=== PATIENT | female | born 1990 | race Caucasian/White ===

== ENCOUNTER 2016-11-23 21:29 | Emergency (ER) | payer BC ==
[~2016-11-23] VITALS: Ht 167.6 cm; Wt 75.0 kg
[~2016-11-23 21:29] MED LIST: BNT20 PO; FAMO20TA11 PO
[2016-11-23 21:38] VITALS: TEMP 37.3; Ht 167.6 cm; Wt 75.0 kg
[2016-11-23] MEDS ORDERED: ONDANSETRON INJ 2 MG/ML 2 ML VIAL ONE (21:54)
[2016-11-23] MEDS ORDERED: MoRPHine SULFATE 4 MG/ML 1 ML CARP\\VIAL ONE (21:54)
[2016-11-23] MEDS ORDERED: SODIUM CHLORIDE 0.9% 1000ML 1,000 ML IV STA ×2 (21:54)
[2016-11-23] MEDS ORDERED: ONDANSETRON INJ 2 MG/ML 2 ML VIAL IV STA (21:54)
[2016-11-23] MEDS ORDERED: MoRPHine SULFATE 4 MG/ML 1 ML CARP\\VIAL IV STA (21:54)
[2016-11-23] MEDS ORDERED: HYDROmorphone INJ 1 MG/ML SYR IV STA (22:13)
[2016-11-23 22:14] LABS: BASO % 0.2 %; BASO ABS # 0.02 K/uL (0-0.2); COMPLETE YES; EOS % 3.6 %; HEMATOCRIT 39.4 % (37-47); IG% 0.1 %; LYMPH % 37.5 %; LYMPH ABS # 4.22 K/uL (1.2-3.4); MEAN CELL VOLUME 84.7 fL (80-100); MEAN CORPUSCULAR HEMOGLOBIN 30.8 pg (25-34); MEAN CORPUSCULAR HGB CONC 36.3 g/dl (32-36); MEAN PLATELET VOLUME 8.6 fL (7.4-10.4); MONO % 7.6 %; PLATELET COUNT 343 K/uL (130-400); RED BLOOD COUNT 4.65 M/uL (4.2-5.4); WHITE BLOOD COUNT 11.24 K/uL (4.8-10.8)
[2016-11-23 22:29] LABS: BUN/CREATININE RATIO 10.5 (10-20); CALCIUM 8.9 mg/dl (8.5-10.1); CREATININE 0.81 mg/dl (0.60-1.20); POTASSIUM 3.4 mmol/L (3.5-5.1); PREG INTERNAL NEGATIVE QC NEG CLEAR BACKGROUND; PREG INTERNAL POSITIVE QC POS CONTROL LINE
[2016-11-23 22:45] LABS: MANUAL MICROSCOPIC REQUIRED? NO; REVIEW REQ? YES; URINE APPEARANCE CLOUDY (CLEAR); URINE BILIRUBIN NEG (NEG); URINE COLOR YELLOW; URINE EPITHELIAL CELL AUTO >30 /lpf (0-5); URINE NITRITE NEG (NEG); URINE SPECIFIC GRAVITY 1.022 (1.000-1.030); UROBILINOGEN NEG (NEG); ZZUR CULT IF INDIC CLEAN CATCH YES
--- NOTE | 2016-11-23 22:56 | DIAGNOSTIC IMAGING REPORT ---
RENAL ULTRASOUND CLINICAL HISTORY: Severe right flank pain. Possible stone. COMPARISON STUDY: CT of the abdomen and pelvis May 23, 2011. TECHNIQUE: Sonography of the kidneys and the urinary bladder was performed. FINDINGS: The right kidney measures 10.7 x 5.4 x 5.9 cm and the left measures 10.4 x 5.8 x 5.1 cm. There is no left hydronephrosis. There is mild right hydronephrosis. A few tiny echogenic foci within the right renal sinus could reflect calculi. The bladder is suboptimally assessed due to underdistention. The ureteral jets were not visualized on this exam. IMPRESSION: 1. Mild right hydronephrosis. No ureteral calculi identified although these may be occult by sonography. 2. Possible right-sided nephrolithiasis. 3. No left hydronephrosis. Electronically signed by: Magen Farooq M.D. 11/23/2016 10:54 PM Dictated Date/Time: 11/23/2016 10:52 PM
[2016-11-24] MEDS ORDERED: KETOROLAC TROMETHAMINE 30 MG/ML VIAL IV STA (00:19)
[2016-11-24] MEDS ORDERED: OXYC1TAB3 PO (00:27)
[2016-11-24] MEDS ORDERED: ONDA4TAB10 SL (00:27)
[2016-11-24] MEDS ORDERED: OXYCODONE IR HOME PACK PO ONE (00:30)
[2016-11-24] MEDS ORDERED: ONDANSETRON HOME PACK 4MG OD TAB PO ONE (00:30)
[2016-11-24 00:50] VITALS: BP 130/75; PULSE 85; O2SAT 97
--- NOTE | 2016-11-24 02:33 | EMERGENCY ROOM VISIT NOTE ---
History First contact with patient: 21:48 Chief Complaint: BACK PAIN Stated Complaint: BAD PAIN IN BACK History of Present Illness The patient is a 26 year old female who presents to the Emergency Room with complaints of severe sudden onset of right flank pain with urinary frequency for the past day. Patient went her family care doctor and they did a urinalysis does not know the results. Patient states pain is severe, 9 out of 10. Nothing makes it better or worse. Patient denies chest pain, dyspnea, fever, chills, vomiting, diarrhea, dysuria, hematuria, abdominal pain, chest pain, dyspnea. No history kidney stones. No recent antibiotics. Review of Systems See HPI for pertinent positives & negatives. A total of 10 systems reviewed and were otherwise negative. Past Medical/Surgical History Appendectomy Social History Smoking Status: Never Smoker Smokeless Tobacco Use: No Drug Use: none Housing Status: lives with family Occupation Status: employed Current/Historical Medications Scheduled Control Pills ( Control Pills), 1 TAB PO DAILY Ondasetron Odt (Zofran Odt), 4 MG SL Q6H Scheduled PRN Oxycodone Immediate Rel Tab (Roxicodone Ir), 1-2 TAB PO Q4H PRN for Severe Pain Allergies Coded Allergies: No Known Allergies (Unverified , 05/22/11) Physical Exam Vital Signs Date Time Temp Pulse Resp B/P Pulse Ox O2 Delivery O2 Flow Rate FiO2 11/24/16 00:50 85 18 130/75 97 11/24/16 00:16 91 18 134/77 98 Room Air 11/23/16 22:56 76 18 140/78 99 Room Air 11/23/16 22:06 Room Air 11/23/16 22:06 94 20 142/94 11/23/16 21:38 37.3 113 20 189/130 98 Room Air Pain Rating (0-10): 9 Physical Exam VITALS: Vitals are noted on the nurse's note and reviewed by myself. Vital signs pretensive. GENERAL: White female writhing in pain unable to get comfortable, in no acute distress, nondiaphoretic, well-developed well-nourished. SKIN: The skin was without rashes, erythema, edema, or bruising. There is no tenting of the skin. Capillary reflex less than 2 seconds. HEAD: Normocephalic atraumatic. EARS: External auditory canals clear, tympanic membranes pearly barboza without erythema or effusion bilaterally. EYES: Pupils equal round and reactive to light and accommodation. Conjunctivae without injection, sclerae without icterus. Extraocular movements intact. NOSE: Patent, turbinates without inflammation or discharge. . MOUTH: Mucous membranes moist. Pharynx without erythema or exudate. Uvula midline. Airway patent. Tongue does not deviate. NECK: Supple without nuchal rigidity. No lymphadenopathy. No thyromegaly. Cervical spine is nontender. No JVD. HEART: Regular rate and rhythm without murmurs gallops or rubs. LUNGS: Clear to auscultation bilaterally without wheezes, rales or rhonchi. No dullness to percussion. No retractions or accessory muscle use. ABDOMEN: Positive bowel sounds x 4. Normal tympanic percussion. Soft, nontender, without masses or organomegaly. Thompson sign negative. No guarding or rebound tenderness. No CVA tenderness MUSCULOSKELETAL: No muscle atrophy, erythema, or edema noted. NEURO: Patient was alert and oriented to person place and time. Normal sensation to light and sharp touch. No focal neurological deficits. Medical Decision & Procedures Laboratory Results 11/23/16 21:54 Red Blood Count 4.65, Mean Corpuscular Volume 84.7, Mean Corpuscular Hemoglobin 30.8, Mean Corpuscular Hemoglobin Concent 36.3, Mean Platelet Volume 8.6, Neutrophils (%) (Auto) 51.0, Lymphocytes (%) (Auto) 37.5, Monocytes (%) (Auto) 7.6, Eosinophils (%) (Auto) 3.6, Basophils (%) (Auto) 0.2, Neutrophils # (Auto) 5.73, Lymphocytes # (Auto) 4.22, Monocytes # (Auto) 0.85, Eosinophils # (Auto) 0.41, Basophils # (Auto) 0.02 11/23/16 21:54 Test 11/23/16 21:54 11/23/16 22:32 White Blood Count 11.24 K/uL (4.8-10.8) Red Blood Count 4.65 M/uL (4.2-5.4) Hemoglobin 14.3 g/dL (12.0-16.0) Hematocrit 39.4 % (37-47) Mean Corpuscular Volume 84.7 fL (80-100) Mean Corpuscular Hemoglobin 30.8 pg (25-34) Mean Corpuscular Hemoglobin Concent 36.3 g/dl (32-36) Platelet Count 343 K/uL (130-400) Mean Platelet Volume 8.6 fL (7.4-10.4) Neutrophils (%) (Auto) 51.0 % Lymphocytes (%) (Auto) 37.5 % Monocytes (%) (Auto) 7.6 % Eosinophils (%) (Auto) 3.6 % Basophils (%) (Auto) 0.2 % Neutrophils # (Auto) 5.73 K/uL (1.4-6.5) Lymphocytes # (Auto) 4.22 K/uL (1.2-3.4) Monocytes # (Auto) 0.85 K/uL (0.11-0.59) Eosinophils # (Auto) 0.41 K/uL (0-0.5) Basophils # (Auto) 0.02 K/uL (0-0.2) RDW Standard Deviation 37.6 fL (36.4-46.3) RDW Coefficient of Variation 12.5 % (11.5-14.5) Immature Granulocyte % (Auto) 0.1 % Immature Granulocyte # (Auto) 0.01 K/uL (0.00-0.02) Anion Gap 11.0 mmol/L (3-11) Est Creatinine Clear Calc Drug Dose 110.8 ml/min Estimated GFR () 117.8 Estimated GFR (Non- 101.7 BUN/Creatinine Ratio 10.5 (10-20) Calcium Level 8.9 mg/dl (8.5-10.1) Total Bilirubin 0.5 mg/dl (0.2-1) Direct Bilirubin 0.1 mg/dl (0-0.2) Aspartate Amino Transf (AST/SGOT) 15 U/L (15-37) Alanine Aminotransferase (ALT/SGPT) 23 U/L (12-78) Alkaline Phosphatase 60 U/L (45-117) Total Protein 7.5 gm/dl (6.4-8.2) Albumin 3.2 gm/dl (3.4-5.0) Lipase 230 U/L (73-393) Human Chorionic Gonadotropin, Qual NEG (NEG) Urine Color YELLOW Urine Appearance CLOUDY (CLEAR) Urine pH 5.0 (4.5-7.5) Urine Specific [place] 1.022 (1.000-1.030) Urine Protein NEG (NEG) Urine Glucose (UA) NEG (NEG) Urine Ketones NEG (NEG) Urine Occult Blood 3+ (NEG) Urine Nitrite NEG (NEG) Urine Bilirubin NEG (NEG) Urine Urobilinogen NEG (NEG) Urine Leukocyte Esterase NEG (NEG) Urine WBC (Auto) 5-10 /hpf (0-5) Urine RBC (Auto) >30 /hpf (0-4) Urine Hyaline Casts (Auto) 1-5 /lpf (0-5) Urine Epithelial Cells (Auto) >30 /lpf (0-5) Urine Bacteria (Auto) 2+ (NEG) Urine Renal Epithelial Cells 0-5 /lpf (0-5) Urine Pathogenic Casts /lpf (0) Medications Administered Medications (Trade) Dose Ordered Sig/Luiza Route Start Time Stop Time Status Last Admin Dose Admin Morphine Sulfate (MoRPHine SULFATE INJ) 4 mg NOW STAT IV 11/23/16 21:54 11/23/16 21:57 DC 11/23/16 22:00 4 MG Ondansetron HCl 4 mg 4 mg NOW STAT IV 11/23/16 21:54 11/23/16 21:57 DC 11/23/16 22:01 4 MG Sodium Chloride 1,000 ml @ 999 mls/hr Q1H1M STAT IV 11/23/16 21:54 11/23/16 22:54 DC 11/23/16 22:00 999 MLS/HR Sodium Chloride (Nss 1000ml) 1,000 ml @ 200 mls/hr Q5H STAT IV 11/23/16 21:54 11/24/16 01:06 DC 11/24/16 00:18 200 MLS/HR Hydromorphone HCl (Dilaudid Inj) 1 mg NOW STAT IV 11/23/16 22:13 11/23/16 22:14 DC 11/23/16 22:18 1 MG Ketorolac Tromethamine (Toradol Inj) 30 mg NOW STAT IV 11/24/16 00:19 11/24/16 00:21 DC 11/24/16 00:44 30 MG Oxycodone HCl (Roxicodone Immediate Rel 5MG Home Pack) 1 homepack UD ONCE PO 11/24/16 00:30 11/24/16 00:31 DC 11/24/16 00:44 1 HOMEPACK Ondansetron HCl (ZOFRAN ODT 4MG Home Pack) 1 homepack UD ONCE PO 11/24/16 00:30 11/24/16 00:31 DC 11/24/16 00:44 1 HOMEPACK ED Course Prior records/ancillary studies reviewed. Triage Nursing notes reviewed. Additional history obtained from the family. The patient's history was concerning for right flank pain. Differential diagnosis: Etiologies such as renal colic, appendicitis, diverticulitis, mesenteric ischemia, aortic pathology, infections, inflammatory bowel disease, PUD, biliary pathology, UTI, as well as others were entertained. Physical examination findings: As above. ER treatment provided: Morphine, Zofran, Dilaudid, urine strainer On reassessment the patient felt better. Diagnostic interpretation by me: The labs revealed mild leukocytosis. Urinalysis revealed hematuria, negative hCG. There was no sign of UTI. Imaging studies: CT of the abdomen and pelvis as above. This is read by stat radiology and concerning for 2 mm distal right UVJ stone [~ rep ct add3]] RENAL ULTRASOUND CLINICAL HISTORY: Severe right flank pain. Possible stone. COMPARISON STUDY: CT of the abdomen and pelvis May 23, 2011. TECHNIQUE: Sonography of the kidneys and the urinary bladder was performed. FINDINGS: The right kidney measures 10.7 x 5.4 x 5.9 cm and the left measures 10.4 x 5.8 x 5.1 cm. There is no left hydronephrosis. There is mild right hydronephrosis. A few tiny echogenic foci within the right renal sinus could reflect calculi. The bladder is suboptimally assessed due to underdistention. The ureteral jets were not visualized on this exam. IMPRESSION: 1. Mild right hydronephrosis. No ureteral calculi identified although these may be occult by sonography. 2. Possible right-sided nephrolithiasis. 3. No left hydronephrosis. Electronically signed by: Magen Farooq M.D. It appears that the patient has isolated renal colic from a right sided stone. Patient felt much better after being medicated as above. Her pain was managed. She is advised to strain until the stone passes. She is advised follow-up urology in a few days or here in the ER sooner for severe pain, fever, chills, vomiting, worsening signs or symptoms or as needed. Patient's urine seemed consistent with contamination. She was well-appearing. She requested to leave. By the evaluation outlined above emergent etiologies such as appendicitis, diverticulitis, mesenteric ischemia, aortic pathology, infections, inflammatory bowel disease, PUD, biliary pathology, UTI, as well as others were deemed relatively unlikely. The pt informed about the findings as listed above. All questions were answered and pleased with the treatment. Return instructions were outlined and the patient was discharged in stable condition. Outpatient prescription management: Oxy IR 5mg 1-2 po Q4 hrs prn Zofran Referral: The pt was referred to [facility] for follow up care regarding their stone. or The patient was referred back to their primary care physician for follow-up in 2 to 3 days for a recheck of the current condition. Case reviewed with my attending Medical Decision As above [place] Drug Monitoring Program Search Results: patient reviewed within database, no issues identified Impression Primary Impression: Renal colic on right side Additional Impression: Right nephrolithiasis Departure Information Dispostion Home / Self-Care Condition GOOD Prescriptions Ondasetron Odt (ZOFRAN ODT) 4 Mg Tab 4 MG SL Q6H, #10 TAB Prov: Amelia Rowan .GEE 11/24/16 Oxycodone Immediate Rel Tab (ROXICODONE IR) 5 Mg Tab 1-2 TAB PO Q4H Y for Severe Pain, #20 TAB Prov: Amelia Rowan PA-C 11/24/16 Referrals Allen Bergeron MD Forms HOME CARE DOCUMENTATION FORM, Work Instructions, Return To Work: 2 days IMPORTANT VISIT INFORMATION Patient Instructions A Signature Page, Kidney Stones - [facility], My [facility] Additional Instructions DO NOT drive, drink alcohol, operate machinery, or perform dangerous activities today. You were given medications in the ER that can affect your ability to safely function or operate a vehicle. Oxycodone Immediate Release (OxyIR) 5mg: Take 1-2 pills every four hours for pain. Avoid alcohol, operating machinery or dangerous equipment, working on ladders or roofs, DRIVING, or situations where being under the influence may be dangerous. It is recommended to use an [id number] stool softener such as Colace, 100mg twice daily while taking this medication to avoid constipation. Zofran 4 mg: Take one every six hours as needed for nausea. Avoid alcohol, operating machinery or dangerous equipment, working on ladders or roofs, DRIVING , or situations where being under the influence may be dangerous. Ibuprofen(Motrin, Advil) may be used for fever or pain. Use 600mg every six hours as needed. Take with food. Avoid using more than 2400mg in a 24 hour period. Do not use 2400mg per day for more than three consecutive days without physician direction. Prolonged inappropriate use can lead to stomach upset or ulcers. This medication can be taken if you need to drive, work, or perform activities which may be dangerous when taking narcotic pain medication. (AND/OR) Acetaminophen(Tylenol) may be used for fever or pain. Use 1000mg every six hours as needed. Avoid using more than 3000mg in a 24 hour period. This medication can be taken if you need to drive, work, or perform activities which may be dangerous when taking narcotic pain medication. Strain your urine and collect all the stones or debris for the urologists. Rest and avoid strenuous activity until your stone passes and symptoms resolve. Drink plenty of fluids. Continue current medications. Return to the ER for worsening abdominal or back pain, vomiting, fevers, passing out, or as needed. Follow up with [facility] tomorrow, [phone], to arrange a visit or family doctor. Work Instructions Return To Work: 2 days Problem Qualifiers
--- NOTE | 2016-11-24 06:52 | DIAGNOSTIC IMAGING REPORT ---
CT SCAN OF THE ABDOMEN AND PELVIS WITHOUT CONTRAST CLINICAL HISTORY: right flank pain COMPARISON STUDY: 06/08/2016 TECHNIQUE: CT scan of the abdomen and pelvis was performed from the lung bases to the proximal femurs. Images are reviewed in the axial, sagittal, and coronal planes. IV contrast was not administered for this examination. CT DOSE: 756.04 mGy.cm FINDINGS: Lower chest: The heart is normal in size and configuration, without pericardial effusion. The lung bases and pleural spaces are clear. Liver: The unenhanced liver is normal in size, contour, and attenuation. There is no intrahepatic biliary ductal dilatation. Gallbladder: Unremarkable. Spleen: Normal in size and attenuation. Pancreas: Unremarkable. Adrenal glands: Unremarkable. Kidneys: There is a 2 mm calculus at the level of the right ureterovesical junction. No renal calculi are visualized. There is minimal fullness the right renal collecting system and right ureter. Bowel: There are no transition zones indicate bowel obstruction. The appendix is not visualized. There are no findings to indicate acute appendicitis. There are no findings to indicate acute diverticulitis. Peritoneum: There is no intraperitoneal free air or abdominal ascites. Vasculature: The abdominal aorta is normal in course and caliber. Adenopathy: None. Pelvic viscera: The bladder, and pelvic viscera are unremarkable. Skeletal structures: There are bilateral L5 pars defects. IMPRESSION: 1. 2 mm calculus at the level of the right ureterovesical junction with minor secondary obstructive changes 2. No evidence of bowel obstruction. No evidence of free air Electronically signed by: Orlando Lopez M.D. 11/24/2016 6:50 AM Dictated Date/Time: 11/24/2016 6:46 AM
[2016-12-22] MEDS ORDERED: PHEN-939 PO (18:19)
[2016-12-22] MEDS ORDERED: FLM4 PO (18:19)
[2016-12-22] MEDS ORDERED: OXYC1TAB3 PO (18:19)
[2017-06-29] MEDS ORDERED: CITA10TA4 PO (12:39)
[2017-06-29] MEDS ORDERED: VALA500T60 PO (12:39)
== END 2016-11-24 00:50 | disposition home or self-care (01) ==
LOC: C.EDB 21:30 → C.EDC 11-24 00:50
DX: N23 Unspecified renal colic (principal); N13.30 Unspecified hydronephrosis

== ENCOUNTER 2016-12-06 15:39 | Emergency (ER) | payer BC ==
[~2016-12-06] VITALS: Ht 157.5 cm; Wt 76.6 kg
[~2016-12-06 15:39] MED LIST changes: -BNT20 PO; -FAMO20TA11 PO; +ONDA4TAB10 SL; +OXYC1TAB3 PO
[2016-12-06 15:42] VITALS: TEMP 37.1; Ht 157.5 cm; Wt 76.6 kg
[2016-12-06] MEDS ORDERED: SODIUM CHLORIDE 0.9% 1000ML 1,000 ML IV STA (15:59)
[2016-12-06] MEDS ORDERED: ONDANSETRON INJ 2 MG/ML 2 ML VIAL IV STA (15:59)
[2016-12-06] MEDS ORDERED: HYDROmorphone INJ 1 MG/ML SYR IV STA (15:59)
[2016-12-06 16:27] LABS: BASO % 0.7 %; BASO ABS # 0.06 K/uL (0-0.2); COMPLETE YES; EOS % 6.5 %; HEMATOCRIT 38.8 % (37-47); IG% 0.1 %; LYMPH % 42.3 %; LYMPH ABS # 3.62 K/uL (1.2-3.4); MEAN CELL VOLUME 83.1 fL (80-100); MEAN CORPUSCULAR HEMOGLOBIN 30.8 pg (25-34); MEAN CORPUSCULAR HGB CONC 37.1 g/dl (32-36); MEAN PLATELET VOLUME 8.9 fL (7.4-10.4); MONO % 6.3 %; NEUT % 44.1 %; PLATELET COUNT 363 K/uL (130-400); RED BLOOD COUNT 4.67 M/uL (4.2-5.4); WHITE BLOOD COUNT 8.55 K/uL (4.8-10.8)
[2016-12-06 16:41] LABS: URINE APPEARANCE CLEAR (CLEAR); URINE BILIRUBIN NEG (NEG); URINE COLOR YELLOW; URINE NITRITE NEG (NEG); URINE SPECIFIC GRAVITY 1.003 (1.000-1.030); UROBILINOGEN NEG (NEG); ZZUR CULT IF INDIC CLEAN CATCH NO
[2016-12-06 16:43] LABS: ALT/SGPT 37 U/L (12-78); AST/SGOT 18 U/L (15-37); BLOOD UREA NITROGEN 10 mg/dl (7-18); BUN/CREATININE RATIO 12.1 (10-20); CALCIUM 9.1 mg/dl (8.5-10.1); CARBON DIOXIDE 23 mmol/L (21-32); CHLORIDE 107 mmol/L (98-107); GLUCOSE 101 mg/dl (70-99); POTASSIUM 3.4 mmol/L (3.5-5.1); SODIUM 141 mmol/L (136-145)
[2016-12-06 16:45] LABS: MANUAL MICROSCOPIC REQUIRED? NO; REVIEW REQ? NO
[2016-12-06 16:46] LABS: ALKALINE PHOSPHATASE 63 U/L (45-117)
--- NOTE | 2016-12-06 17:36 | DIAGNOSTIC IMAGING REPORT ---
KUB CLINICAL HISTORY: Right flank pain. FINDINGS: 2 AP abdominal radiographs are correlated with abdominal CT dated 11/23/2016. There is a nonobstructed abdominal bowel gas pattern. Mild to moderate colonic fecal retention is observed. There is no radiographic evidence of nephrolithiasis. The bony structures are intact. The lung bases are clear as visualized. IMPRESSION: 1. There is no radiographic evidence of nephrolithiasis. The tiny obstructing calculus at the right vesicoureteral junction seen by CT on 11/23/2016 was not visualized by x-ray. 2. Nonobstructed abdominal bowel gas pattern. Electronically signed by: Anibal Esteban M.D. 12/06/2016 5:35 PM Dictated Date/Time: 12/06/2016 5:33 PM
--- NOTE | 2016-12-06 18:16 | DIAGNOSTIC IMAGING REPORT ---
ULTRASOUND KIDNEYS AND BLADDER CLINICAL HISTORY: Right flank pain. COMPARISON STUDY: Abdominal CT dated 11/23/2016. TECHNIQUE: Real-time, grayscale, and color flow sonography of the kidneys and bladder is performed. Images are reviewed in the transverse and longitudinal planes. FINDINGS: Kidneys: The kidneys are normal in size and echotexture. The right kidney measures 11.5 x 4.9 x 7.1 cm and the left kidney measures 11.0 x 5.8 x 5.8 cm. There is mild fullness of the right renal collecting system without evidence of hydronephrosis. No shadowing renal calculi are identified. There is no sonographic evidence of contour deforming renal mass lesion. No perinephric fluid is identified. Bladder: The bladder is normal in appearance. Bilateral ureteral jets were seen. Intraluminal debris is noted in the bladder. A shadowing calculus is suspected at the right vesicoureteral junction. Upper abdomen: Hepatomegaly and hepatic steatosis are identified. IMPRESSION: 1. The kidneys are normal in size. There is mild fullness of the right renal collecting system without sonographic evidence of hydronephrosis. 2. An obstructing calculus is suspected at the right vesicoureteral junction. This likely represents the obstructing stone seen on 11/23/2016. 3. Minimal intraluminal debris is noted in the bladder. Correlation with urinalysis will be required. 4. Both ureteral jets were identified. 5. Hepatomegaly and hepatic steatosis. Electronically signed by: Anibal Esteban M.D. 12/06/2016 6:14 PM Dictated Date/Time: 12/06/2016 6:12 PM
[2016-12-06 18:47] VITALS: BP 135/78; PULSE 72; O2SAT 97
[2016-12-06] MEDS ORDERED: TAMS0.4C38 PO (18:57)
[2016-12-06] MEDS ORDERED: OXYC1TAB3 PO (18:57)
[2016-12-06] MEDS ORDERED: BCPILLS PO (21:52)
--- NOTE | 2016-12-06 22:04 | EMERGENCY ROOM VISIT NOTE ---
History Report prepared by Clara: Stacey Pizarro Under the Supervision of: Dr. Zeke Quintana D.O. First contact with patient: 15:48 Chief Complaint: KIDNEY STONE Stated Complaint: KIDNEY STONES, SEVERE BACK PAIN History of Present Illness The patient is a 26 year old female who presents to the Emergency Room with complaints of persistent right sided back pain that began this afternoon. Her current discomfort is a 9/10 in severity. The patient notes that she was on her way to work when she developed the pain. She has also had urinary retention. The patient was in the emergency room 2 weeks ago for very similar but slightly more intense pain. She had a CT which revealed mild right hydronephrosis and a 2mm stone in the distal UVJ. Her pain was relieved with Dilaudid. She was told that she would pass the stone in a few days, but she strained her urine and did not see any stones. The pain did go away after 2-3 days. She has not had any issues since then until today. The patient does not have her appendix but does have her gallbladder. Pt denies headache, change in vision, fevers, chest pain, shortness of breath, nausea, vomiting, diarrhea, pain with urination, and melena. Source of History: patient Onset: this afternoon, 30 minutes ago Position: other (right back) Symptom Intensity: 9/10 Timing: other (persistent) Review of Systems See HPI for pertinent positives & negatives. A total of 10 systems reviewed and were otherwise negative. Past Medical & Surgical Medical Problems: (1) Right nephrolithiasis Surgical Problems: (1) History of appendectomy Family History Patient reports no known family medical history. Social History Smoking Status: Never Smoker Drug Use: none Housing Status: lives with family Occupation Status: employed Current/Historical Medications Scheduled Control Pills ( Control Pills), 1 TAB PO DAILY Ondasetron Odt (Zofran Odt), 4 MG SL Q6H Tamsulosin Hcl (Flomax), 0.4 MG PO DAILY Scheduled PRN Oxycodone Immediate Rel Tab (Roxicodone Ir), 1-2 TAB PO Q4H PRN for Severe Pain Oxycodone Immediate Rel Tab (Roxicodone Ir), 1-2 TAB PO Q4H PRN for Severe Pain Allergies Coded Allergies: No Known Allergies (Unverified , 7/9/11) Physical Exam Vital Signs Date Time Temp Pulse Resp B/P Pulse Ox O2 Delivery O2 Flow Rate FiO2 12/06/16 18:47 72 18 135/78 97 Room Air 12/06/16 17:40 89 20 115/68 99 Room Air 12/06/16 16:28 90 12/06/16 15:42 37.1 110 18 165/102 98 Room Air Physical Exam GENERAL: Sitting up in bed, holding right flank, moderate distress, nontoxic. EYE EXAM: normal conjunctiva OROPHARYNX: no exudate, no erythema, lips, buccal mucosa, and tongue normal and mucous membranes are moist NECK: supple, no nuchal rigidity, no adenopathy, non-tender LUNGS: Clear to auscultation. Normal chest wall mechanics HEART: no murmurs, S1 normal and S2 normal ABDOMEN: abdomen soft, non-tender, normo-active bowel sounds, no masses, no rebound or guarding. BACK: Back is symmetrical on inspection and there is no deformity, no midline tenderness, tender to palpation of right flank. SKIN: no rashes and no bruising UPPER EXTREMITIES: upper extremities are grossly normal. LOWER EXTREMITIES: No pitting edema. NEURO EXAM: Normal sensorium, cranial nerves II-XII grossly intact, normal speech, no gross weakness of arms, no gross weakness of legs. Medical Decision & Procedures ER Provider Diagnostic Interpretation: Xray results per the radiologist and my interpretation. Other results have been interpreted by the radiologist and reviewed by me. ULTRASOUND KIDNEYS AND BLADDER CLINICAL HISTORY: Right flank pain. COMPARISON STUDY: Abdominal CT dated 11/23/2016. TECHNIQUE: Real-time, grayscale, and color flow sonography of the kidneys and bladder is performed. Images are reviewed in the transverse and longitudinal planes. FINDINGS: Kidneys: The kidneys are normal in size and echotexture. The right kidney measures 11.5 x 4.9 x 7.1 cm and the left kidney measures 11.0 x 5.8 x 5.8 cm. There is mild fullness of the right renal collecting system without evidence of hydronephrosis. No shadowing renal calculi are identified. There is no sonographic evidence of contour deforming renal mass lesion. No perinephric fluid is identified. Bladder: The bladder is normal in appearance. Bilateral ureteral jets were seen. Intraluminal debris is noted in the bladder. A shadowing calculus is suspected at the right vesicoureteral junction. Upper abdomen: Hepatomegaly and hepatic steatosis are identified. IMPRESSION: 1. The kidneys are normal in size. There is mild fullness of the right renal collecting system without sonographic evidence of hydronephrosis. 2. An obstructing calculus is suspected at the right vesicoureteral junction. This likely represents the obstructing stone seen on 11/23/2016. 3. Minimal intraluminal debris is noted in the bladder. Correlation with urinalysis will be required. 4. Both ureteral jets were identified. 5. Hepatomegaly and hepatic steatosis. Electronically signed by: Anibal Esteban M.D. 12/06/2016 6:14 PM Dictated Date/Time: 12/06/2016 6:12 PM KUB CLINICAL HISTORY: Right flank pain. FINDINGS: 2 AP abdominal radiographs are correlated with abdominal CT dated 11/23/2016. There is a nonobstructed abdominal bowel gas pattern. Mild to moderate colonic fecal retention is observed. There is no radiographic evidence of nephrolithiasis. The bony structures are intact. The lung bases are clear as visualized. IMPRESSION: 1. There is no radiographic evidence of nephrolithiasis. The tiny obstructing calculus at the right vesicoureteral junction seen by CT on 11/23/2016 was not visualized by x-ray. 2. Nonobstructed abdominal bowel gas pattern. Electronically signed by: Anibal Esteban M.D. 12/06/2016 5:35 PM Dictated Date/Time: 12/06/2016 5:33 PM Laboratory Results 12/06/16 16:10 Red Blood Count 4.67, Mean Corpuscular Volume 83.1, Mean Corpuscular Hemoglobin 30.8, Mean Corpuscular Hemoglobin Concent 37.1, Mean Platelet Volume 8.9, Neutrophils (%) (Auto) 44.1, Lymphocytes (%) (Auto) 42.3, Monocytes (%) (Auto) 6.3, Eosinophils (%) (Auto) 6.5, Basophils (%) (Auto) 0.7, Neutrophils # (Auto) 3.76, Lymphocytes # (Auto) 3.62, Monocytes # (Auto) 0.54, Eosinophils # (Auto) 0.56, Basophils # (Auto) 0.06 12/06/16 16:10 Test 12/06/16 16:00 12/06/16 16:10 Urine Color YELLOW Urine Appearance CLEAR (CLEAR) Urine pH 8.0 (4.5-7.5) Urine Specific [place] 1.003 (1.000-1.030) Urine Protein NEG (NEG) Urine Glucose (UA) NEG (NEG) Urine Ketones NEG (NEG) Urine Occult Blood NEG (NEG) Urine Nitrite NEG (NEG) Urine Bilirubin NEG (NEG) Urine Urobilinogen NEG (NEG) Urine Leukocyte Esterase NEG (NEG) Urine WBC (Auto) 1-5 /hpf (0-5) Urine RBC (Auto) 0-4 /hpf (0-4) Urine Hyaline Casts (Auto) 1-5 /lpf (0-5) Urine Epithelial Cells (Auto) 10-20 /lpf (0-5) Urine Bacteria (Auto) NEG (NEG) Urine Test NEG (NEG) White Blood Count 8.55 K/uL (4.8-10.8) Red Blood Count 4.67 M/uL (4.2-5.4) Hemoglobin 14.4 g/dL (12.0-16.0) Hematocrit 38.8 % (37-47) Mean Corpuscular Volume 83.1 fL (80-100) Mean Corpuscular Hemoglobin 30.8 pg (25-34) Mean Corpuscular Hemoglobin Concent 37.1 g/dl (32-36) Platelet Count 363 K/uL (130-400) Mean Platelet Volume 8.9 fL (7.4-10.4) Neutrophils (%) (Auto) 44.1 % Lymphocytes (%) (Auto) 42.3 % Monocytes (%) (Auto) 6.3 % Eosinophils (%) (Auto) 6.5 % Basophils (%) (Auto) 0.7 % Neutrophils # (Auto) 3.76 K/uL (1.4-6.5) Lymphocytes # (Auto) 3.62 K/uL (1.2-3.4) Monocytes # (Auto) 0.54 K/uL (0.11-0.59) Eosinophils # (Auto) 0.56 K/uL (0-0.5) Basophils # (Auto) 0.06 K/uL (0-0.2) RDW Standard Deviation 36.8 fL (36.4-46.3) RDW Coefficient of Variation 12.1 % (11.5-14.5) Immature Granulocyte % (Auto) 0.1 % Immature Granulocyte # (Auto) 0.01 K/uL (0.00-0.02) Anion Gap 11.0 mmol/L (3-11) Est Creatinine Clear Calc Drug Dose 103.9 ml/min Estimated GFR () 119.6 Estimated GFR (Non- 103.2 BUN/Creatinine Ratio 12.1 (10-20) Calcium Level 9.1 mg/dl (8.5-10.1) Total Bilirubin 0.4 mg/dl (0.2-1) Direct Bilirubin < 0.1 mg/dl (0-0.2) Aspartate Amino Transf (AST/SGOT) 18 U/L (15-37) Alanine Aminotransferase (ALT/SGPT) 37 U/L (12-78) Alkaline Phosphatase 63 U/L (45-117) Total Protein 7.4 gm/dl (6.4-8.2) Albumin 3.2 gm/dl (3.4-5.0) Lipase 209 U/L (73-393) Laboratory results per my review. Medications Administered Medications (Trade) Dose Ordered Sig/Luiza Route Start Time Stop Time Status Last Admin Dose Admin Sodium Chloride (Nss 1000ml) 1,000 ml @ 999 mls/hr Q1H1M STAT IV 12/06/16 15:59 12/06/16 16:59 DC 12/06/16 16:07 999 MLS/HR Ondansetron HCl (Zofran Inj) 4 mg NOW STAT IV 12/06/16 15:59 12/06/16 16:01 DC 12/06/16 16:07 4 MG Hydromorphone HCl (Dilaudid Inj) 1 mg NOW STAT IV 12/06/16 15:59 12/06/16 16:01 DC 12/06/16 16:07 1 MG ED Course ED COURSE: Vital signs were reviewed and showed normal vitals. The patients medical record was reviewed The above diagnostic studies were performed and reviewed. ED treatments and interventions as stated above. 1553: The patient was evaluated in room C9. A complete history and physical examination was performed. 1559: Ordered Dilaudid Inj 1 mg IV, Zofran Inj 4 mg IV, NSS 1000 ml @ 999 mls/ hr IV. 1737: I reassessed the patient. She was doing better. 1830: I discussed the case with Dr. Cheri M[facility]. The patient will be evaluated for further management. 1900: Upon reevaluation, the patient is feeling better.I discussed my findings with the patient and she understands and agrees with the treatment plan. Based on the patients age, coexisting illnesses, exam and lab findings the decision to treat as an outpatient was made. The patient remained stable while under my care. The patient appeared well at the time of discharge. Medical Decision Differential diagnoses includes but is not limited to gastritis, peptic ulcer disease, GERD, gallbladder disease, pancreatitis, small bowel obstruction, acute coronary syndrome, pericarditis, ischemic bowel, irritable bowel disease, irritable bowel syndrome, appendicitis, diverticulitis, malignancy, hernia, urinary tract infection, torsion, /ectopic , perforation, trauma, infectious. Patient is a 26-year-old female who presents the ER for severe right flank pain which started earlier today. Patient notes that she had the same symptoms exactly 2 weeks ago where she was seen in the ER and had a CT of her abdomen pelvis which showed a 2 mm distal right ureteral stone. Labs today show no significant leukocytosis or anemia, BMP along with LFTs, bilirubin and lipase is unremarkable and UA was negative. was negative. KUB did not visualize the stone. Ultrasound showed slight fullness of the renal pelvis along with possible visualization of the distal stone at the right UVJ. Patient has no other complaints at this time following IV Dilaudid. She is monitored for several hours. She currently already has an appointment with urology. I contact them to see if her bleeding could be moved up but at this time she wants to give her a full month possible passed stone. Patient was discharged with Flomax and OxyIR. I do believe that this is a stone although her urine was completely clean without RBCs as this feels exactly like her previous stone which I feel just has not passed yet and is in the same location and the ultrasound suggests this as well. Discussed with Pt concerning signs and symptoms to watch out for. Pt was instructed to follow up with their PCP and discussed with the patient their option to return to the ED at anytime for persistent or worsening symptoms. The appropriate anticipatory guidance and out- patient management, including indications for return to the emergency department , were explained at length to the patient and understood. Consults Time Called: 182 Consulting Physician: Dr. Cheri Meredith [facility] Returned Call: [phone] I discussed the case with her. The patient will be evaluated for further management. Impression Primary Impression: Renal colic on right side Additional Impression: Hypokalemia Scribe Attestation The scribe's documentation has been prepared under my direction and personally reviewed by me in its entirety. I confirm that the note above accurately reflects all work, treatment, procedures, and medical decision making performed by me. Departure Information Dispostion Home / Self-Care Prescriptions Oxycodone Immediate Rel Tab (ROXICODONE IR) 5 Mg Tab 1-2 TAB PO Q4H Y for Severe Pain, #24 TAB Prov: Zeke Quintana, DO 12/06/16 Tamsulosin Hcl (FLOMAX) 0.4 Mg Cap 0.4 MG PO DAILY, #10 CAP Prov: Zeke Quintana, DO 12/06/16 Referrals Rebekah Chakraborty (PCP) Patient Instructions Kidney Stones - [facility], [facility] Additional Instructions Please follow up with your primary care doctor with in the next 24 hours. Any worsening of your symptoms, please return to the ED immediately. This includes worsening pain, passing out, fevers greater than 100.4, persistent nausea vomiting, or any other concerning signs or symptoms from your standpoint. You were given medications during this visit that will inhibit your ability to drive, operate machinery and work. Please do NOT drive, operate machinery or work for the next 12hrs. You were also given a prescription for a narcotic/OXY IR. While taking this medication you should also not drive, operate machinery and or work. Please make sure that follow-up with urology within the next 2-4 weeks. You may benefit from calling the office and try to get an earlier appointment. Problem Qualifiers
[2016-12-22] MEDS ORDERED: OXYC1TAB3 PO (18:19)
[2016-12-22] MEDS ORDERED: PHEN-939 PO (18:19)
[2016-12-22] MEDS ORDERED: FLM4 PO (18:19)
[2017-06-29] MEDS ORDERED: VALA500T60 PO (12:39)
[2017-06-29] MEDS ORDERED: CITA10TA4 PO (12:39)
== END 2016-12-06 19:13 | disposition home or self-care (01) ==
LOC: C.EDB 15:40 → C.EDC 19:13
DX: N23 Unspecified renal colic (principal); E87.6 Hypokalemia; Z87.442 Personal history of urinary calculi; Z79.3 Long term (current) use of hormonal contraceptives

== ENCOUNTER 2016-12-09 08:02 | Emergency (ER) | payer BC ==
[~2016-12-09] VITALS: Ht 157.5 cm; Wt 75.9 kg
[~2016-12-09 08:02] MED LIST changes: +BCPILLS PO; +TAMS0.4C38 PO
[2016-12-09 08:04] VITALS: TEMP 37.1; Ht 157.5 cm; Wt 75.9 kg
[2016-12-09] MEDS ORDERED: MoRPHine SULFATE 4 MG/ML 1 ML CARP\\VIAL IV STA (08:22)
[2016-12-09] MEDS ORDERED: SODIUM CHLORIDE 0.9% 1000ML 1,000 ML IV STA (08:22)
[2016-12-09] MEDS ORDERED: ONDANSETRON INJ 2 MG/ML 2 ML VIAL IV STA (08:22)
[2016-12-09 08:43] LABS: BASO % 0.3 %; BASO ABS # 0.04 K/uL (0-0.2); COMPLETE YES; EOS % 4.1 %; HEMATOCRIT 38.7 % (37-47); IG% 0.3 %; LYMPH ABS # 4.04 K/uL (1.2-3.4); MEAN CELL VOLUME 82.7 fL (80-100); MEAN CORPUSCULAR HEMOGLOBIN 30.3 pg (25-34); MEAN CORPUSCULAR HGB CONC 36.7 g/dl (32-36); MEAN PLATELET VOLUME 8.7 fL (7.4-10.4); MONO % 6.3 %; PLATELET COUNT 382 K/uL (130-400); RED BLOOD COUNT 4.68 M/uL (4.2-5.4); WHITE BLOOD COUNT 11.89 K/uL (4.8-10.8)
[2016-12-09 08:46] LABS: URINE APPEARANCE CLOUDY (CLEAR); URINE BILIRUBIN NEG (NEG); URINE COLOR DK YELLOW; URINE EPITHELIAL CELL AUTO >30 /lpf (0-5); URINE NITRITE NEG (NEG); URINE SPECIFIC GRAVITY 1.023 (1.000-1.030); UROBILINOGEN NEG (NEG); ZZUR CULT IF INDIC CLEAN CATCH YES
[2016-12-09 08:49] LABS: MANUAL MICROSCOPIC REQUIRED? NO; REVIEW REQ? NO
[2016-12-09 08:50] LABS: BUN/CREATININE RATIO 10.2 (10-20); CALCIUM 9.1 mg/dl (8.5-10.1); CREATININE 0.84 mg/dl (0.60-1.20)
[2016-12-09 08:53] LABS: ALB/GLOB RATIO 0.7 (0.9-2)
--- NOTE | 2016-12-09 09:03 | DIAGNOSTIC IMAGING REPORT ---
RENAL ULTRASOUND HISTORY: RIGHT flank pain - known stone COMPARISON: Renal ultrasound 12/06/2016. FINDINGS: Right kidney: 9.7 cm. No hydronephrosis. Normal corticomedullary differentiation and cortical thickness. Left kidney: 10.2 cm. No hydronephrosis. Normal corticomedullary differentiation and cortical thickness. Bladder: The patient recently voided. Therefore, the bladder is underdistended and not well assessed. However, both ureters ureteral jets were likely identified. No bladder wall thickening. IMPRESSION: Normal renal ultrasound. No hydronephrosis. Electronically signed by: Néstor Starr M.D. 12/09/2016 9:02 AM Dictated Date/Time: 12/09/2016 9:00 AM
--- NOTE | 2016-12-09 09:13 | DIAGNOSTIC IMAGING REPORT ---
KUB HISTORY: RIGHT Flank pain - known stone COMPARISON: KUB 12/06/2016. FINDINGS: The bowel gas pattern is unremarkable. There are no dilated loops of small bowel to suggest an obstruction. No renal calculi. No ureteral calculi. No pneumoperitoneum or pneumatosis. IMPRESSION: No renal or ureteral stones. Electronically signed by: Néstor Starr M.D. 12/09/2016 9:11 AM Dictated Date/Time: 12/09/2016 9:10 AM
[2016-12-09] MEDS ORDERED: CEFTRIAXONE SOD INJ 1 GM ADDVIAL IV STA (09:35)
[2016-12-09] MEDS ORDERED: PHEN-876 PO (10:30)
[2016-12-09] MEDS ORDERED: CIPR-255 PO (10:30)
--- NOTE | 2016-12-09 10:31 | EMERGENCY ROOM VISIT NOTE ---
History First contact with patient: 08:09 Chief Complaint: KIDNEY STONE Stated Complaint: KIDNEY STONES History of Present Illness The patient is a 26 year old female who presents to the Emergency Department by private vehicle for evaluation of her ongoing flank pain and possible kidney stones. This is her third trip since 11/23 for the same symptoms. She reports persistent RIGHT-sided flank pain. She reports that she has used oxycodone with mild relief of symptoms. She reports increasing urinary frequency and burning with urination. The patient rates her current discomfort as a 7/10. She has been unable to get into the urologist since her most recent visits. The patient rates her current discomfort as a 7/10. She denies any fevers, chills, nausea, vomiting, or abdominal pain. Review of Systems A complete 10-point Review of Systems was discussed with the patient, with pertinent positives and negatives listed in the History of Present Illness. All remaining Review of Systems questions can be considered negative unless otherwise specified. Past Medical/Surgical History Medical Problems: (1) Right nephrolithiasis Surgical Problems: (1) History of appendectomy Family History Patient reports no known family medical history. Social History Smoking Status: Never Smoker Drug Use: none Housing Status: lives with family Occupation Status: employed Current/Historical Medications Scheduled Control Pills ( Control Pills), 1 TAB PO DAILY Ciprofloxacin Hcl (Cipro), 500 MG PO BID Ondasetron Odt (Zofran Odt), 4 MG SL Q6H Tamsulosin Hcl (Flomax), 0.4 MG PO DAILY Scheduled PRN Oxycodone Immediate Rel Tab (Roxicodone Ir), 1-2 TAB PO Q4H PRN for Severe Pain Allergies Coded Allergies: No Known Allergies (Unverified , 05/22/11) Physical Exam Vital Signs Date Time Temp Pulse Resp B/P Pulse Ox O2 Delivery O2 Flow Rate FiO2 12/09/16 10:39 76 16 131/71 96 12/09/16 09:22 94 18 119/65 98 Room Air 12/09/16 08:04 37.1 98 18 149/98 96 Room Air Pain Rating (0-10): 7 Physical Exam VITAL SIGNS - Vital signs and nursing notes were reviewed. GENERAL - 26-year-old female appearing her stated age who is in no acute distress. Communicates well with provider and answers LUNGS - Chest wall symmetric without accessory muscle use, intercostals retractions, or central cyanosis. Normal vesicular breath sounds CTA B/L. No wheezes, rales, or rhonchi appreciated. CARDIAC - RRR with S1/S2. No murmur, rubs, or gallops appreciated. ABDOMEN - Abdominal contour flat and without pulsations or visible masses. BS normoactive all four quadrants. No tenderness to palpation appreciated throughout. No guarding. No Rebound Tenderness. Negative Rovsing's. Negative Thompson's. No palpable masses, hepatosplenomegaly, or ascites noted. EXTREMITIES - No clubbing or peripheral cyanosis. No pretibial edema present. +3 /5 radial and dorsalis pedis pulses palpated throughout. PSYCH - A&Ox3 and cooperates fully with examiner. Pt is very pleasant and interacts well with examiner. Medical Decision & Procedures ER Provider Diagnostic Interpretation: Radiological imaging and reports were reviewed by myself. Radiologist's Interpretation as follows: KUB HISTORY: RIGHT Flank pain - known stone COMPARISON: KUB 12/06/2016. FINDINGS: The bowel gas pattern is unremarkable. There are no dilated loops of small bowel to suggest an obstruction. No renal calculi. No ureteral calculi. No pneumoperitoneum or pneumatosis. IMPRESSION: No renal or ureteral stones. RENAL ULTRASOUND HISTORY: RIGHT flank pain - known stone COMPARISON: Renal ultrasound 12/06/2016. FINDINGS: Right kidney: 9.7 cm. No hydronephrosis. Normal corticomedullary differentiation and cortical thickness. Left kidney: 10.2 cm. No hydronephrosis. Normal corticomedullary differentiation and cortical thickness. Bladder: The patient recently voided. Therefore, the bladder is underdistended and not well assessed. However, both ureters ureteral jets were likely identified. No bladder wall thickening. IMPRESSION: Normal renal ultrasound. No hydronephrosis. Laboratory Results 12/09/16 08:15 Red Blood Count 4.68, Mean Corpuscular Volume 82.7, Mean Corpuscular Hemoglobin 30.3, Mean Corpuscular Hemoglobin Concent 36.7, Mean Platelet Volume 8.7, Neutrophils (%) (Auto) 55.0, Lymphocytes (%) (Auto) 34.0, Monocytes (%) (Auto) 6.3, Eosinophils (%) (Auto) 4.1, Basophils (%) (Auto) 0.3, Neutrophils # (Auto) 6.54, Lymphocytes # (Auto) 4.04, Monocytes # (Auto) 0.75, Eosinophils # (Auto) 0.49, Basophils # (Auto) 0.04 12/09/16 08:15 Test 12/09/16 08:15 12/09/16 08:30 White Blood Count 11.89 K/uL (4.8-10.8) Red Blood Count 4.68 M/uL (4.2-5.4) Hemoglobin 14.2 g/dL (12.0-16.0) Hematocrit 38.7 % (37-47) Mean Corpuscular Volume 82.7 fL (80-100) Mean Corpuscular Hemoglobin 30.3 pg (25-34) Mean Corpuscular Hemoglobin Concent 36.7 g/dl (32-36) Platelet Count 382 K/uL (130-400) Mean Platelet Volume 8.7 fL (7.4-10.4) Neutrophils (%) (Auto) 55.0 % Lymphocytes (%) (Auto) 34.0 % Monocytes (%) (Auto) 6.3 % Eosinophils (%) (Auto) 4.1 % Basophils (%) (Auto) 0.3 % Neutrophils # (Auto) 6.54 K/uL (1.4-6.5) Lymphocytes # (Auto) 4.04 K/uL (1.2-3.4) Monocytes # (Auto) 0.75 K/uL (0.11-0.59) Eosinophils # (Auto) 0.49 K/uL (0-0.5) Basophils # (Auto) 0.04 K/uL (0-0.2) RDW Standard Deviation 36.5 fL (36.4-46.3) RDW Coefficient of Variation 12.2 % (11.5-14.5) Immature Granulocyte % (Auto) 0.3 % Immature Granulocyte # (Auto) 0.03 K/uL (0.00-0.02) Anion Gap 11.0 mmol/L (3-11) Est Creatinine Clear Calc Drug Dose 98.5 ml/min Estimated GFR () 112.7 Estimated GFR (Non- 97.3 BUN/Creatinine Ratio 10.2 (10-20) Calcium Level 9.1 mg/dl (8.5-10.1) Magnesium Level 2.0 mg/dl (1.8-2.4) Total Bilirubin 0.5 mg/dl (0.2-1) Aspartate Amino Transf (AST/SGOT) 27 U/L (15-37) Alanine Aminotransferase (ALT/SGPT) 45 U/L (12-78) Alkaline Phosphatase 68 U/L (45-117) Total Protein 7.7 gm/dl (6.4-8.2) Albumin 3.3 gm/dl (3.4-5.0) Globulin 4.4 gm/dl (2.5-4.0) Albumin/Globulin Ratio 0.7 (0.9-2) Lipase 98 U/L (73-393) Urine Color DK YELLOW Urine Appearance CLOUDY (CLEAR) Urine pH 6.0 (4.5-7.5) Urine Specific [place] 1.023 (1.000-1.030) Urine Protein NEG (NEG) Urine Glucose (UA) NEG (NEG) Urine Ketones NEG (NEG) Urine Occult Blood 1+ (NEG) Urine Nitrite NEG (NEG) Urine Bilirubin NEG (NEG) Urine Urobilinogen NEG (NEG) Urine Leukocyte Esterase TRACE (NEG) Urine WBC (Auto) 5-10 /hpf (0-5) Urine RBC (Auto) >30 /hpf (0-4) Urine Hyaline Casts (Auto) 5-10 /lpf (0-5) Urine Epithelial Cells (Auto) >30 /lpf (0-5) Urine Bacteria (Auto) 2+ (NEG) Urine Test NEG (NEG) Date/Time Source Procedure Growth Status 12/09/16 08:30 Urine , Clean Catch Urine Culture - Final MORE THAN THREE TYPES OF ORGANISMS OH... Complete Medications Administered Medications (Trade) Dose Ordered Sig/Luiza Route Start Time Stop Time Status Last Admin Dose Admin Sodium Chloride (Nss 1000ml) 1,000 ml @ 999 mls/hr Q1H1M STAT IV 12/09/16 08:22 12/09/16 09:22 DC 12/09/16 08:36 999 MLS/HR Morphine Sulfate (MoRPHine SULFATE INJ) 4 mg NOW STAT IV 12/09/16 08:22 12/09/16 08:25 DC 12/09/16 08:35 4 MG Ondansetron HCl (Zofran Inj) 4 mg NOW STAT IV 12/09/16 08:22 12/09/16 08:25 DC 12/09/16 08:34 4 MG Ceftriaxone Sodium (Rocephin Inj) 1 gm NOW STAT IV 12/09/16 09:35 12/09/16 09:37 DC 12/09/16 09:42 1 GM ED Course Patient was seen and evaluated by myself. Labs were drawn, saline lock complains. Previous emergency department visit notes were reviewed. The patient was hydrated with a 1000 mL normal saline bolus. She received 4 mg morphine and 4 mg Zofran. Laboratory results demonstrate a mild leukocytosis. The patient is not anemic. There are no significant electrolyte abnormalities. Urinalysis concerning for possible infection. Imaging results above. Patient was treated with 1 g of Rocephin intravenously. Case management was able to obtain an appointment for the patient for follow-up. Patient and mother were educated on today's findings. The patient will be placed on Cipro in the outpatient setting. She'll follow up with urology or return for any changing/worsening symptoms. Patient discharged home afebrile and in good condition. Medical Decision Given the patient's presentation and stated complaints, I did elect to perform the above-mentioned workup. The patient presents today with ongoing RIGHT- sided flank pain. She has no fever. She does have a mild leukocytosis. She was known to have a retained stone as recent as 3 days ago. Her urinalysis concerning for infection today. No residual stone is present this point. The patient likely has developed a secondary UTI. She'll be placed on Cipro. She was covered with Rocephin intravenously. She will follow-up with urology from today's visit. She will return for any changing/worsening symptoms. Patient discharged home afebrile and in good condition. In the evaluation and treatment of this patient, the following differential diagnoses were considered: Bladder Cancer, Chlamydial Genitourinary Infection, Cystitis, Herpes Simplex, Interstitial Cystitis, PID, Pyelonephritis, Urethritis , or Vaginitis. Impression Primary Impression: Complicated UTI (urinary tract infection) Departure Information Dispostion Home / Self-Care Condition GOOD Prescriptions Ciprofloxacin Hcl (CIPRO) 500 Mg Tab 500 MG PO BID for 7 Days, #14 TAB Prov: Delon Tena, GEE 12/09/16 Referrals Rebekah Chakraborty (PCP) Patient Instructions ED UTI Pyelonephritis Female, My [facility] Additional Instructions You've been seen in the emergency department today for your UTI and recently passed kidney stone. You were prescribed Cipro to be taken as prescribed. This is an antibiotic. All antibiotics have the potential to cause diarrhea. Stop this medication and contact a medical provider if you were to develop any significant adverse side effects including: wheezing, shortness of breath, passing out, vomiting, or a diffuse rash. Always take antibiotics as directed and COMPLETE the ENTIRE course regardless of the improvement of your symptoms. You have been prescribed Pyridium to be taken as prescribed. This medicine will help with the urinary symptoms that you have been experiencing. Be aware that Pyridium may turn your urine a red-orange or brown color. This effect is harmless. For pain control, you can use the following [id number] medicines (if >12 yo): - Regular strength (325mg/tab) Tylenol (acetaminophen) 2 tabs every 4-6 hours as needed. Do not exceed 12 tablets in a 24 hour period. Avoid taking more than 4 grams (4000 mg) of Tylenol per day. This includes any other sources of acetaminophen you may take on a regular basis. - Regular strength (200 mg/tab) Advil (ibuprofen) 1-2 tabs every 4-6 hours as needed. Do not exceed a dose of 3200 mg per day. Keep your follow-up appointment with urology as provided today. Return for any changing or worsening symptoms.
[2016-12-09 10:39] VITALS: BP 131/71; PULSE 76; O2SAT 96
[2016-12-21] MEDS ORDERED: BIRTH CONTROL PILLS PO SCH (09:00)
[2016-12-22] MEDS ORDERED: PHEN-939 PO (18:19)
[2016-12-22] MEDS ORDERED: OXYC1TAB3 PO (18:19)
[2016-12-22] MEDS ORDERED: FLM4 PO (18:19)
[2017-06-29] MEDS ORDERED: VALA500T60 PO (12:39)
[2017-06-29] MEDS ORDERED: CITA10TA4 PO (12:39)
== END 2016-12-09 10:40 | disposition home or self-care (01) ==
LOC: C.EDB 08:03
DX: N39.0 Urinary tract infection, site not specified (principal); Z87.442 Personal history of urinary calculi; Z79.3 Long term (current) use of hormonal contraceptives; Z79.899 Other long term (current) drug therapy

== ENCOUNTER 2016-12-20 20:51 | Observation (INO) | payer BC ==
[~2016-12-20] VITALS: Ht 157.5 cm; Wt 76.1 kg
[~2016-12-20 20:51] MED LIST changes: +CIPR-255 PO; -TAMS0.4C38 PO
[2016-12-20] MEDS ORDERED: SODIUM CHLORIDE 0.9% 1000ML 1,000 ML IV STA ×2 (21:50)
[2016-12-20 22:13] LABS: BASO % 0.2 %; BASO ABS # 0.03 K/uL (0-0.2); COMPLETE YES; EOS % 2.9 %; HEMATOCRIT 38.5 % (37-47); IG% 0.3 %; LYMPH % 24.9 %; LYMPH ABS # 3.23 K/uL (1.2-3.4); MEAN CELL VOLUME 84.6 fL (80-100); MEAN CORPUSCULAR HEMOGLOBIN 30.5 pg (25-34); MEAN CORPUSCULAR HGB CONC 36.1 g/dl (32-36); MEAN PLATELET VOLUME 8.9 fL (7.4-10.4); MONO % 7.4 %; NEUT % 64.3 %; PLATELET COUNT 328 K/uL (130-400); RED BLOOD COUNT 4.55 M/uL (4.2-5.4); WHITE BLOOD COUNT 12.97 K/uL (4.8-10.8)
[2016-12-20 22:18] LABS: MANUAL MICROSCOPIC REQUIRED? YES; REVIEW REQ? NO; SULFASALICYLIC ACID NEG (NEG); URINE APPEARANCE CLEAR (CLEAR); URINE COLOR ORANGE; URINE SPECIFIC GRAVITY 1.016 (1.000-1.030)
[2016-12-20] MEDS ORDERED: KETOROLAC TROMETHAMINE 30 MG/ML VIAL IV STA (22:20)
[2016-12-20] MEDS ORDERED: ONDANSETRON 8 MG/54 ML D5W IV STA (22:20)
[2016-12-20 22:23] LABS: URINE RBC 0-4 /hpf (0-4)
[2016-12-20 22:24] LABS: URINE BACTERIA NEG (NEG); ZZUR CULT IF INDIC CLEAN CATCH NO
[2016-12-20 22:25] LABS: BUN/CREATININE RATIO 12.3 (10-20); CALCIUM 9.1 mg/dl (8.5-10.1); CREATININE 1.1 mg/dl (0.60-1.20); POTASSIUM 3.6 mmol/L (3.5-5.1)
[2016-12-20] MEDS: HYDROmorphone INJ 1 MG/ML SYR IV PRN ×2 (22:34→23:38)
[2016-12-21] MEDS ORDERED: IBUPROFEN 200 MG TAB PO PRN (00:30)
[2016-12-21] MEDS ORDERED: MoRPHine SULFATE 4 MG/ML 1 ML CARP\\VIAL IV PRN ×2 (00:30→16:30)
[2016-12-21] MEDS ORDERED: TAMSULOSIN HCL 0.4 MG CAP ONE (00:31)
[2016-12-21] MEDS ORDERED: IV FLUIDS COMPLETED PRN (01:00)
[2016-12-21] MEDS ORDERED: TAMSULOSIN HCL 0.4 MG CAP PO STA (01:07)
[2016-12-21] MEDS ORDERED: ACETAMINOPHEN 325 MG TAB PO PRN (01:15)
[2016-12-21] MEDS ORDERED: PROMETHAZINE HCL INJ 12.5 MG in SODIUM CHLORIDE 0.9% 50ML 50 ML IV PRN (01:15)
[2016-12-21] MEDS ORDERED: NSS + 20MEQ KCL 1000ML 1,000 ML IV ONE (01:15)
[2016-12-21 01:30] VITALS: BP 144/95; PULSE 79; TEMP 36.7; O2SAT 99
[2016-12-21] MEDS: OXYCODONE/ACETAMINOPHEN 5-325 TAB PO PRN ×2 (01:40→08:51)
[2016-12-21 01:45] VITALS: BP 144/95; PULSE 79; TEMP 36.7; Ht 157.5 cm; Wt 76.1 kg
--- NOTE | 2016-12-21 02:56 | EMERGENCY ROOM VISIT NOTE ---
History Report prepared by Clara: Lindsey Bernstein Under the Supervision of: Dr. Alec Lance M.D. First contact with patient: 21:50 Chief Complaint: KIDNEY STONE Stated Complaint: KIDNEY STONES History of Present Illness The patient is a 26 year old female who presents to the Emergency Room with complaints of constant right flank pain beginning 1 month ago. The patient states that this is her fourth time here and she is still in pain from the kidney stone that she was diagnosed with. She reports that they told her the stone had passed at her 3rd visit but she does not think that it has. The patient states that she was told she had a UTI and just finished her antibiotics but feels the same. She complains of nausea, urinary burning, and urinary frequency. The patient rates her pain as a 10/10 in severity. Pt denies LOC, headache, fevers, chills, diaphoresis, visual changes, neck pain, chest pain, breathing difficulties, vomiting, abdominal pain, melena, hematochezia, numbness, weakness, lymphadenopathy, rash, or other complaints. Source of History: patient Onset: 1 month ago Position: other (right flank) Timing: constant Review of Systems See HPI for pertinent positives and negatives. A total of ten systems were reviewed and were otherwise negative. Past Medical & Surgical Medical Problems: (1) Right nephrolithiasis Surgical Problems: (1) History of appendectomy Family History Patient reports no known family medical history. Social History Smoking Status: Never Smoker Drug Use: none Housing Status: lives with family Occupation Status: employed Current/Historical Medications Scheduled Control Pills ( Control Pills), 1 TAB PO DAILY Ondasetron Odt (Zofran Odt), 4 MG SL Q6H Scheduled PRN Oxycodone Immediate Rel Tab (Roxicodone Ir), 1-2 TAB PO Q4H PRN for Severe Pain Allergies Coded Allergies: No Known Allergies (Unverified , 12/20/16) Physical Exam Vital Signs Date Time Temp Pulse Resp B/P Pulse Ox O2 Delivery O2 Flow Rate FiO2 12/21/16 00:15 88 18 131/76 96 Room Air 12/20/16 22:46 81 25 129/82 97 Room Air 12/20/16 22:19 94 12/20/16 21:15 36.8 102 18 152/91 96 Room Air Physical Exam GENERAL: Awake, alert, very uncomfortable appearing HENT: Normocephalic, atraumatic. Oropharynx unremarkable. EYES: Normal conjunctiva. Sclera non-icteric. NECK: Supple. No nuchal rigidity. FROM. No JVD. RESPIRATORY: Clear to auscultation. CARDIAC: Regular rate, normal rhythm. Extremities warm and well perfused. Pulses equal. ABDOMEN: Soft, non-distended. No tenderness to palpation. No rebound or guarding. No masses. RECTAL: Deferred. MUSCULOSKELETAL: Chest examination reveals no tenderness. The back is symmetrical on inspection without obvious abnormality. Right CVA tenderness. No joint edema. LOWER EXTREMITIES: Calves are equal size bilaterally and non-tender. No edema. No discoloration. NEURO: Normal sensorium. No sensory or motor deficits noted. SKIN: No rash or jaundice noted. Medical Decision & Procedures ER Provider Diagnostic Interpretation: CT results as stated below per my review and radiologist interpretation. CT Abdomen & Pelvis: Punctate 2mm obstructing right UVJ stone. No pericecal inflammatory changes. Chronic appearing bilateral L5 spondylolysis. Comparison study dated 11/23/2016 Radiologist: Sixto Ribeiro M.D. Laboratory Results 12/20/16 21:50 Red Blood Count 4.55, Mean Corpuscular Volume 84.6, Mean Corpuscular Hemoglobin 30.5, Mean Corpuscular Hemoglobin Concent 36.1, Mean Platelet Volume 8.9, Neutrophils (%) (Auto) 64.3, Lymphocytes (%) (Auto) 24.9, Monocytes (%) (Auto) 7.4, Eosinophils (%) (Auto) 2.9, Basophils (%) (Auto) 0.2, Neutrophils # (Auto) 8.33, Lymphocytes # (Auto) 3.23, Monocytes # (Auto) 0.96, Eosinophils # (Auto) 0.38, Basophils # (Auto) 0.03 12/20/16 21:50 Test 12/20/16 21:50 12/20/16 21:55 White Blood Count 12.97 K/uL (4.8-10.8) Red Blood Count 4.55 M/uL (4.2-5.4) Hemoglobin 13.9 g/dL (12.0-16.0) Hematocrit 38.5 % (37-47) Mean Corpuscular Volume 84.6 fL (80-100) Mean Corpuscular Hemoglobin 30.5 pg (25-34) Mean Corpuscular Hemoglobin Concent 36.1 g/dl (32-36) Platelet Count 328 K/uL (130-400) Mean Platelet Volume 8.9 fL (7.4-10.4) Neutrophils (%) (Auto) 64.3 % Lymphocytes (%) (Auto) 24.9 % Monocytes (%) (Auto) 7.4 % Eosinophils (%) (Auto) 2.9 % Basophils (%) (Auto) 0.2 % Neutrophils # (Auto) 8.33 K/uL (1.4-6.5) Lymphocytes # (Auto) 3.23 K/uL (1.2-3.4) Monocytes # (Auto) 0.96 K/uL (0.11-0.59) Eosinophils # (Auto) 0.38 K/uL (0-0.5) Basophils # (Auto) 0.03 K/uL (0-0.2) RDW Standard Deviation 36.7 fL (36.4-46.3) RDW Coefficient of Variation 12.0 % (11.5-14.5) Immature Granulocyte % (Auto) 0.3 % Immature Granulocyte # (Auto) 0.04 K/uL (0.00-0.02) Anion Gap 10.0 mmol/L (3-11) Est Creatinine Clear Calc Drug Dose 75.3 ml/min Estimated GFR () 81.4 Estimated GFR (Non- 70.2 BUN/Creatinine Ratio 12.3 (10-20) Calcium Level 9.1 mg/dl (8.5-10.1) Magnesium Level 2.0 mg/dl (1.8-2.4) Total Bilirubin 0.6 mg/dl (0.2-1) Direct Bilirubin 0.1 mg/dl (0-0.2) Aspartate Amino Transf (AST/SGOT) 18 U/L (15-37) Alanine Aminotransferase (ALT/SGPT) 26 U/L (12-78) Alkaline Phosphatase 65 U/L (45-117) Total Protein 7.8 gm/dl (6.4-8.2) Albumin 3.4 gm/dl (3.4-5.0) Lipase 138 U/L (73-393) Urine Color ORANGE Urine Appearance CLEAR (CLEAR) Urine pH (4.5-7.5) Urine Specific [place] 1.016 (1.000-1.030) Urine Protein (NEG) Urine Glucose (UA) (NEG) Urine Ketones (NEG) Urine Occult Blood (NEG) Urine Nitrite (NEG) Urine Bilirubin (NEG) Urine Urobilinogen (NEG) Urine Leukocyte Esterase (NEG) Urine RBC 0-4 /hpf (0-4) Urine WBC 1-5 /hpf (0-5) Urine Epithelial Cells >30 /lpf (0-5) Urine Bacteria NEG (NEG) Urine Test NEG (NEG) Laboratory results reviewed by me Medications Administered Medications (Trade) Dose Ordered Sig/Luiza Route Start Time Stop Time Status Last Admin Dose Admin Sodium Chloride 1,000 ml @ 125 mls/hr Q8H STAT IV 12/20/16 21:50 12/21/16 01:44 DC 12/20/16 22:17 125 MLS/HR Sodium Chloride (Nss 1000ml) 1,000 ml @ 999 mls/hr Q1H1M STAT IV 12/20/16 21:50 12/20/16 22:50 DC 12/20/16 22:17 999 MLS/HR Ketorolac Tromethamine (Toradol Inj) 10 mg NOW STAT IV 12/20/16 22:20 12/20/16 22:22 DC 12/20/16 22:35 10 MG Hydromorphone HCl (Dilaudid Inj) 1 mg Q15M PRN IV 12/20/16 22:30 12/21/16 00:23 DC 12/20/16 23:38 1 MG Ondansetron HCl (Zofran 8mg Iv) 8 mg NOW STAT IV 12/20/16 22:20 12/20/16 22:22 DC 12/20/16 22:35 8 MG Oxycodone/ Acetaminophen (Percocet 5-325mg Tab) pain not relieved by tylenol Q6H PRN PO 12/21/16 00:30 01/04/17 00:29 12/21/16 01:40 2 TAB Tamsulosin HCl (Flomax Cap) 0.4 mg STK-MED ONCE .ROUTE 12/21/16 00:31 12/21/16 00:32 DC 12/21/16 00:40 0.4 MG ED Course 2150: Sodium Chloride 1000 ml @ 999 mls/hr IV, Sodium Chloride 1000 ml @ 125 mls /hr IV. 2222: The patient was evaluated in room B2. A complete history and physical exam was performed. 2220: Zofran 8mg IV, Toradol Inj 10mg. 2230: Dilaudid Inj 1mg PRN IV pain. 2259: I reevaluated the patient. She is feeling better and going to CT. 0020: Discussed the patient's case with Dr. Doss. The patient will be evaluated for further treatment and disposition. 0039: Upon reexamination, the patient was hemodynamically stable. I discussed the test results and treatment plan with the patient. The patient will be evaluated for further management. Medical Decision Prior records/ancillary studies reviewed. Triage Nursing notes reviewed and agree them. Additional history obtained from the family. The patient's history was concerning for flank and abdominal pain. Differential diagnosis: Etiologies such as renal colic, appendicitis, diverticulitis, mesenteric ischemia, aortic pathology, infections, inflammatory bowel disease, PUD, biliary pathology, UTI, as well as others were entertained. Physical examination findings: As above. ER treatment provided: IV normal saline IV Zofran IV Dilaudid times multiple doses IV Toradol On reassessment the patient felt better. Diagnostic interpretation by me: The labs revealed slight leukocytosis of 12.9. Chemistry panel, LFTs and lipase were negative. Urinalysis revealed hematuria. There was no sign of UTI. Imaging studies: CT of the abdomen and pelvis as above. The patient has a persistent right ureteral stone. She is quite symptomatic. She required multiple doses for treatment. This is her fourth visit to the Emergency Room. Consultation: A consultation was placed with the hospitalist. The case was discussed and diagnostics were reviewed. The patient was evaluated in the ER for further treatment. The chart was completed utilizing [employer] Speech voice recognition software. Grammatical errors, random word insertions, pronoun errors, and incomplete sentences are an occasional consequence of this system due to software limitations, ambient noise, and hardware issues. Any formal questions or concerns about the content, text, or information contained within the body of this dictation should be directly addressed to the physician for clarification. Consults Time Called: 13 Consulting Physician: Dr. Javon Meredith Returned Call: [phone] Discussed the patient's case with Dr. Doss. The patient will be evaluated for further treatment and disposition. Impression Primary Impression: Kidney stone Additional Impression: Intractable pain Scribe Attestation The scribe's documentation has been prepared under my direction and personally reviewed by me in its entirety. I confirm that the note above accurately reflects all work, treatment, procedures, and medical decision making performed by me. Departure Information Dispostion Being Evaluated By Hospitalist Patient Instructions My [facility] Problem Qualifiers
--- NOTE | 2016-12-21 04:45 | HISTORY & PHYSICAL EXAMINATION ---
DATE OF ADMISSION: 12/21/2016 PRIMARY CARE DOCTOR: Dr. Alicea. CHIEF COMPLAINT: Right flank pain. HISTORY OF PRESENT ILLNESS: Medical history is significant for allergic rhinitis, kidney stone. About 3 weeks ago, the patient was seen at PCP's office for bladder discomfort. Patient prescribed Pyridium. No symptom response. Px later went to the Emergency Room. A CT of the abdomen and pelvis showed a 2 mm calculus in right UVJ with minor secondary obstructive changes. Patient discharged on Zofran, oxycodone medications. Intractable symptoms w/ R achy flank pain since. No chest pain, no sob. No fever, no chills, no hematuria. nausea, no vomiting. Patient has had 3 ER visits since. MEDICAL HISTORY: As above. OPERATIONS: Appendectomy. HOME MEDICATIONS: Include Zofran, OxyIR, control pills. ALLERGIES: No known drug allergies. FAMILY HISTORY: Hypertension. 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 REVIEW OF SYSTEMS: As per HPI. all other ROs negative PHYSICAL EXAMINATION: VITAL SIGNS: Blood pressure was noted to be BP 129/82, pulse rate 94, RR 18, temperature 37, sats 96 on room air. GENERAL: Noted to be obese, slightly uncomfortable, no respiratory distress. SKIN: Normal color. HEENT: [place] palpebral conjunctivae. moist buccal mucosa NECK: Short neck. LUNGS: Decreased breath sounds. HEART: Regular rate and rhythm. ABDOMEN: Soft. BACK : Right flank tenderness. EXTREMITIES: No edema, no tenderness. NEUROLOGIC: No gross focality. LABS: Hemoglobin was noted to be 14.3, hematocrit 38.7, white cells 11.8, platelets 82. Sodium 136, potassium 4, chloride 104, CO2 of 23, BUN 9, creatinine 0.8. Glucose was noted to be 92. CT of the abdomen and pelvis initial read showed 2 mm renal calculus R w/ obstruction UA cloudy, WBC 1-5, epth cells ASSESSMENT: R Renal colic persistent symptoms failed outpatient treatment, no sepsis PLAN: OBS GMF IVF, Flomax trial. Analgesia. Strain urine. Urology consultation. renal colic DVT prophylaxis, SCDs. Full code. MTDD
[2016-12-21] MEDS: KETOROLAC TROMETHAMINE 30 MG/ML VIAL IV PRN ×3 (05:45→20:47)
--- NOTE | 2016-12-21 06:42 | DIAGNOSTIC IMAGING REPORT ---
CT OF THE ABDOMEN AND PELVIS WITHOUT CONTRAST, STONE PROTOCOL CLINICAL HISTORY: Right flank pain. COMPARISON STUDY: CT of the abdomen and pelvis November 23, 2016 and renal ultrasound December 09, 2016. TECHNIQUE: Helical axial images of the abdomen and pelvis were obtained without IV or oral contrast according to renal stone protocol. FINDINGS: There is minimal right collecting system dilatation and slight asymmetric dilatation of the right ureter due to a 2 mm distal right ureteral calculus. This is similar in position to exam of November 23, 2016. There is minimal right perinephric infiltration. Unenhanced images of the liver, spleen, adrenal glands and pancreas are normal. The caliber small and large bowel are normal. There is no lymphadenopathy. No suspicious osseous lesions are present. IMPRESSION: Minimal right collecting system dilatation due to a 2 mm distal right ureteral calculus. Similar findings were shown on CT of November 23, 2016. Electronically signed by: Magen Farooq M.D. 12/21/2016 6:41 AM Dictated Date/Time: 12/21/2016 6:35 AM
[2016-12-21 07:00] VITALS: BP 114/68; PULSE 77; TEMP 36.7; O2SAT 98
[2016-12-21 07:49] LABS: BASO % 0.2 %; BASO ABS # 0.02 K/uL (0-0.2); COMPLETE YES; EOS % 2.6 %; HEMATOCRIT 34.2 % (37-47); IG% 0.2 %; LYMPH % 29.9 %; LYMPH ABS # 2.95 K/uL (1.2-3.4); MEAN CELL VOLUME 84.4 fL (80-100); MEAN CORPUSCULAR HEMOGLOBIN 29.9 pg (25-34); MEAN CORPUSCULAR HGB CONC 35.4 g/dl (32-36); MEAN PLATELET VOLUME 8.8 fL (7.4-10.4); MONO % 7.6 %; NEUT % 59.5 %; PLATELET COUNT 229 K/uL (130-400); RED BLOOD COUNT 4.05 M/uL (4.2-5.4); WHITE BLOOD COUNT 9.85 K/uL (4.8-10.8)
[2016-12-21 08:12] LABS: BUN/CREATININE RATIO 10.2 (10-20); CALCIUM 8.3 mg/dl (8.5-10.1); CREATININE 1.1 mg/dl (0.60-1.20)
--- NOTE | 2016-12-21 08:41 | Progress Note ---
Subjective Date of Service: Dec 21, 2016. Subjective I will see patient this evening. she may eat today as I dont plan to take her to OR today. If she does not pass it by tomorrow we will try to remove stone tomorrow in OR in later afternoon. I reviewed the ct scan and the stone is very small near the bladder but has not moved much in last one month. Problem List Medical Problems: (1) Complicated UTI (urinary tract infection) Status: Acute (2) Intractable pain Status: Acute (3) Kidney stone Status: Acute (4) Renal colic on right side Status: Acute (5) Right nephrolithiasis Status: Acute Objective Vital Signs Date Time Temp Pulse Resp B/P Pulse Ox O2 Delivery O2 Flow Rate FiO2 12/21/16 07:00 36.7 77 16 114/68 98 Room Air 12/21/16 01:45 36.7 79 18 144/95 Room Air 12/21/16 01:45 Room Air 12/21/16 01:30 36.7 79 18 144/95 99 Room Air 12/21/16 01:11 84 18 139/66 97 12/21/16 00:15 88 18 131/76 96 Room Air 12/20/16 22:46 81 25 129/82 97 Room Air 12/20/16 22:19 94 12/20/16 21:15 36.8 102 18 152/91 96 Room Air Laboratory Results Last 24 Hours Test 12/20/16 21:50 12/20/16 21:55 12/21/16 07:06 White Blood Count 12.97 K/uL 9.85 K/uL Red Blood Count 4.55 M/uL 4.05 M/uL Hemoglobin 13.9 g/dL 12.1 g/dL Hematocrit 38.5 % 34.2 % Mean Corpuscular Volume 84.6 fL 84.4 fL Mean Corpuscular Hemoglobin 30.5 pg 29.9 pg Mean Corpuscular Hemoglobin Concent 36.1 g/dl 35.4 g/dl Platelet Count 328 K/uL 229 K/uL Mean Platelet Volume 8.9 fL 8.8 fL Neutrophils (%) (Auto) 64.3 % 59.5 % Lymphocytes (%) (Auto) 24.9 % 29.9 % Monocytes (%) (Auto) 7.4 % 7.6 % Eosinophils (%) (Auto) 2.9 % 2.6 % Basophils (%) (Auto) 0.2 % 0.2 % Neutrophils # (Auto) 8.33 K/uL 5.85 K/uL Lymphocytes # (Auto) 3.23 K/uL 2.95 K/uL Monocytes # (Auto) 0.96 K/uL 0.75 K/uL Eosinophils # (Auto) 0.38 K/uL 0.26 K/uL Basophils # (Auto) 0.03 K/uL 0.02 K/uL RDW Standard Deviation 36.7 fL 37.0 fL RDW Coefficient of Variation 12.0 % 11.9 % Immature Granulocyte % (Auto) 0.3 % 0.2 % Immature Granulocyte # (Auto) 0.04 K/uL 0.02 K/uL Sodium Level 139 mmol/L 139 mmol/L Potassium Level 3.6 mmol/L 4.0 mmol/L Chloride Level 106 mmol/L 107 mmol/L Carbon Dioxide Level 23 mmol/L 22 mmol/L Anion Gap 10.0 mmol/L 10.0 mmol/L Blood Urea Nitrogen 14 mg/dl 11 mg/dl Creatinine 1.10 mg/dl 1.10 mg/dl Est Creatinine Clear Calc Drug Dose 75.3 ml/min 75.3 ml/min Estimated GFR () 81.4 81.4 Estimated GFR (Non- 70.2 70.2 BUN/Creatinine Ratio 12.3 10.2 Random Glucose 89 mg/dl 81 mg/dl Calcium Level 9.1 mg/dl 8.3 mg/dl Magnesium Level 2.0 mg/dl Total Bilirubin 0.6 mg/dl Direct Bilirubin 0.1 mg/dl Aspartate Amino Transf (AST/SGOT) 18 U/L Alanine Aminotransferase (ALT/SGPT) 26 U/L Alkaline Phosphatase 65 U/L Total Protein 7.8 gm/dl Albumin 3.4 gm/dl Lipase 138 U/L Urine Color ORANGE Urine Appearance CLEAR Urine pH Urine Specific [place] 1.016 Urine Protein Urine Glucose (UA) Urine Ketones Urine Occult Blood Urine Nitrite Urine Bilirubin Urine Urobilinogen Urine Leukocyte Esterase Urine RBC 0-4 /hpf Urine WBC 1-5 /hpf Urine Epithelial Cells >30 /lpf Urine Bacteria NEG Urine Test NEG
--- NOTE | 2016-12-21 12:51 | Progress Note ---
Internal Med Progress Note Date of Service: Dec 21, 2016. Provider Documentation: SUBJECTIVE: Patient c/o right flank pain No dysuria, fever, chills, nausea, vomiting OBJECTIVE: Vital Signs-as noted below Exam: General-AAOX3, no distress Neck-Supple, No JVD Lungs-AEBE, clear Heart-S1, S2 normal, no murmurs Abdomen-Soft, no abdominal pain, flank tenderness, BS present Extremities-No edema Lab data as noted below. CT SCAN IMPRESSION: Minimal right collecting system dilatation due to a 2 mm distal right ureteral calculus. Similar findings were shown on CT of November 23, 2016. ASSESSMENT & PLAN: ASSESSMENT AND PLAN: RIGHT URETERAL CALCULUS -CT scan- small stone 2 mm near bladder, but hasnt moved much in 1 month -Per urology- If doesn't pass it spontaneously, will take her to O R for removal tomorrow -IV fluids, Pain mx, Flomax, Strain urine -Urology on board DVT prophylaxis, SCDs. FULL CODE DISPOSITION Observation Vital Signs: Date Time Temp Pulse Resp B/P Pulse Ox O2 Delivery O2 Flow Rate FiO2 12/21/16 08:30 Room Air 12/21/16 07:00 36.7 77 16 114/68 98 Room Air 12/21/16 01:45 36.7 79 18 144/95 Room Air 12/21/16 01:45 Room Air 12/21/16 01:30 36.7 79 18 144/95 99 Room Air 12/21/16 01:11 84 18 139/66 97 12/21/16 00:15 88 18 131/76 96 Room Air 12/20/16 22:46 81 25 129/82 97 Room Air 12/20/16 22:19 94 12/20/16 21:15 36.8 102 18 152/91 96 Room Air Lab Results: Results Past 24 Hours Test 12/20/16 21:50 12/20/16 21:55 12/21/16 07:06 Range/Units White Blood Count 12.97 9.85 4.8-10.8 K/uL Red Blood Count 4.55 4.05 4.2-5.4 M/uL Hemoglobin 13.9 12.1 12.0-16.0 g/dL Hematocrit 38.5 34.2 37-47 % Mean Corpuscular Volume 84.6 84.4 80-100 fL Mean Corpuscular Hemoglobin 30.5 29.9 25-34 pg Mean Corpuscular Hemoglobin Concent 36.1 35.4 32-36 g/dl Platelet Count 328 229 130-400 K/uL Mean Platelet Volume 8.9 8.8 7.4-10.4 fL Neutrophils (%) (Auto) 64.3 59.5 % Lymphocytes (%) (Auto) 24.9 29.9 % Monocytes (%) (Auto) 7.4 7.6 % Eosinophils (%) (Auto) 2.9 2.6 % Basophils (%) (Auto) 0.2 0.2 % Neutrophils # (Auto) 8.33 5.85 1.4-6.5 K/uL Lymphocytes # (Auto) 3.23 2.95 1.2-3.4 K/uL Monocytes # (Auto) 0.96 0.75 0.11-0.59 K/uL Eosinophils # (Auto) 0.38 0.26 0-0.5 K/uL Basophils # (Auto) 0.03 0.02 0-0.2 K/uL RDW Standard Deviation 36.7 37.0 36.4-46.3 fL RDW Coefficient of Variation 12.0 11.9 11.5-14.5 % Immature Granulocyte % (Auto) 0.3 0.2 % Immature Granulocyte # (Auto) 0.04 0.02 0.00-0.02 K/uL Sodium Level 139 139 136-145 mmol/L Potassium Level 3.6 4.0 3.5-5.1 mmol/L Chloride Level 106 107 98-107 mmol/L Carbon Dioxide Level 23 22 21-32 mmol/L Anion Gap 10.0 10.0 3-11 mmol/L Blood Urea Nitrogen 14 11 7-18 mg/dl Creatinine 1.10 1.10 0.60-1.20 mg/dl Est Creatinine Clear Calc Drug Dose 75.3 75.3 ml/min Estimated GFR () 81.4 81.4 Estimated GFR (Non- 70.2 70.2 BUN/Creatinine Ratio 12.3 10.2 10-20 Random Glucose 89 81 70-99 mg/dl Calcium Level 9.1 8.3 8.5-10.1 mg/dl Magnesium Level 2.0 1.8-2.4 mg/dl Total Bilirubin 0.6 0.2-1 mg/dl Direct Bilirubin 0.1 0-0.2 mg/dl Aspartate Amino Transf (AST/SGOT) 18 15-37 U/L Alanine Aminotransferase (ALT/SGPT) 26 12-78 U/L Alkaline Phosphatase 65 45-117 U/L Total Protein 7.8 6.4-8.2 gm/dl Albumin 3.4 3.4-5.0 gm/dl Lipase 138 73-393 U/L Urine Color ORANGE Urine Appearance CLEAR CLEAR Urine pH 4.5-7.5 Urine Specific [place] 1.016 1.000-1.030 Urine Protein NEG Urine Glucose (UA) NEG Urine Ketones NEG Urine Occult Blood NEG Urine Nitrite NEG Urine Bilirubin NEG Urine Urobilinogen NEG Urine Leukocyte Esterase NEG Urine RBC 0-4 0-4 /hpf Urine WBC 1-5 0-5 /hpf Urine Epithelial Cells >30 0-5 /lpf Urine Bacteria NEG NEG Urine Test NEG NEG Microbiology Results 12/20/16 Urine Culture, Received Pending
[2016-12-21] MEDS: SODIUM CHLORIDE 0.9% 1000ML 1,000 ML IV SCH ×2 (13:22→23:31)
[2016-12-21] MEDS: ONDANSETRON INJ 2 MG/ML 2 ML VIAL IV PRN (13:51)
[2016-12-21 15:14] VITALS: BP 118/72; PULSE 70; TEMP 36.8; O2SAT 98
--- NOTE | 2016-12-21 16:57 | Urology Consultation ---
History General Date of Service: Dec 21, 2016. Chief Complaint: right distal ureteral stone Primary Care Physician: Rebekah Chakraborty Pt seen a urologist before?: No History of Present Illness I am asked by Dr Eaton to evaluate and treat patient for ureteral stone. She has had 3 trips to ER for right renal colic. She had ct scan nov and dec 2016 showing a 2mm right distal ureteral stone with mild hydro. Her interim visit had kub and u/s. She has mild pain whenever the pain meds wear off. She has not passed any stone. She has not been on flomax as outpatient but had about 3 doses in the ER all the times she was there. She gets nausea with the pain. Imaging Imaging: CT Laboratory Results Past 24 Hours Test 12/20/16 21:50 12/20/16 21:55 12/21/16 07:06 Range/Units White Blood Count 12.97 9.85 4.8-10.8 K/uL Red Blood Count 4.55 4.05 4.2-5.4 M/uL Hemoglobin 13.9 12.1 12.0-16.0 g/dL Hematocrit 38.5 34.2 37-47 % Mean Corpuscular Volume 84.6 84.4 80-100 fL Mean Corpuscular Hemoglobin 30.5 29.9 25-34 pg Mean Corpuscular Hemoglobin Concent 36.1 35.4 32-36 g/dl Platelet Count 328 229 130-400 K/uL Mean Platelet Volume 8.9 8.8 7.4-10.4 fL Neutrophils (%) (Auto) 64.3 59.5 % Lymphocytes (%) (Auto) 24.9 29.9 % Monocytes (%) (Auto) 7.4 7.6 % Eosinophils (%) (Auto) 2.9 2.6 % Basophils (%) (Auto) 0.2 0.2 % Neutrophils # (Auto) 8.33 5.85 1.4-6.5 K/uL Lymphocytes # (Auto) 3.23 2.95 1.2-3.4 K/uL Monocytes # (Auto) 0.96 0.75 0.11-0.59 K/uL Eosinophils # (Auto) 0.38 0.26 0-0.5 K/uL Basophils # (Auto) 0.03 0.02 0-0.2 K/uL RDW Standard Deviation 36.7 37.0 36.4-46.3 fL RDW Coefficient of Variation 12.0 11.9 11.5-14.5 % Immature Granulocyte % (Auto) 0.3 0.2 % Immature Granulocyte # (Auto) 0.04 0.02 0.00-0.02 K/uL Sodium Level 139 139 136-145 mmol/L Potassium Level 3.6 4.0 3.5-5.1 mmol/L Chloride Level 106 107 98-107 mmol/L Carbon Dioxide Level 23 22 21-32 mmol/L Anion Gap 10.0 10.0 3-11 mmol/L Blood Urea Nitrogen 14 11 7-18 mg/dl Creatinine 1.10 1.10 0.60-1.20 mg/dl Est Creatinine Clear Calc Drug Dose 75.3 75.3 ml/min Estimated GFR () 81.4 81.4 Estimated GFR (Non- 70.2 70.2 BUN/Creatinine Ratio 12.3 10.2 10-20 Random Glucose 89 81 70-99 mg/dl Calcium Level 9.1 8.3 8.5-10.1 mg/dl Magnesium Level 2.0 1.8-2.4 mg/dl Total Bilirubin 0.6 0.2-1 mg/dl Direct Bilirubin 0.1 0-0.2 mg/dl Aspartate Amino Transf (AST/SGOT) 18 15-37 U/L Alanine Aminotransferase (ALT/SGPT) 26 12-78 U/L Alkaline Phosphatase 65 45-117 U/L Total Protein 7.8 6.4-8.2 gm/dl Albumin 3.4 3.4-5.0 gm/dl Lipase 138 73-393 U/L Urine Color ORANGE Urine Appearance CLEAR CLEAR Urine pH 4.5-7.5 Urine Specific [place] 1.016 1.000-1.030 Urine Protein NEG Urine Glucose (UA) NEG Urine Ketones NEG Urine Occult Blood NEG Urine Nitrite NEG Urine Bilirubin NEG Urine Urobilinogen NEG Urine Leukocyte Esterase NEG Urine RBC 0-4 0-4 /hpf Urine WBC 1-5 0-5 /hpf Urine Epithelial Cells >30 0-5 /lpf Urine Bacteria NEG NEG Urine Test NEG NEG Microbiology Results 12/20/16 Urine Culture, Received Pending 24-Hour Column 12/21/16 08:00 Intake Total 547 ml Output Total 750 ml Balance -203 ml Labs were reviewed and are within normal limits unless listed below. Labs are available in the chart and at [facility] Problem List Medical Problems: (1) Complicated UTI (urinary tract infection) Status: Acute (2) Intractable pain Status: Acute (3) Kidney stone Status: Acute (4) Renal colic on right side Status: Acute (5) Right nephrolithiasis Status: Acute Past History no pertinent history Past Surgical History: appendectomy Family History Patient reports no known family medical history. 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) Immunizations History of Influenza Vaccine: Yes Influenza Vaccine Date: Jan 21, 2011 History of Tetanus Vaccine?: Unknown History of Pneumococcal: Unknown History of Hepatitis B Vaccine: Unknown History of MDRO No Allergies Coded Allergies: No Known Allergies (Unverified , 12/20/16) Medications Home Medications: Home Meds and Scripts Medications Dose Route/Sig Max Daily Dose Days Date Category Roxicodone Ir (Oxycodone HCl) 5 Mg Tab 1-2 Tab PO Q4H PRN 12/06/16 Rx Zofran Odt (Ondansetron HCl) 4 Mg Tab 4 Mg SL Q6H 11/24/16 Rx Control Pills (Miscellaneous) Tab 1 Tab PO DAILY 05/22/11 Reported Inpatient Medications: Current Inpatient Medications Medications (Trade) Dose Ordered Sig/Luiza Route Start Time Stop Time Status Last Admin Dose Admin Tamsulosin HCl (Flomax Cap) 0.4 mg QAM PO 12/22/16 09:00 01/21/17 08:59 Ibuprofen (Advil Tab) 400 mg Q6H PRN PO 12/21/16 00:30 01/20/17 00:29 Ketorolac Tromethamine (Toradol Inj) 30 mg Q6H PRN IV 12/21/16 00:30 12/26/16 00:29 12/21/16 14:20 30 MG Oxycodone/ Acetaminophen (Percocet 5-325mg Tab) pain not relieved by tylenol Q6H PRN PO 12/21/16 00:30 01/04/17 00:29 12/21/16 08:51 2 TAB Miscellaneous (Iv Fluids Completed) 1 ea PRN PRN N/A 12/21/16 01:00 12/21/17 00:59 Acetaminophen (Tylenol Tab) 650 mg Q4H PRN PO 12/21/16 01:15 01/20/17 01:14 Ondansetron HCl 4 mg 4 mg Q6H PRN IV 12/21/16 01:15 01/20/17 01:14 12/21/16 13:51 4 MG Promethazine HCl/ Sodium Chloride (Phenergan Inj/ Nss 50ml) 50.5 ml @ 204 mls/hr Q6H PRN IV 12/21/16 01:15 01/20/17 01:14 Morphine Sulfate 3 mg 3 mg Q4H PRN IV 12/21/16 16:30 01/04/17 16:29 Sodium Chloride (Nss 1000ml) 1,000 ml @ 100 mls/hr Q10H IV 12/21/16 13:30 01/20/17 13:29 12/21/16 13:22 100 MLS/HR Review of Systems Review of Systems Constitutional: No chills, No fever, No frequent headaches Endocrine: No excessive thirst, No tired/sluggish, No too cold, No too hot Gastrointestinal: + abdominal pain, + indigestion, + nausea, No constipation, No diarrhea Cardiovascular: No chest pain, No irregular heartbeat, No palpitations, No swelling ankles/feet Respiratory: No chronic cough, No shortness of breath Female : + infections, + kidney stones, No frequent urination, No painful urination Physical Exam Vital Signs: Vital Signs Past 12 Hours Date Time Temp Pulse Resp B/P Pulse Ox O2 Delivery O2 Flow Rate FiO2 12/21/16 15:14 36.8 70 16 118/72 98 Room Air 12/21/16 08:30 Room Air 12/21/16 07:00 36.7 77 16 114/68 98 Room Air Physical Exam: General Appearance: WD/WN, no apparent distress, + pertinent finding ( overweight) Eyes: bilateral eyes normal inspection ENT: hearing grossly normal Neck: supple, no adenopathy, no JVD, trachea midline Respiratory/Chest: no respiratory distress, no accessory muscle use Cardiovascular: regular rate, rhythm, no edema Gastrointestinal: Abdomen: normal abdomen Bladder: normal bladder Renal: pertinent finding (+ right CVA tenderness) Extremities: non-tender, normal inspection, no pedal edema, no calf tenderness Neurologic/Psychiatric: alert, normal mood/affect, oriented x 3 Skin: normal color, warm/dry, no rash Lymphatic: no adenopathy Assessment & Plan Assessment & Plan small right distal ureteral stone with mild obstruction radiographic evidence of failure to progress in a month plan to OR for ureteroscopy laser litho basket stone and stent tomorrow at 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
--- NOTE | 2016-12-21 18:31 | Anesthesiology Progress Note ---
Anesthesia Progress Note Date of Service Dec 21, 2016. Progress Notes The patient is a 26 y/o female scheduled for laser lithotripsy/R ureteroscopy tomorrow. The patient was found to have a 2 mm R ureteral stone on CT scan. She has no other significant PMH. She has no problems with anesthesia. Her labs were normal. On exam the patient had a MP 2 airway with good neck extension. Lungs were clear and heart was RRR. The patient was consented for general anesthesia. She was counseled to eat no solids after midnight. Dr. Alonzo allows clears until 1200 as she typically performs the procedures later in the day.
[2016-12-21 23:20] VITALS: BP 108/66; PULSE 74; TEMP 36.6; O2SAT 99
[2016-12-22] VITALS (7 sets, daily range): BP systolic 115–137; BP diastolic 71–82; PULSE 70–97; TEMP 36.6–37.1; O2SAT 94–98
[2016-12-22] MEDS: KETOROLAC TROMETHAMINE 30 MG/ML VIAL IV PRN ×3 (04:48→18:49)
[2016-12-22] MEDS: OXYCODONE/ACETAMINOPHEN 5-325 TAB PO PRN ×2 (05:57→20:24)
[2016-12-22 06:12] LABS: HEMATOCRIT 33.6 % (37-47); MEAN CELL VOLUME 85.9 fL (80-100); MEAN CORPUSCULAR HEMOGLOBIN 30.4 pg (25-34); MEAN CORPUSCULAR HGB CONC 35.4 g/dl (32-36); MEAN PLATELET VOLUME 8.7 fL (7.4-10.4); PLATELET COUNT 249 K/uL (130-400); RED BLOOD COUNT 3.91 M/uL (4.2-5.4); WHITE BLOOD COUNT 6.07 K/uL (4.8-10.8)
[2016-12-22 06:48] LABS: BUN/CREATININE RATIO 9.2 (10-20); CALCIUM 8.4 mg/dl (8.5-10.1); CREATININE 0.78 mg/dl (0.60-1.20); POTASSIUM 3.9 mmol/L (3.5-5.1)
[2016-12-22] MEDS: TAMSULOSIN HCL 0.4 MG CAP PO SCH (09:16)
[2016-12-22] MEDS: SODIUM CHLORIDE 0.9% 1000ML 1,000 ML IV SCH ×2 (09:18→19:15)
[2016-12-22] MEDS: ONDANSETRON INJ 2 MG/ML 2 ML VIAL IV PRN ×2 (09:49→23:40)
--- NOTE | 2016-12-22 11:32 | Progress Note ---
Internal Med Progress Note Date of Service: Dec 22, 2016. Provider Documentation: SUBJECTIVE: Patient denies any flank pain. Has not passed stone yet No dysuria, fever, chills, nausea, vomiting OBJECTIVE: Vital Signs-as noted below Exam: General-AAOX3, no distress Neck-Supple, No JVD Lungs-AEBE, clear Heart-S1, S2 normal, no murmurs Abdomen-Soft, no abdominal pain, flank tenderness, BS present Extremities-No edema Lab data as noted below. CT SCAN IMPRESSION: Minimal right collecting system dilatation due to a 2 mm distal right ureteral calculus. Similar findings were shown on CT of November 23, 2016. ASSESSMENT & PLAN: ASSESSMENT AND PLAN: RIGHT URETERAL CALCULUS -CT scan- small stone 2 mm near bladder, but hasnt moved much in 1 month -Per urology- If doesn't pass it spontaneously, which she hasnt in 24 hours, will take her to O R today. Plan is for OR today evening. -IV fluids, Pain mx, Flomax, Strain urine -Urology on board DVT prophylaxis, SCDs. FULL CODE DISPOSITION Observation Vital Signs: Date Time Temp Pulse Resp B/P Pulse Ox O2 Delivery O2 Flow Rate FiO2 12/22/16 07:18 Room Air 12/22/16 07:06 36.7 97 18 137/82 97 Room Air 12/21/16 23:30 Room Air 12/21/16 23:20 36.6 74 16 108/66 99 Room Air 12/21/16 15:25 Room Air 12/21/16 15:14 36.8 70 16 118/72 98 Room Air Lab Results: Results Past 24 Hours Test 12/22/16 05:32 Range/Units White Blood Count 6.07 4.8-10.8 K/uL Red Blood Count 3.91 4.2-5.4 M/uL Hemoglobin 11.9 12.0-16.0 g/dL Hematocrit 33.6 37-47 % Mean Corpuscular Volume 85.9 80-100 fL Mean Corpuscular Hemoglobin 30.4 25-34 pg Mean Corpuscular Hemoglobin Concent 35.4 32-36 g/dl RDW Standard Deviation 38.8 36.4-46.3 fL RDW Coefficient of Variation 12.3 11.5-14.5 % Platelet Count 249 130-400 K/uL Mean Platelet Volume 8.7 7.4-10.4 fL Sodium Level 141 136-145 mmol/L Potassium Level 3.9 3.5-5.1 mmol/L Chloride Level 108 98-107 mmol/L Carbon Dioxide Level 23 21-32 mmol/L Anion Gap 10.0 3-11 mmol/L Blood Urea Nitrogen 7 7-18 mg/dl Creatinine 0.78 0.60-1.20 mg/dl Est Creatinine Clear Calc Drug Dose 106.2 ml/min Estimated GFR () 123.3 Estimated GFR (Non- 106.4 BUN/Creatinine Ratio 9.2 10-20 Random Glucose 70 70-99 mg/dl Calcium Level 8.4 8.5-10.1 mg/dl
[2016-12-22] MEDS ORDERED: MIDAZOLAM HCL 1 MG/ML 2ML VIAL ONE (16:59)
[2016-12-22] MEDS ORDERED: FENTANYL CITRATE INJ 50 MCG/1 ML 2 ML VIAL ONE ×2 (16:59→18:30)
--- NOTE | 2016-12-22 17:09 | History & Physical Bridge Note ---
H&P Re-Evaluation Bridge Note: I have examined the patient, reviewed the History & Physical and in the interval since the performance of the History & Physical I have noted the following changes of clinical significance: No changes noted, stone has not passed.
[2016-12-22] MEDS ORDERED: HYDROmorphone INJ 1 MG/ML SYR IV PRN (17:15)
[2016-12-22] MEDS ORDERED: CEFAZOLIN IV 2,000 MG/60 ML D5W IV ONE (17:15)
[2016-12-22] MEDS ORDERED: ONDANSETRON INJ 2 MG/ML 2 ML VIAL IV PRN (17:15)
[2016-12-22] MEDS ORDERED: MEPERIDINE HCL 25 MG/ML CARP IV PRN (17:15)
[2016-12-22] MEDS ORDERED: LABETALOL HCL IV 5 MG/ML 20ML IV PRN (17:15)
[2016-12-22] MEDS ORDERED: ATROPINE SULFATE 0.1 MG/ML 5ML SYR IV PRN (17:15)
[2016-12-22] MEDS ORDERED: EpHEDrine SULFATE INJ 50 MG/ML AMP IV PRN (17:15)
[2016-12-22] MEDS ORDERED: FENTANYL CITRATE INJ 50 MCG/1 ML 2 ML VIAL IV PRN (17:15)
[2016-12-22] MEDS ORDERED: BELLADONNA/OPIUM SUPP 60 MG SUPP PR ONE (17:54)
[2016-12-22] MEDS ORDERED: DEXAMETHASONE SOD INJ 4 MG/ML VIAL ONE (18:00)
[2016-12-22] MEDS ORDERED: LIDOCAINE HCL 2% 2 ML VIAL (20MG/ML) ONE (18:00)
[2016-12-22] MEDS ORDERED: ONDANSETRON INJ 2 MG/ML 2 ML VIAL ONE ×2 (18:00→18:07)
[2016-12-22] MEDS ORDERED: PROPOFOL IV EMULSION 10 MG/ML 20 ML VIAL IV ONE (18:00)
--- NOTE | 2016-12-22 18:09 | [facility] Operative Report ---
Operative Report Operative Date Dec 22, 2016. 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 stone fragment-right ureteral stone /stone analysis Drains none Anesthesia LMA Complication(s) None Disposition Recovery Room / PACU Indications intermittent pain and failure to pass a right distal ureteral stone mm Description of Procedure Patient was given general lma ANESTHESIA and placed in lithotomy position. Her genitals were prepped and draped in sterile fashion. Time out held with team. I placed a 21 fr rigid cystoscope to bladder. The urethra is unremarkable. The UOs are noral on left and edematous and protruding on right. I placed a road runner wire up right ureter and there was brief resistance then brisk efflux from UO. I placed a short semirigid scope into distal ureter nad found her wilde crystalline stone free floating in the distal ureter. Just the UVJ is very tight. I lasered the stone into tiny pieces and basket extracted the largest. I sent it for sample. I replaced the ureteroscope and found the distal ureter to now be stone free. Case was shoert distal and atraumatic so I did not leave a stent. I left bladder empty and concluded case. I placed a belladonna and opium suppository for post-op pain. SHe transferred to recovery under my escort, in stable condition. 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 Any exceptions are noted below.
[2016-12-22] MEDS ORDERED: PHEN-939 PO (18:19)
[2016-12-22] MEDS ORDERED: OXYC1TAB3 PO (18:19)
[2016-12-22] MEDS ORDERED: FLM4 PO (18:19)
--- NOTE | 2016-12-22 18:22 | Discharge Instructions ---
Discharge Instructions Admission Reason for Admission: Renal Colic On Right Side Discharge Discharge Diagnosis / Problem: 1. Right ureteral stone S/P removal Discharge Goals Goal(s): Diagnostic testing, Therapeutic intervention Activity Recommendations Activity Limitations: resume your previous activity . Instructions / Follow-Up Instructions / Follow-Up MEDICATION CHANGES: 1. Flomax 0.4 mg daily till pain free 2. Pyridium 100 mg three times a day as needed for bladder pain FOLLOW UP 1. PCP in 1 week. We will call you for appt date/time Current Hospital Diet Patient's current hospital diet: Regular Diet Discharge Diet Recommended Diet: Regular Diet Procedures Procedures Performed: Cystoscopy, Ureteroscopy, Laser Lithotripsy - Basket Stone Extraction, right Pending Studies Studies pending at discharge: no Medical Emergencies . Who to Call and When: Medical Emergencies: If at any time you feel your situation is an emergency, please call 911 immediately. . Non-Emergent Contact Non-Emergency issues call your: Urologist . . "Provider Documentation" section prepared by Brittney Kang. VTE Core Measure Inpt VTE Proph given/why not?: Patricia Garza, SCD's
--- NOTE | 2016-12-22 18:25 | Discharge Summary ---
Discharge Summary Admission Date: Dec 21, 2016 at 00:43 Discharge Date: Dec 22, 2016 Discharge Disposition: Home Principal Diagnosis: 1. Right ureteral stone S/P Basket stone extraction Procedures: Cystoscopy, ureteroscopy, basket stone extraction by Dr Alonzo on 12/22/16 Consultations: Urology, Dr Alonzo Pending Studies/Follow-Up: Instructions / Follow-Up MEDICATION CHANGES: 1. Flomax 0.4 mg daily till pain free 2. Pyridium 100 mg three times a day as needed for bladder pain 3. Percocet TID PRN for severe pain FOLLOW UP 1. Dr Alicea on 12/27/16 at 9:30 AM Medication Reconciliation New Medications: Phenazopyridine Hcl (Pyridium) 100 Mg Tab 1 TAB PO TID PRN for bladder pain, #20 TAB Tamsulosin HCl (Tamsulosin HCl) 0.4 Mg Cap 0.4 MG PO QAM for 10 Days, #10 CAP Changed Medications: Oxycodone Immediate Rel Tab (Roxicodone Ir) 5 Mg Tab 1 TAB PO Q6H PRN for Severe Pain, #20 TAB (Changed from: 1-2 TAB; Q4H; 24) Continued Medications: Control Pills ( Control Pills) Tab 1 TAB PO DAILY Ondasetron Odt (Zofran Odt) 4 Mg Tab 4 MG SL Q6H, #10 TAB Admission Information HPI (per Admitting provider): HISTORY OF PRESENT ILLNESS: Medical history is significant for allergic rhinitis, kidney stone. About 3 weeks ago, the patient was seen at PCP's office for bladder discomfort. Patient prescribed Pyridium. No symptom response. Px later went to the Emergency Room. A CT of the abdomen and pelvis showed a 2 mm calculus in right UVJ with minor secondary obstructive changes. Patient discharged on Zofran, oxycodone medications. Intractable symptoms w/ R achy flank pain since. No chest pain, no sob. No fever, no chills, no hematuria. nausea, no vomiting. Patient has had 3 ER visits since. Hospital Course ASSESSMENT AND PLAN: RIGHT URETERAL CALCULUS -CT scan- small stone 2 mm near bladder, but hasnt moved much in 1 month -Per urology- Gave a trial for 24 hours but as did not pass - did cystoscopy, ureteroscopy, basket stone extraction was done on 12/22/16. Post procedure had nausea, pain and thus not discharged yesterday -IV fluids, Pain mx, Flomax, Strain urine -Urology on board Discharge plan: Flomax till pain free, Percocet prn for severe pain, pyridium for bladder pain per urology Okay to discharge today DVT prophylaxis, SCDs. FULL CODE DISPOSITION Observation Total time spent on discharge = 25 minutes This includes examination of the patient, discharge planning, medication reconciliation, and communication with other providers. Discharge Instructions Activity Recommendations Activity Limitations: resume your previous activity . Instructions / Follow-Up Instructions / Follow-Up MEDICATION CHANGES: 1. Flomax 0.4 mg daily till pain free 2. Pyridium 100 mg three times a day as needed for bladder pain FOLLOW UP 1. PCP in 1 week. We will call you for appt date/time Current Hospital Diet Patient's current hospital diet: Regular Diet Discharge Diet Recommended Diet: Regular Diet Procedures Procedures Performed: Cystoscopy, Ureteroscopy, Laser Lithotripsy - Basket Stone Extraction, right Pending Studies Studies pending at discharge: no Medical Emergencies . Who to Call and When: Medical Emergencies: If at any time you feel your situation is an emergency, please call 911 immediately. . Non-Emergent Contact Non-Emergency issues call your: Urologist . . "Provider Documentation" section prepared by Brittney Kang. VTE Core Measure Inpt VTE Proph given/why not?: Patricia Garza, SCD's
[2016-12-22] MEDS ORDERED: PERCOCET HOME PACK PO SCH (18:30)
[2016-12-22] MEDS ORDERED: PHENAZOPYRIDINE HOME PACK 200 MG VIAL PO SCH (18:30)
[2016-12-22] MEDS ORDERED: NURSING VERBAL MED ORDER ONE ×2 (19:00→21:30)
--- NOTE | 2016-12-22 19:03 | Anesthesiology Progress Note ---
Anesthesia Post Op Note Date & Time Dec 22, 2016 at 19:02 Vital Signs Pain Intensity: 2 Vital Signs Past 12 Hours Date Time Temp Pulse Resp B/P Pulse Ox O2 Delivery O2 Flow Rate FiO2 12/22/16 18:55 36.4 78 20 123/73 98 Nasal Cannula 2 12/22/16 18:45 79 20 140/81 98 Nasal Cannula 3 12/22/16 18:35 86 20 126/78 98 Nasal Cannula 3 12/22/16 18:25 81 20 108/71 98 Nasal Cannula 3 12/22/16 18:15 36.5 101 20 127/62 98 Nasal Cannula 3 12/22/16 15:02 36.8 70 16 115/71 95 Room Air 12/22/16 07:18 Room Air 12/22/16 07:06 36.7 97 18 137/82 97 Room Air Notes Mental Status: alert / awake / arousable, participated in evaluation Pt Amnestic to Procedure: Yes Nausea / Vomiting: adequately controlled Pain: adequately controlled Airway Patency, RR, SpO2: stable & adequate BP & HR: stable & adequate Hydration State: stable & adequate Anesthetic Complications: no major complications apparent
--- NOTE | 2016-12-22 20:20 | DIAGNOSTIC IMAGING REPORT ---
INTRAOPERATIVE SUPINE ABDOMEN CLINICAL HISTORY: Right ureteral calculus. Lithotripsy. COMPARISON STUDY: CT scan dated 12/20/2016 FINDINGS: 2 seconds of fluoroscopic time was utilized. A single intraoperative fluoroscopic spot image demonstrates a right ureteral guidewire. IMPRESSION: A right ureteral guidewire is visualized Electronically signed by: Orlando Lopez M.D. 12/22/2016 8:19 PM Dictated Date/Time: 12/22/2016 8:18 PM
[2016-12-23] MEDS ORDERED: NURSING VERBAL MED ORDER ONE (02:15)
[2016-12-23] MEDS: PHENAZOPYRIDINE HCL 200 MG TAB PO PRN ×2 (02:22→13:08)
[2016-12-23] MEDS: KETOROLAC TROMETHAMINE 30 MG/ML VIAL IV PRN (02:24)
[2016-12-23] MEDS: OXYCODONE/ACETAMINOPHEN 5-325 TAB PO PRN (02:32)
[2016-12-23] MEDS: SODIUM CHLORIDE 0.9% 1000ML 1,000 ML IV SCH (03:11)
[2016-12-23 03:23] VITALS: BP 128/81; PULSE 70; TEMP 36.6; O2SAT 95
[2016-12-23] MEDS ORDERED: CEFAZOLIN IV 2,000 MG/60 ML D5W IV ONE (06:00)
[2016-12-23 07:39] VITALS: BP 132/79; PULSE 61; TEMP 36.5; O2SAT 97
[2016-12-23] MEDS: ONDANSETRON INJ 2 MG/ML 2 ML VIAL IV PRN (08:20)
[2016-12-23] MEDS: TAMSULOSIN HCL 0.4 MG CAP PO SCH (09:05)
--- NOTE | 2016-12-23 10:52 | Progress Note ---
Internal Med Progress Note Date of Service: Dec 23, 2016. Provider Documentation: SUBJECTIVE: Patient is status post stone removal yesterday. Had some nausea, pain and thus was not discharged post procedure. Does have some pain but no nausea, vomiting Tolerating PO well OBJECTIVE: Vital Signs-as noted below Exam: General-AAOX3, no distress Neck-Supple, No JVD Lungs-AEBE, clear Heart-S1, S2 normal, no murmurs Abdomen-Soft, no abdominal pain,no flank tenderness, BS present Extremities-No edema Lab data as noted below. CT SCAN IMPRESSION: Minimal right collecting system dilatation due to a 2 mm distal right ureteral calculus. Similar findings were shown on CT of November 23, 2016. ASSESSMENT & PLAN: ASSESSMENT AND PLAN: RIGHT URETERAL CALCULUS : -CT scan- small stone 2 mm near bladder, but had not moved much in 1 month -Per urology- Gave a trial for 24 hours but as did not pass - did cystoscopy, ureteroscopy, basket stone extraction on 12/22/16. Post procedure, had nausea, pain and thus was not discharged yesterday. -IV fluids, Pain mx, Flomax, Strain urine -Urology on board Discharge plan: Flomax till pain free, Percocet prn for severe pain, pyridium for bladder pain per urology. Will give zofran PRN for home. Okay to discharge today DVT prophylaxis, SCDs. FULL CODE DISPOSITION Observation Vital Signs: Date Time Temp Pulse Resp B/P Pulse Ox O2 Delivery O2 Flow Rate FiO2 12/23/16 07:39 36.5 61 16 132/79 97 Room Air 12/23/16 07:20 Room Air 12/23/16 03:23 36.6 70 16 128/81 95 Room Air 12/22/16 23:40 Room Air 12/22/16 22:57 36.6 75 16 127/82 98 Room Air 12/22/16 21:12 36.8 71 17 123/78 95 Room Air 12/22/16 20:15 36.9 82 17 129/76 94 Room Air 12/22/16 19:40 37.1 95 16 127/79 97 Room Air 12/22/16 19:10 97 Room Air 12/22/16 18:55 36.4 78 20 123/73 98 Nasal Cannula 2 12/22/16 18:45 79 20 140/81 98 Nasal Cannula 3 12/22/16 18:35 86 20 126/78 98 Nasal Cannula 3 12/22/16 18:25 81 20 108/71 98 Nasal Cannula 3 12/22/16 18:15 36.5 101 20 127/62 98 Nasal Cannula 3 12/22/16 15:20 Room Air 12/22/16 15:02 36.8 70 16 115/71 95 Room Air
[2016-12-23 11:00] VITALS: BP 116/69; PULSE 69; TEMP 36.8; O2SAT 97
[2016-12-23 12:08] VITALS: BP 116/69; PULSE 69; TEMP 36.8; O2SAT 97
[2017-06-29] MEDS ORDERED: CITA10TA4 PO (12:39)
[2017-06-29] MEDS ORDERED: VALA500T60 PO (12:39)
== END 2016-12-23 13:20 | disposition home or self-care (01) ==
LOC: ENRESERVDT → ENRESERVTM → C.EDB 20:52 → C.3E 12-21 00:43
PROVIDERS: ADMIT Internal Medicine; ATTEND Internal Medicine
DX: N20.1 Calculus of ureter (principal); N20.0 Calculus of kidney

== ENCOUNTER → 2017-02-10 | Outpatient (CLI) | payer OTHER ==
[~2017-02-10] MED LIST changes: -CIPR-255 PO; +CITA10TA4 PO; +FLM4 PO; +VALA500T60 PO
== END | disposition home or self-care (01) ==
LOC: C.LABSPEC 17:36
PROVIDERS: ATTEND Nurse Practitioner Family
DX: N20.0 Calculus of kidney (principal)

== ENCOUNTER → 2017-02-10 | Outpatient (CLI) | payer OTHER ==
--- NOTE | 2017-02-10 12:33 | DIAGNOSTIC IMAGING REPORT ---
KUB CLINICAL HISTORY: RIGHT FLANK PAIN COMPARISON STUDY: 12/09/2016, CT scan dated 12/20/2016 FINDINGS: There is no pathologic bowel dilatation. No renal calculi are visualized. The distal right ureteral calculus described on the prior CT scan is not visualized on conventional radiographic imaging. IMPRESSION: 1. Normal bowel gas pattern 2. No urinary tract calculi are visualized on conventional radiographic imaging Electronically signed by: Orlando Lopez M.D. 02/10/2017 12:32 PM Dictated Date/Time: 02/10/2017 12:31 PM
== END | disposition home or self-care (01) ==
LOC: C.RADBC 12:05
PROVIDERS: ATTEND Nurse Practitioner Family
DX: R10.9 Unspecified abdominal pain (principal)

== ENCOUNTER 2017-05-26 11:51 | Emergency (ER) | payer OTHER ==
[~2017-05-26] VITALS: Ht 157.5 cm; Wt 79.6 kg
[~2017-05-26 11:51] MED LIST changes: -CITA10TA4 PO; -VALA500T60 PO
[2017-05-26 12:01] VITALS: TEMP 37; Ht 157.5 cm; Wt 79.6 kg
[2017-05-26] MEDS ORDERED: SODIUM CHLORIDE 0.9% 1000ML 1,000 ML IV STA (13:12)
[2017-05-26] MEDS ORDERED: ALUMINUM/MAGNESIUM SUSP 30 ML UDC PO STA (13:12)
[2017-05-26] MEDS ORDERED: LIDOCAINE HCL 2% VISC SOLN 20 ML UDC PO STA (13:12)
[2017-05-26 13:22] LABS: BASO % 0.3 %; BASO ABS # 0.03 K/uL (0-0.2); COMPLETE YES; EOS % 3.8 %; HEMATOCRIT 39.9 % (37-47); IG% 0.1 %; LYMPH % 33.5 %; LYMPH ABS # 3.07 K/uL (1.2-3.4); MEAN CELL VOLUME 85.8 fL (80-100); MEAN CORPUSCULAR HEMOGLOBIN 30.8 pg (25-34); MEAN CORPUSCULAR HGB CONC 35.8 g/dl (32-36); MEAN PLATELET VOLUME 8.8 fL (7.4-10.4); MONO % 6.7 %; NEUT % 55.6 %; PLATELET COUNT 361 K/uL (130-400); RED BLOOD COUNT 4.65 M/uL (4.2-5.4); WHITE BLOOD COUNT 9.17 K/uL (4.8-10.8)
[2017-05-26 13:45] LABS: ALT/SGPT 30 U/L (12-78); AST/SGOT 19 U/L (15-37); BLOOD UREA NITROGEN 12 mg/dl (7-18); BUN/CREATININE RATIO 11.9 (10-20); CALCIUM 9.3 mg/dl (8.5-10.1); CARBON DIOXIDE 21 mmol/L (21-32); CHLORIDE 105 mmol/L (98-107); CREATININE 0.98 mg/dl (0.60-1.20); GLUCOSE 82 mg/dl (70-99); POTASSIUM 3.5 mmol/L (3.5-5.1); SODIUM 137 mmol/L (136-145)
[2017-05-26 13:56] LABS: ALKALINE PHOSPHATASE 67 U/L (45-117)
[2017-05-26 14:47] LABS: URINE APPEARANCE CLEAR (CLEAR); URINE BILIRUBIN NEG (NEG); URINE COLOR YELLOW; URINE NITRITE NEG (NEG); URINE PH 7.5 (4.5-7.5); URINE SPECIFIC GRAVITY 1.014 (1.000-1.030); UROBILINOGEN NEG (NEG)
--- NOTE | 2017-05-26 14:53 | DIAGNOSTIC IMAGING REPORT ---
ABDOMEN 2VIEW W/PA CHEST RTN CLINICAL HISTORY: 27 years-old Female presenting with RUQ/EPIGASTRIC ABDOMINAL PAIN. TECHNIQUE: PA view of the chest and supine and upright views of the abdomen were obtained. COMPARISON: Plain radiograph of the abdomen from 02/10/[address] from 12/20/2016. FINDINGS: Cardiomediastinal silhouette normal. Lungs and pleural spaces clear. Normal bowel gas pattern. No evidence of free intraperitoneal gas, pneumatosis, or portal venous gas. No abnormal calcifications to suggest nephrolithiasis. Osseous structures normal. IMPRESSION: 1. No acute cardiopulmonary disease. 2. No radiographic evidence of acute intra-abdominal pathology or evidence of nephrolithiasis. Electronically signed by: Cory Morales M.D. 05/26/2017 2:51 PM Dictated Date/Time: 05/26/2017 2:49 PM
[2017-05-26 15:11] LABS: MANUAL MICROSCOPIC REQUIRED? NO; REVIEW REQ? NO
--- NOTE | 2017-05-26 15:47 | DIAGNOSTIC IMAGING REPORT ---
Right upper quadrant ultrasound GALLBLADDER-ABD LIMITED CLINICAL HISTORY: RUQ/EPIGASTRIC ABDOMINAL PAIN pain. Nausea. TECHNIQUE: Ultrasound COMPARISON STUDY: 12/09/2016 FINDINGS: Normal gallbladder. No shadowing gallstones. Common bile duct 5 mm. Liver is uniform. Pancreas and right kidney are unremarkable IMPRESSION: Normal study Electronically signed by: Myo Deal M.D. 05/26/2017 3:45 PM Dictated Date/Time: 05/26/2017 3:41 PM
[2017-05-26 16:05] VITALS: BP 151/86; PULSE 74; O2SAT 98
--- NOTE | 2017-05-26 16:57 | EMERGENCY ROOM VISIT NOTE ---
History First contact with patient: 13:02 Chief Complaint: ABDOMINAL PAIN Stated Complaint: R UPPER QUANDRANT PAIN-NAUSEA,DIZZY History of Present Illness The patient is a 27 year old female who presents to the Emergency Room with complaints of right upper quadrant pain for the past 2 months. The patient reports that over the past month, the pain is becoming more constant and frequent. She reports that the pain is mostly postprandial, and within 5 minutes of eating has to go to the bathroom. She denies any diarrhea, stool discoloration, melena or constipation. She denies any pain radiating into the back, chest, shoulder or neck. She denies any chest pain or shortness of breath. She has also had frequent heartburn over the past few months. She denies any history of peptic ulcer disease, GERD, pancreatitis, liver disease or gallstones. She has tried taking Tums without any significant relief. She denies any strong family history of gallbladder disease. She did recently have kidney stones, but reports that her pain does not feel at all like this. She has not noticed any bloody urine or difficulty with urination. Patient cannot rule out . She currently rates her discomfort an 8 out of 10. Review of Systems HEENT: Denies dizziness, visual problems, hearing loss, tinnitus. Denies difficulty swallowing or oral lesions. PULMONARY: Denies cough, shortness of breath, sputum production or hemoptysis. CARDIOVASCULAR: Denies chest pain, palpitations, dyspnea on exertion, orthopnea or peripheral edema. GASTROINTESTINAL: See history of present illness. GENITOURINARY: Denies dysuria, frequency, urgency or nocturia. NEUROLOGIC: Denies history of epilepsy, CVA, TIA or chronic headaches. MUSCULOSKELETAL: Denies history of joint tenderness/swelling. SKIN: Denies rashes or lesions. PSYCHIATRIC: Denies history of depression or mental illness. ENDOCRINE: Denies history of diabetes or thyroid disorders. Past Medical/Surgical History Medical Problems: (1) Right nephrolithiasis Surgical Problems: (1) History of appendectomy Family History Patient reports no known family medical history. Social History Smoking Status: Never Smoker Drug Use: none Marital Status: single Housing Status: lives with family Occupation Status: employed Current/Historical Medications Scheduled Control Pills ( Control Pills), 1 TAB PO DAILY Allergies Coded Allergies: No Known Allergies (Unverified , 05/26/17) Physical Exam Vital Signs Date Time Temp Pulse Resp B/P (MAP) Pulse Ox O2 Delivery O2 Flow Rate FiO2 05/26/17 16:05 74 20 151/86 98 Room Air 05/26/17 14:30 74 20 150/88 99 Room Air 05/26/17 13:38 77 20 155/91 98 05/26/17 12:01 37.0 88 20 150/96 97 Room Air Physical Exam CONSTITUTIONAL: Healthy and well nourished. Alert and oriented X 3 with positive affect. Patient does not appear in any acute distress, nor does she appear acutely ill or toxic. HEENT: Normocephalic, atraumatic. Pupils equal, round and reactive. No scleral icterus or conjunctival pallor/injection. OROPHARYNX: No posterior pharyngeal erythema, tonsillar hypertrophy/exudates or dental erosions. NECK: Full active range of motion without discomfort. No JVD or carotid bruits. RESPIRATORY: Clear to auscultation bilaterally with no wheezing, crackles, rhonchi or stridor. Deep breathing causes right upper quadrant discomfort. CARDIOVASCULAR: Regular rate and rhythm with no murmurs, rubs or gallops. GASTROINTESTINAL: Bowel sounds present in all quadrants. Patient has notable epigastric and right upper quadrant tenderness to palpation with positive Thompson sign. Negative CVA tenderness. No abdominal rigidity, guarding or rebound. The patient has surgical incisions consistent with appendectomy history. MUSCULOSKELETAL: Full range of motion of all joints without discomfort. No tenderness to palpation through the ribs. INTEGUMENTARY: No rash or other significant dermatologic conditions noted. HEMATOLOGIC: No ecchymosis or petechiae. NEUROLOGIC: No focal neurologic deficits noted. Medical Decision & Procedures ER Provider Diagnostic Interpretation: My interpretation of an abdomen obstruction series with a PA chest view does not show any obvious obstructive pattern, subdiaphragmatic free air, basilar consolidations or other acute findings. Radiologist report is as follows: ABDOMEN 2VIEW W/PA CHEST RTN CLINICAL HISTORY: 27 years-old Female presenting with RUQ/EPIGASTRIC ABDOMINAL PAIN. TECHNIQUE: PA view of the chest and supine and upright views of the abdomen were obtained. COMPARISON: Plain radiograph of the abdomen from 02/10/[address] from 12/20/2016. FINDINGS: Cardiomediastinal silhouette normal. Lungs and pleural spaces clear. Normal bowel gas pattern. No evidence of free intraperitoneal gas, pneumatosis, or portal venous gas. No abnormal calcifications to suggest nephrolithiasis. Osseous structures normal. IMPRESSION: 1. No acute cardiopulmonary disease. 2. No radiographic evidence of acute intra-abdominal pathology or evidence of nephrolithiasis. Right upper quadrant ultrasound was also normal, with the following radiologist report: Right upper quadrant ultrasound GALLBLADDER-ABD LIMITED CLINICAL HISTORY: RUQ/EPIGASTRIC ABDOMINAL PAIN pain. Nausea. TECHNIQUE: Ultrasound COMPARISON STUDY: 12/09/2016 FINDINGS: Normal gallbladder. No shadowing gallstones. Common bile duct 5 mm. Liver is uniform. Pancreas and right kidney are unremarkable IMPRESSION: Normal study Laboratory Results 05/26/17 13:00 Red Blood Count 4.65, Mean Corpuscular Volume 85.8, Mean Corpuscular Hemoglobin 30.8, Mean Corpuscular Hemoglobin Concent 35.8, Mean Platelet Volume 8.8, Neutrophils (%) (Auto) 55.6, Lymphocytes (%) (Auto) 33.5, Monocytes (%) (Auto) 6.7, Eosinophils (%) (Auto) 3.8, Basophils (%) (Auto) 0.3, Neutrophils # (Auto) 5.10, Lymphocytes # (Auto) 3.07, Monocytes # (Auto) 0.61, Eosinophils # (Auto) 0.35, Basophils # (Auto) 0.03 05/26/17 13:00 Test 05/26/17 13:00 05/26/17 13:05 White Blood Count 9.17 K/uL (4.8-10.8) Red Blood Count 4.65 M/uL (4.2-5.4) Hemoglobin 14.3 g/dL (12.0-16.0) Hematocrit 39.9 % (37-47) Mean Corpuscular Volume 85.8 fL (80-100) Mean Corpuscular Hemoglobin 30.8 pg (25-34) Mean Corpuscular Hemoglobin Concent 35.8 g/dl (32-36) Platelet Count 361 K/uL (130-400) Mean Platelet Volume 8.8 fL (7.4-10.4) Neutrophils (%) (Auto) 55.6 % Lymphocytes (%) (Auto) 33.5 % Monocytes (%) (Auto) 6.7 % Eosinophils (%) (Auto) 3.8 % Basophils (%) (Auto) 0.3 % Neutrophils # (Auto) 5.10 K/uL (1.4-6.5) Lymphocytes # (Auto) 3.07 K/uL (1.2-3.4) Monocytes # (Auto) 0.61 K/uL (0.11-0.59) Eosinophils # (Auto) 0.35 K/uL (0-0.5) Basophils # (Auto) 0.03 K/uL (0-0.2) RDW Standard Deviation 37.3 fL (36.4-46.3) RDW Coefficient of Variation 11.9 % (11.5-14.5) Immature Granulocyte % (Auto) 0.1 % Immature Granulocyte # (Auto) 0.01 K/uL (0.00-0.02) Anion Gap 11.0 mmol/L (3-11) Est Creatinine Clear Calc Drug Dose 85.8 ml/min Estimated GFR () 92.9 Estimated GFR (Non- 80.2 BUN/Creatinine Ratio 11.9 (10-20) Calcium Level 9.3 mg/dl (8.5-10.1) Total Bilirubin 0.5 mg/dl (0.2-1) Direct Bilirubin < 0.1 mg/dl (0-0.2) Aspartate Amino Transf (AST/SGOT) 19 U/L (15-37) Alanine Aminotransferase (ALT/SGPT) 30 U/L (12-78) Alkaline Phosphatase 67 U/L (45-117) Total Protein 8.0 gm/dl (6.4-8.2) Albumin 3.5 gm/dl (3.4-5.0) Lipase 142 U/L (73-393) Urine Color YELLOW Urine Appearance CLEAR (CLEAR) Urine pH 7.5 (4.5-7.5) Urine Specific [place] 1.014 (1.000-1.030) Urine Protein NEG (NEG) Urine Glucose (UA) NEG (NEG) Urine Ketones TRACE (NEG) Urine Occult Blood NEG (NEG) Urine Nitrite NEG (NEG) Urine Bilirubin NEG (NEG) Urine Urobilinogen NEG (NEG) Urine Leukocyte Esterase NEG (NEG) Urine Test NEG (NEG) The above labs were reviewed and were grossly normal, including LFTs, lipase, CBC, electrolytes and urinalysis. Urine was negative. Medications Administered Medications (Trade) Dose Ordered Sig/Luiza Route Start Time Stop Time Status Last Admin Dose Admin Sodium Chloride 1,000 ml @ 999 mls/hr Q1H1M STAT IV 05/26/17 13:12 05/26/17 14:12 DC 05/26/17 13:36 999 MLS/HR Lidocaine HCl (Viscous Lidocaine 2% Soln) 10 ml NOW STAT PO 05/26/17 13:12 05/26/17 13:16 DC 05/26/17 13:34 10 ML Al Hydroxide/Mg Hydroxide (Maalox Susp) 30 ml NOW STAT PO 05/26/17 13:12 05/26/17 13:16 DC 05/26/17 13:34 30 ML Procedure IV hydration: The patient received a liter normal saline bolus ED Course Patient history and physical exam were performed. Nurse's notes were reviewed. Vital signs were reviewed, showing a blood pressure 150/96. The patient is afebrile. Respiratory rate is normal with an O2 saturation of 97% on room air. IV access was established, and labs were drawn. The patient was hydrated with a liter normal saline. She initially refused any analgesics or antiemetics. Review of labs showed no significant abnormal findings. An abdomen obstruction series with a PA chest view was also normal. Right upper quadrant ultrasound was also normal. The case was further discussed with Dr. Loredo, ED attending physician, who agrees with workup and plan of care. The patient was encouraged to follow-up with [facility] gastroenterology for further reevaluation. She was encouraged to take OTC PPIs, H2 blockers and Maalox/Gaviscon as needed for additional relief. She was instructed to also refrain from alcohol, caffeine, NSAIDs and aspirin. She was also encouraged to avoid fatty, spicy or high protein foods. She was instructed to return to the emergency department for any progressively worsening pain, fever, coffee-ground emesis, melena or other concerning symptoms. The patient was happy with plan of care, voiced understanding of all discharge instructions, and rated her pain a 3 out of 10 at the conclusion of my exam. Medical Decision A presents with complaint of epigastric and right upper quadrant pain. Her workup today is not suggestive of acute hepatitis, pancreatitis, cholecystitis, bowel obstruction, perforation, pneumonia or pneumothorax. I do not suspect cardiac etiology. The patient's symptoms are mostly postprandial and within minutes after eating. Biliary colic is highly suspected, and the patient will likely require additional workup, including the possibility of a HIDA scan or EGD. At this point, I feel that she is stable for outpatient management. Impression Primary Impression: Right upper quadrant abdominal pain Departure Information Referrals No Doctor, Assigned (PCP) Patient Instructions My [facility]
== END 2017-05-26 16:14 | disposition home or self-care (01) ==
LOC: C.EDB 11:52 → C.EDC 16:14
DX: R10.11 Right upper quadrant pain (principal); Z87.441 Personal history of nephrotic syndrome; Z98.890 Other specified postprocedural states

== ENCOUNTER → 2017-06-23 | Outpatient (CLI) | payer OTHER ==
[~2017-06-23] MED LIST changes: +CITA10TA4 PO; -FLM4 PO; -ONDA4TAB10 SL; -OXYC1TAB3 PO; +SINCALIDE INJ 1.5 MCG in SODIUM CHLORIDE 0.9% 100ML 100 ML IV ONE; +VALA500T60 PO
--- NOTE | 2017-06-23 09:22 | DIAGNOSTIC IMAGING REPORT ---
HEPATOBILIARY HIDA IMAGING CLINICAL HISTORY: 27 years-old Female with acute abdominal pain TECHNIQUE: Sequential anterior abdominal images were obtained through 60 minutes following the intravenous administration of 5.7 mCi of technetium-99m Choletec. COMPARISON: Ultrasound of the gallbladder 05/26/2017, CT 12/20/2016. FINDINGS: There is prompt, uniform accumulation of the tracer by the liver. There is normal filling of the intrahepatic ducts, common bile duct and normal excretion of the tracer into the duodenum. The gallbladder fills normally. IMPRESSION: Normal hepatobiliary study. No scintigraphic evidence for acute cholecystitis or common bile duct obstruction. The above report was generated using voice recognition software. It may contain grammatical, syntax or spelling errors. Electronically signed by: Presley Isabel M.D. 06/23/2017 9:21 AM Dictated Date/Time: 06/23/2017 9:18 AM
== END | disposition home or self-care (01) ==
LOC: C.NUCL 07:52
PROVIDERS: ATTEND Physician Assistant
DX: R10.11 Right upper quadrant pain (principal); R10.13 Epigastric pain

== ENCOUNTER → 2017-08-12 | Day surgery (SDC) | payer OTHER ==
[2017-06-29 12:39] VITALS: Ht 157.5 cm; Wt 77.3 kg
[~2017-08-12] VITALS: Ht 157.5 cm; Wt 77.3 kg
[~2017-08-12] MED LIST changes: -SINCALIDE INJ 1.5 MCG in SODIUM CHLORIDE 0.9% 100ML 100 ML IV ONE; +SODIUM CHLORIDE 0.9% 500ML 500 ML IV ONE
--- NOTE | 2017-08-12 12:06 | Endo History and Physical ---
History & Physical Date of Service: Aug 12, 2017. Chief Complaint: ABOMINAL PAIN/HEART BURN Referring Physician: DR. NORWOOD History of Present Illness 27 yo CF who presents for colonoscopy secondary to abdominal pain and heartburn. Past Surgical History Hx Cardiac Surgery: No Hx Internal Defibrillator: No Hx Pacemaker: No Hx Abdominal Surgery: Yes (APPY) Hx of Implantable Prosthesis: No Hx Post-Op Nausea and Vomiting: No Hx Cancer Surgery: No Hx Thoracic Surgery: No Hx Orthopedic: No Hx Urinary Tract Surgery: Yes (LITHOTRIPSY) Family History Esophogeal CA Social History Smoking Status: Never Smoker Hx Substance Use: No Hx Alcohol Use: No Allergies Coded Allergies: No Known Allergies (Verified , 08/12/17) Current Medications Reported Home Medications Medications Dose Route/Sig Max Daily Dose Days Date Category Valtrex (Valacyclovir HCl) 500 Mg Tab 500 Mg PO DIRECTED PRN 06/29/17 Reported Citalopram Hydrobromide 10 Mg Tab 1 Tab PO QAM 90 06/29/17 Reported Control Pills (Miscellaneous) Tab 1 Tab PO QAM 05/22/11 Reported Vital Signs Weight (Kilograms): 77.27 Height (Feet): 5 Height (Inches): 2 Date Time Temp Pulse Resp B/P (MAP) Pulse Ox O2 Delivery O2 Flow Rate FiO2 08/12/17 11:31 37.2 62 16 125/80 (95) 98 Room Air Physical Exam General Appearance: WD/WN, no apparent distress Respiratory/Chest: Auscultation: breath sounds normal Cardiovascular: Heart Auscultation: RRR Abdomen: Bowel Sounds: normal Inspection & Palpation: soft, non-distended, no tenderness, guarding & rebound Assessment and Plan Assessment: 27 yo CF who presents for colonoscopy secondary to abdominal pain and heartburn. Plan: Proceed with colonoscopy.
--- NOTE | 2017-08-12 13:05 | GI REPORT ---
Procedure Date: 08/12/2017 12:46 PM Procedure: Upper GI endoscopy Indications: Epigastric abdominal pain Medicines: Monitored Anesthesia Care Complications: No immediate complications. Estimated Blood Loss: Estimated blood loss: none. Procedure: Pre-Anesthesia Assessment: - Prior to the procedure, a History and Physical was performed, and patient medications and allergies were reviewed. The patient's tolerance of previous anesthesia was also reviewed. The risks and benefits of the procedure and the sedation options and risks were discussed with the patient. All questions were answered, and informed consent was obtained. Prior Anticoagulants: The patient has taken no previous anticoagulant or antiplatelet agents. ASA Grade Assessment: II - A patient with mild systemic disease. After reviewing the risks and benefits, the patient was deemed in satisfactory condition to undergo the procedure. After obtaining informed consent, the endoscope was passed under direct vision. Throughout the procedure, the patient's blood pressure, pulse, and oxygen saturations were monitored continuously. The scope was introduced through the mouth, and advanced to the second part of duodenum. The upper GI endoscopy was accomplished without difficulty. The patient tolerated the procedure well. Findings: Mildly severe esophagitis with no bleeding was found. Biopsies were taken with a cold forceps for histology. The entire examined stomach was normal. Biopsies were taken with a cold forceps for Helicobacter pylori testing. The examined duodenum was normal. Impression: - Mildly severe non-erosive esophagitis. Biopsied. - Normal stomach. Biopsied. - Normal examined duodenum. Recommendation: - Resume previous diet. - Continue present medications. - Await pathology results. - Return to primary care physician as previously scheduled. Cj Bronson, 08/12/2017 1:05:08 PM This report has been signed electronically. Note Initiated On: 08/12/2017 12:46 PM I attest to the content of the Intraoperative Record and orders documented therein, exceptions below
--- NOTE | 2017-08-12 13:06 | Discharge Instructions ---
Endoscopy Patient Instructions Date / Procedure(s) Performed Aug 12, 2017. EGD Allergy Information Coded Allergies: No Known Allergies (Verified , 08/12/17) Discharge Date / Findings Aug 12, 2017. Gastric antrum biopsies Mid-esophageal biopsies Medication Instructions 1) Start Protonix 40mg by mouth each morning 1/2 hour prior to breakfast. 2) OK to resume all medications today as prescribed Reported Home Medications Medications Dose Route/Sig Max Daily Dose Days Date Category Valtrex (Valacyclovir HCl) 500 Mg Tab 500 Mg PO DIRECTED PRN 06/29/17 Reported Citalopram Hydrobromide 10 Mg Tab 1 Tab PO QAM 90 06/29/17 Reported Control Pills (Miscellaneous) Tab 1 Tab PO QAM 05/22/11 Reported Provider Instructions Activity Restrictions - No exercising or heavy lifting for 24 hours. - Do not drink alcohol the day of the procedure. - Do not drive a car or operate machinery until the day after the procedure. - Do not make any important decisions or sign important papers in 24 hours after the procedure. Following Day: - Return to full activity which may include returning to work/school. Diet Start your diet with liquids and light foods (jello, soup, juice, toast). Then eat your usual diet if not nauseated. Treatment For Common After Affects For mild abdominal pain, bloating, or excessive gas: - Rest - Eat lightly - Lie on right side Follow-Up Information Follow-up with DR. NORWOOD as scheduled Anesthesia Information What You Should Know You have had a procedure that required some medicine to reduce anxiety and discomfort. This treatment is called moderate sedation. After receiving the treatment, you may be sleepy, but you will be able to breathe on your own. The effects of the treatment may last for several hours. Follow these instructions along with Activity/Diet recommendations noted above: * Do NOT do anything where dizziness or clumsiness would be dangerous. * Rest quietly at home today, then you can be up and about tomorrow. * Have a responsible person stay with you the rest of today. * You may have had an I.V. today. If so, you may take the dressing off later today. Recommendations Call your doctor if: * Trouble breathing * Continuous vomiting for more than 24 hours * Temperature above 101 degrees * Severe abdominal pain or bloating * Pain not relieved by pain medicine ordered * There is increased drainage or redness from any incision * A large amount of rectal bleeding greater than 2-3 tablespoons. (If you had a polyp/s removed or have hemorrhoids, a small amount of blood - from the rectum is to be expected.) * You have any unanswered questions or concerns. IN THE EVENT OF A SERIOUS EMERGENCY, GO TO THE NEAREST EMERGENCY ROOM Your discharge instructions were prepared by provider Cj Bronson. Patient Instructions Signature Page Sara Rodriguez Patient (or Guardian) Signature/Date: I have read and understand the instructions given to me by my caregivers. Caregiver/RN/Doctor Signature/Date: The above-named patient and/or guardian has received patient instructions on this date. + Original Patient Signature Page (only) stays with chart. Please make copy for patient.
[2017-08-12 13:45] VITALS: BP 126/75; PULSE 69; O2SAT 98
--- NOTE | 2017-08-12 14:17 | Anesthesiology Progress Note ---
Anesthesia Post Op Note Date & Time Aug 12, 2017 at 14:17 Vital Signs Pain Intensity: 0 Vital Signs Past 12 Hours Date Time Temp Pulse Resp B/P (MAP) Pulse Ox O2 Delivery O2 Flow Rate FiO2 08/12/17 13:45 69 20 126/75 (92) 98 Room Air 08/12/17 13:27 66 18 135/73 (93) 98 Room Air 08/12/17 13:10 72 18 120/60 (80) 96 Room Air 08/12/17 11:31 37.2 62 16 125/80 (95) 98 Room Air Notes Mental Status: alert / awake / arousable, participated in evaluation Pt Amnestic to Procedure: Yes Nausea / Vomiting: adequately controlled Pain: adequately controlled Airway Patency, RR, SpO2: stable & adequate BP & HR: stable & adequate Hydration State: stable & adequate Anesthetic Complications: no major complications apparent
== END | disposition home or self-care (01) ==
LOC: C.GI 11:01
PROVIDERS: ATTEND Internal Medicine
DX: R10.13 Epigastric pain (principal); K20.9 Esophagitis, unspecified; F32.9 Major depressive disorder, single episode, unspecified; Z90.49 Acquired absence of other specified parts of digestive tract; Z80.0 Family history of malignant neoplasm of digestive organs

== ENCOUNTER → 2017-12-14 | Day surgery (SDC) | payer OTHER ==
[2017-11-22 11:46] VITALS: Ht 157.5 cm; Wt 77.3 kg
[~2017-12-14] VITALS: Ht 157.5 cm; Wt 77.3 kg
[~2017-12-14] MED LIST changes: +LIDOCAINE HCL 2% 2 ML VIAL (20MG/ML) ONE; +PANT40TA PO; +PRAM1TAB52 PO; +PROPOFOL IV EMULSION 10 MG/ML 20 ML VIAL IV ONE; -SODIUM CHLORIDE 0.9% 500ML 500 ML IV ONE; +SUMA50TA15 PO; +TOPI25TA99 PO
[2017-12-14 13:06] VITALS: TEMP 37.3
--- NOTE | 2017-12-14 13:09 | Endo History and Physical ---
History & Physical Date of Service: Dec 14, 2017. Chief Complaint: eosinophilic esophagitis Referring Physician: Dr. Darrell Alicea History of Present Illness 27 yo CF who presents for EGD secondary to Eosinophilic esophagitis. Past Surgical History Hx Cardiac Surgery: No Hx Internal Defibrillator: No Hx Pacemaker: No Hx Abdominal Surgery: Yes (APPY) Hx of Implantable Prosthesis: No Hx Post-Op Nausea and Vomiting: No Hx Cancer Surgery: No Hx Thoracic Surgery: No Hx Orthopedic: No Hx Urinary Tract Surgery: Yes (LITHOTRIPSY) Family History Esophogeal CA Social History Smoking Status: Never Smoker Hx Substance Use: No Hx Alcohol Use: No Allergies Coded Allergies: No Known Allergies (Verified , 11/22/17) Current Medications Reported Home Medications Medications Dose Route/Sig Max Daily Dose Days Date Category Mirapex (Pramipexole Dihydrochloride) 0.25 Mg Tab 1 Tab PO HS PRN 11/22/17 Reported Imitrex (Sumatriptan Succinate) 50 Mg Tab 50 Mg PO UD PRN 11/22/17 Reported Protonix (Pantoprazole Sodium) 40 Mg Tab 40 Mg PO BID 11/22/17 Reported Topamax (Topiramate) 25 Mg Tab 2 Tabs PO HS 11/22/17 Reported Valtrex (Valacyclovir HCl) 500 Mg Tab 500 Mg PO DIRECTED PRN 06/29/17 Reported Citalopram Hydrobromide 10 Mg Tab 1 Tab PO QAM 06/29/17 Reported Control Pills (Miscellaneous) Tab 1 Tab PO QAM 05/22/11 Reported Vital Signs Weight (Kilograms): 77.27 Height (Feet): 5 Height (Inches): 2 Date Time Temp Pulse Resp B/P (MAP) Pulse Ox O2 Delivery O2 Flow Rate FiO2 12/14/17 13:06 37.3 68 18 145/79 (101) 98 Room Air Physical Exam General Appearance: WD/WN, no apparent distress Respiratory/Chest: Auscultation: breath sounds normal Cardiovascular: Heart Auscultation: RRR Abdomen: Bowel Sounds: normal Inspection & Palpation: soft, non-distended, no tenderness, guarding & rebound Assessment and Plan Assessment: 27 yo CF who presents for EGD secondary to Eosinophilic esophagitis. Plan: Proceed with EGD.
--- NOTE | 2017-12-14 13:51 | GI REPORT ---
Procedure Date: 12/14/2017 1:25 PM Procedure: Upper GI endoscopy Indications: Follow-up of eosinophilic esophagitis Medicines: Monitored Anesthesia Care Complications: No immediate complications. Estimated Blood Loss: Estimated blood loss: none. Procedure: Pre-Anesthesia Assessment: - Prior to the procedure, a History and Physical was performed, and patient medications and allergies were reviewed. The patient's tolerance of previous anesthesia was also reviewed. The risks and benefits of the procedure and the sedation options and risks were discussed with the patient. All questions were answered, and informed consent was obtained. Prior Anticoagulants: The patient has taken no previous anticoagulant or antiplatelet agents. ASA Grade Assessment: II - A patient with mild systemic disease. After reviewing the risks and benefits, the patient was deemed in satisfactory condition to undergo the procedure. After obtaining informed consent, the endoscope was passed under direct vision. Throughout the procedure, the patient's blood pressure, pulse, and oxygen saturations were monitored continuously. The On-site loaner was introduced through the mouth, and advanced to the second part of duodenum. The upper GI endoscopy was accomplished without difficulty. The patient tolerated the procedure well. Findings: Mucosal changes including ringed esophagus and longitudinal furrows were found in the entire esophagus. Biopsies were taken with a cold forceps for histology. The stomach was normal. The examined duodenum was normal. Impression: - Esophageal mucosal changes consistent with eosinophilic esophagitis. Biopsied. - Normal stomach. - Normal examined duodenum. Recommendation: - Resume previous diet. - Continue present medications. - Await pathology results. - Return to primary care physician as previously scheduled. Cj Bronson DO 12/14/2017 1:51:26 PM This report has been signed electronically. Note Initiated On: 12/14/2017 1:25 PM I attest to the content of the Intraoperative Record and orders documented therein, exceptions below
[2017-12-14 14:20] VITALS: BP 152/98; PULSE 77; O2SAT 97
--- NOTE | 2017-12-14 15:21 | Discharge Instructions ---
Endoscopy Patient Instructions Date / Procedure(s) Performed Dec 14, 2017. EGD Allergy Information Coded Allergies: No Known Allergies (Verified , 11/22/17) Discharge Date / Findings Dec 14, 2017. Eosinophilic esophagitis s/p biopsies Medication Instructions OK to resume all medications today as prescribed Reported Home Medications Medications Dose Route/Sig Max Daily Dose Days Date Category Mirapex (Pramipexole Dihydrochloride) 0.25 Mg Tab 1 Tab PO HS PRN 11/22/17 Reported Imitrex (Sumatriptan Succinate) 50 Mg Tab 50 Mg PO UD PRN 11/22/17 Reported Protonix (Pantoprazole Sodium) 40 Mg Tab 40 Mg PO BID 11/22/17 Reported Topamax (Topiramate) 25 Mg Tab 2 Tabs PO HS 11/22/17 Reported Valtrex (Valacyclovir HCl) 500 Mg Tab 500 Mg PO DIRECTED PRN 06/29/17 Reported Citalopram Hydrobromide 10 Mg Tab 1 Tab PO QAM 06/29/17 Reported Control Pills (Miscellaneous) Tab 1 Tab PO QAM 05/22/11 Reported Provider Instructions Activity Restrictions - No exercising or heavy lifting for 24 hours. - Do not drink alcohol the day of the procedure. - Do not drive a car or operate machinery until the day after the procedure. - Do not make any important decisions or sign important papers in 24 hours after the procedure. Following Day: - Return to full activity which may include returning to work/school. Diet Start your diet with liquids and light foods (jello, soup, juice, toast). Then eat your usual diet if not nauseated. Treatment For Common After Affects For mild abdominal pain, bloating, or excessive gas: - Rest - Eat lightly - Lie on right side Follow-Up Information Follow-up with Dr. Darrell Alicea as scheduled Anesthesia Information What You Should Know You have had a procedure that required some medicine to reduce anxiety and discomfort. This treatment is called moderate sedation. After receiving the treatment, you may be sleepy, but you will be able to breathe on your own. The effects of the treatment may last for several hours. Follow these instructions along with Activity/Diet recommendations noted above: * Do NOT do anything where dizziness or clumsiness would be dangerous. * Rest quietly at home today, then you can be up and about tomorrow. * Have a responsible person stay with you the rest of today. * You may have had an I.V. today. If so, you may take the dressing off later today. Recommendations Call your doctor if: * Trouble breathing * Continuous vomiting for more than 24 hours * Temperature above 101 degrees * Severe abdominal pain or bloating * Pain not relieved by pain medicine ordered * There is increased drainage or redness from any incision * A large amount of rectal bleeding greater than 2-3 tablespoons. (If you had a polyp/s removed or have hemorrhoids, a small amount of blood - from the rectum is to be expected.) * You have any unanswered questions or concerns. IN THE EVENT OF A SERIOUS EMERGENCY, GO TO THE NEAREST EMERGENCY ROOM Your discharge instructions were prepared by provider Cj Bronson. Patient Instructions Signature Page Sara Rodriguez Patient (or Guardian) Signature/Date: I have read and understand the instructions given to me by my caregivers. Caregiver/RN/Doctor Signature/Date: The above-named patient and/or guardian has received patient instructions on this date. + Original Patient Signature Page (only) stays with chart. Please make copy for patient.
--- NOTE | 2017-12-14 15:23 | Anesthesiology Progress Note ---
Anesthesia Post Op Note Date & Time Dec 14, 2017 at 14:27 Vital Signs Pain Intensity: 0 Vital Signs Past 12 Hours Date Time Temp Pulse Resp B/P (MAP) Pulse Ox O2 Delivery O2 Flow Rate FiO2 12/14/17 14:05 59 18 128/65 (86) 100 Room Air 12/14/17 13:50 58 16 130/70 (90) 98 Room Air 12/14/17 13:06 37.3 68 18 145/79 (101) 98 Room Air Notes Mental Status: alert / awake / arousable
== END | disposition home or self-care (01) ==
LOC: C.GI 12:48
PROVIDERS: ATTEND Internal Medicine
DX: K20.0 Eosinophilic esophagitis (principal); Z80.0 Family history of malignant neoplasm of digestive organs

== ENCOUNTER → 2018-06-05 | Outpatient (CLI) | payer OTHER ==
[~2018-06-05] MED LIST changes: +CLC100 PO; +DROS1TAB64 PO; +DTR/5 PO; +DTR5 PO; +FLUT0.15 NAE; +HYDR-3419 PO; -LIDOCAINE HCL 2% 2 ML VIAL (20MG/ML) ONE; +MAGN1TAB19 PO; +ONDA4TAB46 PO; +OXYC-57 PO; +OXYC-594 PO; +OXYC10TA2 PO; +PANT1TAB4 PO; -PANT40TA PO; +PHEN-1043 PO; +PHEN-876 PO; -PRAM1TAB52 PO; -PROPOFOL IV EMULSION 10 MG/ML 20 ML VIAL IV ONE; +RIBOCAP PO; -SUMA50TA15 PO; +TAMS0.4C38 PO; -TOPI25TA99 PO; +TOPI50TA24 PO; +VALA1TAB2 PO; -VALA500T60 PO; +ZFR4 PO
--- NOTE | 2018-06-05 11:00 | DIAGNOSTIC IMAGING REPORT ---
ABDOMEN AND PELVIS CT WITHOUT CONTRAST CT DOSE: 649.59 mGy.cm HISTORY: Follow-up study in a patient with nephrolithiasis and possible recent right distal ureteral calculus N20.0 NephrolithiasisPer Lyubov [facility] Ref# [id number] TECHNIQUE: Multiaxial CT images of the abdomen and pelvis were performed without contrast. A dose lowering technique was utilized adhering to the principles of ALARA. COMPARISON STUDY: [facility] 06/02/2018 and 06/01/2018, renal ultrasound 06/01/2018, CT abdomen and pelvis 12/20/2016. FINDINGS: Lung bases are generally clear. There is no pneumatosis or pneumoperitoneum identified. The imaged inferior cardiac chambers are unremarkable. 8 mm area of hypodensity within the left hepatic lobe adjacent to the falciform ligament is unchanged possibly reflecting focal fatty infiltration. Liver is otherwise unremarkable without intrahepatic biliary ductal dilation. Spleen, pancreas and adrenal glands are unremarkable. There is mild right-sided hydroureteronephrosis secondary to a 4 x 3 x 4 mm calculus of the distal right ureter, approximately 4 cm proximal to the right UVJ. The left kidney and ureter are within normal limits. Bladder is decompressed. Uterus and adnexa are unremarkable. The aorta and IVC are within normal limits. No pathologically enlarged lymph nodes. No bowel obstruction or focal bowel wall thickening. Terminal ileum is unremarkable. The appendix is not definitively seen. No ascites or mesenteric inflammatory changes. The soft tissues are within normal limits. The bones appear to be intact. Chronic bilateral pars defects at L5-S1 without spondylolisthesis. IMPRESSION: 1. Mild right-sided hydroureteronephrosis secondary to a 4 x 3 x 4 mm calculus of the distal right ureter. 2. No bowel obstruction or focal bowel wall thickening. 3. Chronic bilateral pars defects at L5-S1 without spondylolisthesis. Electronically signed by: Presley Isabel M.D. 06/05/2018 10:59 AM Dictated Date/Time: 06/05/2018 10:52 AM
== END | disposition home or self-care (01) ==
LOC: C.CTS 10:23
PROVIDERS: ATTEND Nurse Practitioner Family
DX: N20.0 Calculus of kidney (principal)

== ENCOUNTER 2018-06-12 16:52 | Inpatient (IN) | payer OTHER ==
[~2018-06-12] VITALS: Ht 157.5 cm; Wt 72.6 kg
[~2018-06-12 16:52] MED LIST changes: -BCPILLS PO; -DROS1TAB64 PO; -DTR5 PO; -HYDR-3419 PO; -ONDA4TAB46 PO; -OXYC-57 PO; -OXYC10TA2 PO; -PHEN-876 PO
[2018-06-12] MEDS ORDERED: SODIUM CHLORIDE 0.9% 1000ML 1,000 ML IV STA (17:06)
[2018-06-12] MEDS ORDERED: ONDANSETRON INJ 2 MG/ML 2 ML VIAL IV STA (17:06)
[2018-06-12] MEDS: HYDROmorphone INJ 0.5 MG/0.5 ML SYR IV STA ×2 (17:10→17:18)
[2018-06-12] MEDS ORDERED: OPTIRAY 320 IV PRN (17:15)
--- NOTE | 2018-06-12 17:22 | EMERGENCY ROOM VISIT NOTE ---
ED Visit Note First contact with patient: 17:01 CHIEF COMPLAINT: Severe right flank pain HISTORY OF PRESENTING ILLNESS: This is a 28-year-old female who presents to the emergency department by private vehicle with her parents with concern for severe right flank pain that started about 1 hour ago. Patient was recently diagnosed with a ureteral stone, she had a ureteral stent placed this past by Dr. Martinez and was admitted to the hospital, discharged home 2 days later. She had her stent removed in the outpatient clinic today by Dr. Jean-Baptiste due to discomfort from the stent, patient does not believe that she has yet passed her stone. She states initially that she was feeling better after the procedure, but began to develop severe pain on the way home. The pain is constant, sharp and stabbing in nature, she has not been able to get comfortable in any position, currently rates the pain as 10/10. She has associated nausea but has not vomited. She reports some associated chills. She has taken Percocet for her pain without any improvement. She reports a history of a kidney stone once before about a year ago, states that she was unable to pass it, and the urologist had to go in and retrieve it. She states the stone is bigger than that one, and she does not think she will be able to pass the stone. She denies any headaches, chest pain, shortness of breath, dizziness or syncope, diarrhea, constipation, bloody or black stools, or unusual rash. REVIEW OF SYSTEMS: A complete 10 point review of systems was reviewed with the patient with pertinent positives and negatives as per history of present illness. All else were negative. PAST MEDICAL HISTORY: Reviewed in chart, see problem list below. SOCIAL HISTORY: Lives at home. She denies tobacco use. ALLERGIES: No known allergies. PHYSICAL EXAM: CONSTITUTIONAL: Pleasant and cooperative. Appears extremely uncomfortable, writhing around on the bed and crying. Mildly dehydrated. HEENT: Normocephalic, atraumatic. Pupils equal, round and reactive to light, EOMI. TMs normal. Pharynx normal. Tacky mucous membranes. NECK: Supple, full active range of motion without discomfort. RESPIRATORY: Clear to auscultation bilaterally with no wheezing, crackles, rhonchi or stridor. Equal expansion bilaterally. CARDIOVASCULAR: Regular rate and rhythm with no murmurs, rubs or gallops. Normal peripheral perfusion. No edema. GASTROINTESTINAL: Tenderness to palpation of the right flank area. The abdomen is otherwise soft, nontender, nondistended. No rebound tenderness or guarding. No palpable masses or HSM. Bowel sounds present in all quadrants. CVA tenderness on the right. MUSCULOSKELETAL: Full range of motion of all joints without discomfort. INTEGUMENTARY: No rash or other significant dermatologic conditions noted. NEUROLOGIC: Alert and oriented X 4 with normal affect. Normal strength and sensation in all 4 extremities. No focal neurologic deficits noted. Normal speech. Normal gait observed. ED COURSE AND MEDICAL DECISION MAKING: CC: Patient presenting with complaint of severe right flank pain DIFFERENTIAL DIAGNOSIS: Includes, but not limited to ureteral stone/colic, ureteral colic/spasm, UTI, pyelonephritis, dehydration, electrolyte abnormality , among others. INTERPRETATION OF LABS: Leukocytosis with left shift, no anemia, elevated platelets, no significant electrolyte abnormality, normal renal function, normal liver enzymes. UA appears to be contaminated with large amount of red blood cells, white blood cells, and epithelial cells, as well as 4+ bacteria, culture pending. IMAGING: CT SCAN OF THE ABDOMEN AND PELVIS WITHOUT IV CONTRAST CLINICAL HISTORY: Right flank pain. Known obstructing ureteral stone. COMPARISON STUDY: Abdominal CT dated 06/05/2018. TECHNIQUE: CT scan of the abdomen and pelvis is performed from the lung bases to the proximal femora. Images are reviewed in the axial, sagittal, and coronal planes. IV contrast was not administered for this examination. A dose lowering technique was utilized adhering to the principles of ALARA. CT DOSE: 633.27 mGy.cm FINDINGS: Lung bases: The heart is normal in size and without pericardial effusion. The lung bases are clear. Liver: The unenhanced liver is normal in size, contour, and attenuation. There is no intrahepatic biliary ductal dilatation. Gallbladder: Unremarkable. Spleen: Normal in size and attenuation. Pancreas: Unremarkable. Adrenal glands: Unremarkable. Kidneys: The unenhanced kidneys are normal in size. There is a 3 mm obstructing calculus in the distal right ureter seen on image #333. This is located approximately 1.5 cm above the vesicoureteral junction and causes moderate right hydroureteronephrosis. There is mild right-sided perinephric and periureteric stranding. No additional calculi are identified in either kidney. There is no left-sided hydronephrosis. There is no evidence of contour deforming renal mass lesion. Abdominal vasculature: The abdominal aorta is normal in course and caliber. Bowel: There is mild to moderate colonic fecal retention. No bowel obstruction is seen. The appendix is not identified and reported surgically absent. Peritoneum: There is no intraperitoneal free air or abdominal ascites. There is a small fat-containing umbilical hernia. Lymphadenopathy: None. Pelvic viscera: Gas is noted within the bladder lumen. The bladder is otherwise normal as imaged. The uterus and adnexa are normal as visualized. Trace free fluid is seen in the cul-de-sac. Skeletal structures: No lytic or blastic lesions are seen. There are bilateral pars defects at L5. IMPRESSION: 1. There is a 3 mm obstructing calculus in the distal right ureter approximately 1.5 cm above the vesicoureteral junction. This causes moderate right hydroureteronephrosis. 2. No additional calculi are identified in either kidney. 3. Gas is present within the bladder lumen and likely related to recent instrumentation. Correlation with clinical findings and urinalysis will be required. 4. There is trace nonspecific free fluid in the cul-de-sac, likely within physiologic limits. MEDICATION RECONCILIATION: I attest that I have personally reviewed the patient 's current medication list. INITIAL VITAL SIGNS REVIEW: I reviewed the patient's initial vital signs and interpret them as follows: T: Afebrile; BP: Hypertensive; HR: Tachycardic; RR : Within normal limits; Pulse Ox: Within normal limits on room air. Blood pressure screening: The patient was found to have an elevated blood pressure, which was felt to be situational and was referred to the inpatient team for further management. SUMMARY: Patient was evaluated at bedside, history and physical exam performed. Patient is alert and oriented, in no acute distress, but appears significantly uncomfortable, writhing around in the bed and crying. She is tender in the right flank and has right CVA tenderness. There is no acute abdomen. She does appear to be mildly dehydrated as well, and is noted to be tachycardic. Orders were placed at bedside for labs, UA and urine culture, IV fluids for hydration, IV Dilaudid for pain, IV Zofran for nausea, PO Flomax, and CT abdomen /pelvis noncontrast to evaluate stone. Patient discussed with Dr. Bedoya, who agrees with my assessment and plan. Given the patient's recent procedure today, I did place a call to Dr. Bergeron , on-call urologist, and discussed the patient with him. Per his review of Dr. Jean-Baptiste's notes, he states that if her pain is not controlled, she is not a candidate for another stent and would need to be transferred for a nephrostomy tube. Labs and imaging reviewed as above, CT still noting the presence of distal obstructing stone. Interval development of leukocytosis, and low-grade fevers noted. Given the recent instrumentation, will cover for possible infection, IV Rocephin ordered. I spoke on the phone with Dr. Vela, on-call urologist at [facility] in [place], to request a transfer, given that our urologist do not feel there is anything further they can offer the patient. Dr. Vela felt that this transfer was inappropriate and did not accept the patient for transfer. I spoke on the phone again with Dr. Bergeron, and explained that I was unable to transfer the patient. He then recommended admitting her to the medicine team for IV antibiotics and pain management, and the urology team will reevaluate her tomorrow morning. Patient reassessed multiple times throughout ED stay, she has remained stable, but has required several doses of IV medications to manage her pain, thus far she has received 2.5 mg of IV Dilaudid, 1 g of IV Tylenol, and 15 mg of IV Toradol. I had a lengthy discussion with the patient and her parents regarding the situation, and my recommendation for admission tonight for pain management and IV antibiotics, with plans for urology to reassess her situation tomorrow. Patient and her parents agreed to this plan for admission. I spoke on the phone with Dr. Montero, [facility] hospitalist, who agrees to evaluate the patient for admission. Patient stable at time of admission. Problem List Medical Problems: (1) Depression Status: Chronic (2) Eosinophilic esophagitis Status: Chronic (3) History of migraine Status: Chronic (4) History of renal calculi Status: Resolved Surgical Problems: (1) History of appendectomy Status: Resolved Current/Historical Medications Scheduled Control Pills ( Control Pills), 1 TAB PO QAM Citalopram Hydrobromide (Citalopram Hydrobromide), 10 MG PO DAILY Docusate Sodium (Docusate Sodium), 100 MG PO BID Magnesium Oxide (Mg Supplement (Magnesium Oxide), 400 MG PO DAILY Pantoprazole (Pantoprazole Sodium), 40 MG PO DAILY Riboflavin (B-2-400), 400 MG PO DAILY Tamsulosin Hcl (Flomax), 0.4 MG PO HS Topiramate (Topamax), 50 MG PO HS Scheduled PRN Fluticasone Propionate (Nasal) (Flonase Allergy Relief), 2 SPRAYS [place] DAILY PRN for Nasal Congestion Ondansetron (Ondansetron HCl), 4 MG PO Q4H PRN for Nausea Oxybutynin Chloride (Ditropan), 5 MG PO Q8 PRN for Bladder pain Oxycodone/Acetaminophen 10MG/325MG (Oxycodone/Acetaminophen 10MG/325MG), 1 TAB PO Q4H PRN for Pain Phenazopyridine HCl (Phenazopyridine HCl), 200 MG PO TID PRN for PRN Valacyclovir Hcl (Valtrex), 1,000 MG PO Q12 PRN for Cold Sore(s) Allergies Coded Allergies: No Known Allergies (Verified , 06/08/18) Vital Signs Date Time Temp Pulse Resp B/P (MAP) Pulse Ox O2 Delivery O2 Flow Rate FiO2 06/12/18 21:01 78 18 148/67 98 Room Air 06/12/18 20:15 79 18 147/104 95 06/12/18 19:00 80 18 135/74 95 Room Air 06/12/18 18:25 69 16 135/73 98 Room Air 06/12/18 16:56 37.6 117 20 140/75 95 Room Air Laboratory Results 06/12/18 17:05 Red Blood Count 5.02, Mean Corpuscular Volume 86.5, Mean Corpuscular Hemoglobin 30.5, Mean Corpuscular Hemoglobin Concent 35.3, Mean Platelet Volume 8.7, Neutrophils (%) (Auto) 67.8, Lymphocytes (%) (Auto) 23.9, Monocytes (%) (Auto) 6.1, Eosinophils (%) (Auto) 1.4, Basophils (%) (Auto) 0.2, Neutrophils # (Auto) 8.98, Lymphocytes # (Auto) 3.16, Monocytes # (Auto) 0.80, Eosinophils # (Auto) 0.18, Basophils # (Auto) 0.02 06/12/18 17:05 Test 06/12/18 17:05 06/12/18 18:25 White Blood Count 13.22 K/uL (4.8-10.8) Red Blood Count 5.02 M/uL (4.2-5.4) Hemoglobin 15.3 g/dL (12.0-16.0) Hematocrit 43.4 % (37-47) Mean Corpuscular Volume 86.5 fL (80-100) Mean Corpuscular Hemoglobin 30.5 pg (25-34) Mean Corpuscular Hemoglobin Concent 35.3 g/dl (32-36) Platelet Count 451 K/uL (130-400) Mean Platelet Volume 8.7 fL (7.4-10.4) Neutrophils (%) (Auto) 67.8 % Lymphocytes (%) (Auto) 23.9 % Monocytes (%) (Auto) 6.1 % Eosinophils (%) (Auto) 1.4 % Basophils (%) (Auto) 0.2 % Neutrophils # (Auto) 8.98 K/uL (1.4-6.5) Lymphocytes # (Auto) 3.16 K/uL (1.2-3.4) Monocytes # (Auto) 0.80 K/uL (0.11-0.59) Eosinophils # (Auto) 0.18 K/uL (0-0.5) Basophils # (Auto) 0.02 K/uL (0-0.2) RDW Standard Deviation 38.4 fL (36.4-46.3) RDW Coefficient of Variation 12.2 % (11.5-14.5) Immature Granulocyte % (Auto) 0.6 % Immature Granulocyte # (Auto) 0.08 K/uL (0.00-0.02) Anion Gap 7.0 mmol/L (3-11) Est Creatinine Clear Calc Drug Dose 80.4 ml/min Estimated GFR () 91.2 Estimated GFR (Non- 78.6 BUN/Creatinine Ratio 17.1 (10-20) Calcium Level 9.5 mg/dl (8.5-10.1) Total Bilirubin 0.7 mg/dl (0.2-1) Aspartate Amino Transf (AST/SGOT) 23 U/L (15-37) Alanine Aminotransferase (ALT/SGPT) 45 U/L (12-78) Alkaline Phosphatase 67 U/L (45-117) Total Protein 8.4 gm/dl (6.4-8.2) Albumin 3.6 gm/dl (3.4-5.0) Globulin 4.8 gm/dl (2.5-4.0) Albumin/Globulin Ratio 0.8 (0.9-2) Urine Color ORANGE Urine Appearance C (CLEAR) Urine pH (4.5-7.5) Urine Specific [place] 1.017 (1.000-1.030) Urine Protein (NEG) Urine Glucose (UA) (NEG) Urine Ketones (NEG) Urine Occult Blood (NEG) Urine Nitrite (NEG) Urine Bilirubin (NEG) Urine Urobilinogen (NEG) Urine Leukocyte Esterase (NEG) Urine RBC >30 /hpf (0-4) Urine WBC >30 /hpf (0-5) Urine Epithelial Cells >30 /lpf (0-5) Urine Bacteria 4+ (NEG) Medications Administered Medications (Trade) Dose Ordered Sig/Luiza Route Start Time Stop Time Status Last Admin Dose Admin Sodium Chloride 1,000 ml @ 999 mls/hr Q1H1M STAT IV 06/12/18 17:06 06/12/18 18:06 DC 06/12/18 17:18 999 MLS/HR Hydromorphone HCl (Dilaudid Inj) 0.5 mg NOW STAT IV 06/12/18 17:06 06/12/18 17:09 DC 06/12/18 17:10 0.5 MG Ondansetron HCl (Zofran Inj) 4 mg NOW STAT IV 06/12/18 17:06 06/12/18 17:09 DC 06/12/18 17:18 4 MG Hydromorphone HCl (Dilaudid Inj) 0.5 mg NOW STAT IV 06/12/18 17:29 06/12/18 17:30 DC 06/12/18 17:34 0.5 MG Ketorolac Tromethamine (Toradol Inj) 15 mg NOW STAT IV 06/12/18 17:52 06/12/18 17:54 DC 06/12/18 18:01 15 MG Acetaminophen 100 ml @ 400 mls/hr NOW STAT IV 06/12/18 17:52 06/12/18 18:06 DC 06/12/18 18:00 400 MLS/HR Hydromorphone HCl (Dilaudid Inj) 1 mg NOW STAT IV 06/12/18 18:44 06/12/18 18:45 DC 06/12/18 18:55 1 MG Tamsulosin HCl (Flomax Cap) 0.4 mg NOW ONCE PO 06/12/18 18:45 06/12/18 18:46 DC 06/12/18 18:54 0.4 MG Ceftriaxone Sodium (Rocephin Inj) 1 gm NOW STAT IV 06/12/18 18:55 06/12/18 18:56 DC 06/12/18 19:06 1 GM Hydromorphone HCl (Dilaudid Inj) 0.5 mg NOW STAT IV 06/12/18 20:24 06/12/18 20:25 DC 06/12/18 20:32 0.5 MG Departure Information Referrals Darrell Alicea M.D. (PCP) Patient Instructions [facility]
[2018-06-12] MEDS ORDERED: HYDROmorphone INJ 0.5 MG/0.5 ML SYR IV STA ×3 (17:29→20:24)
[2018-06-12 17:36] LABS: ALBUMIN 3.6 gm/dl (3.4-5.0); CALCIUM 9.5 mg/dl (8.5-10.1); CREATININE 0.99 mg/dl (0.60-1.20); POTASSIUM 4.6 mmol/L (3.5-5.1)
[2018-06-12 17:38] LABS: TOTAL PROTEIN 8.4 gm/dl (6.4-8.2)
[2018-06-12] MEDS ORDERED: KETOROLAC TROMETHAMINE 30 MG/ML VIAL IV STA (17:52)
[2018-06-12] MEDS ORDERED: ACETAMINOPHEN IV 100 ML IV STA (17:52)
[2018-06-12 18:16] LABS: BASO % 0.2 %; BASO ABS # 0.02 K/uL (0-0.2); EOS % 1.4 %; EOS ABS # 0.18 K/uL (0-0.5); HEMATOCRIT 43.4 % (37-47); HEMOGLOBIN 15.3 g/dL (12.0-16.0); IG# 0.08 K/uL (0.00-0.02); LYMPH % 23.9 %; LYMPH ABS # 3.16 K/uL (1.2-3.4); MEAN CELL VOLUME 86.5 fL (80-100); MEAN CORPUSCULAR HEMOGLOBIN 30.5 pg (25-34); MEAN CORPUSCULAR HGB CONC 35.3 g/dl (32-36); MEAN PLATELET VOLUME 8.7 fL (7.4-10.4); MONO % 6.1 %; NEUT % 67.8 %; NEUT ABS # 8.98 K/uL (1.4-6.5); PLATELET COUNT 451 K/uL (130-400); RED CELL DISTRIBUTION WIDTH CV 12.2 % (11.5-14.5); RED CELL DISTRIBUTION WIDTH SD 38.4 fL (36.4-46.3); WHITE BLOOD COUNT 13.22 K/uL (4.8-10.8)
--- NOTE | 2018-06-12 18:31 | DIAGNOSTIC IMAGING REPORT ---
CT SCAN OF THE ABDOMEN AND PELVIS WITHOUT IV CONTRAST CLINICAL HISTORY: Right flank pain. Known obstructing ureteral stone. COMPARISON STUDY: Abdominal CT dated 06/05/2018. TECHNIQUE: CT scan of the abdomen and pelvis is performed from the lung bases to the proximal femora. Images are reviewed in the axial, sagittal, and coronal planes. IV contrast was not administered for this examination. A dose lowering technique was utilized adhering to the principles of ALARA. CT DOSE: 633.27 mGy.cm FINDINGS: Lung bases: The heart is normal in size and without pericardial effusion. The lung bases are clear. Liver: The unenhanced liver is normal in size, contour, and attenuation. There is no intrahepatic biliary ductal dilatation. Gallbladder: Unremarkable. Spleen: Normal in size and attenuation. Pancreas: Unremarkable. Adrenal glands: Unremarkable. Kidneys: The unenhanced kidneys are normal in size. There is a 3 mm obstructing calculus in the distal right ureter seen on image #333. This is located approximately 1.5 cm above the vesicoureteral junction and causes moderate right hydroureteronephrosis. There is mild right-sided perinephric and periureteric stranding. No additional calculi are identified in either kidney. There is no left-sided hydronephrosis. There is no evidence of contour deforming renal mass lesion. Abdominal vasculature: The abdominal aorta is normal in course and caliber. Bowel: There is mild to moderate colonic fecal retention. No bowel obstruction is seen. The appendix is not identified and reported surgically absent. Peritoneum: There is no intraperitoneal free air or abdominal ascites. There is a small fat-containing umbilical hernia. Lymphadenopathy: None. Pelvic viscera: Gas is noted within the bladder lumen. The bladder is otherwise normal as imaged. The uterus and adnexa are normal as visualized. Trace free fluid is seen in the cul-de-sac. Skeletal structures: No lytic or blastic lesions are seen. There are bilateral pars defects at L5. IMPRESSION: 1. There is a 3 mm obstructing calculus in the distal right ureter approximately 1.5 cm above the vesicoureteral junction. This causes moderate right hydroureteronephrosis. 2. No additional calculi are identified in either kidney. 3. Gas is present within the bladder lumen and likely related to recent instrumentation. Correlation with clinical findings and urinalysis will be required. 4. There is trace nonspecific free fluid in the cul-de-sac, likely within physiologic limits. Electronically signed by: Anibal Esteban M.D. 06/12/2018 6:29 PM Dictated Date/Time: 06/12/2018 6:16 PM
[2018-06-12] MEDS ORDERED: TAMSULOSIN HCL 0.4 MG CAP PO ONE (18:45)
[2018-06-12] MEDS ORDERED: CEFTRIAXONE SOD INJ 1 GM ADDVIAL IV STA (18:55)
[2018-06-12] MEDS ORDERED: ONDANSETRON INJ 2 MG/ML 2 ML VIAL IV PRN (21:15)
[2018-06-12] MEDS ORDERED: ACETAMINOPHEN 325 MG TAB PO PRN (21:15)
[2018-06-12] MEDS ORDERED: PHENAZOPYRIDINE HCL 200 MG TAB PO PRN (21:30)
[2018-06-12] MEDS ORDERED: OXYBUTYNIN CHLORIDE 5 MG TAB PO PRN (21:30)
[2018-06-12 21:40] VITALS: BP 134/85; PULSE 73; TEMP 37.3; Ht 157.5 cm; Wt 72.6 kg
[2018-06-12] MEDS: SODIUM CHLORIDE 0.9% 1000ML 1,000 ML IV SCH (21:44)
[2018-06-12] MEDS ORDERED: BCPILLS PO (21:52)
--- NOTE | 2018-06-12 21:52 | History and Physical ---
History & Physical Date & Time of Service: Jun 12, 2018 at 21:23 Chief Complaint: Something Doesn't Feel Right Post Stent Removal Primary Care Physician: Darrell Alicea M.D. History of Present Illness Source: patient, family This is a pleasant 28-year-old white female who has a significant past medical history of right renal calculi, eosinophilic esophagitis, depression, migraines who presented to [facility] with right flank pain x few hours. Patient was recently hospitalized on 06/01 secondary to right nephrolithiasis, and re-hospitalized on 06/08/18 secondary to recurrent nephrolithiasis which patient underwent a R ureteroscopy and stent placement with ureteral balloon dilation secondary to right ureteral stenosis with recurrent nephrolithiasis by Dr. Martinez. She was discharged home on 06/11 on Flomax, Ditropan, Pyridium and encouraged to follow-up with urology in 1 week for ureteral stent removal. Unfortunately, patient had significant right flank pain today requiring her to present to urology outpatient office in which she saw Dr. Jean-Baptiste, right ureteral stent was then removed. Her symptoms resolved for approximately 1 hour, when she again developed severe right flank pain, radiated to right lower quadrant, constant, pain is worse than prior kidney stone, sharp, 8/10, nothing makes it better, except Dilaudid. Further complains of dysuria, increased frequency/urgency with urination, urine discolored secondary to Pyridium, "feeling feverish," sweats, chills, nausea, bloating, having difficulty moving bowels, "nothing comes out." Appetite overall decrease. She denies lightheadedness, dizziness, chest pain, shortness of breath, emesis, diarrhea. In ED patient was found with white blood cell count 13.2, UA positive for hematuria, bacteria, CT scan showing 3 mm obstructing stone, 1.5 cm above the vesicoureteral junction with moderate right hydronephrosis, mild to moderate fecal retention in bowels, no bowel obstruction noted. Patient is being admitted for further urologic evaluation, initiation of IV antibiotics and pain management. Past Medical/Surgical History Medical Problems: (1) Depression Status: Chronic (2) Eosinophilic esophagitis Status: Chronic (3) History of migraine Status: Chronic (4) History of renal calculi Status: Resolved Surgical Problems: (1) History of appendectomy Status: Resolved (2) History of extraction of renal calculus (3) Right ureteral stent placement due to right ureteral stenosis Family History FH: Denies family history of renal disease or nephrolithiasis Social History Smoking Status: Never Smoker Smokeless Tobacco Use: No Alcohol Use: none Drug Use: none Marital Status: single Housing status: lives with family Occupational Status: employed Immunizations History of Influenza Vaccine: Yes Influenza Vaccine Date: Sep 28, 2017 History of Tetanus Vaccine?: Yes Tetanus Immunization Date: May 25, 2007 History of Pneumococcal: Unknown History of Hepatitis B Vaccine: Yes Hepatitis Immunization Date: 1992 Allergies Coded Allergies: No Known Allergies (Verified , 06/08/18) Home Medications Scheduled Control Pills ( Control Pills), 1 TAB PO QAM Citalopram Hydrobromide (Citalopram Hydrobromide), 10 MG PO DAILY Docusate Sodium (Docusate Sodium), 100 MG PO BID Magnesium Oxide (Mg Supplement (Magnesium Oxide), 400 MG PO DAILY Pantoprazole (Pantoprazole Sodium), 40 MG PO DAILY Riboflavin (B-2-400), 400 MG PO DAILY Tamsulosin Hcl (Flomax), 0.4 MG PO HS Topiramate (Topamax), 50 MG PO HS Scheduled PRN Fluticasone Propionate (Nasal) (Flonase Allergy Relief), 2 SPRAYS ROSETTA DAILY PRN for Nasal Congestion Ondansetron (Ondansetron HCl), 4 MG PO Q4H PRN for Nausea Oxybutynin Chloride (Ditropan), 5 MG PO Q8 PRN for Bladder pain Oxycodone/Acetaminophen 10MG/325MG (Oxycodone/Acetaminophen 10MG/325MG), 1 TAB PO Q4H PRN for Pain Phenazopyridine HCl (Phenazopyridine HCl), 200 MG PO TID PRN for PRN Valacyclovir Hcl (Valtrex), 1,000 MG PO Q12 PRN for Cold Sore(s) Review of Systems As noted per HPI, 10 systems reviewed and negative unless noted above. Physical Exam Vital Signs Date Time Temp Pulse Resp B/P (MAP) Pulse Ox O2 Delivery O2 Flow Rate FiO2 06/12/18 21:01 78 18 148/67 98 Room Air 06/12/18 20:15 79 18 147/104 95 06/12/18 19:00 80 18 135/74 95 Room Air 06/12/18 18:25 69 16 135/73 98 Room Air 06/12/18 16:56 37.6 117 20 140/75 95 Room Air General Appearance: WD/WN, + mild distress, + pertinent finding (anxious over frequent hospitalizations) Head: normocephalic, atraumatic Eyes: normal inspection, PERRL, EOMI, sclerae normal ENT: normal ENT inspection, hearing grossly normal, + pertinent finding ( Mucous membranes moist) Neck: supple, no adenopathy, thyroid normal, no JVD Respiratory/Chest: chest non-tender, lungs clear, normal breath sounds, no respiratory distress, no accessory muscle use Cardiovascular: regular rate, rhythm, no edema, no murmur Abdomen/GI: normal bowel sounds, non tender, soft, no organomegaly, + pertinent finding (+ CVA tenderness) Back: normal inspection Extremities/Musculoskelatal: normal inspection, no calf tenderness, normal capillary refill, no pedal edema, normal range of motion Neurologic/Psych: alert, normal mood/affect, oriented x 3 Skin: normal color, no rash Diagnostics Laboratory Results Results Past 24 Hours Test 06/12/18 17:05 06/12/18 18:25 Range/Units White Blood Count 13.22 4.8-10.8 K/uL Red Blood Count 5.02 4.2-5.4 M/uL Hemoglobin 15.3 12.0-16.0 g/dL Hematocrit 43.4 37-47 % Mean Corpuscular Volume 86.5 80-100 fL Mean Corpuscular Hemoglobin 30.5 25-34 pg Mean Corpuscular Hemoglobin Concent 35.3 32-36 g/dl Platelet Count 451 130-400 K/uL Mean Platelet Volume 8.7 7.4-10.4 fL Neutrophils (%) (Auto) 67.8 % Lymphocytes (%) (Auto) 23.9 % Monocytes (%) (Auto) 6.1 % Eosinophils (%) (Auto) 1.4 % Basophils (%) (Auto) 0.2 % Neutrophils # (Auto) 8.98 1.4-6.5 K/uL Lymphocytes # (Auto) 3.16 1.2-3.4 K/uL Monocytes # (Auto) 0.80 0.11-0.59 K/uL Eosinophils # (Auto) 0.18 0-0.5 K/uL Basophils # (Auto) 0.02 0-0.2 K/uL RDW Standard Deviation 38.4 36.4-46.3 fL RDW Coefficient of Variation 12.2 11.5-14.5 % Immature Granulocyte % (Auto) 0.6 % Immature Granulocyte # (Auto) 0.08 0.00-0.02 K/uL Sodium Level 134 136-145 mmol/L Potassium Level 4.6 3.5-5.1 mmol/L Chloride Level 103 98-107 mmol/L Carbon Dioxide Level 24 21-32 mmol/L Anion Gap 7.0 3-11 mmol/L Blood Urea Nitrogen 17 7-18 mg/dl Creatinine 0.99 0.60-1.20 mg/dl Est Creatinine Clear Calc Drug Dose 80.4 ml/min Estimated GFR () 91.2 Estimated GFR (Non- 78.6 BUN/Creatinine Ratio 17.1 10-20 Random Glucose 115 70-99 mg/dl Calcium Level 9.5 8.5-10.1 mg/dl Total Bilirubin 0.7 0.2-1 mg/dl Aspartate Amino Transf (AST/SGOT) 23 15-37 U/L Alanine Aminotransferase (ALT/SGPT) 45 12-78 U/L Alkaline Phosphatase 67 45-117 U/L Total Protein 8.4 6.4-8.2 gm/dl Albumin 3.6 3.4-5.0 gm/dl Globulin 4.8 2.5-4.0 gm/dl Albumin/Globulin Ratio 0.8 0.9-2 Urine Color ORANGE Urine Appearance C CLEAR Urine pH 4.5-7.5 Urine Specific [place] 1.017 1.000-1.030 Urine Protein NEG Urine Glucose (UA) NEG Urine Ketones NEG Urine Occult Blood NEG Urine Nitrite NEG Urine Bilirubin NEG Urine Urobilinogen NEG Urine Leukocyte Esterase NEG Urine RBC >30 0-4 /hpf Urine WBC >30 0-5 /hpf Urine Epithelial Cells >30 0-5 /lpf Urine Bacteria 4+ NEG Microbiology Results 06/12/18 Urine Culture, Received Pending Diagnostic Radiology CT Scan Abdomen/Pelvis: IMPRESSION: 1. There is a 3 mm obstructing calculus in the distal right ureter approximately 1.5 cm above the vesicoureteral junction. This causes moderate right hydroureteronephrosis. 2. No additional calculi are identified in either kidney. 3. Gas is present within the bladder lumen and likely related to recent instrumentation. Correlation with clinical findings and urinalysis will be required. 4. There is trace nonspecific free fluid in the cul-de-sac, likely within physiologic limits. 5. Mild to moderate fecal retention in colon Impression Assessment and Plan (1) Ureteral stone with hydronephrosis Assessment & Plan: This is a pleasant 28-year-old white female who has a significant past medical history of right renal calculi, eosinophilic esophagitis, depression, migraines who presented to [facility] with right flank pain times few hours. Patient was recently hospitalized on 06/01 secondary to right nephrolithiasis, and re-hospitalized on 06/08/18 secondary to recurrent nephrolithiasis which patient underwent a right ureteroscopy and stent placement with ureteral balloon dilation secondary to right ureteral stenosis with recurrent nephrolithiasis. She was discharged home on 06/11 on Flomax, Ditropan, Pyridium and encouraged to follow-up with urology in 1 week for ureteral stent removal. Unfortunately, patient had significant right flank pain today requiring her to present to urology outpatient office in which she saw Dr. Jean-Baptiste, right ureteral stent was removed. She subsequently presents back to [facility] for obstructive R obstructing calculi at 1.5cm above vesicoureteral junction. We will admit for pain management as well as IV antibiotics for presumed UTI. -Admit to med/surg under observation -IVF NS at 125cc/hr -IV rocephin 1g q24hr for possible UTI, await final urine culture. -Toradol 15mg q6h prn -Morphine 4mg IV q4hr prn pain -NPO after midnight -Urology consultation -continue flomax, ditropan, pyridium as prescribed by urology (2) Leucocytosis Assessment & Plan: Presume UTI s/p stent placement and removal. WBC 13.2 Received 1g rocephin in ED. Will start 1g rocephin q24hr, await urine culture. (3) Constipation due to pain medication Assessment & Plan: Continue colace 100mg po bid. Add miralax daily starting tonight. Most likely secondary to narcotic use in setting of nephrolithiasis (4) History of renal calculi Assessment & Plan: plan as noted above. (5) Depression Assessment & Plan: Continue citalopram (6) History of migraine Assessment & Plan: 1. Continue Topamax, magnesium and riboflavin (7) Eosinophilic esophagitis Assessment & Plan: 1. Continue pantoprazole Resuscitation Status Full Code VTE Prophylaxis Will order VTE Prophylaxis: Yes (SCDS) Note agrre with above h and p. Briefly 28F who was recently in hospital for right ureter stone and s/p cystoscopy and stent placement came back yesterday with severe pain and stent was removed and discharged home. But again came to Er with severe right flank pain, feeling chilly. Urology wanted to transfer to [place] for possible percutaneous cath but was declined. Patient is getting admitted and to be evaluated by urology in am. Denies any chest pain or sob or cough.Hemodynamics stable. p/e Ge not in distress CVs s1 and s2 heard no murmurs Rs cta b/l no added sounds Abd Rt cva tenderness present Chronic Care Nurse non focal a/p a/p Right renal colic 3mm rt uvj stone could not tolerate stent placement npo, iv fluids, iv pain meds prn await urology inputs UTI possible on Rocephin f/u cx
[2018-06-12] MEDS: MoRPHine SULFATE 4 MG/ML 1 ML CARP\\VIAL IV PRN (22:20)
[2018-06-12] MEDS: POLYETHYLENE (MIRALAX) 17 GM PACK PO SCH (23:06)
[2018-06-12 23:13] VITALS: BP 145/78; PULSE 60; TEMP 37; O2SAT 95
[2018-06-13] MEDS: KETOROLAC TROMETHAMINE 15 MG/ML VIAL IV SCH ×3 (02:13→13:52)
[2018-06-13] MEDS: MoRPHine SULFATE 4 MG/ML 1 ML CARP\\VIAL IV PRN ×3 (04:37→16:33)
[2018-06-13] MEDS: SODIUM CHLORIDE 0.9% 1000ML 1,000 ML IV SCH ×3 (04:37→19:20)
[2018-06-13 07:31] LABS: CALCIUM 8.5 mg/dl (8.5-10.1); CREATININE 0.74 mg/dl (0.60-1.20); POTASSIUM 4.4 mmol/L (3.5-5.1)
[2018-06-13 07:51] LABS: HEMATOCRIT 36.3 % (37-47); HEMOGLOBIN 11.9 g/dL (12.0-16.0); MEAN CORPUSCULAR HEMOGLOBIN 29.2 pg (25-34); MEAN CORPUSCULAR HGB CONC 32.8 g/dl (32-36); MEAN PLATELET VOLUME 8.5 fL (7.4-10.4); PLATELET COUNT 313 K/uL (130-400); RED CELL DISTRIBUTION WIDTH CV 12.3 % (11.5-14.5); RED CELL DISTRIBUTION WIDTH SD 39.4 fL (36.4-46.3); WHITE BLOOD COUNT 7.22 K/uL (4.8-10.8)
[2018-06-13 07:54] VITALS: BP 121/73; PULSE 67; TEMP 36.8; O2SAT 96
[2018-06-13] MEDS ORDERED: DROSPIRENONE-ETHINYL ESTRADIOL 1 TAB TAB PO SCH (09:00)
[2018-06-13] MEDS: POLYETHYLENE (MIRALAX) 17 GM PACK PO SCH (09:00)
[2018-06-13] MEDS ORDERED: RIBOFLAVIN 400 MG PO SCH (09:00)
[2018-06-13] MEDS: DROSPIRENONE-ETHINYL ESTRADIOL 1 TAB TAB PO SCH (09:00)
--- NOTE | 2018-06-13 10:13 | Urology Consultation ---
History General Date of Service: Jun 13, 2018. Chief Complaint: right flank pain Primary Care Physician: Darrell Alicea M.D. Pt seen a urologist before?: Yes (Dr. Martinez, Dr. Jean-Baptiste) If yes, why?: nephrolithiasis History of Present Illness 28 yo female presents to [facility] with c/o worsening right flank pain. The pt is well known to our service. She is s/p right URS on 06-08 for stone. 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 The pt was discharged home 2 days ago. She called our office yesterday for worsening pain again, and Dr. Jean-Baptiste did remove her stent. Her pain began to worsen several hours after, and she returned to the ED. CT on admission showing moderate right hydro and a distal 3mm ureteral stone. She is afebrile. White count and Cr are normal. UC&S pending. She reports to me that her pain is 3/10 this morning. Denies n/v. She has passed a small fragment of stone overnight. Imaging Imaging: CT Laboratory Last 24 Hours Test 06/12/18 17:05 06/12/18 18:25 06/13/18 06:33 White Blood Count 13.22 K/uL 7.22 K/uL Red Blood Count 5.02 M/uL 4.08 M/uL Hemoglobin 15.3 g/dL 11.9 g/dL Hematocrit 43.4 % 36.3 % Mean Corpuscular Volume 86.5 fL 89.0 fL Mean Corpuscular Hemoglobin 30.5 pg 29.2 pg Mean Corpuscular Hemoglobin Concent 35.3 g/dl 32.8 g/dl Platelet Count 451 K/uL 313 K/uL Mean Platelet Volume 8.7 fL 8.5 fL Neutrophils (%) (Auto) 67.8 % Lymphocytes (%) (Auto) 23.9 % Monocytes (%) (Auto) 6.1 % Eosinophils (%) (Auto) 1.4 % Basophils (%) (Auto) 0.2 % Neutrophils # (Auto) 8.98 K/uL Lymphocytes # (Auto) 3.16 K/uL Monocytes # (Auto) 0.80 K/uL Eosinophils # (Auto) 0.18 K/uL Basophils # (Auto) 0.02 K/uL RDW Standard Deviation 38.4 fL 39.4 fL RDW Coefficient of Variation 12.2 % 12.3 % Immature Granulocyte % (Auto) 0.6 % Immature Granulocyte # (Auto) 0.08 K/uL Sodium Level 134 mmol/L 140 mmol/L Potassium Level 4.6 mmol/L 4.4 mmol/L Chloride Level 103 mmol/L 108 mmol/L Carbon Dioxide Level 24 mmol/L 26 mmol/L Anion Gap 7.0 mmol/L 5.0 mmol/L Blood Urea Nitrogen 17 mg/dl 12 mg/dl Creatinine 0.99 mg/dl 0.74 mg/dl Est Creatinine Clear Calc Drug Dose 80.4 ml/min 107.5 ml/min Estimated GFR () 91.2 129.6 Estimated GFR (Non- 78.6 111.8 BUN/Creatinine Ratio 17.1 16.6 Random Glucose 115 mg/dl 80 mg/dl Calcium Level 9.5 mg/dl 8.5 mg/dl Total Bilirubin 0.7 mg/dl Aspartate Amino Transf (AST/SGOT) 23 U/L Alanine Aminotransferase (ALT/SGPT) 45 U/L Alkaline Phosphatase 67 U/L Total Protein 8.4 gm/dl Albumin 3.6 gm/dl Globulin 4.8 gm/dl Albumin/Globulin Ratio 0.8 Urine Color ORANGE Urine Appearance C Urine pH Urine Specific [place] 1.017 Urine Protein Urine Glucose (UA) Urine Ketones Urine Occult Blood Urine Nitrite Urine Bilirubin Urine Urobilinogen Urine Leukocyte Esterase Urine RBC >30 /hpf Urine WBC >30 /hpf Urine Epithelial Cells >30 /lpf Urine Bacteria 4+ Problem List Medical Problems: (1) Complicated UTI (urinary tract infection) Status: Acute (2) Kidney stone Status: Acute (3) Renal colic on right side Status: Acute (4) Right flank pain Status: Acute (5) Right nephrolithiasis Status: Acute (6) Right upper quadrant abdominal pain Status: Acute Past History depression, kidney stones, migraines, other (eosiniphilic esophagitis) Past Surgical History: appendectomy, lithotripsy, ureteral stent Family History Patient reports no known family medical history. Social History Hx Tobacco Use In Past Year?: No Smoking: non-smoker Alcohol: never Drug use: none Marital status: single Housing status: lives with family Occupation status: employed Immunizations History of Influenza Vaccine: Yes Influenza Vaccine Date: Sep 28, 2017 History of Tetanus Vaccine?: Yes Tetanus Immunization Date: May 25, 2007 History of Pneumococcal: Unknown History of Hepatitis B Vaccine: Yes Hepatitis Immunization Date: 1992 History of MDRO No Allergies Coded Allergies: No Known Allergies (Verified , 06/08/18) Medications Home Medications: Home Meds and Scripts Medications Dose Route/Sig Max Daily Dose Days Date Category Ditropan (Oxybutynin Chloride) 5 Mg Tab 5 Mg PO Q8 PRN 06/11/18 Rx Phenazopyridine HCl 200 Mg Tab 200 Mg PO TID PRN 06/11/18 Rx Ondansetron HCl (Ondansetron) 4 Mg Tab 4 Mg PO Q4H PRN 06/11/18 Rx Docusate Sodium 100 Mg Cap 100 Mg PO BID 06/11/18 Rx Oxycodone/Acetaminophen 10MG/325MG 1 Tab Tab 1 Tab PO Q4H PRN 06/11/18 Rx Flomax (Tamsulosin Hcl) 0.4 Mg Cap 0.4 Mg PO HS 06/11/18 Rx Magnesium Oxide (Magnesium Oxide (Mg Supplement) 400 Mg Tab 400 Mg PO DAILY 06/01/18 Reported Citalopram Hydrobromide 10 Mg Tab 10 Mg PO DAILY 06/01/18 Reported Flonase Allergy Relief (Fluticasone Propionate (Nasal)) 50 Mcg/Act Spr 2 Sprays ROSETTA DAILY PRN 06/01/18 Reported Valtrex (Valacyclovir Hcl) 1 Gm Tab 1,000 Mg PO Q12 PRN 06/01/18 Reported Pantoprazole Sodium (Pantoprazole) 40 Mg Tab 40 Mg PO DAILY 06/01/18 Reported B-2-400 (Riboflavin) 400 Mg Cap 400 Mg PO DAILY 06/01/18 Reported Topamax (Topiramate) 50 Mg Tab 50 Mg PO HS 06/01/18 Reported Control Pills (Miscellaneous) Tab 1 Tab PO QAM 05/22/11 Reported Inpatient Medications: Current Inpatient Medications Medications (Trade) Dose Ordered Sig/Luiza Route Start Time Stop Time Status Last Admin Dose Admin Ioversol (Optiray 320) 111 ml UD PRN IV 06/12/18 17:15 06/16/18 17:14 Acetaminophen (Tylenol Tab) 650 mg Q4H PRN PO 06/12/18 21:15 07/12/18 21:14 Ondansetron HCl (Zofran Inj) 4 mg Q6H PRN IV 06/12/18 21:15 07/12/18 21:14 Ceftriaxone Sodium 1 gm/ Dextrose 50 ml @ 100 mls/hr Q24H IV 06/13/18 20:00 06/21/18 20:29 Sodium Chloride 1,000 ml @ 125 mls/hr Q8H IV 06/12/18 21:15 07/12/18 21:14 06/13/18 04:37 125 MLS/HR Ketorolac Tromethamine (Toradol Inj) 15 mg Q6H IV 06/13/18 02:00 06/18/18 01:59 06/13/18 08:07 15 MG Morphine Sulfate (MoRPHine SULFATE INJ) 4 mg Q4H PRN IV 06/12/18 21:15 06/26/18 21:14 06/13/18 04:37 4 MG Polyethylene (Miralax Powder Packet) 17 gm DAILY PO 06/12/18 22:00 07/12/18 21:59 06/12/18 23:06 17 GM Docusate Sodium (coLACE CAP) 100 mg BID PO 06/13/18 09:00 07/13/18 08:59 Oxybutynin Chloride (Ditropan Tab) 5 mg Q8 PRN PO 06/12/18 21:30 07/12/18 21:29 Pantoprazole Sodium (Protonix Tab) 40 mg DAILY PO 06/13/18 09:00 07/13/18 08:59 Phenazopyridine HCl (Pyridium Tab) 200 mg TID PRN PO 06/12/18 21:30 07/12/18 21:29 Tamsulosin HCl (Flomax Cap) 0.4 mg HS PO 06/13/18 21:00 07/13/18 20:59 Topiramate (Topamax Tab) 50 mg HS PO 06/13/18 21:00 07/13/18 20:59 Citalopram Hydrobromide (celeXA TAB) 10 mg DAILY PO 06/13/18 09:00 07/13/18 08:59 Magnesium Oxide (Mag-Ox Tab) 400 mg DAILY PO 06/13/18 09:00 07/13/18 08:59 Review of Systems Review of Systems Constitutional: No fever, No chills Eyes: No double vision Neurological: No dizzy Endocrine: No excessive thirst Gastrointestinal: + abdominal pain (right flank ), No nausea Cardiovascular: No chest pain Skin: No rash Musculoskeletal: No back pain Female : No painful urination, No blood in urine Physical Exam Vital Signs: Vital Signs Past 12 Hours Date Time Temp Pulse Resp B/P (MAP) Pulse Ox O2 Delivery O2 Flow Rate FiO2 06/13/18 07:54 36.8 67 16 121/73 (89) 96 Room Air 06/13/18 07:35 Room Air 06/12/18 23:13 37.0 60 16 145/78 (100) 95 Room Air Physical Exam: General Appearance: no apparent distress Eyes: bilateral eyes normal inspection ENT: hearing grossly normal Neck: no JVD Respiratory/Chest: no respiratory distress, no accessory muscle use Cardiovascular: no JVD Extremities: normal inspection Neurologic/Psychiatric: alert, normal mood/affect, oriented x 3 Skin: normal color Assessment & Plan Assessment & Plan 3mm right distal right ureteral stone with hydronephrosis Unfortunately the pt has poorly tolerated her previous stent. Would avoid replacing a stent at this time. Recommend supportive management with IVF, Flomax, and pain control. Continue to strain all urine. Will send small stone fragment for analysis. Will provide a diet today. Encourage fluids. If the pt were to decompensate or pain were to worsen today, would recommend transfer to [place] or [place] for PCN placement. Thanks for the consult. Will continue to follow along with primary service. Discussed with Dr. Jean-Baptiste this morning.
[2018-06-13] MEDS: DOCUSATE SODIUM 100 MG CAP PO SCH ×2 (12:24→20:48)
[2018-06-13] MEDS: PANTOprazole SOD 40 MG TAB PO SCH (12:25)
[2018-06-13] MEDS: MAGNESIUM OXIDE 400 MG TAB PO SCH (12:26)
[2018-06-13] MEDS: CITALOPRAM 20 MG TAB PO SCH (12:26)
[2018-06-13 15:20] VITALS: BP 136/81; PULSE 84; TEMP 37.2; O2SAT 93
[2018-06-13] MEDS ORDERED: HYDROmorphone INJ 1 MG/ML SYR IV PRN (17:30)
[2018-06-13] MEDS ORDERED: NURSING VERBAL MED ORDER ONE (19:00)
[2018-06-13] MEDS ORDERED: TRAMADOL HCL 50 MG TAB PO PRN (19:00)
[2018-06-13] MEDS ORDERED: SODIUM CHLORIDE 0.9% 1000ML 1,000 ML IV SCH (19:24)
[2018-06-13] MEDS ORDERED: NALOXONE HCL 0.4 MG/1 ML VIAL/CARP IV PRN (19:30)
[2018-06-13 19:35] VITALS: O2SAT 93
[2018-06-13] MEDS ORDERED: CEFTRIAXONE SOD INJ 1 GM in DEXTROSE 5% ADD-VANTAGE 50ML 50 ML IV SCH (20:00)
--- NOTE | 2018-06-13 20:26 | Progress Note ---
Medicine Progress Note Date & Time of Visit: Jun 13, 2018 at 17:40 . Subjective CC: Follow-up visit for right ureteral calculus. HPI: Intermittent right flank pain. Intermittent nausea. No dysuria or gross hematuria. May have passed small stone this morning. No fever. ROS: as noted above in HPI . Objective Last 8 Hrs Date Time Temp Pulse Resp B/P (MAP) Pulse Ox O2 Delivery O2 Flow Rate FiO2 06/13/18 15:20 37.2 84 18 136/81 (99) 93 Room Air Physical Exam: General- no distress at time of my assessment Lungs- clear to auscultation; no respiratory distress Cardiovascular- RRR; no murmur; no gallop; no JVD; no pretibial edema Abdomen- + bowel sounds, soft, nontender Back- + right CVAT Extremities- no cyanosis; no calf tenderness Neuro- alert, oriented Skin- warm & dry . Laboratory Results: Last 24 Hours Test 06/13/18 06:33 06/13/18 08:50 White Blood Count 7.22 K/uL Red Blood Count 4.08 M/uL Hemoglobin 11.9 g/dL Hematocrit 36.3 % Mean Corpuscular Volume 89.0 fL Mean Corpuscular Hemoglobin 29.2 pg Mean Corpuscular Hemoglobin Concent 32.8 g/dl RDW Standard Deviation 39.4 fL RDW Coefficient of Variation 12.3 % Platelet Count 313 K/uL Mean Platelet Volume 8.5 fL Sodium Level 140 mmol/L Potassium Level 4.4 mmol/L Chloride Level 108 mmol/L Carbon Dioxide Level 26 mmol/L Anion Gap 5.0 mmol/L Blood Urea Nitrogen 12 mg/dl Creatinine 0.74 mg/dl Est Creatinine Clear Calc Drug Dose 107.5 ml/min Estimated GFR () 129.6 Estimated GFR (Non- 111.8 BUN/Creatinine Ratio 16.6 Random Glucose 80 mg/dl Calcium Level 8.5 mg/dl Assessment & Plan RIGHT URETERAL CALCULUS CT 06/05/18 demonstrated 4 mm distal right ureteral calculus. Cysto with attempted stone extraction and ureteral stent placement performed by Dr. Martinez 06/08/18. Fragments of stone could not be extracted. Discharged to home. Had discomfort from stent and it was removed in clinic 06/11/18. Returned to ED 06/12/18 with severe right flank pain and nausea. CT demonstrated 3 mm calculus right distal ureter. Urology consulted. Still having intermittent severe flank pain. Ketorolac not effective; may be best to stop anyway in case any invasive procedures are required. Hydromorphone MANUFACTURING MANAGEMENT ASSOCIATE ordered for pain management. May have passed small stone this morning- sent to lab for analysis. [place] best not to attempt another ureteral stent placement at this time. Not septic; no need for emergent percutaneous nephrostomy, but may need percutaneous nephrostomy if severe colic persists. POSSIBLE UTI Temp 37.6 in ED. WBC 13,220 in ED. UA showed WBC's and bacteria. Afebrile. Does not appear to be septic. WBC 7220 today. Urine culture negative so far. Received dose of ciprofloxacin 06/08. May have partially treated UTI. Continue ceftriaxone. VTE PROPHYLAXIS SCD's. Ambulate. DISPOSITION To be determined. Family Medicine follow-up with Dr. Alicea. . Current Inpatient Medications: Current Inpatient Medications Medications (Trade) Dose Ordered Sig/Luiza Route Start Time Stop Time Status Last Admin Dose Admin Ioversol (Optiray 320) 111 ml UD PRN IV 06/12/18 17:15 06/16/18 17:14 Acetaminophen (Tylenol Tab) 650 mg Q4H PRN PO 06/12/18 21:15 07/12/18 21:14 Ondansetron HCl (Zofran Inj) 4 mg Q6H PRN IV 06/12/18 21:15 07/12/18 21:14 06/13/18 15:34 4 MG Ceftriaxone Sodium 1 gm/ Dextrose 50 ml @ 100 mls/hr Q24H IV 06/13/18 20:00 06/21/18 20:29 06/13/18 20:14 100 MLS/HR Sodium Chloride 1,000 ml @ 100 mls/hr Q10H IV 06/12/18 21:15 07/12/18 21:14 06/13/18 19:20 100 MLS/HR Polyethylene (Miralax Powder Packet) 17 gm DAILY PO 06/12/18 22:00 07/12/18 21:59 06/12/18 23:06 17 GM Docusate Sodium (coLACE CAP) 100 mg BID PO 06/13/18 09:00 07/13/18 08:59 06/13/18 12:24 100 MG Oxybutynin Chloride (Ditropan Tab) 5 mg Q8 PRN PO 06/12/18 21:30 07/12/18 21:29 Pantoprazole Sodium (Protonix Tab) 40 mg DAILY PO 06/13/18 09:00 07/13/18 08:59 06/13/18 12:25 40 MG Phenazopyridine HCl (Pyridium Tab) 200 mg TID PRN PO 06/12/18 21:30 07/12/18 21:29 06/13/18 12:24 200 MG Topiramate (Topamax Tab) 50 mg HS PO 06/13/18 21:00 07/13/18 20:59 Citalopram Hydrobromide (celeXA TAB) 10 mg DAILY PO 06/13/18 09:00 07/13/18 08:59 06/13/18 12:26 10 MG Magnesium Oxide (Mag-Ox Tab) 400 mg DAILY PO 06/13/18 09:00 07/13/18 08:59 06/13/18 12:26 400 MG Tamsulosin HCl (Flomax Cap) 0.4 mg BID PO 06/13/18 21:00 07/13/18 20:59 Tramadol HCl (Ultram Tab) 50 mg Q4H PRN PO 06/13/18 19:00 07/13/18 18:59 Naloxone HCl (Narcan Inj) 0.1 mg Q5M PRN IV 06/13/18 19:30 07/13/18 19:29 Hydromorphone HCl (Dilaudid District Home Economics Agent) 25 mg PRN PRN IV 06/13/18 19:30 06/27/18 19:29 Sodium Chloride 1,000 ml @ 15 mls/hr Q24H IV 06/13/18 19:24 07/13/18 19:23
[2018-06-13] MEDS: TAMSULOSIN HCL 0.4 MG CAP PO SCH (20:48)
[2018-06-13] MEDS ORDERED: TAMSULOSIN HCL 0.4 MG CAP PO SCH (21:00)
[2018-06-13] MEDS ORDERED: TOPIRAMATE 50 MG TAB PO SCH (21:00)
[2018-06-13] MEDS: HYDROmorphone HCL 0.5MG/ML 50 ML CASSETTE IV PRN ×2 (21:17→22:58)
[2018-06-13 23:22] VITALS: BP 136/82; PULSE 67; TEMP 37; O2SAT 96
[2018-06-14] VITALS (7 sets, daily range): BP systolic 108–138; BP diastolic 74–82; PULSE 62–76; TEMP 36.4–37.1; O2SAT 95–98
[2018-06-14] MEDS: SODIUM CHLORIDE 0.9% 1000ML 1,000 ML IV SCH (03:52)
[2018-06-14 06:02] LABS: HEMATOCRIT 33.2 % (37-47); HEMOGLOBIN 11.2 g/dL (12.0-16.0); MEAN CELL VOLUME 88.8 fL (80-100); MEAN CORPUSCULAR HEMOGLOBIN 29.9 pg (25-34); MEAN CORPUSCULAR HGB CONC 33.7 g/dl (32-36); MEAN PLATELET VOLUME 8.6 fL (7.4-10.4); PLATELET COUNT 273 K/uL (130-400); RED CELL DISTRIBUTION WIDTH CV 12.1 % (11.5-14.5); WHITE BLOOD COUNT 6.79 K/uL (4.8-10.8)
[2018-06-14 06:37] LABS: CREATININE 0.72 mg/dl (0.60-1.20)
[2018-06-14 06:38] LABS: POTASSIUM 3.9 mmol/L (3.5-5.1)
[2018-06-14] MEDS: HYDROmorphone HCL 0.5MG/ML 50 ML CASSETTE IV PRN (07:04)
[2018-06-14] MEDS: CITALOPRAM 20 MG TAB PO SCH (08:32)
[2018-06-14] MEDS: DOCUSATE SODIUM 100 MG CAP PO SCH (08:32)
[2018-06-14] MEDS: PANTOprazole SOD 40 MG TAB PO SCH (08:32)
[2018-06-14] MEDS: POLYETHYLENE (MIRALAX) 17 GM PACK PO SCH (08:32)
[2018-06-14] MEDS: MAGNESIUM OXIDE 400 MG TAB PO SCH (08:32)
[2018-06-14] MEDS: TAMSULOSIN HCL 0.4 MG CAP PO SCH (08:32)
[2018-06-14] MEDS: DROSPIRENONE-ETHINYL ESTRADIOL 1 TAB TAB PO SCH (08:32)
--- NOTE | 2018-06-14 09:26 | Progress Note ---
Subjective Date of Service: Jun 14, 2018. Subjective Pt evaluation today including: conversation w/ patient, conversation w/ family , chart review, conversation w/ literacy consultant Pain: ongoing pain although pt is able to ambulate and did slep some Long discussion with patient ,family and literacy consultant last pm . Because there are some fragments presumed hung up at sight of distal balloon dilation and pt unable to tolerate stent to allow for resolution of that swelling do not see alternative to relieve pain without a percutaneous nephrostomy . Discussed with partners and they agree . Pt seen this am and has persistent pain . Discussed transfer to [place] for percutaneous nephrostomy to get pt relief from persistent r flank pain . Voiding well w/o hematuria . Explained possible repeat ureteroscopy may be neeeded if fragments dont pass but w perc would not need stent Problem List Medical Problems: (1) Complicated UTI (urinary tract infection) Status: Acute (2) Kidney stone Status: Acute (3) Renal colic on right side Status: Acute (4) Right flank pain Status: Acute (5) Right nephrolithiasis Status: Acute (6) Right upper quadrant abdominal pain Status: Acute Objective Vital Signs Date Time Temp Pulse Resp B/P (MAP) Pulse Ox O2 Delivery O2 Flow Rate FiO2 06/14/18 07:28 96 Room Air 06/14/18 07:27 37.0 65 14 138/82 (100) 96 Room Air 06/14/18 07:20 Room Air 06/14/18 04:01 36.4 72 14 108/74 (85) 95 Room Air 06/14/18 01:20 36.6 76 14 126/78 (94) 97 Room Air 06/14/18 00:20 36.6 62 14 134/76 (95) 98 Room Air 06/13/18 23:22 37.0 67 16 136/82 (100) 96 Room Air 06/13/18 23:20 Room Air 06/13/18 19:35 93 Room Air 06/13/18 15:20 37.2 84 18 136/81 (99) 93 Room Air Laboratory Results Last 24 Hours Test 06/14/18 05:30 White Blood Count 6.79 K/uL Red Blood Count 3.74 M/uL Hemoglobin 11.2 g/dL Hematocrit 33.2 % Mean Corpuscular Volume 88.8 fL Mean Corpuscular Hemoglobin 29.9 pg Mean Corpuscular Hemoglobin Concent 33.7 g/dl RDW Standard Deviation 39.0 fL RDW Coefficient of Variation 12.1 % Platelet Count 273 K/uL Mean Platelet Volume 8.6 fL Sodium Level 137 mmol/L Potassium Level 3.9 mmol/L Chloride Level 108 mmol/L Carbon Dioxide Level 23 mmol/L Anion Gap 6.0 mmol/L Blood Urea Nitrogen 9 mg/dl Creatinine 0.72 mg/dl Est Creatinine Clear Calc Drug Dose 110.5 ml/min Estimated GFR () 134.0 Estimated GFR (Non- 115.6 BUN/Creatinine Ratio 12.9 Random Glucose 75 mg/dl Calcium Level 8.0 mg/dl Assessment and Plan Dr. Jones aware and is trying to arrange transfer
[2018-06-14] MEDS ORDERED: KETOROLAC TROMETHAMINE 30 MG/ML VIAL IV PRN (11:15)
[2018-06-14] MEDS ORDERED: D5W AND LACTATED RINGERS 1,000 ML IV SCH (11:30)
--- NOTE | 2018-06-14 11:40 | Progress Note ---
Medicine Progress Note Date & Time of Visit: Jun 14, 2018 at 11:00 . Subjective CC: Follow-up visit for right ureteral calculus. HPI: Intermittent right flank pain sometimes as severe as 7-8/10, temporarily relieved by hydromorphone [employer]. No dysuria or gross hematuria. Intermittent nausea. No diarrhea No fever. ROS: as noted above in HPI . Objective Last 8 Hrs Date Time Temp Pulse Resp B/P (MAP) Pulse Ox O2 Delivery O2 Flow Rate FiO2 06/14/18 07:28 96 Room Air 06/14/18 07:27 37.0 65 14 138/82 (100) 96 Room Air 06/14/18 07:20 Room Air 06/14/18 04:01 36.4 72 14 108/74 (85) 95 Room Air Physical Exam: General- no distress at time of my assessment Lungs- clear to auscultation; no respiratory distress Cardiovascular- RRR; no murmur; no gallop; no JVD; no pretibial edema Abdomen- + bowel sounds, soft, nontender Back- + right CVAT Extremities- no cyanosis; no calf tenderness Neuro- alert, oriented Skin- warm & dry . Laboratory Results: Last 24 Hours Test 06/14/18 05:30 White Blood Count 6.79 K/uL Red Blood Count 3.74 M/uL Hemoglobin 11.2 g/dL Hematocrit 33.2 % Mean Corpuscular Volume 88.8 fL Mean Corpuscular Hemoglobin 29.9 pg Mean Corpuscular Hemoglobin Concent 33.7 g/dl RDW Standard Deviation 39.0 fL RDW Coefficient of Variation 12.1 % Platelet Count 273 K/uL Mean Platelet Volume 8.6 fL Sodium Level 137 mmol/L Potassium Level 3.9 mmol/L Chloride Level 108 mmol/L Carbon Dioxide Level 23 mmol/L Anion Gap 6.0 mmol/L Blood Urea Nitrogen 9 mg/dl Creatinine 0.72 mg/dl Est Creatinine Clear Calc Drug Dose 110.5 ml/min Estimated GFR () 134.0 Estimated GFR (Non- 115.6 BUN/Creatinine Ratio 12.9 Random Glucose 75 mg/dl Calcium Level 8.0 mg/dl Assessment & Plan RIGHT URETERAL CALCULUS CT 06/05/18 demonstrated 4 mm distal right ureteral calculus. Cysto with ureteroscopy,attempted stone extraction, and ureteral stent placement performed by Dr. Martinez 06/08/18. Fragments of stone could not be extracted. Discharged to home. Had discomfort from stent and it was removed in clinic 06/11/18. Returned to ED 06/12/18 with severe right flank pain and nausea. CT demonstrated 3 mm calculus right distal ureter. Urology consulted. Still having intermittent severe flank pain. Ketorolac and acetaminophen not effective. Hydromorphone [employer] ordered for pain management. May have passed small stone 06/13/18- sent to lab for analysis. Experiencing intermittent right flank pain, sometimes severe. Urology felt best not to attempt another ureteral stent placement at this time. Not septic; no need for emergent percutaneous nephrostomy. Urology recommends evaluation at tertiary care. Patient would like to go to [facility]. POSSIBLE UTI Temp 37.6 in ED. WBC 13,220 in ED. UA showed WBC's and bacteria (but many epithelial cells). Afebrile. Does not appear to be septic. WBC today = 6790.. Received dose of ciprofloxacin 06/08. Urine culture negative so far. May have partially treated UTI. Received 2 doses of ceftriaxone. Will defer further antibiotic management to Urology at [facility]. VTE PROPHYLAXIS SCD's. Ambulate. DISPOSITION Patient has ongoing symptoms from right ureteral calculus. Urology team here recommends evaluation at tertiary care center. Patient would like to go to [facility]. Case discussed with Urology at [facility]. No need for acute transfer. They will see her in clinic this afternoon. CT images being copied. Family Medicine follow-up with Dr. Alicea. . Current Inpatient Medications: Current Inpatient Medications Medications (Trade) Dose Ordered Sig/Luiza Route Start Time Stop Time Status Last Admin Dose Admin Ioversol (Optiray 320) 111 ml UD PRN IV 06/12/18 17:15 06/16/18 17:14 Acetaminophen (Tylenol Tab) 650 mg Q4H PRN PO 06/12/18 21:15 07/12/18 21:14 Ondansetron HCl (Zofran Inj) 4 mg Q6H PRN IV 06/12/18 21:15 07/12/18 21:14 06/13/18 15:34 4 MG Ceftriaxone Sodium 1 gm/ Dextrose 50 ml @ 100 mls/hr Q24H IV 06/13/18 20:00 06/21/18 20:29 06/13/18 20:14 100 MLS/HR Sodium Chloride 1,000 ml @ 100 mls/hr Q10H IV 06/12/18 21:15 07/12/18 21:14 06/14/18 03:52 100 MLS/HR Polyethylene (Miralax Powder Packet) 17 gm DAILY PO 06/12/18 22:00 07/12/18 21:59 06/12/18 23:06 17 GM Docusate Sodium (coLACE CAP) 100 mg BID PO 06/13/18 09:00 07/13/18 08:59 06/13/18 20:48 100 MG Oxybutynin Chloride (Ditropan Tab) 5 mg Q8 PRN PO 06/12/18 21:30 07/12/18 21:29 Pantoprazole Sodium (Protonix Tab) 40 mg DAILY PO 06/13/18 09:00 07/13/18 08:59 06/13/18 12:25 40 MG Phenazopyridine HCl (Pyridium Tab) 200 mg TID PRN PO 06/12/18 21:30 07/12/18 21:29 06/13/18 12:24 200 MG Topiramate (Topamax Tab) 50 mg HS PO 06/13/18 21:00 07/13/18 20:59 06/13/18 20:49 50 MG Citalopram Hydrobromide (celeXA TAB) 10 mg DAILY PO 06/13/18 09:00 07/13/18 08:59 06/13/18 12:26 10 MG Magnesium Oxide (Mag-Ox Tab) 400 mg DAILY PO 06/13/18 09:00 07/13/18 08:59 06/13/18 12:26 400 MG Tamsulosin HCl (Flomax Cap) 0.4 mg BID PO 06/13/18 21:00 07/13/18 20:59 06/13/18 20:48 0.4 MG Tramadol HCl (Ultram Tab) 50 mg Q4H PRN PO 06/13/18 19:00 07/13/18 18:59 Naloxone HCl (Narcan Inj) 0.1 mg Q5M PRN IV 06/13/18 19:30 07/13/18 19:29 Hydromorphone HCl (Dilaudid Mba Intern) 25 mg PRN PRN IV 06/13/18 19:30 06/27/18 19:29 Future Hold 06/14/18 07:04 25 MG Sodium Chloride 1,000 ml @ 15 mls/hr Q24H IV 06/13/18 19:24 07/13/18 19:23 Ketorolac Tromethamine (Toradol Inj) 30 mg Q6H PRN IV 06/14/18 11:15 06/19/18 11:14 UNV Dextrose/Lactated Ringer's 1,000 ml @ 500 mls/hr Q2H IV 06/14/18 11:30 06/14/18 12:29 UNV
--- NOTE | 2018-06-14 11:46 | Discharge Instructions ---
Discharge Instructions Date of Service Jun 14, 2018. Admission Reason for Admission: kidney stone Discharge Discharge Diagnosis / Problem: kidney stone Discharge Goals Goal(s): Decrease discomfort, Improve disease control Activity Recommendations Activity Limitations: resume your previous activity . Instructions / Follow-Up Instructions / Follow-Up APPOINTMENTS: UROLOGY Dr. Vela [facility], first floor FAMILY MEDICINE Dr. Alicea OTHER INSTRUCTIONS: Seek medical attention if you have: * temperature above 101 * chest pain or trouble breathing * abdominal pain, nausea, vomiting * diarrhea, dark stools or bloody stools * any unanswered questions or concerns Call 911 if symptoms are severe. Call if you have any questions or problems. My cell # is [phone]. You can also reach a [facility] hospitalist on duty at [facility] 24 hours a day by calling [phone]. Please take good care of yourself. Alec Jones . Current Hospital Diet Patient's current hospital diet: Regular Diet Discharge Diet Recommended Diet: Regular Diet (nothing to eat or drink until seen by Dr. Vela today) Pending Studies Studies pending at discharge: yes List of pending studies: kidney stone analysis Medical Emergencies . Who to Call and When: Medical Emergencies: If at any time you feel your situation is an emergency, please call 911 immediately. . Non-Emergent Contact Non-Emergency issues call your: Primary Care Provider, Hospital Doctor, Urologist . . "Provider Documentation" section prepared by Alec Jones. . [place] Drug Monitoring Program Search Results: patient reviewed within database, no issues identified
--- NOTE | 2018-06-14 11:52 | Discharge Summary ---
Discharge Summary Date of Service Jun 14, 2018. Discharge Summary Admission Date: Jun 12, 2018 at 21:09 Discharge Date: Jun 14, 2018 Discharge Disposition: Home Principal Diagnosis: right ureteral calculus . Procedures: CT abdomen and pelvis IV fluids IV meds . Consultations: Urology . Pending Studies/Follow-Up: urinary stone analysis . Medication Reconciliation Continued Medications: Control Pills ( Control Pills) Tab 1 TAB PO QAM Citalopram Hydrobromide (Citalopram Hydrobromide) 10 Mg Tab 10 MG PO DAILY, TAB Docusate Sodium (Docusate Sodium) 100 Mg Cap 100 MG PO BID, #30 CAP Fluticasone Propionate (Nasal) (Flonase Allergy Relief) 50 Mcg/Act Spr 2 SPRAYS [place] DAILY PRN for Nasal Congestion Magnesium Oxide (Mg Supplement (Magnesium Oxide) 400 Mg Tab 400 MG PO DAILY Ondansetron (Ondansetron HCl) 4 Mg Tab 4 MG PO Q4H PRN for Nausea, #30 TAB Oxybutynin Chloride (Ditropan) 5 Mg Tab 5 MG PO Q8 PRN for Bladder pain, #30 TAB Oxycodone/Acetaminophen 10MG/325MG (Oxycodone/Acetaminophen 10MG/325MG) 1 Tab Tab 1 TAB PO Q4H PRN for Pain, #20 TAB Pantoprazole (Pantoprazole Sodium) 40 Mg Tab 40 MG PO DAILY Phenazopyridine HCl (Phenazopyridine HCl) 200 Mg Tab 200 MG PO TID PRN for PRN, #30 TAB Riboflavin (B-2-400) 400 Mg Cap 400 MG PO DAILY Tamsulosin Hcl (Flomax) 0.4 Mg Cap 0.4 MG PO HS, #30 CAP Topiramate (Topamax) 50 Mg Tab 50 MG PO HS, TAB Valacyclovir Hcl (Valtrex) 1 Gm Tab 1000 MG PO Q12 PRN for Cold Sore(s), TAB Admission Information HPI (per Admitting provider): This is a pleasant 28-year-old white female who has a significant past medical history of right renal calculi, eosinophilic esophagitis, depression, migraines who presented to [facility] with right flank pain x few hours. Patient was recently hospitalized on 06/01 secondary to right nephrolithiasis, and re-hospitalized on 06/08/18 secondary to recurrent nephrolithiasis which patient underwent a R ureteroscopy and stent placement with ureteral balloon dilation secondary to right ureteral stenosis with recurrent nephrolithiasis by Dr. Martinez. She was discharged home on 06/11 on Flomax, Ditropan, Pyridium and encouraged to follow-up with urology in 1 week for ureteral stent removal. Unfortunately, patient had significant right flank pain today requiring her to present to urology outpatient office in which she saw Dr. Jean-Baptiste, right ureteral stent was then removed. Her symptoms resolved for approximately 1 hour, when she again developed severe right flank pain, radiated to right lower quadrant, constant, pain is worse than prior kidney stone, sharp, 8/10, nothing makes it better, except Dilaudid. Further complains of dysuria, increased frequency/urgency with urination, urine discolored secondary to Pyridium, "feeling feverish," sweats, chills, nausea, bloating, having difficulty moving bowels, "nothing comes out." Appetite overall decrease. She denies lightheadedness, dizziness, chest pain, shortness of breath, emesis, diarrhea. In ED patient was found with white blood cell count 13.2, UA positive for hematuria, bacteria, CT scan showing 3 mm obstructing stone, 1.5 cm above the vesicoureteral junction with moderate right hydronephrosis, mild to moderate fecal retention in bowels, no bowel obstruction noted. Patient is being admitted for further urologic evaluation, initiation of IV antibiotics and pain management. . Physical Exam (per Admitting): General Appearance: WD/WN, + mild distress, + pertinent finding (anxious over frequent hospitalizations) Head: normocephalic, atraumatic Eyes: normal inspection, PERRL, EOMI, sclerae normal ENT: normal ENT inspection, hearing grossly normal, + pertinent finding ( Mucous membranes moist) Neck: supple, no adenopathy, thyroid normal, no JVD Respiratory/Chest: chest non-tender, lungs clear, normal breath sounds, no respiratory distress, no accessory muscle use Cardiovascular: regular rate, rhythm, no edema, no murmur Abdomen/GI: normal bowel sounds, non tender, soft, no organomegaly, + pertinent finding (+ CVA tenderness) Back: normal inspection Extremities/Musculoskelatal: normal inspection, no calf tenderness, normal capillary refill, no pedal edema, normal range of motion Neurologic/Psych: alert, normal mood/affect, oriented x 3 Skin: normal color, no rash Hospital Course (1) Ureteral stone with hydronephrosis (2) Leucocytosis (3) Constipation due to pain medication (4) History of renal calculi (5) Depression (6) History of migraine (7) Eosinophilic esophagitis RIGHT URETERAL CALCULUS CT 06/05/18 demonstrated 4 mm distal right ureteral calculus. Cysto with ureteroscopy,attempted stone extraction, and ureteral stent placement performed by Dr. Martinez 06/08/18. Fragments of stone could not be extracted. Discharged to home. Had discomfort from stent and it was removed in clinic 06/11/18. Returned to ED 06/12/18 with severe right flank pain and nausea. CT demonstrated 3 mm calculus right distal ureter. Urology consulted. Still having intermittent severe flank pain. Ketorolac and acetaminophen not effective. Hydromorphone BUTTONHOLER ordered for pain management. May have passed small stone 06/13/18- sent to lab for analysis. Still experiencing intermittent right flank pain, sometimes severe. Urology felt best not to attempt another ureteral stent placement here at this time. Not septic; no need for emergent percutaneous nephrostomy. Urology recommends evaluation at tertiary care for further evaluation and management. Patient would like to go to [facility]. POSSIBLE UTI Temp 37.6 in ED. WBC 13,220 in ED. UA showed WBC's and bacteria (but many epithelial cells). Afebrile. Does not appear to be septic. WBC day of discharge was 6790.. Received dose of ciprofloxacin 06/08. Urine culture negative so far. Received 2 doses of ceftriaxone. Will defer further antibiotic management to Urology at [facility]. VTE PROPHYLAXIS SCD's. Ambulate. DISPOSITION Patient has ongoing symptoms from right ureteral calculus. Urology team at [facility] recommended evaluation at tertiary care center. Patient would like to go to [facility]. Case discussed with Urology at [facility]. No need for acute transfer. They will see her in clinic this afternoon. CT images being copied. Family Medicine follow-up with Dr. Alicea. . Total time spent on discharge = 40 min. This includes examination of the patient, discharge planning, medication reconciliation, and communication with other providers. . Discharge Instructions Discharge Instructions Date of Service Jun 14, 2018. Admission Reason for Admission: kidney stone Discharge Discharge Diagnosis / Problem: kidney stone Discharge Goals Goal(s): Decrease discomfort, Improve disease control Activity Recommendations Activity Limitations: resume your previous activity . Instructions / Follow-Up Instructions / Follow-Up APPOINTMENTS: UROLOGY Dr. Vela [facility], first floor FAMILY MEDICINE Dr. Alicea OTHER INSTRUCTIONS: Seek medical attention if you have: * temperature above 101 * chest pain or trouble breathing * abdominal pain, nausea, vomiting * diarrhea, dark stools or bloody stools * any unanswered questions or concerns Call 911 if symptoms are severe. Call if you have any questions or problems. My cell # is [phone]. You can also reach a [facility] hospitalist on duty at [facility] 24 hours a day by calling [phone]. Please take good care of yourself. Alec Jones . Current Hospital Diet Patient's current hospital diet: Regular Diet Discharge Diet Recommended Diet: Regular Diet (nothing to eat or drink until seen by Dr. Vela today) Pending Studies Studies pending at discharge: yes List of pending studies: kidney stone analysis Medical Emergencies . Who to Call and When: Medical Emergencies: If at any time you feel your situation is an emergency, please call 911 immediately. . Non-Emergent Contact Non-Emergency issues call your: Primary Care Provider, Hospital Doctor, Urologist . . "Provider Documentation" section prepared by Alec Jones. . [place] Drug Monitoring Program Search Results: patient reviewed within database, no issues identified . Additional Copies To Darrell Alicea M.D.
== END 2018-06-14 12:39 | disposition home or self-care (01) | DRG 694 ==
LOC: C.EDB 16:54 → C.MSN 21:09 → ENRESERV 21:18
PROVIDERS: ADMIT Internal Medicine; ATTEND Hospitalist
DX: N13.2 Hydronephrosis with renal and ureteral calculous obstruction (principal); F32.9 Major depressive disorder, single episode, unspecified; K59.03 Drug induced constipation; T40.605A Adverse effect of unspecified narcotics, initial encounter; Y92.019 Unspecified place in single-family (private) house as the place of occurrence of the external cause; K20.0 Eosinophilic esophagitis; N39.0 Urinary tract infection, site not specified; Z87.442 Personal history of urinary calculi; Z98.890 Other specified postprocedural states

== ENCOUNTER 2019-04-06 16:18 | Observation (INO) ==
[2019-04-06] MEDS ORDERED: ONDANSETRON INJ 2 MG/ML 2 ML VIAL IV STA (16:29)
[2019-04-06] MEDS ORDERED: SODIUM CHLORIDE 0.9% 1000ML 1,000 ML IV SCH (16:30)
[2019-04-06] MEDS: MoRPHine SULFATE 4 MG/ML 1 ML CARP\\VIAL IV PRN ×4 (16:53→23:26)
[2019-04-06 17:02] LABS: Basophils # (auto) 0.05 K/uL (0-0.2); Basophils % (auto) 0.5 %; Eosinophils # (auto) 0.42 K/uL (0-0.5); Eosinophils % (auto) 4.1 %; Hematocrit (blood only) 41.1 % (37-47); Immature Granulocytes # (auto) 0.05 K/uL (0.00-0.02); Immature Granulocytes % (auto) 0.5 %; Lymphocytes # (auto) 3.89 K/uL (1.2-3.4); Lymphocytes % (auto) 37.9 %; Mean Corpuscular Hgb Conc 36.5 g/dL (32-36); Mean Corpuscular Volume 82.7 fL (80-100); Mean Platelet Volume 8.5 fL (7.4-10.4); Monocytes # (auto) 0.69 K/uL (0.11-0.59); Monocytes % (auto) 6.7 %; Neutrophils # (auto) 5.16 K/uL (1.4-6.5); Neutrophils % (auto) 50.3 %; Platelet Count 385 K/uL (130-400); RDW Coefficient of Variation 12.5 % (11.5-14.5); RDW Standard Deviation 37.5 fL (36.4-46.3); Red Blood Count 4.97 M/uL (4.2-5.4); White Blood Count 10.26 K/uL (4.8-10.8)
[2019-04-06] MEDS ORDERED: HYDROmorphone INJ 1 MG/ML SYRINGE IV STA ×2 (17:14→18:14)
[2019-04-06 17:20] LABS: Bacteria Urine Automated Negative (Negative); Bilirubin Urine Negative (Negative); Blood Urine 3+ (Negative); Color Urine Yellow; Epithelial Cell Urine Auto >30 /lpf (0-5); Glucose Urine UA Negative (Negative); Ketones Urine Trace (Negative); Leukocyte Esterase Urine Negative (Negative); Nitrite Urine Negative (Negative); Protein Urine Negative (Negative); RBC Urine Automated >30 /hpf (0-4); Specific Gravity Urine 1.029 (1.000-1.030); Urobilinogen Urine Negative (Negative)
[2019-04-06 17:20] LABS: Albumin Level 3.8 gm/dl (3.4-5.0); BUN Creatinine Ratio 10.5 (10-20); Calcium 9.6 mg/dl (8.5-10.1); Est GFR (African American) 99.6; Est GFR (Non-African American) 85.9; Potassium 3.9 mmol/L (3.5-5.1)
[2019-04-06 17:21] LABS: Pregnancy Test, Serum Negative (Negative)
[2019-04-06 17:22] LABS: Appearance Urine Clear (Clear)
[2019-04-06 17:24] LABS: Albumin Globulin Ratio 0.8 (0.9-2); Bilirubin,Total 0.4 mg/dl (0.2-1); Total Protein 8.8 gm/dl (6.4-8.2)
[2019-04-06 17:28] LABS: Calcium Oxalate Crystals Urine Present (None Prsent)
--- NOTE | 2019-04-06 17:57 | CT Scan Report ---
CT abd pelvis wo con CT DOSE: 522.59 mGy.cm HISTORY: Flank pain left flank pain TECHNIQUE: Multiaxial CT images of the abdomen and pelvis were performed without contrast. A dose lo wering technique was utilized adhering to the principles of ALARA. COMPARISON STUDY: None. FINDINGS: The lung bases are clear. The unenhanced liver, spleen, gallbladder, pancreas, kidneys, and adrenal glands are within normal limits. No bowel wall thickening or obstruction. The pelvic organs are unremarkable. No suspicious lytic or blastic osseous lesions. IMPRESSION: No significant abnormality identified within the abdomen or pelvis. Minimal nonobstructive] ileus The above report was generated using voice recognition software. It may contain grammatical, syntax or spelling errors. Electronically signed by: Moy Deal M.D. 04/06/2019 5:55 PM
[2019-04-06] MEDS ORDERED: PROMETHAZINE 12.5 MG/50.5 ML BAG IV STA (18:14)
--- NOTE | 2019-04-06 19:01 | Emergency Department Note ---
Entered by Angeline Mayen acting as a scribe for History of Present Illness General Chief complaint: Kidney Stone Stated complaint: KIDNEY STONES NAUSEA Time Seen by Provider: 04/06/19 16:25 Source: patient History of Present Illness Onset (ago): hour(s) 1 Location: back and abdomen Severity: similar to prior episodes (kidney stones) Pain Consistency: + other (episode) Maximum Pain Intensity: 10 Quality: + other (kidney stone) Associated symptoms: + denies other symptoms (dark urine, hematuria) and + nausea/vomiting The patient is a 28 year old female who presents to the ED with complaints of an episode of a kidney stone starting an hour ago. The patient states that she has a history of kidney stones and has had 4 of them in the past. She states that this feels similar to them, but is different in the fact that it is on the left side and she has only ever had them on the right. She reports that it today it just hit her out of nowhere. She states that the pain starts in her left lower back and moves around to the front of her abdomen and groin. 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 She notes that she had a colonoscopy done a few days ago for rectal bleeding that was negative. The patient complains of nausea and vomiting. The patient denies dark urine, hematuria, and a history of . She notes that her last bowel movement was today and she is currently having her LNMP. Home Medications Home Medications Medication Instructions Recorded Confirmed Type citalopram 10 mg PO QA 11/17/18 04/06/19 History drospirenone-ethinyl estradiol 1 tab PO [facility] 11/17/18 04/06/19 History magnesium oxide 400 mg PO QAM 11/17/18 04/06/19 History ondansetron 4 mg PO QID PRN 11/17/18 04/06/19 History pantoprazole 40 mg PO QAM 11/17/18 04/06/19 History riboflavin (vitamin B2) 400 mg PO QAM 11/17/18 04/06/19 History ropinirole 0.5 mg PO 11/17/18 04/06/19 History valacyclovir [Valtrex] 1,000 mg PO Q12H PRN 11/17/18 04/06/19 History doxepin 25 mg PO 03/23/19 04/06/19 History potassium citrate 5 meq PO TID 03/23/19 04/06/19 History amoxicillin-pot clavulanate 1 tab PO BID 04/06/19 04/06/19 History oxycodone 5 mg PO BID PRN #7 tab 04/06/19 Rx Allergies Allergy/AdvReac Type Severity Reaction Status Date / Time No Known Allergies Allergy Verified 04/06/19 16:43 Past Med/Surg History Medical History GERD (gastroesophageal reflux disease) (Chronic) Depression (Chronic) History of migraine (Chronic) History of renal calculi (Chronic) Eosinophilic esophagitis (Chronic) Surgical History Status post LASIK surgery of both eyes (Chronic) History of wisdom tooth extraction (Chronic) History of tooth extraction (Chronic) History of esophagogastroduodenoscopy (EGD) (Chronic) History of cystoscopy (Chronic) x3 Hx of colonoscopy (Chronic) History of appendectomy (Chronic) Family History Grandmother (Maternal) Family history of diabetes mellitus Grandfather (Maternal) Family history of diabetes mellitus Family history of esophageal cancer Other No family history of adverse response to anesthesia Social History Preferred Language: Mozambican Communication Ability: Effective Beliefs That Will Affect Care: None marital status: Single Current Living Situation: Parent Feels Safe at Home: Yes Smoking Status: Never smoker Second Hand Exposure: Yes (grandparents smoked) Hx Alcohol Use: Yes Alcohol type: wine and hard liquor Hx Substance Use: No Review of Systems See HPI for pertinent positives & negatives. and A total of 10 systems reviewed and were otherwise negative Physical Exam Vital Signs Vital Signs - 24 hr 04/06/19 16:22 Temperature 36.9 C Temperature Source Oral Sepsis Recent Fever Within 48 Hours No Sepsis New/Unexplained Change in Mental Status No Sepsis Action Taken by Nursing No Action Required Pulse Rate 105 H Respiratory Rate 24 Blood Pressure 173/107 H Blood Pressure Mean 129 Pulse Oximetry 96 Oxygen Delivery Method Room Air GENERAL: Patient is awake, alert, and very anxious appearing. Appears to be uncomfortable. EYES: The conjunctivae are clear. The pupils are round and reactive. EARS, NOSE, MOUTH AND THROAT: The nose is without any evidence of any deformity. Mucous membranes are moist.Tongue is midline NECK: The neck is nontender and supple. RESPIRATORY: Normal respiratory effort is noted. There is no evidence of wheezing rhonchi or rales to auscultation. CARDIOVASCULAR: Regular rate and rhythm noted. There no murmurs rubs or gallops normal S1 normal S2 GASTROINTESTINAL: The abdomen is mildly distended, but soft. Bowel sounds are pr esent in all quadrants. Abdomen is tender to palpation in the left upper and left lower quadrants. BACK: No midline tenderness appreciated. Left CVA tenderness to percussion. ROM appears intact. MUSCULOSKELETAL/EXTREMITIES: There is no evidence of gross deformity. Full range of motion is noted in the hips and shoulders. SKIN: There is no obvious evidence of any rash. There are no petechiae, pallor or cyanosis noted. NEUROLOGIC: Patient is awake alert and oriented x3. Strength is symmetric. Kang lar reflexes are 2+ bilaterally. Course 1628: The patient was evaluated in room C3. A complete history and physical exam was performed. 5: I reevaluated the patient and she is still in pain. I updated her on her test results and the treatment plan. She verbally agrees and understands. 182: I discussed the patient's case with RAKESH Gibson. She will evaluate the patient for further management. Consultations Consultation #1: I discussed the patient's case with RAKESH Gibson. She will evaluate the patient for further management. Time: 18:22 Administered Medications Discontinued Medications Hydromorphone HCl (Dilaudid) 1 mg IV NOW STA Stop: 04/06/19 17:15 Last Admin: 04/06/19 17:17 Dose: 1 mg Documented by: [id number] Hydromorphone HCl (Dilaudid) 1 mg IV NOW STA Stop: 04/06/19 18:15 Last Admin: 04/06/19 18:26 Dose: 1 mg Documented by: [id number] Sodium Chloride (Nss 1000ml) 1,000 mls @ 999 mls/hr IV .Q1H1M RAMIRO Stop: 04/06/19 17:30 Last Infusion: 04/06/19 19:25 Dose: 0 mls/hr Documented by: [id number] Admin: 04/06/19 16:50 Dose: 999 mls/hr Documented by: [id number] Promethazine HCl (Phenergan) 12.5 mg in 50.5 mls @ 202 mls/hr IV NOW STA Stop: 04/06/19 18:28 Last Infusion: 04/06/19 19:25 Dose: 0 mls/hr Documented by: [id number] Admin: 04/06/19 18:26 Dose: 202 mls/hr Documented by: [id number] Ketorolac Tromethamine (Toradol) 15 mg IV NOW ONE Stop: 04/06/19 19:07 Last Admin: 04/06/19 19:20 Dose: 15 mg Documented by: [id number] Morphine Sulfate (Morphine Sulfate) 4 mg IV Q15M PRN PRN Reason: Pain Stop: 04/20/19 16:28 Last Admin: 04/06/19 19:54 Dose: 4 mg Documented by: [id number] Admin: 04/06/19 17:45 Dose: 4 mg Documented by: [id number] Admin: 04/06/19 16:53 Dose: 4 mg Documented by: [id number] Ondansetron HCl (Zofran) 4 mg IV NOW STA Stop: 04/06/19 16:30 Last Admin: 04/06/19 16:53 Dose: 4 mg Documented by: [id number] Medical Decision Making Differential Diagnosis Differential diagnosis: Etiologies such as shingles, pyelonephritis/UTI, renal colic, appendicitis, diverticulitis, mesenteric ischemia, torsion, aortic pathology, infections, inflammatory bowel disease, bowel obstruction, PUD, biliary pathology, as well as others were entertained. Medical Records Attestation: I reviewed the patient's medical records. Home Medications Current Medication List: was personally reviewed by me Laboratory Data Attestation: I reviewed the patient's lab results. Result diagrams: 04/06/19 16:43 04/06/19 16:43 Lab Results 04/06/19 04/06/19 04/06/19 Range/Units 16:43 16:43 16:43 WBC 10.26 (4.8-10.8) K/uL RBC 4.97 (4.2-5.4) M/uL Hgb 15.0 (12.0-16.0) g/dL Hct 41.1 (37-47) % MCV 82.7 (80-100) fL MCH 30.2 (25-34) pg MCHC 36.5 H (32-36) g/dL RDW Std Deviation 37.5 (36.4-46.3) fL RDW Coeff of Carmen 12.5 (11.5-14.5) % Plt Count 385 (130-400) K/uL MPV 8.5 (7.4-10.4) fL Immature Gran % (Auto) 0.5 % Neut % (Auto) 50.3 % Lymph % (Auto) 37.9 % [place] % (Auto) 6.7 % Eos % (Auto) 4.1 % Baso % (Auto) 0.5 % Immature Gran # (Auto) 0.05 H (0.00-0.02) K/uL Neut # (Auto) 5.16 (1.4-6.5) K/uL Lymph # (Auto) 3.89 H (1.2-3.4) K/uL [place] # (Auto) 0.69 H (0.11-0.59) K/uL Eos # (Auto) 0.42 (0-0.5) K/uL Baso # (Auto) 0.05 (0-0.2) K/uL Sodium 137 (136-145) mmol/L Potassium 3.9 (3.5-5.1) mmol/L Chloride 105 (98-107) mmol/L Carbon Dioxide 29 (21-32) mmol/L Anion Gap 3.0 (3-11) BUN 10 (7-18) mg/dl Creatinine 0.92 (0.6-1.2) mg/dl Est Cr Clr Drug Dosing 95.0 ml/min Est GFR ( Amer) 99.6 Est GFR (Non-Af Amer) 85.9 BUN/Creatinine Ratio 10.5 (10-20) Glucose 95 (70-99) mg/dl Lactate (0.4-2.0) mmol/L Calcium 9.6 (8.5-10.1) mg/dl Total Bilirubin 0.4 (0.2-1) mg/dl AST 42 H (15-37) U/L ALT 83 H (12-78) U/L Alkaline Phosphatase 89 (45-117) U/L Total Protein 8.8 H (6.4-8.2) gm/dl Albumin 3.8 (3.4-5.0) gm/dl Globulin 5.0 H (2.5-4.0) gm/dl Albumin/Globulin Ratio 0.8 L (0.9-2) Lipase 219 (73-393) U/L HCG, Qual Negative (Negative) Urine Color Urine Appearance (Clear) Urine pH (4.5-7.5) Ur Specific [place] (1.000-1.030) Urine Protein (Negative) Urine Glucose (UA) (Negative) Urine Ketones (Negative) Urine Blood (Negative) Urine Nitrite (Negative) Urine Bilirubin (Negative) Urine Urobilinogen (Negative) Ur Leukocyte Esterase (Negative) Urine WBC (Auto) (0-5) /hpf Urine RBC (Auto) (0-4) /hpf U Hyaline Cast (Auto) (0-5) /lpf U Epithel Cells (Auto) (0-5) /lpf Urine Bacteria (Auto) (Negative) Urine Crystals (None Prsent) Calcium Oxalate Crystal (None Prsent) 04/06/19 04/06/19 Range/Units 16:55 19:12 WBC (4.8-10.8) K/uL RBC (4.2-5.4) M/uL Hgb (12.0-16.0) g/dL Hct (37-47) % MCV (80-100) fL MCH (25-34) pg MCHC (32-36) g/dL RDW Std Deviation (36.4-46.3) fL RDW Coeff of Carmen (11.5-14.5) % Plt Count (130-400) K/uL MPV (7.4-10.4) fL Immature Gran % (Auto) % Neut % (Auto) % Lymph % (Auto) % [place] % (Auto) % Eos % (Auto) % Baso % (Auto) % Immature Gran # (Auto) (0.00-0.02) K/uL Neut # (Auto) (1.4-6.5) K/uL Lymph # (Auto) (1.2-3.4) K/uL [place] # (Auto) (0.11-0.59) K/uL Eos # (Auto) (0-0.5) K/uL Baso # (Auto) (0-0.2) K/uL Sodium (136-145) mmol/L Potassium (3.5-5.1) mmol/L Chloride (98-107) mmol/L Carbon Dioxide (21-32) mmol/L Anion Gap (3-11) BUN (7-18) mg/dl Creatinine (0.6-1.2) mg/dl Est Cr Clr Drug Dosing ml/min Est GFR ( Amer) Est GFR (Non-Af Amer) BUN/Creatinine Ratio (10-20) Glucose (70-99) mg/dl Lactate 1.7 (0.4-2.0) mmol/L Calcium (8.5-10.1) mg/dl Total Bilirubin (0.2-1) mg/dl AST (15-37) U/L ALT (12-78) U/L Alkaline Phosphatase (45-117) U/L Total Protein (6.4-8.2) gm/dl Albumin (3.4-5.0) gm/dl Globulin (2.5-4.0) gm/dl Albumin/Globulin Ratio (0.9-2) Lipase (73-393) U/L HCG, Qual (Negative) Urine Color Yellow Urine Appearance Clear (Clear) Urine pH 5.0 (4.5-7.5) Ur Specific [place] 1.029 (1.000-1.030) Urine Protein Negative (Negative) Urine Glucose (UA) Negative (Negative) Urine Ketones Trace H (Negative) Urine Blood 3+ H (Negative) Urine Nitrite Negative (Negative) Urine Bilirubin Negative (Negative) Urine Urobilinogen Negative (Negative) Ur Leukocyte Esterase Negative (Negative) Urine WBC (Auto) 1-5 (0-5) /hpf Urine RBC (Auto) >30 H (0-4) /hpf U Hyaline Cast (Auto) 1-5 (0-5) /lpf U Epithel Cells (Auto) >30 H (0-5) /lpf Urine Bacteria (Auto) Negative (Negative) Urine Crystals Calcium Oxalate A (None Prsent) Calcium Oxalate Crystal Present A (None Prsent) Imaging Data Radiologist's Impression: Radiology results as stated below per my review and the radiologist's interpretation: CT abd pelvis wo con CT DOSE: 522.59 mGy.cm HISTORY: Flank pain left flank pain TECHNIQUE: Multiaxial CT images of the abdomen and pelvis were performed without contrast. A dose lowering technique was utilized adhering to the principles of ALARA. COMPARISON STUDY: None. FINDINGS: The lung bases are clear. The unenhanced liver, spleen, gallbladder, pancreas, kidneys, and adrenal glands are within normal limits. No bowel wall thickening or obstruction. The pelvic organs are unremarkable. No suspicious lytic or blastic osseous lesions. IMPRESSION: No significant abnormality identified within the abdomen or pelvis. Minimal nonobstructive] ileus The above report was generated using voice recognition software. It may contain grammatical, syntax or spelling errors. Electronically signed by: Moy Deal M.D. 04/06/2019 5:55 PM Prescription Drug Monitoring [place] Drug Monitoring Program reviewed and no issues identified Blood Pressure Blood Pressure Findings: Elevated blood pressure Blood Pressure Disposition: further management by hospitalist DESHAWN Narrative The patient is a 28-year-old female who presented to the emergency department fo r an evaluation of left flank pain and left-sided abdominal pain. The patient's physical exam was not consistent with an acute surgical abdomen but she has a history of renal colic according to her. The patient was treated with IV fluids and IV pain medication in the emergency department. On subsequent reevaluation she was only minimally improved. I discussed the patient's laboratory and radio graphic studies with her. She did not appear to have any signs of ureteral calculi. Despite this the patient was very concerned because she had very significant pain. In fact her pain was barely controlled with multiple doses of morphine as well as Dilaudid. For this reason I discussed her case with the on- call [facility] hospitalist. They have agreed to evaluate the patient in the emergency department for further management and disposition. Impression & Plan Left flank pain, Left sided abdominal pain Discharge Plan Visit Data *Final* Discharge Date/Time: 04/06/19 19:51 Chief Complaint: Kidney Stone Stated Complaint: KIDNEY STONES NAUSEA ED Provider: Dharmesh العلي Discharge Problem: Left flank pain, Left sided abdominal pain Patient Disposition: Admitted As Inpatient Discharge Instructions Interventions: ED Discharge Assessment Last Done: 04/06/19 19:51 The scribe's documentation has been prepared under my direction and personally reviewed by me in its entirety. I confirm that the note above accurately reflects all work, treatment, procedures, and medical decision making performed by me.
[2019-04-06] MEDS ORDERED: KETOROLAC TROMETHAMINE 15 MG/ML VIAL IV ONE (19:06)
--- NOTE | 2019-04-06 20:22 | History & Physical Report ---
Date of Service April 06, 2019 Assessment & Plan (1) Left flank pain: Patient with h/o kidney stones presented with complaint of left flank pain, nausea, vomiting x3 started this afternoon. In ER patient with recurrent nausea, dry heaves and colicky left flank pain. Patient was given Zofran, Phenergan, Dilaudid total 2 mg IV, total [address] abdomen pelvis obtained showing minimal nonobstructive ileus, no renal calculi noted. No leukocytosis. Lactate: 1.7. UA 3+ blood, > 30 WBC, > 30 epithelial, no nitrate or leuk esterase. (Patient with current menses). Negative test. Normal lipase. Normal renal functions. AST: 42, ALT 23, alk phos and total bili WNL. -Obtain renal ultrasound -Bladder scan as needed -Strain urine -IVF -Pain control with Toradol, morphine, oxycodone as needed -Monitor CBC, BMP -May need to consider urology consult (2) HTN (hypertension): Probable secondary to pain -address pain control -monitor BP (3) Depression: -continue citalopram, doxepin DVT Prophylaxis -low risk: ambulate Follows with Dr Alicea for routine care Pt was seen with Dr Moses. See addendum History of Present Illness Chief Complaint: L flank pain Primary Care Provider: Darrell Alicea MD Pt is 28 y/o F with PMH kidney stone, depression presented to ER with complaint of left flank pain. Patient states approximately 3 PM today started with left flank pain with radiation to left lower abdomen. Also complains of nausea and vomited x3. Reports urinary urgency however urinating small amounts when he goes. Denies any noted dysuria. Patient reports menstrual cycle started 4 days ago, and difficult to tell if his had any hematuria. Had reported normal BM today. Patient with history of kidney stones needing intervention, most recent in 05/2018 with right ureteral stone requiring stent, lithotripsy. Patient states current pain today feels like previous kidney stones. History colonoscopy in 04/03/2019 for history of rectal bleeding. Denies any rectal bleeding or melena past several days. Patient reports he is being currently treated for sinusitis with Augmentin which was started on 04/02/2019, was having nasal congestion, purulent rhinorrhea and earache. Denies fever/chills, diaphoresis, hematemesis, COCHRAN, dizziness, syncope, vision changes, neck pain, CP, SOB, orthopnea, palpitations, cough, sore throat, choking, paresthesias, weakness, extremity weakness, extremity edema, rashes. Denies history of pain with menstrual cycles in past. In ER patient with recurrent nausea, dry heaves and colicky left flank pain. Patient was given Zofran, Phenergan, Dilaudid total 2 mg IV, total [address] abdomen pelvis obtained showing minimal nonobstructive ileus, no renal calculi noted. No leukocytosis. Lactate: 1.7. UA 3+ blood, > 30 WBC, > 30 epithelial, no nitrate or leuk esterase. (Patient with current menses). Negative test. Normal lipase. Normal renal functions. AST: 42, ALT 23, alk phos and total bili WNL. Allergies Allergy/AdvReac Type Severity Reaction Status Date / Time No Known Allergies Allergy Verified 04/06/19 16:43 Home Medications Home Medications Medication Instructions Recorded Confirmed Type citalopram 10 mg PO QAM 11/17/18 04/06/19 History drospirenone-ethinyl estradiol 1 tab PO QAM 11/17/18 04/06/19 History magnesium oxide 400 mg PO QAM 11/17/18 04/06/19 History ondansetron 4 mg PO QID PRN 11/17/18 04/06/19 History pantoprazole 40 mg PO QAM 11/17/18 04/06/19 History riboflavin (vitamin B2) 400 mg PO QAM 11/17/18 04/06/19 History ropinirole 0.5 mg PO HS 11/17/18 04/06/19 History valacyclovir [Valtrex] 1,000 mg PO Q12H PRN 11/17/18 04/06/19 History doxepin 25 mg PO HS 03/23/19 04/06/19 History potassium citrate 5 meq PO TID 03/23/19 04/06/19 History amoxicillin-pot clavulanate 1 tab PO BID 04/06/19 04/06/19 History oxycodone 5 mg PO BID PRN #7 tab 04/06/19 Rx Past Med/Surg History Medical History GERD (gastroesophageal reflux disease) (Chronic) Depression (Chronic) History of migraine (Chronic) History of renal calculi (Chronic) Eosinophilic esophagitis (Chronic) Surgical History Status post LASIK surgery of both eyes (Chronic) History of wisdom tooth extraction (Chronic) History of tooth extraction (Chronic) History of esophagogastroduodenoscopy (EGD) (Chronic) History of cystoscopy (Chronic) x3 Hx of colonoscopy (Chronic) History of appendectomy (Chronic) Family History Grandmother (Maternal) Family history of diabetes mellitus Grandfather (Maternal) Family history of diabetes mellitus Family history of esophageal cancer Other No family history of adverse response to anesthesia Social History Preferred Language: Mauritanian Communication Ability: Effective Lead Pressman Required: No Beliefs That Will Affect Care: None marital status: Single Current Living Situation: Family Other Information That Helps Us Care for You: No Feels Safe at Home: Yes Safety Concerns: Feels Safe At This Time Smoking Status: Never smoker Second Hand Exposure: Yes (grandparents smoked) Hx Alcohol Use: Yes Alcohol type: wine and hard liquor Hx Substance Use: No Review of Systems Review of Systems: All systems reviewed & are unremarkable except as noted in HPI & below Physical Exam Physical Exam: General: Initially with no apparent distress then develops left flank pain and dry heaves, overweight Head: normocephalic, atraumatic Eyes: PERRL, EOM's intact, conjunctiva non-injected, anicteric ENT: normal inspection external ears, nose, mucous membranes mildly dry Neck: supple, trachea midline Lungs: clear, no respiratory distress, no wheezing/rhonchi/rales CV: RRR, no murmur, no pretibial edema Abd: normal BS, soft, + L CVA, L flank and LLL pain to palpation, no guarding or rebound Ext: no cyanosis, no calf tenderness Neuro: A&O x 3, no focal deficits noted, normal affect Skin: warm, dry Results & Data Vital Signs (Past 12 Hours) Vital Signs Temp Pulse Pulse Resp BP BP Pulse Ox 05/24/19 19:32 88 20 177/95 H 100 04/06/19 19:26 98 04/06/19 16:22 36.9 C 105 H 24 173/107 H 96 Laboratory Results Short CBC 04/06/19 Range/Units 16:43 WBC 10.26 (4.8-10.8) K/uL Hgb 15.0 (12.0-16.0) g/dL Hct 41.1 (37-47) % Plt Count 385 (130-400) K/uL BMP 04/06/19 16:43 Sodium 137 Potassium 3.9 Chloride 105 Carbon Dioxide 29 BUN 10 Creatinine 0.92 Glucose 95 Calcium 9.6 Liver Function 04/06/19 Range/Units 16:43 Total Bilirubin 0.4 (0.2-1) mg/dl AST 42 H (15-37) U/L ALT 83 H (12-78) U/L Alkaline Phosphatase 89 (45-117) U/L Albumin 3.8 (3.4-5.0) gm/dl Urine 04/06/19 Range/Units 16:55 Urine Color Yellow Urine Appearance Clear (Clear) Urine pH 5.0 (4.5-7.5) Ur Specific [place] 1.029 (1.000-1.030) Urine Protein Negative (Negative) Urine Glucose (UA) Negative (Negative) Diagnostic Findings CT ABD/PELVIS: IMPRESSION: No significant abnormality identified within the abdomen or pelvis. Minimal nonobstructive] ileus Supervising Physician Co-Signing Physician Notes Attending addendum The patient was seen and examined in medical floor She is 28 years old female with remote history of renal stone has been complaining of left lower back pain that radiates to left groin Denies any fever and/or chills and does not have any urinary frequency or urgency or dysuria A little better with intravenous Toradol UA examination did not show any significant findings but it was sent for culture On examination No apparent distress at rest Hemodynamically stable Chest-clear to auscultate bilaterally Heart-S1-S2, regular and no murmur appreciated Abdomen-benign, tender left renal angle Extremities-negative Admission labs and imaging studies noted Ultrasound did not show any hydronephrosis, hydroureter or kidney stone UA examination showed calcium oxalate crystals We need to send urine for culture Agree with assessment and plan as outlined above by GEE Gibson Dr.
--- NOTE | 2019-04-06 20:25 | Ultrasound Report ---
RENAL ULTRASOUND HISTORY: L flank pain COMPARISON: Abdomen and pelvis CT 04/06/2019. FINDINGS: Right kidney: 10.9 cm. No hydronephrosis. Normal corticomedullary differentiation and cortical thickn ess. Left kidney: 12.1 cm. No hydronephrosis. Normal corticomedullary differentiation and cortical thickne ss. Bladder: Under distended and not well visualized. The ureteral jets are not identified at this time. There may be mild bladder wall thickening. IMPRESSION: 1. Normal kidneys. No hydronephrosis. 2. Questionable bladder wall thickening which may be due to underdistention. Recommend correlation wi th urinalysis to exclude a cystitis. Electronically signed by: Néstor Starr M.D. 04/06/2019 8:24 PM
[2019-04-06] MEDS ORDERED: ONDANSETRON INJ 2 MG/ML 2 ML VIAL IV PRN (20:26)
[2019-04-06] MEDS ORDERED: ROPINIROLE HCL 0.25 MG TABLET PO SCH (21:00)
[2019-04-06] MEDS ORDERED: DOXEPIN HCL 25 MG CAPSULE PO SCH (21:00)
[2019-04-06] MEDS: SODIUM CHLORIDE 0.9% 1000ML 1,000 ML IV SCH (22:21)
[2019-04-06] MEDS: KETOROLAC TROMETHAMINE 15 MG/ML VIAL IV PRN (22:21)
[2019-04-06] MEDS: POTASSIUM CITRATE 10 MEQ TAB PO SCH (23:29)
[2019-04-06] MEDS: AMOXICILLIN/CLAVULANATE 875 MG TAB PO SCH (23:29)
[2019-04-07] MEDS: OXYCODONE HCL IR 5 MG TAB (IMMEDIATE RELEASE) PO PRN ×3 (00:38→12:25)
[2019-04-07] MEDS: MoRPHine SULFATE 4 MG/ML 1 ML CARP\\VIAL IV PRN ×2 (03:13→08:10)
[2019-04-07] MEDS: KETOROLAC TROMETHAMINE 15 MG/ML VIAL IV PRN ×2 (04:34→10:19)
[2019-04-07 06:26] LABS: Hematocrit (blood only) 35.9 % (37-47); Hemoglobin 12.5 g/dL (12.0-16.0); Mean Corpuscular Hgb Conc 34.8 g/dL (32-36); Mean Corpuscular Volume 83.9 fL (80-100); Mean Platelet Volume 8.5 fL (7.4-10.4); Platelet Count 288 K/uL (130-400); RDW Coefficient of Variation 12.5 % (11.5-14.5); RDW Standard Deviation 38.1 fL (36.4-46.3); Red Blood Count 4.28 M/uL (4.2-5.4)
[2019-04-07 07:00] LABS: Calcium 8.1 mg/dl (8.5-10.1); Creatinine Clr Calc Pharmacy 94.4 ml/min; Est GFR (African American) 98.3; Est GFR (Non-African American) 84.8; Potassium 3.9 mmol/L (3.5-5.1)
[2019-04-07] MEDS: POTASSIUM CITRATE 10 MEQ TAB PO SCH ×2 (08:17→15:25)
[2019-04-07] MEDS: AMOXICILLIN/CLAVULANATE 875 MG TAB PO SCH (08:18)
[2019-04-07] MEDS: SODIUM CHLORIDE 0.9% 1000ML 1,000 ML IV SCH (08:21)
[2019-04-07] MEDS ORDERED: MAGNESIUM OXIDE 400 MG TAB PO SCH (09:00)
[2019-04-07] MEDS ORDERED: NON-FORMULARY MEDICATION (Riboflavin (Vitamin B2) 400 MG) PO SCH (09:00)
[2019-04-07] MEDS ORDERED: PANTOprazole 40 MG TAB PO SCH (09:00)
[2019-04-07] MEDS ORDERED: CITALOPRAM 20 MG TAB PO SCH (09:00)
--- NOTE | 2019-04-07 13:50 | Hospitalist Progress Note ---
Date of Service April 07, 2019 Assessment & Plan (1) Left flank pain: Patient with h/o kidney stones presented with complaint of left flank pain, nausea, vomiting x3 started this afternoon. In ER patient with recurrent nausea, dry heaves and colicky left flank pain. Patient was given Zofran, Phenergan, Dilaudid total 2 mg IV, total [address] abdomen pelvis obtained showing minimal nonobstructive ileus, no renal calculi noted. No leukocytosis. Lactate: 1.7. (Patient with current menses). Negative test. Normal lipase. Normal renal functions. Per patient, she has hx of calcium oxalate, radio opaque stones requiring multiple interventions and 2-3 times stones for which she follows up with urology at [place]. -Current admission- CT scan, US - no stones noted, UA + blood but has menses going on. No UTI. WBC 13k -IV Fluids -Discontinue IV Morphine. Continue with IV Toradol PRN, Oxycodone PRN -Monitor -Obtain renal ultrasound -Bladder scan as needed -Strain urine -IVF -Pain control with Toradol, morphine, oxycodone as needed -Monitor CBC, BMP -May need to consider urology consult (2) HTN (hypertension): Probable secondary to pain -Monitor (3) Depression: -continue citalopram, doxepin DVT Prophylaxis -low risk: ambulate Disposition Observation status Offered discharge home as no stone seen with f/up with her outpatient urologist. Hesitant but will let me know if pain is tolerable for discharge. Follows with Dr Alicea for routine care Subjective Patient still c/o left flank pain radiating to groin on and off. IV pain medications helping Does have some nausea with no vomiting since admission Denies any dysuria, fever. Physical Exam Physical Exam: GENERAL- AAOX3, No acute distress, OBESE LUNGS- Air entry bilaterally equal. No rales, rhonchi, crackles, wheezes heard. HEART- Regular rate and rhythm. No murmurs ABDOMEN- Soft, non tender, non distended, Bowel sounds heard. EXTREMITIES- Left flank tenderness mild, Good peripheral pulses, no edema Results & Data Vital Signs (Past 12 Hours) Vital Signs Temp Pulse Resp BP Pulse Ox 04/07/19 07:56 36.8 C 72 18 141/85 H 99
--- NOTE | 2019-04-07 14:03 | Discharge Summary ---
Date of Service April 07, 2019 Admission HPI Per Admitting Provider Pt is 28 y/o F with PMH kidney stone, depression presented to ER with complaint of left flank pain. Patient states approximately 3 PM today started with left flank pain with radiation to left lower abdomen. Also complains of nausea and vomited x3. Reports urinary urgency however urinating small amounts when he goes. Denies any noted dysuria. Patient reports menstrual cycle started 4 days ago, and difficult to tell if his had any hematuria. Had reported normal BM today. Patient with history of kidney stones needing intervention, most recent in 05/2018 with right ureteral stone requiring stent, lithotripsy. Patient states current pain today feels like previous kidney stones. History colonoscopy in 04/03/2019 for history of rectal bleeding. Denies any rectal bleeding or melena past several days. Patient reports he is being currently treated for sinusitis with Augmentin which was started on 04/02/2019, was having nasal congestion, purulent rhinorrhea and earache. Denies fever/chills, diaphoresis, hematemesis, COCHRAN, dizziness, syncope, vision changes, neck pain, CP, SOB, orthopnea, palpitations, cough, sore throat, choking, paresthesias, weakness, extremity weakness, extremity edema, rashes. Denies history of pain with menstrual cycles in past. In ER patient with recurrent nausea, dry heaves and colicky left flank pain. Patient was given Zofran, Phenergan, Dilaudid total 2 mg IV, total [address] abdomen pelvis obtained showing minimal nonobstructive ileus, no renal calculi noted. No leukocytosis. Lactate: 1.7. UA 3+ blood, > 30 WBC, > 30 epithelial, no nitrate or leuk esterase. (Patient with current menses). Negative test. Normal lipase. Normal renal functions. AST: 42, ALT 23, alk phos and total bili WNL. Principal Diagnosis 1.Left flank pain, questionable radioopaque stone Secondary diagnosis on discharge 1. Elevated BP 2. Depression 3. Obesity Discharge Exam GENERAL- AAOX3, No acute distress, OBESE LUNGS- Air entry bilaterally equal. No rales, rhonchi, crackles, wheezes heard. HEART- Regular rate and rhythm. No murmurs ABDOMEN- Soft, non tender, non distended, Bowel sounds heard. EXTREMITIES- Left flank tenderness mild, Good peripheral pulses, no edema Discharge Data Allergies Allergy/AdvReac Type Severity Reaction Status Date / Time No Known Allergies Allergy Verified 04/06/19 16:43 Consultations 04/06/19 18:22 ED Decision to Admit Stat Ordered Studies 04/06/19 16:48 CT abd pelvis wo con Stat 04/06/19 19:10 US renal/blad retro comp Urgent Hospital Course (1) Left flank pain: Patient with h/o kidney stones presented with complaint of left flank pain, nausea, vomiting. In ER patient with recurrent nausea, dry heaves and colicky left flank pain. Patient was given Zofran, Phenergan, Dilaudid total 2 mg IV, total [address] abdomen pelvis obtained showing minimal nonobstructive ileus, no renal calculi noted. No leukocytosis. Lactate: 1.7. (Patient with current menses). Negative test. Normal lipase. Normal renal functions. Per patient, she has hx of calcium oxalate, radio opaque stones requiring multiple invasive procedures for stone removal and 2-3 times stones for which she follows up with urology at [place]. -Current admission- CT scan, US - no stones noted, UA + blood but has menses going on. No UTI. WBC 13k. Patient still feels it could be radio opaque stone as presentation is similar to as in the past. -IV Fluids -Discontinued IV Morphine. On IV Toradol PRN, Oxycodone PRN -OK to discharge today with oxycodone supply x 3 days and if symptoms recur will consider going to her urologist in [place] for further evaluation (2) HTN (hypertension): ELEVATED BP -Monitor outpatient (3) Depression: -continue citalopram, doxepin DVT Prophylaxis -low risk: ambulate Disposition Observation status Ok to discharge home with follow up with her urology in [place] if symptoms recur. Agreeable with plan Follows with Dr Alicea for routine care Total Time Total Time Spent Total Time Spent (In Minutes): 25 minutes Discharge Plan Discharge Items Patient Disposition: Home - Self-Care Reason For Visit: L FLANK PAIN Discharge Diagnosis: 1. Left flank pain, questionable radioopaque stone Discharge Goals: Decrease discomfort Activity: Resume your previous activity Non-emergency contact: Primary Care Provider Call non-emergency contact if: your symptoms worsen Follow-up/Referrals: Darrell Alicea MD [Primary Care Provider] - (We will call you for follow up appt date/time) Diet: Low Fat Addtl Provider Instructions: MEDICATION CHANGES 1. New medication- Oxycodone 5 mg every 6 hours as needed for moderate to severe pain 2. New medication- zofran 4 mg every 8 hours as needed for nausea Plenty of oral fluids Strain urine in case you pass stone Prescriptions: New oxycodone 5 mg Tablet 5 mg PO Q6H 3 Days Qty: 12 RF: 0 ondansetron HCl [Zofran] 4 mg tablet 4 mg PO Q8H PRN (Reason: nausea and vomiting) 3 Days Qty: 10 RF: 0 Continued doxepin 25 mg Capsule 25 mg PO HS RF: 0 potassium citrate 5 mEq (540 mg) Tablet Extended Release 5 meq PO TID RF: 0 citalopram 10 mg tablet 10 mg PO QAM RF: 0 valacyclovir [Valtrex] 1 gram Tablet 1,000 mg PO Q12H PRN (Reason: FLARE UP) RF: 0 pantoprazole 40 mg tablet,delayed release (DR/EC) 40 mg PO QAM RF: 0 ropinirole 0.5 mg tablet 0.5 mg PO HS RF: 0 ondansetron 4 mg Tablet,Disintegrating 4 mg PO QID PRN (Reason: Nausea) RF: 0 drospirenone-ethinyl estradiol 3-0.02 mg tablet 1 tab PO QAM RF: 0 magnesium oxide 400 mg Capsule 400 mg PO QAM RF: 0 riboflavin (vitamin B2) 400 mg Tablet 400 mg PO QAM RF: 0 Discontinued amoxicillin-pot clavulanate 875-125 mg tablet 1 tab PO BID RF: 0 Stand-Alone Forms: [facility] Discharge Orders: Discharge Order (Routine); Ordered 04/07/19 Ordered By: Brittney Kang Admission Data Admit Date/Time: 04/06/19 19:23 Attending Provider: Brittney Kang Admit Provider: Wes Moses Primary Care Provider: Darrell Alicea Other Providers: Wes Moses Service: Medical
[2019-04-07] MEDS ORDERED: OXYCODONE HCL IR 5 MG TAB (IMMEDIATE RELEASE) PO ONE (15:16)
--- NOTE | 2019-04-07 16:13 | Discharge Summary ---
Date of Service April 07, 2019 Admission HPI Per Admitting Provider Pt is 28 y/o F with PMH kidney stone, depression presented to ER with complaint of left flank pain. Patient states approximately 3 PM today started with left flank pain with radiation to left lower abdomen. Also complains of nausea and vomited x3. Reports urinary urgency however urinating small amounts when he goes. Denies any noted dysuria. Patient reports menstrual cycle started 4 days ago, and difficult to tell if his had any hematuria. Had reported normal BM today. Patient with history of kidney stones needing intervention, most recent in 05/2018 with right ureteral stone requiring stent, lithotripsy. Patient states current pain today feels like previous kidney stones. History colonoscopy in 04/03/2019 for history of rectal bleeding. Denies any rectal bleeding or melena past several days. Patient reports he is being currently treated for sinusitis with Augmentin which was started on 04/02/2019, was having nasal congestion, purulent rhinorrhea and earache. Denies fever/chills, diaphoresis, hematemesis, COCHRAN, dizziness, syncope, vision changes, neck pain, CP, SOB, orthopnea, palpitations, cough, sore throat, choking, paresthesias, weakness, extremity weakness, extremity edema, rashes. Denies history of pain with menstrual cycles in past. In ER patient with recurrent nausea, dry heaves and colicky left flank pain. Patient was given Zofran, Phenergan, Dilaudid total 2 mg IV, total [address] abdomen pelvis obtained showing minimal nonobstructive ileus, no renal calculi noted. No leukocytosis. Lactate: 1.7. UA 3+ blood, > 30 WBC, > 30 epithelial, no nitrate or leuk esterase. (Patient with current menses). Negative test. Normal lipase. Normal renal functions. AST: 42, ALT 23, alk phos and total bili WNL. Principal Diagnosis 1. Left flank pain Secondary diagnosis on discharge 1. Depression 2. Obesity Discharge Exam GENERAL- AAOX3, No acute distress, OBESE LUNGS- Air entry bilaterally equal. No rales, rhonchi, crackles, wheezes heard. HEART- Regular rate and rhythm. No murmurs ABDOMEN- Soft, non tender, non distended, Bowel sounds heard. EXTREMITIES- Left flank tenderness mild, Good peripheral pulses, no edema Discharge Data Allergies Allergy/AdvReac Type Severity Reaction Status Date / Time No Known Allergies Allergy Verified 04/06/19 16:43 Consultations 04/06/19 18:22 ED Decision to Admit Stat Ordered Studies 04/06/19 16:48 CT abd pelvis wo con Stat 04/06/19 19:10 US renal/blad retro comp Urgent Hospital Course (1) Left flank pain: Patient with h/o kidney stones presented with complaint of left flank pain, nausea, vomiting. In ER patient with recurrent nausea, dry heaves and colicky left flank pain. Patient was given Zofran, Phenergan, Dilaudid total 2 mg IV, total [address] abdomen pelvis obtained showing minimal nonobstructive ileus, no renal calculi noted. No leukocytosis. Lactate: 1.7. (Patient with current menses). Negative test. Normal lipase. Normal renal functions. Reviewed records- has had multiple admissions in past for stone. Had multiple procedures in past requiring intervention for stone removal. Follows up with [place] [facility]. Claims that she has had radio lucent stones in past. -Current admission- CT scan, US - no stones noted nor hydronephrosis or obstruction , UA + blood but has menses going on. No UTI. WBC 13k. Patient still feels it could be radio lucent stone as presentation is similar to as in the past. -IV Fluids -Discontinued IV Morphine. On IV Toradol PRN, Oxycodone PRN -OK to discharge today with oxycodone supply x 3 days and if symptoms recur will consider going to her urologist in [place] for further evaluation (2) HTN (hypertension): ELEVATED BP -Monitor outpatient (3) Depression: -continue citalopram, doxepin DVT Prophylaxis -low risk: ambulate Disposition Observation status Ok to discharge home with follow up with her urology in [place] if symptoms re cur. Agreeable with plan Follows with Dr Alicea for routine care Total Time Total Time Spent Total Time Spent (In Minutes): 35 minutes Discharge Plan Discharge Items Patient Disposition: Home - Self-Care Reason For Visit: L FLANK PAIN Discharge Diagnosis: 1. Left flank pain Discharge Goals: Decrease discomfort Activity: Resume your previous activity Non-emergency contact: Primary Care Provider Call non-emergency contact if: your symptoms worsen Follow-up/Referrals: Darrell Alicea MD [Primary Care Provider] - (We will call you for follow up appt date/time) Diet: Low Fat Addtl Provider Instructions: MEDICATION CHANGES 1. New medication- Oxycodone 5 mg every 6 hours as needed for moderate to severe pain 2. New medication- zofran 4 mg every 8 hours as needed for nausea Plenty of oral fluids Strain urine in case you pass stone Prescriptions: New ondansetron HCl [Zofran] 4 mg tablet 4 mg PO Q8H PRN (Reason: nausea and vomiting) 3 Days Qty: 10 RF: 0 oxycodone 5 mg tablet 5 mg PO Q6H PRN (Reason: pain) Qty: 12 RF: 0 Continued doxepin 25 mg Capsule 25 mg PO HS RF: 0 potassium citrate 5 mEq (540 mg) Tablet Extended Release 5 meq PO TID RF: 0 citalopram 10 mg tablet 10 mg PO QAM RF: 0 valacyclovir [Valtrex] 1 gram Tablet 1,000 mg PO Q12H PRN (Reason: FLARE UP) RF: 0 pantoprazole 40 mg tablet,delayed release (DR/EC) 40 mg PO QAM RF: 0 ropinirole 0.5 mg tablet 0.5 mg PO HS RF: 0 ondansetron 4 mg Tablet,Disintegrating 4 mg PO QID PRN (Reason: Nausea) RF: 0 drospirenone-ethinyl estradiol 3-0.02 mg tablet 1 tab PO QAM RF: 0 magnesium oxide 400 mg Capsule 400 mg PO QAM RF: 0 riboflavin (vitamin B2) 400 mg Tablet 400 mg PO QAM RF: 0 Discontinued amoxicillin-pot clavulanate 875-125 mg tablet 1 tab PO BID RF: 0 Stand-Alone Forms: [facility] Discharge Orders: Discharge Order (Routine); Ordered 04/07/19 Ordered By: Brittney Kang Admission Data Admit Date/Time: 04/06/19 19:23 Attending Provider: Brittney Kang Admit Provider: Wes Moses Primary Care Provider: Darrell Alicea Other Providers: Wes Moses Service: Medical Other Interventions: Discharge Summary Assessment (RN) Last Done: 04/07/19 14:31
== END 2019-04-07 16:25 | disposition home or self-care (01) ==
LOC: 4W 16:18 → ED 16:18 → 4W 19:51

== ENCOUNTER 2019-04-07 16:54 | Observation (INO) ==
[2019-04-07] MEDS ORDERED: HYDROmorphone INJ 0.5 MG/0.5 ML SYR IV STA ×3 (17:09→20:07)
[2019-04-07] MEDS ORDERED: ONDANSETRON INJ 2 MG/ML 2 ML VIAL IV STA (17:09)
[2019-04-07] MEDS ORDERED: SODIUM CHLORIDE 0.9% 1000ML 1,000 ML IV SCH (17:15)
[2019-04-07 17:22] LABS: Basophils # (auto) 0.03 K/uL (0-0.2); Basophils % (auto) 0.2 %; Eosinophils # (auto) 0.16 K/uL (0-0.5); Eosinophils % (auto) 1.3 %; Hematocrit (blood only) 37.9 % (37-47); Immature Granulocytes # (auto) 0.04 K/uL (0.00-0.02); Immature Granulocytes % (auto) 0.3 %; Lymphocytes # (auto) 3.19 K/uL (1.2-3.4); Lymphocytes % (auto) 26.2 %; Mean Corpuscular Hgb Conc 34.3 g/dL (32-36); Mean Corpuscular Volume 84.6 fL (80-100); Mean Platelet Volume 8.5 fL (7.4-10.4); Monocytes # (auto) 0.98 K/uL (0.11-0.59); Monocytes % (auto) 8.1 %; Neutrophils # (auto) 7.77 K/uL (1.4-6.5); Neutrophils % (auto) 63.9 %; Platelet Count 287 K/uL (130-400); RDW Coefficient of Variation 12.5 % (11.5-14.5); RDW Standard Deviation 38.4 fL (36.4-46.3); Red Blood Count 4.48 M/uL (4.2-5.4); White Blood Count 12.17 K/uL (4.8-10.8)
[2019-04-07 17:29] LABS: Appearance Urine Clear (Clear); Bilirubin Urine Negative (Negative); Blood Urine Negative (Negative); Color Urine Yellow; Glucose Urine UA Negative (Negative); Ketones Urine Negative (Negative); Leukocyte Esterase Urine Negative (Negative); Nitrite Urine Negative (Negative); Protein Urine Negative (Negative); Specific Gravity Urine 1.017 (1.000-1.030); Urobilinogen Urine Negative (Negative); pH Urine 5.5 (4.5-7.5)
[2019-04-07 17:39] LABS: Albumin Level 3.3 gm/dl (3.4-5.0); BUN Creatinine Ratio 7.7 (10-20); Creatinine Clr Calc Pharmacy 75.9 ml/min; Est GFR (African American) 75.3; Est GFR (Non-African American) 64.9; Potassium 3.6 mmol/L (3.5-5.1)
[2019-04-07 17:41] LABS: Albumin Globulin Ratio 0.8 (0.9-2); Bilirubin,Total 0.6 mg/dl (0.2-1); Globulin 4.1 gm/dl (2.5-4.0); Total Protein 7.4 gm/dl (6.4-8.2)
[2019-04-07 18:04] LABS: Pregnancy Test, Urine Negative (Negative)
[2019-04-07] MEDS ORDERED: KETOROLAC 30 MG/ML VIAL IV STA (18:19)
--- NOTE | 2019-04-07 19:19 | History & Physical Report ---
Date of Service April 07, 2019 Assessment & Plan (1) Flank pain: LEFT FLANK PAIN Readmission within few hours of discharge due to recurrent left flank pain. Patient has hx of kidney/ureteral stones in past multiple times - rxed at [facility] and at [place] with procedures for stone removal. Last one summer 2017 at [place]. Prefers follow up with Dr Vela, Urology at [place]. Prior stones- radioopaque and seen on imaging studies. Patient mentions she has had radio lucent stones too in past. Feels pain is similar to stone- radiating to groin with nausea, vomiting and left flank pain. Was admitted for same 04/06- 04/07 , CT scan , US renal- no stone or hydronephrosis except minimal ileus, UA +ve blood but menses, no infection. Received IVF, IV narcotics, IV zofran. Decided to be discharged and go to [facility] , but got recurrent pain and decided to come back to ER. Discharged her on 3 days of oxycodone 5 mg, zofran PRN -S/P IV FLuids, IV DIlaudid 1 mg, IV Zofran, IV toradol in ER---> Still has pain and doesnt think can manage at home -IVF at 100 cc/hour -IV Toradol PRN, Oxycodone PRN, Pyridium TID PRN -IV Zofran PRN -Will consult urology DEPRESSION -Continue with home meds ELEVATED BP During last admission Currently stable (on monitor in ER) DVT PROPHYLAXIS SCDS OBESITY DISPOSITION Observation status History of Present Illness Primary Care Provider: Darrell Alicea MD Pt is 28 y/o F with PMH kidney stone, depression, obesity comes again to ER for left flank pain. Patient has prior hx of urinary stones multiple times for which she follows up with urology at [place]. Last stone removal was summer 2017. Per our records, she has had multiple procedures for stone removal - last one in 05/[address] Martinez. Patient prefers follow up with Urology [place]. Prior stones were radioopaque and seen on imaging studies. Patient does mention though she has had radio lucent stones in past. Patient was admitted to hospital on 04/06/2019 for similar reason- left flank pain x 1 day and N/V x [address] scan abd/pelvis- no stones or hydronephrosis. US renal- No stone. UA +ve blood but has menses, negative for infection. Received IV Fluids, IV morphine PRN, IV zofran PRN. Nausea/Vomiting resolved. Offered her discharge if pain was tolerable as no stones seen on imaging study. Patient preferred discharge and decided to go to [place] [facility]. Just after patient was discharged she had recurrent left flank pain and she decided to be readmitted and came back to ER. In ER, vitals are stable. Received IV Dilaudid total 1 mg, IV Toradol 10 mg, IV NS , IV Zofran. Today AM while in hospital, she received two doses of oxycodone, IV Toradol. Patient feels she has stone as left flank pain is going down to groin and she cannot tolerate this pain at home. Will readmit her under observation for left flank pain, unable to control with IV pain meds in ER. Denies any dizziness, fever, chills, vomiting, chest pain, SOB, dysuria. Denies fever/chills, diaphoresis, hematemesis, COCHRAN, dizziness, syncope, vision changes, neck pain, CP, SOB, orthopnea, palpitations, cough, sore throat, choking, paresthesias, weakness, extremity weakness, extremity edema, rashes. Denies history of pain with menstrual cycles in past. Allergies Allergy/AdvReac Type Severity Reaction Status Date / Time No Known Allergies Allergy Verified 04/06/19 16:43 Home Medications Home Medications Medication Instructions Recorded Confirmed Type citalopram 10 mg PO QAM 11/17/18 04/07/19 History drospirenone-ethinyl estradiol 1 tab PO QAM 11/17/18 04/07/19 History magnesium oxide 400 mg PO QAM 11/17/18 04/07/19 History pantoprazole 40 mg PO QAM 11/17/18 04/07/19 History riboflavin (vitamin B2) 400 mg PO QAM 11/17/18 04/07/19 History ropinirole 0.5 mg PO HS 11/17/18 04/07/19 History valacyclovir [Valtrex] 1,000 mg PO Q12H PRN 11/17/18 04/07/19 History doxepin 25 mg PO HS 03/23/19 04/07/19 History potassium citrate 5 meq PO TID 03/23/19 04/07/19 History amoxicillin-pot clavulanate 1 tab PO .Q12HRS UD 04/07/19 04/07/19 History [Augmentin] ondansetron HCl [Zofran] 4 mg PO Q8H PRN 3 Days #10 tab 04/07/19 04/07/19 Rx oxycodone 5 mg PO Q6H PRN #12 tab 04/07/19 04/07/19 Rx Past Med/Surg History Medical History GERD (gastroesophageal reflux disease) (Chronic) Depression (Chronic) History of migraine (Chronic) History of renal calculi (Chronic) Eosinophilic esophagitis (Chronic) Surgical History Status post LASIK surgery of both eyes (Chronic) History of wisdom tooth extraction (Chronic) History of tooth extraction (Chronic) History of esophagogastroduodenoscopy (EGD) (Chronic) History of cystoscopy (Chronic) x3 Hx of colonoscopy (Chronic) History of appendectomy (Chronic) Family History Grandmother (Maternal) Family history of diabetes mellitus Grandfather (Maternal) Family history of diabetes mellitus Family history of esophageal cancer Other No family history of adverse response to anesthesia Social History Preferred Language: Bangladeshi Communication Ability: Effective Beliefs That Will Affect Care: None marital status: Single Current Living Situation: Family Feels Safe at Home: Yes Smoking Status: Never smoker Second Hand Exposure: Yes (grandparents smoked) Hx Alcohol Use: Yes Alcohol type: wine and hard liquor Hx Substance Use: No Physical Exam Physical Exam: GENERAL- AAOX3, No acute distress, OBESE HEAD- Atraumatic, Normocephalic EYES- No pallor, icterus, redness, discharge. Pupils are equal, round, reactive to light and accomodation. EARS- Normal pinna, no discharge, tenderness noted NOSE- No nasal discharge noted NECK- Supple, no JVD LUNGS- Air entry bilaterally equal. No rales, rhonchi, crackles, wheezes heard. HEART- Regular rate and rhythm. No murmurs ABDOMEN- Mild left flank tenderness, Soft, non tender, non distended, Bowel sounds heard. EXTREMITIES- Good peripheral pulses, no edema NEUROMUSCULAR- AAOX3, Grossly no focal deficits SKIN- No rashes Results & Data Vital Signs (Past 12 Hours) Vital Signs Temp Pulse Resp BP Pulse Ox 04/07/19 17:09 20 97 04/07/19 16:58 37.1 C 89 18 76/40 L 99
[2019-04-07] MEDS ORDERED: IOVERSOL 100ml IV PRN (19:24)
--- NOTE | 2019-04-07 19:44 | CT Scan Report ---
CT abd pelvis IV con only CT DOSE: 1005.16 mGycm HISTORY: Flank pain left flank pain TECHNIQUE: Multiaxial CT images of the abdomen and pelvis were performed following the use of intrave nous contrast. A dose lowering technique was utilized adhering to the principles of ALARA. COMPARISON STUDY: 04/06/2019 FINDINGS: Lung bases are clear. Fatty replacement of the liver. Spleen is unremarkable as is the panc reas. Right kidney enhances uniformly. Moderate heterogeneity of enhancement of the left kidney raising the possibility of pyelonephritis. Slight fullness left ureter although no well-defined obstruction is identified. The bowel pattern is nonobstructive. Several small ovarian follicular cysts. Bladder is midline. IMPRESSION: CT findings consistent with left renal pyelonephritis. The above report was generated using voice recognition software. It may contain grammatical, syntax or spelling errors. Electronically signed by: Moy Deal M.D. 04/07/2019 7:43 PM
[2019-04-07] MEDS: KETOROLAC TROMETHAMINE 15 MG/ML VIAL IV PRN (19:54)
[2019-04-07] MEDS ORDERED: cefTRIAXone SODIUM 1,000 MG/50 ML BAG IV STA (20:04)
[2019-04-07] MEDS ORDERED: MoRPHine SULFATE 2 MG/ML CARP IV PRN (20:32)
[2019-04-07] MEDS ORDERED: ONDANSETRON INJ 2 MG/ML 2 ML VIAL IV PRN (21:01)
[2019-04-07] MEDS ORDERED: ACETAMINOPHEN 325 MG TAB PO PRN (21:01)
[2019-04-07] MEDS ORDERED: OXYCODONE HCL IR 5 MG TAB (IMMEDIATE RELEASE) PO PRN (21:01)
[2019-04-07] MEDS: SODIUM CHLORIDE 0.9% 1000ML 1,000 ML IV SCH (21:12)
[2019-04-07] MEDS: PHENAZOPYRIDINE HCL 100 MG TAB PO PRN (21:47)
[2019-04-07] MEDS: DOXEPIN HCL 25 MG CAPSULE PO SCH (22:50)
[2019-04-07] MEDS: ROPINIROLE HCL 0.25 MG TABLET PO SCH (23:36)
[2019-04-07] MEDS: POTASSIUM CITRATE 10 MEQ TAB PO SCH (23:36)
--- NOTE | 2019-04-08 00:15 | Emergency Department Note ---
Entered by Jessa New acting as a scribe for Huseyin Loredo MD History of Present Illness General Chief complaint: Flank Pain Stated complaint: LEFT FLANK PAIN - KIDNEY STONE Source: patient History of Present Illness Provider complaint: flank pain Onset (ago): minute(s) 10 Location: back Severity: similar to prior episodes Pain Consistency: + constant Maximum Pain Intensity: 10 Associated symptoms: + nausea/vomiting (+vomiting) and + other (-buring and itching during urination,); no fever/chills (-fever) The patient is a 28 year old female who presents to the Emergency Room with complaints of constant flank pain. The patient reports that she has had flank pain for 3 days and she experiencing vomiting that started yesterday. She denies any fever and burning and itching pain during urination. The patient states that she was discharged from the ED 10 minutes prior to arrival with similar pain that did not resolve. She states that the her ultrasounds showed that she did not have any kidney stones during her first visit. The patient states that she has had kidney stones earlier this year and this is a similar pain. Home Medications Home Medications Medication Instructions Recorded Confirmed Type citalopram 10 mg PO QAM 11/17/18 04/07/19 History drospirenone-ethinyl estradiol 1 tab PO QAM 11/17/18 04/07/19 History magnesium oxide 400 mg PO QAM 11/17/18 04/07/19 History pantoprazole 40 mg PO QAM 11/17/18 04/07/19 History riboflavin (vitamin B2) 400 mg PO QAM 11/17/18 04/07/19 History ropinirole 0.5 mg PO HS 11/17/18 04/07/19 History valacyclovir [Valtrex] 1,000 mg PO Q12H PRN 11/17/18 04/07/19 History doxepin 25 mg PO HS 03/23/19 04/07/19 History potassium citrate 5 meq PO TID 03/23/19 04/07/19 History amoxicillin-pot clavulanate 1 tab PO .Q12HRS UD 04/07/19 04/07/19 History [Augmentin] ondansetron HCl [Zofran] 4 mg PO Q8H PRN 3 Days #10 tab 04/07/19 04/07/19 Rx oxycodone 5 mg PO Q6H PRN #12 tab 04/07/19 04/07/19 Rx Allergies Allergy/AdvReac Type Severity Reaction Status Date / Time No Known Allergies Allergy Verified 04/06/19 16:43 Past Med/Surg History Medical History GERD (gastroesophageal reflux disease) (Chronic) Depression (Chronic) History of migraine (Chronic) History of renal calculi (Chronic) Eosinophilic esophagitis (Chronic) Surgical History Status post LASIK surgery of both eyes (Chronic) History of wisdom tooth extraction (Chronic) History of tooth extraction (Chronic) History of esophagogastroduodenoscopy (EGD) (Chronic) History of cystoscopy (Chronic) x3 Hx of colonoscopy (Chronic) History of appendectomy (Chronic) Family History Grandmother (Maternal) Family history of diabetes mellitus Grandfather (Maternal) Family history of diabetes mellitus Family history of esophageal cancer Other No family history of adverse response to anesthesia Social History Preferred Language: Ugandan Communication Ability: Effective Manager Of Quality Required: No Beliefs That Will Affect Care: None marital status: Single Current Living Situation: Family Feels Safe at Home: Yes Safety Concerns: Feels Safe At This Time Smoking Status: Never smoker Second Hand Exposure: Yes (grandparents smoked) Hx Alcohol Use: Yes Alcohol type: wine Hx Substance Use: No Review of Systems See HPI for pertinent positives & negatives. and A total of 10 systems reviewed and were otherwise negative Physical Exam Vital Signs Vital Signs - 24 hr 04/07/19 16:58 04/07/19 17:09 04/07/19 17:10 Temperature 37.1 C Temperature Source Oral Sepsis Recent Fever Within 48 Hours No Sepsis New/Unexplained Change in Mental Status No Sepsis Action Taken by Nursing No Action Required Pulse Rate 89 Pulse Rate [Finger] 89 Respiratory Rate 18 20 18 Respiratory Effort / Characteristics Non-Labored Respiratory Depth Normal Blood Pressure 76/40 L Blood Pressure [Left Arm] 165/99 H Blood Pressure Mean 52 Blood Pressure Mean [Left Arm] 121 Pulse Oximetry 99 97 97 Oxygen Delivery Method Room Air Room Air Constitutional: Vital signs reviewed. Appears acutely uncomfortable. Eyes: Pupils are equal round reactive to light. Conjunctiva are noninjected. ENT: Pharynx is clear without erythema or exudate. Mucous membranes are moist. Neck supple without meningeal signs. Respiratory: Clear to auscultation bilaterally. Breath sounds are equal bilaterally. Cardiovascular: Regular rate and rhythm. No rubs or gallops. GI: Soft, nondistended and nontender. Bowel sounds are present. Musculoskeletal: No peripheral edema. No lower extremity tenderness. Integumentary: No cyanosis. Neurological: The patient is awake and alert. No focal deficits. Psychiatric: Anxious appearing. Course 1701: The patient was evaluated in room B8, and a complete history and physical examination were performed. 1748: I reevaluated the patient and updated her on her test results. The patient is still experiencing pain. 1809: I discussed the patient's case with Nicole Meredith, the patient will be further evaluated by the hospitalist staff. 1856: I discussed the patient's case with Dr. Erum Meredith Hospitalist, she recommended a CT with IV contrast be conducted on the patient. 2006: I reevaluated that patient and she is currently still in pain. 2008: I discussed the patient's CT results with Dr. Vicky Meredith Hospitalist. Reevaluation(s) Reevaluation #1: I discussed the patient's case with Nicole Meredith, the patient will be further evaluated by the hospitalist staff. Time: 18:10 Administered Medications Doxepin HCl (Sinequan) 25 mg PO HS RAMIRO Stop: 05/07/19 22:29 Last Admin: 04/07/19 22:50 Dose: Not Given Documented by: [id number] Sodium Chloride (Nss 1000ml) 1,000 mls @ 100 mls/hr IV .Q10H RAMIRO Stop: 05/07/19 19:14 Last Admin: 04/07/19 21:12 Dose: 100 mls/hr Documented by: [id number] Ketorolac Tromethamine (Toradol) 15 mg IV Q6H PRN PRN Reason: Pain Stop: 04/12/19 19:00 Last Admin: 04/07/19 19:54 Dose: 15 mg Documented by: [id number] Phenazopyridine HCl (Pyridium) 100 mg PO TID PRN PRN Reason: Bladder pain Stop: 05/07/19 19:01 Last Admin: 04/07/19 21:47 Dose: 100 mg Documented by: [id number] Potassium Citrate (Urocit-K) 5 meq PO TID RAMIRO Stop: 05/07/19 22:29 Last Admin: 04/07/19 23:36 Dose: 5 meq Documented by: [id number] Ropinirole HCl (Requip) 0.5 mg PO HS [facility] Stop: 05/07/19 22:29 Last Admin: 04/07/19 23:36 Dose: 0.5 mg Documented by: [id number] Discontinued Medications Hydromorphone HCl (Dilaudid) 0.5 mg IV NOW STA Stop: 04/07/19 17:10 Last Admin: 04/07/19 17:26 Dose: 0.5 mg Documented by: [id number] Hydromorphone HCl (Dilaudid) 0.5 mg IV NOW STA Stop: 04/07/19 17:52 Last Admin: 04/07/19 17:54 Dose: 0.5 mg Documented by: [id number] Hydromorphone HCl (Dilaudid) 0.5 mg IV NOW STA Stop: 04/07/19 20:08 Last Admin: 04/07/19 20:15 Dose: 0.5 mg Documented by: [id number] Sodium Chloride (Nss 1000ml) 1,000 mls @ 999 mls/hr IV .Q1H1M RAMIRO Stop: 04/07/19 18:15 Last Infusion: 04/07/19 18:32 Dose: 0 mls/hr Documented by: [id number] Admin: 04/07/19 17:26 Dose: 999 mls/hr Documented by: [id number] Ceftriaxone Sodium (Rocephin) 1,000 mg in 50 mls @ 100 mls/hr IV NOW STA Stop: 04/07/19 20:33 Last Infusion: 04/07/19 20:58 Dose: 0 mls/hr Documented by: [id number] Admin: 04/07/19 20:15 Dose: 100 mls/hr Documented by: [id number] Ioversol (Optiray 320 100ml) 94 ml IV ONCE PRN PRN Reason: Interaction Checking Stop: 04/11/19 19:23 Last Admin: 04/07/19 19:24 Dose: 94 ml Documented by: [id number] Ketorolac Tromethamine (Toradol) 10 mg IV NOW STA Stop: 04/07/19 18:20 Last Admin: 04/07/19 18:24 Dose: 10 mg Documented by: [id number] Ondansetron HCl (Zofran) 4 mg IV NOW STA Stop: 04/07/19 17:10 Last Admin: 04/07/19 17:26 Dose: 4 mg Documented by: [id number] Medical Decision Making Differential Diagnosis Differential include renal colic, hydronephrosis, UTI, pyelonephritis, and intractable pain. Medical Records Attestation: I reviewed the patient's medical records. I did perform a limited focused review of portions of the patient's old chart on the electronic medical record. The patient was discharged earlier today for kidney stones with a plan to follow up with her urologist in [place]. There were negative CT scans except for a ileus. The renal ultrasound shows no hydronephrosis and normal kidneys. Home Medications Current Medication List: was personally reviewed by me Laboratory Data Attestation: I reviewed the patient's lab results. Result diagrams: 04/07/19 17:11 04/07/19 17:11 Lab Results 04/07/19 04/07/19 04/07/19 Range/Units 15:15 15:15 17:11 WBC (4.8-10.8) K/uL RBC (4.2-5.4) M/uL Hgb (12.0-16.0) g/dL Hct (37-47) % MCV (80-100) fL MCH (25-34) pg MCHC (32-36) g/dL RDW Std Deviation (36.4-46.3) fL RDW Coeff of Carmen (11.5-14.5) % Plt Count (130-400) K/uL MPV (7.4-10.4) fL Immature Gran % (Auto) % Neut % (Auto) % Lymph % (Auto) % Ness % (Auto) % Eos % (Auto) % Baso % (Auto) % Immature Gran # (Auto) (0.00-0.02) K/uL Neut # (Auto) (1.4-6.5) K/uL Lymph # (Auto) (1.2-3.4) K/uL Ness # (Auto) (0.11-0.59) K/uL Eos # (Auto) (0-0.5) K/uL Baso # (Auto) (0-0.2) K/uL Sodium 139 (136-145) mmol/L Potassium 3.6 (3.5-5.1) mmol/L Chloride 108 H (98-107) mmol/L Carbon Dioxide 23 (21-32) mmol/L Anion Gap 8.0 (3-11) BUN 9 (7-18) mg/dl Creatinine 1.16 (0.6-1.2) mg/dl Est Cr Clr Drug Dosing 75.9 ml/min Est GFR ( Amer) 75.3 Est GFR (Non-Af Amer) 64.9 BUN/Creatinine Ratio 7.7 L (10-20) Glucose 87 (70-99) mg/dl Calcium 9.0 (8.5-10.1) mg/dl Total Bilirubin 0.6 (0.2-1) mg/dl AST 46 H (15-37) U/L ALT 73 (12-78) U/L Alkaline Phosphatase 82 (45-117) U/L Total Protein 7.4 (6.4-8.2) gm/dl Albumin 3.3 L (3.4-5.0) gm/dl Globulin 4.1 H (2.5-4.0) gm/dl Albumin/Globulin Ratio 0.8 L (0.9-2) Lipase 87 (73-393) U/L Urine Color Yellow Urine Appearance Clear (Clear) Urine pH 5.5 (4.5-7.5) Ur Specific [place] 1.017 (1.000-1.030) Urine Protein Negative (Negative) Urine Glucose (UA) Negative (Negative) Urine Ketones Negative (Negative) Urine Blood Negative (Negative) Urine Nitrite Negative (Negative) Urine Bilirubin Negative (Negative) Urine Urobilinogen Negative (Negative) Ur Leukocyte Esterase Negative (Negative) Urine Test Negative (Negative) 04/07/19 Range/Units 17:11 WBC 12.17 H (4.8-10.8) K/uL RBC 4.48 (4.2-5.4) M/uL Hgb 13.0 (12.0-16.0) g/dL Hct 37.9 (37-47) % MCV 84.6 (80-100) fL MCH 29.0 (25-34) pg MCHC 34.3 (32-36) g/dL RDW Std Deviation 38.4 (36.4-46.3) fL RDW Coeff of Carmen 12.5 (11.5-14.5) % Plt Count 287 (130-400) K/uL MPV 8.5 (7.4-10.4) fL Immature Gran % (Auto) 0.3 % Neut % (Auto) 63.9 % Lymph % (Auto) 26.2 % Ness % (Auto) 8.1 % Eos % (Auto) 1.3 % Baso % (Auto) 0.2 % Immature Gran # (Auto) 0.04 H (0.00-0.02) K/uL Neut # (Auto) 7.77 H (1.4-6.5) K/uL Lymph # (Auto) 3.19 (1.2-3.4) K/uL Ness # (Auto) 0.98 H (0.11-0.59) K/uL Eos # (Auto) 0.16 (0-0.5) K/uL Baso # (Auto) 0.03 (0-0.2) K/uL Sodium (136-145) mmol/L Potassium (3.5-5.1) mmol/L Chloride (98-107) mmol/L Carbon Dioxide (21-32) mmol/L Anion Gap (3-11) BUN (7-18) mg/dl Creatinine (0.6-1.2) mg/dl Est Cr Clr Drug Dosing ml/min Est GFR ( Amer) Est GFR (Non-Af Amer) BUN/Creatinine Ratio (10-20) Glucose (70-99) mg/dl Calcium (8.5-10.1) mg/dl Total Bilirubin (0.2-1) mg/dl AST (15-37) U/L ALT (12-78) U/L Alkaline Phosphatase (45-117) U/L Total Protein (6.4-8.2) gm/dl Albumin (3.4-5.0) gm/dl Globulin (2.5-4.0) gm/dl Albumin/Globulin Ratio (0.9-2) Lipase (73-393) U/L Urine Color Urine Appearance (Clear) Urine pH (4.5-7.5) Ur Specific [place] (1.000-1.030) Urine Protein (Negative) Urine Glucose (UA) (Negative) Urine Ketones (Negative) Urine Blood (Negative) Urine Nitrite (Negative) Urine Bilirubin (Negative) Urine Urobilinogen (Negative) Ur Leukocyte Esterase (Negative) Urine Test (Negative) Blood Pressure Blood Pressure Findings: Elevated blood pressure Blood Pressure Disposition: Referred to patients primary care provider MDM Narrative I did evaluate the patient as noted above. The patient is presenting with persistent flank pain. She was just discharged from the hospital for the same and had a work-up done here. She states her pain feels identical to her previous kidney stone pain and that in the past her stones have been r adiolucent. IV access was established. The patient was placed on a continuous ekg monitor tech. I did treat the patient with IV Dilaudid and Zofran. She is also given normal saline IV. I did order a urine analysis. There is no evidence of infection. The patient had persistent pain and was given additional Dilaudid and Toradol IV. I did order and review the patient's blood work as noted in the electronic medical record. Her white count is elevated. Given her persistent symptoms I did feel she required hospitalization. I did discuss the case with the hospitalist and protective services case worker. After further discussion with the hospitalist I did decide to order a CT scan with contrast of her belly. I did order a CT of the abdomen and pelvis. I did review the images myself as well as the radiology report as described above. She does appear to have signs consistent with pyelonephritis on CT scanning. This is unusual given her negative UA. In any case I did treat her with ceftriaxone IV. She was also given additional Dilaudid for continued pain. I did discuss the CT results with her. I also discussed the CT results with Dr. Hutton. Impression & Plan Intractable pain, Flank pain The scribe's documentation has been prepared under my direction and personally reviewed by me in its entirety. I confirm that the note above accurately reflects all work, treatment, procedures, and medical decision making performed by me.
[2019-04-08] MEDS: SODIUM CHLORIDE 0.9% 1000ML 1,000 ML IV SCH ×2 (05:58→15:41)
[2019-04-08 07:04] LABS: Hematocrit (blood only) 34.8 % (37-47); Hemoglobin 11.8 g/dL (12.0-16.0); Mean Corpuscular Hgb Conc 33.9 g/dL (32-36); Mean Corpuscular Volume 84.7 fL (80-100); Mean Platelet Volume 8.5 fL (7.4-10.4); Platelet Count 247 K/uL (130-400); RDW Coefficient of Variation 12.5 % (11.5-14.5); RDW Standard Deviation 38.4 fL (36.4-46.3); Red Blood Count 4.11 M/uL (4.2-5.4); White Blood Count 7.45 K/uL (4.8-10.8)
[2019-04-08 07:42] LABS: BUN Creatinine Ratio 10.1 (10-20); Calcium 8.3 mg/dl (8.5-10.1); Creatinine Clr Calc Pharmacy 112.9 ml/min; Est GFR (African American) 121.6; Est GFR (Non-African American) 104.9; Potassium 3.7 mmol/L (3.5-5.1)
[2019-04-08] MEDS: KETOROLAC TROMETHAMINE 15 MG/ML VIAL IV PRN ×2 (08:25→19:34)
[2019-04-08] MEDS: CITALOPRAM 20 MG TAB PO SCH (08:29)
[2019-04-08] MEDS: PANTOprazole 40 MG TAB PO SCH (08:29)
[2019-04-08] MEDS: MAGNESIUM OXIDE 400 MG TAB PO SCH (08:29)
[2019-04-08] MEDS: POTASSIUM CITRATE 10 MEQ TAB PO SCH ×3 (08:29→22:05)
[2019-04-08] MEDS ORDERED: NON-FORMULARY MEDICATION (Riboflavin (Vitamin B2) 400 MG) PO SCH (09:00)
[2019-04-08] MEDS: OXYCODONE HCL IR 5 MG TAB (IMMEDIATE RELEASE) PO PRN ×3 (09:30→23:23)
--- NOTE | 2019-04-08 10:53 | Hospitalist Progress Note ---
Date of Service April 08, 2019 Assessment & Plan (1) Flank pain: LEFT FLANK PAIN Readmission within few hours of discharge due to recurrent left flank pain Patient has hx of kidney/ureteral stones in past multiple times - rxed at [facility] and at [place] with multiple procedures for stone removal. Last one summer 2017 at [place]. Prefers follow up with Dr Vela, Urology at [place]. Prior stones- radioopaque and seen on imaging studies. Patient mentions she has had radio lucent stones too in past. Feels pain is similar to stone- radiating to groin with nausea, vomiting and left flank pain. Was admitted for same 04/06- 04/07 , CT scan , US renal- no stone or hydronephrosis except minimal ileus, UA +ve blood but menses, no infection. Received IVF, IV narcotics, IV zofran. Decided to get discharged and go to [facility] , but got recurrent pain and decided to come back to ER within few hours. Had discharged her on 3 days of oxycodone 5 mg, zofran PRN New since 04/07 discharge---> CT scan IV contrast was done by ED physician to see if had renal infarct as no stones seen and still sig flank pain. Shows LEFT RENAL PYELONEPHRITIS. Does have left flank pain, N/V, Leucocytosis (04/07), but UA X 2- neg for infection, no dysuria. However with partial symptoms and improving with IV Rocephin, will continue for now to complete course while awaiting urine cx. -IV Rocephin 1 gram q 24 hours (Day 2) -IVF at 100 cc/hour -IV Toradol PRN, IV Morphine PRN (Decrease frequency), Oxycodone PRN, Pyridium TID PRN -IV Zofran PRN -No indication for urology consult given no stones seen and overall improving on antibiotics with CT scan now suggestive of left renal pyelonephritis DEPRESSION -Continue with home meds ELEVATED BP During last admission and in ER. Now better. Likely secondary to discomfort Currently stable OBESITY Weight loss recommended DVT PROPHYLAXIS SCDS DISPOSITION Observation status Likely discharge in AM . Awaiting clinical improvement, Urine cx results Subjective Patient is feeling much better today. Still has left-sided flank pain but significantly improved. No episodes of nausea or vomiting or chills which she had in the past. No fever. Still denies dysuria but does have frequency Physical Exam Physical Exam: GENERAL- AAOX3, No acute distress, OBESE LUNGS- Air entry bilaterally equal. No rales, rhonchi, crackles, wheezes heard. HEART- Regular rate and rhythm. No murmurs ABDOMEN- Mild left flank tenderness, Soft, non tender, non distended, Bowel sounds heard. EXTREMITIES- Good peripheral pulses, no edema Results & Data Vital Signs (Past 12 Hours) Vital Signs Temp Pulse Resp BP Pulse Ox 04/08/19 07:39 36.8 C 80 16 123/79 97 04/07/19 23:25 36.8 C 73 16 121/69 98
[2019-04-08] MEDS: MoRPHine SULFATE 2 MG/ML CARP IV PRN ×2 (11:40→18:34)
[2019-04-08] MEDS: PHENAZOPYRIDINE HCL 100 MG TAB PO PRN (19:48)
[2019-04-08] MEDS: cefTRIAXone SODIUM 2,000 MG in DEXTROSE 5% 50 ML IV SCH (20:07)
[2019-04-08] MEDS ORDERED: KETOROLAC TROMETHAMINE 15 MG/ML VIAL IV ONE (21:42)
[2019-04-08] MEDS: ROPINIROLE HCL 0.25 MG TABLET PO SCH (23:23)
[2019-04-08] MEDS: DOXEPIN HCL 25 MG CAPSULE PO SCH (23:24)
[2019-04-09] MEDS: SODIUM CHLORIDE 0.9% 1000ML 1,000 ML IV SCH ×3 (02:16→23:28)
[2019-04-09 06:09] LABS: Hematocrit (blood only) 33.4 % (37-47); Hemoglobin 11.7 g/dL (12.0-16.0); Mean Corpuscular Volume 83.3 fL (80-100); Mean Platelet Volume 8.4 fL (7.4-10.4); Platelet Count 271 K/uL (130-400); RDW Coefficient of Variation 12.5 % (11.5-14.5); RDW Standard Deviation 38.2 fL (36.4-46.3); Red Blood Count 4.01 M/uL (4.2-5.4); White Blood Count 7.43 K/uL (4.8-10.8)
[2019-04-09 06:42] LABS: BUN Creatinine Ratio 14.2 (10-20); Calcium 8.3 mg/dl (8.5-10.1); Creatinine Clr Calc Pharmacy 127.6 ml/min; Est GFR (African American) 139.2; Est GFR (Non-African American) 120.1; Potassium 3.7 mmol/L (3.5-5.1)
[2019-04-09] MEDS: MoRPHine SULFATE 2 MG/ML CARP IV PRN (07:51)
[2019-04-09] MEDS: CITALOPRAM 20 MG TAB PO SCH (08:43)
[2019-04-09] MEDS: PANTOprazole 40 MG TAB PO SCH (08:44)
[2019-04-09] MEDS: MAGNESIUM OXIDE 400 MG TAB PO SCH (08:44)
[2019-04-09] MEDS: POTASSIUM CITRATE 10 MEQ TAB PO SCH ×3 (08:44→21:02)
[2019-04-09] MEDS: KETOROLAC TROMETHAMINE 15 MG/ML VIAL IV PRN ×2 (08:50→18:01)
[2019-04-09] MEDS: OPTIRAY 300 IV PRN ×4 (13:42→14:13)
--- NOTE | 2019-04-09 14:32 | XRay Report ---
XR IVP wo/w tomograms CLINICAL HISTORY: Bilateral stones not seen in CT scan COMPARISON STUDY: 11/17/2018. Prior CT studies of 04/07/2019, 04/06/2019, 06/12/2018. FINDINGS: Survey images show no abnormal calcifications. Bowel pattern is normal. The examination is performed following the intravenous injection of 100 cc of nonionic contrast. The re is prompt opacification of the upper collecting systems bilaterally. There are bilateral extraren al pelves. There is no evidence for hydronephrosis. Enhancement characteristics of the kidneys are somewhat asymmetric with the left nephrogram somewhat diminished compared to the right. Ureters are normal in coarse and caliber. Bladder fills well with no sign of deformity or filling de fect. Post void shows no significant residual. IMPRESSION: 1. No evidence for an obstructing urinary tract calculus. 2. Slight decrease in intensity of a left renal nephrogram which may indicate a component of pyelonep hritis. 3. All findings correlate well with the patient's prior CT examinations The above report was generated using voice recognition software. It may contain grammatical, syntax or spelling errors. Electronically signed by: Moy Deal M.D. 04/09/2019 2:30 PM
--- NOTE | 2019-04-09 15:05 | Hospitalist Progress Note ---
Date of Service April 09, 2019 Assessment & Plan (1) Flank pain: LEFT FLANK PAIN NEW ONSET RIGHT FLANK PAIN -today Readmission within few hours of discharge on 04/07/19 due to left flank pain Patient has hx of kidney/ureteral stones in past multiple times - rxed at [facility] and at [place] with multiple procedures for stone removal. Last one summer 2017 at [place]. Prefers follow up with Dr Vela, Urology at [place]. Prior stones- radioopaque and seen on imaging studies. Patient mentions she has had radio lucent stones too in past. Feels pain is similar to stone- radiating to groin with nausea, vomiting and left flank pain. Was admitted for same 04/06- 04/07 , CT scan , US renal- no stone or hydronephrosis except minimal ileus, UA +ve blood but menses, no infection, Neg test, Ca oxalate crystals. Received IVF, IV narcotics, IV zofran. Decided to get discharged and go to [facility] , but got recurrent pain and decided to come back to ER within few hours. New since 04/07 discharge---> CT scan IV contrast was done by ED physician to see if had renal infarct as no stones seen and still sig flank pain. Showed LEFT RENAL PYELONEPHRITIS. Does have left flank pain, N/V, Leucocytosis (04/07), but UA X 2- neg for infection, no dysuria. However with partial symptoms and improving with IV Rocephin, continued - Day 3 today, Urine cx- <1000 colonies -IV Rocephin 1 gram q 24 hours (Day 3) -IVF at 100 cc/hour -IV Toradol PRN, IV Morphine PRN (Decreased frequency), Oxycodone PRN, Pyridium TID PRN -IV Zofran PRN PLAN: Today new onset right flank pain and no associated symptoms. Unclear etiology. Will do IVP today as patient keeps saying it feels like stone. DEPRESSION -Continue with home meds ELEVATED BP During last admission and in ER. Now better. Likely secondary to discomfort Currently stable OBESITY Weight loss recommended DVT PROPHYLAXIS SCDS DISPOSITION Observation status Clinically continues to have pain Updated parents by bedside were very upset as patient still has pain with no clear etiology. Answered all the questions and went over all the test results. Subjective , Back pain. Patient now has pain and right flank pain, nonradiating which is worse than left, intensity 7/10. Left flank pain has improved but persistent. No nausea, vomiting. No dysuria, urinary frequency, fever, chills. No abdominal pain, back pain. Physical Exam Physical Exam: GENERAL- AAOX3, No acute distress, OBESE LUNGS- Air entry bilaterally equal. No rales, rhonchi, crackles, wheezes heard. HEART- Regular rate and rhythm. No murmurs ABDOMEN- Mild right & left flank tenderness. Soft, non tender, non distended, Bowel sounds heard. EXTREMITIES- Good peripheral pulses, no edema Results & Data Vital Signs (Past 12 Hours) Vital Signs Temp Pulse Resp BP Pulse Ox 04/09/19 07:28 36.7 C 82 18 116/70 99
[2019-04-09] MEDS: OXYCODONE HCL IR 5 MG TAB (IMMEDIATE RELEASE) PO PRN ×2 (15:18→21:03)
[2019-04-09] MEDS: DOXEPIN HCL 25 MG CAPSULE PO SCH (18:05)
[2019-04-09] MEDS: cefTRIAXone SODIUM 2,000 MG in DEXTROSE 5% 50 ML IV SCH (19:55)
[2019-04-09] MEDS: ROPINIROLE HCL 0.25 MG TABLET PO SCH (21:03)
[2019-04-10 05:45] LABS: Hematocrit (blood only) 35.4 % (37-47); Hemoglobin 12.2 g/dL (12.0-16.0); Mean Corpuscular Hgb Conc 34.5 g/dL (32-36); Mean Corpuscular Volume 84.1 fL (80-100); Mean Platelet Volume 8.5 fL (7.4-10.4); Platelet Count 274 K/uL (130-400); RDW Coefficient of Variation 12.4 % (11.5-14.5); RDW Standard Deviation 38.1 fL (36.4-46.3); Red Blood Count 4.21 M/uL (4.2-5.4)
[2019-04-10 06:16] LABS: BUN Creatinine Ratio 12.8 (10-20); Calcium 8.6 mg/dl (8.5-10.1); Creatinine Clr Calc Pharmacy 125.8 ml/min; Est GFR (African American) 138.6; Est GFR (Non-African American) 119.6; Potassium 4.1 mmol/L (3.5-5.1)
[2019-04-10] MEDS: PANTOprazole 40 MG TAB PO SCH (09:02)
[2019-04-10] MEDS: CITALOPRAM 20 MG TAB PO SCH (09:02)
[2019-04-10] MEDS: POTASSIUM CITRATE 10 MEQ TAB PO SCH ×2 (09:03→13:44)
[2019-04-10] MEDS: SODIUM CHLORIDE 0.9% 1000ML 1,000 ML IV SCH (09:04)
[2019-04-10] MEDS: MAGNESIUM OXIDE 400 MG TAB PO SCH (09:05)
--- NOTE | 2019-04-10 13:58 | Hospitalist Progress Note ---
Date of Service April 10, 2019 Assessment & Plan (1) Flank pain: BILATERAL FLANK PAIN- Resolved Readmission within few hours of discharge on 04/07/19 due to left flank pain Patient has hx of kidney/ureteral stones in past multiple times - rxed at [facility] and at [place] with multiple procedures for stone removal. Last one summer 2017 at [place]. Prefers follow up with Dr Vela, Urology at [place]. Prior stones- radioopaque and seen on imaging studies. Patient mentions she has had radio lucent stones too in past. Feels pain is similar to stone- radiating to groin with nausea, vomiting and left flank pain. Was admitted for same 04/06- 04/07 , CT scan , US renal- no stone or hydronephrosis except minimal ileus, UA +ve blood but menses, no infection, Neg test, Ca oxalate crystals. Received IVF, IV narcotics, IV zofran. Decided to get discharged and go to [facility] , but got recurrent pain and decided to come back to ER within few hours. New since 04/07 discharge---> CT scan IV contrast was done by ED physician to see if had renal infarct as no stones seen and still sig flank pain. Showed LEFT RENAL PYELONEPHRITIS. Does have left flank pain, N/V, Leucocytosis (04/07), but UA X 2- neg for infection, no dysuria. However with partial symptoms and improving with IV Rocephin, continued - Days 3, Urine cx- <1000 colonies. -On 04/09/19- Pain worse in right flank --> Ordered IVP as patient still kept mentioning about stone--> Neg , may be left pyelonephritis. Today symptoms have resolved -IV Rocephin 1 gram q 24 hours x 3 days---> Complete course with cipro bid x 4 more days = total 7 days -IVF -IV Toradol PRN, IV Morphine PRN (Decreased frequency), Oxycodone PRN, Pyridium TID PRN, IV Zofran PRN DEPRESSION -Continue with home meds ELEVATED BP During last admission and in ER. Now better. Likely secondary to discomfort Currently stable OBESITY Weight loss recommended DVT PROPHYLAXIS SCDS DISPOSITION Observation status Updated parents by bedside were very upset as patient still had pain with no clear etiology. Answered all the questions and went over all the test results. Eager to be discharged today Ok to discharge home today Subjective Patient is doing much better today. Flank pain has almost resolved. No nausea, vomiting. No dysuria, urinary frequency, fever, chills. Not used any pain medication since yesterday. Eager to be discharged now Physical Exam Physical Exam: GENERAL- AAOX3, No acute distress, OBESE LUNGS- Air entry bilaterally equal. No rales, rhonchi, crackles, wheezes heard. HEART- Regular rate and rhythm. No murmurs ABDOMEN-no flank tenderness, Soft, non tender, non distended, Bowel sounds heard. EXTREMITIES- Good peripheral pulses, no edema Results & Data Vital Signs (Past 12 Hours) Vital Signs Temp Pulse Resp BP Pulse Ox 04/10/19 07:00 36.9 C 65 18 115/74 97
--- NOTE | 2019-04-10 14:03 | Discharge Summary ---
Date of Service April 10, 2019 Admission HPI Per Admitting Provider Pt is 28 y/o F with PMH kidney stone, depression, obesity comes again to ER for left flank pain. Patient has prior hx of urinary stones multiple times for which she follows up with urology at [place]. Last stone removal was summer 2017. Per our records, she has had multiple procedures for stone removal - last one in 05/[address] Martinez. Patient prefers follow up with Urology [place]. Prior stones were radioopaque and seen on imaging studies. Patient does mention though she has had radio lucent stones in past. Patient was admitted to hospital on 04/06/2019 for similar reason- left flank pain x 1 day and N/V x [address] scan abd/pelvis- no stones or hydronephrosis. US renal- No stone. UA +ve blood but has menses, negative for infection. Received IV Fluids, IV morphine PRN, IV zofran PRN. Nausea/Vomiting resolved. Offered her discharge if pain was tolerable as no stones seen on imaging study. Patient preferred discharge and decided to go to [facility]. Just after patient was discharged she had recurrent left flank pain and she decided to be readmitted and came back to ER. In ER, vitals are stable. Received IV Dilaudid total 1 mg, IV Toradol 10 mg, IV NS , IV Zofran. Today AM while in hospital, she received two doses of oxycodone, IV Toradol. Patient feels she has stone as left flank pain is going down to groin and she cannot tolerate this pain at home. Will readmit her under observation for left flank pain, unable to control with IV pain meds in ER. Denies any dizziness, fever, chills, vomiting, chest pain, SOB, dysuria. Denies fever/chills, diaphoresis, hematemesis, COCHRAN, dizziness, syncope, vision changes, neck pain, CP, SOB, orthopnea, palpitations, cough, sore throat, choking, paresthesias, weakness, extremity weakness, extremity edema, rashes. Denies history of pain with menstrual cycles in past. Principal Diagnosis 1. Bilateral flank pain, stone ruled out 2. Possible pyelonephritis, left sided SECONDARY DIAGNOSIS ON DISCHARGE 1. Depression 2. Obesity Discharge Exam GENERAL- AAOX3, No acute distress, OBESE LUNGS- Air entry bilaterally equal. No rales, rhonchi, crackles, wheezes heard. HEART- Regular rate and rhythm. No murmurs ABDOMEN- Mild right & left flank tenderness. Soft, non tender, non distended, Bowel sounds heard. EXTREMITIES- Good peripheral pulses, no edema Discharge Data Allergies Allergy/AdvReac Type Severity Reaction Status Date / Time No Known Allergies Allergy Verified 04/06/19 16:43 Consultations 04/07/19 18:09 ED Decision to Admit Stat Ordered Studies 04/07/19 18:55 CT abd pelvis IV con only Stat Hospital Course (1) Flank pain: BILATERAL FLANK PAIN- Resolved Readmission within few hours of discharge on 04/07/19 due to left flank pain Patient has hx of kidney/ureteral stones in past multiple times - rxed at [facility] and at [facility] with multiple procedures for stone removal. Last one summer 2017 at [facility]. Prefers follow up with Dr Vela, Urology at [facility]. Prior stones- radioopaque and seen on imaging studies. Patient mentions she has had radio lucent stones too in past. Feels pain is similar to stone- radiating to groin with nausea, vomiting and left flank pain. Was admitted for same 04/06- 04/07 , CT scan , US renal- no stone or hydronephrosis except minimal ileus, UA +ve blood but menses, no infection, Neg test, Ca oxalate crystals. Received IVF, IV narcotics, IV zofran. Decided to get discharged and go to [facility] , but got recurrent pain and decided to come back to ER within few hours. New since 04/07 discharge---> CT scan IV contrast was done by ED physician to see if had renal infarct as no stones seen and still sig flank pain. Showed LEFT RENAL PYELONEPHRITIS. Does have left flank pain, N/V, Leucocytosis (04/07), but UA X 2- neg for infection, no dysuria. However with partial symptoms and improving with IV Rocephin, continued - Days 3, Urine cx- <1000 colonies. -On 04/09/19- Pain worse in right flank --> Ordered IVP as patient still kept mentioning about stone--> Neg , may be left pyelonephritis. Today symptoms have resolved -IV Rocephin 1 gram q 24 hours x 3 days---> Complete course with cipro bid x 4 more days = total 7 days -IVF -IV Toradol PRN, IV Morphine PRN (Decreased frequency), Oxycodone PRN, Pyridium TID PRN, IV Zofran PRN DEPRESSION -Continue with home meds ELEVATED BP During last admission and in ER. Now better. Likely secondary to discomfort Currently stable. No indication for starting antihypertensives OBESITY Weight loss recommended DVT PROPHYLAXIS SCDS DISPOSITION Observation status Updated parents by bedside were very upset as patient still had pain with no clear etiology. Answered all the questions and went over all the test results. Eager to be discharged today Ok to discharge home today Total Time Total Time Spent Total Time Spent (In Minutes): 25 minutes Discharge Plan Discharge Items Patient Disposition: Home - Self-Care Reason For Visit: LEFT FLANK PAIN Discharge Diagnosis: Bilateral flank pain, acute abnormalities including stone ruled out Discharge Goals: Decrease discomfort Activity: Resume your previous activity Non-emergency contact: Primary Care Provider Call non-emergency contact if: your symptoms worsen Follow-up/Referrals: Darrell Alicea MD [Primary Care Provider] - Diet: Low Fat Addtl Provider Instructions: You were admitted to the hospital for bilateral flank pain. You had the following tests done during this stay 1. CT scan abd/pelvis with contrast 2. Intra venous pyelogram During prior admission you had the following tests 1. CT scan abd/pelvis without contrast 2. US renal Your tests did not show any stone. Possible infection in your kidney. You were given IV fluids, IV antibiotics during your stay. MEDICATION CHANGES 1. New medication- Ciprofloxacin twice a day for 4 more days to complete course of 7 days of antibiotics Prescriptions: New ciprofloxacin HCl 500 mg tablet 500 mg PO BID 4 Days Qty: 8 RF: 0 Continued doxepin 25 mg Capsule 25 mg PO HS RF: 0 potassium citrate 5 mEq (540 mg) Tablet Extended Release 5 meq PO TID RF: 0 citalopram 10 mg tablet 10 mg PO QAM RF: 0 valacyclovir [Valtrex] 1 gram Tablet 1,000 mg PO Q12H PRN (Reason: FLARE UP) RF: 0 pantoprazole 40 mg tablet,delayed release (DR/EC) 40 mg PO QAM RF: 0 ropinirole 0.5 mg tablet 0.5 mg PO HS RF: 0 drospirenone-ethinyl estradiol 3-0.02 mg tablet 1 tab PO QAM RF: 0 magnesium oxide 400 mg Capsule 400 mg PO QAM RF: 0 riboflavin (vitamin B2) 400 mg Tablet 400 mg PO QAM RF: 0 Discontinued oxycodone 5 mg tablet 5 mg PO Q6H PRN (Reason: pain) Qty: 12 RF: 0 amoxicillin-pot clavulanate [Augmentin] 875-125 mg tablet 1 tab PO .Q12HRS UD RF: 0 Stand-Alone Forms: [facility] Discharge Orders: Discharge Order (Routine); Ordered 04/10/19 Ordered By: Brittney Kang Admission Data Admit Date/Time: 04/07/19 19:05 Attending Provider: Brittney Kang Admit Provider: Brittney Kang Primary Care Provider: Darrell Alicea Other Providers: Radha Kumar Service: Medical
== END 2019-04-10 14:25 | disposition home or self-care (01) ==
LOC: 3N 16:54 → ED 16:54 → 3N 20:30

== ENCOUNTER 2021-07-21 19:53 | Inpatient (IN) ==
[2021-07-21] MEDS ORDERED: MoRPHine SULFATE 10 MG/ML CARP/VIAL IM STA (21:22)
[2021-07-21] MEDS ORDERED: PROMETHAZINE HCL 25 MG in SODIUM CHLORIDE 0.9% 50 ML IM PRN (21:22)
--- NOTE | 2021-07-21 21:29 | History & Physical Report ---
Date of Service July 21, 2021 Assessment & Plan (1) with 37 weeks completed gestation: (2) Uterine contractions: Plan: plan to admit for observation. Will continue to evaluate for labor , treat with morphine rest and consider the possiblity of stone. Check labs, attempt renal ultrasound. Urine shows large ketones so at least minimally dehydrated. fetus is category one. History of Present Illness Chief Complaint: contractions pain Primary Care Provider: NO PCP Patient is a 31yowf with iup at 37 2/7 weeks who presented to labor and delivery complaining of worsening contractions. Started yesterday at 8:30 pm. She notes that they have worsened today. She was chacked in the office today and was . While observing her, she bacame significantly more painful. She notes that she hurts all over. She notes that she has sciatic like pain on the left that worsens with contractions. She then notes she has pain in the right flank that lasts for at least 5 minutes at a time with waves. She notes she has had kidney stones in the past and it sort of feels like that . She is writhing on the bed. this pain is not related to contractions as it is constant and prolonged. labs--A+/ab-/ri/rprnr/hepb-/hiv-/gc/ct-/gbs neg/2 hr gtt x 2 nl/ gbs neg. Allergies Allergy/AdvReac Type Severity Reaction Status Date / Time No Known Allergies Allergy Verified 07/21/21 13:58 Home Medications Medication Instructions Recorded Confirmed Type prenat.vits,annemarie,[id number] 1 tab PO QAM 12/24/20 07/21/21 History pantoprazole 40 mg tablet,delayed See Rx Instructions .ROUTE 05/22/21 07/21/21 Rx release .COMPLEX #180 tablet Patient History Medical History Depression Eosinophilic esophagitis GERD (gastroesophageal reflux disease) H/O cold sores No hx genital herpes History of migraine History of renal calculi Varicella vaccination Surgical History History of appendectomy History of cystoscopy x3 History of esophagogastroduodenoscopy (EGD) History of tooth extraction History of wisdom tooth extraction Hx of colonoscopy Status post LASIK surgery of both eyes Family History Grandmother (Maternal) Family history of diabetes mellitus Grandfather (Maternal) Family history of diabetes mellitus Family history of esophageal cancer Other No family history of adverse response to anesthesia Denies family history of Ovarian cancer Deep vein thrombosis Breast cancer Colorectal cancer Uterine cancer Social History Smoking Status: Never smoker Second Hand Exposure: No; Do You Dip or Chew Tobacco: No; Tobacco Cessation Education Requested by Patient: No Hx Alcohol Use: Yes Alcohol type: wine Alcohol Intake Frequency Comment: Social Hx Substance Use: No Preferred Language: Turkmen Communication Ability: Effective Training Development Director Required: No Beliefs That Will Affect Care: None marital status: marital status details: Cj Bruce [phone]) [phone] Current Living Situation: Spouse Current Living Situation Comment: lives with spouse, father in law, dogs, donkeys, chickens current occupational status: employed 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, 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[employer] [facility] Other Information That Helps Us Care for You: No Feels Safe at Home: Yes Safety Concerns: Feels Safe At This Time Assistive Devices: None OB History g1--present [facility] History noncontributory Physical Exam Constitutional: WD/WN, vitals as above (writhing in pain) Neck: trachea midline, no thyromegaly Gastrointestinal (Abdomen): soft, gravid, nt, contractions palpate mild Psychiatric: A+Ox3, euthymic affect Genitourinary: cx--3/90/-3 toco--q4-5 min efm--150s wtih mod variability, accels to 170s, no decels Results & Data ([facility]) Vital Signs (Past 12 Hours) Vital Signs Temp Pulse Resp BP 07/21/21 20:24 36.8 C 18 07/21/21 20:15 79 146/84 H 07/21/21 20:10 36.8 C 20 07/21/21 20:06 88 144/95 H Coding Level of Care Code INT OBSERVATION CARE 30M LVL 1 Diagnoses with 37 weeks completed gestation Z3A.37 Uterine contractions O47.9
[2021-07-21] MEDS: LACTATED RINGER'S 1,000 ML IV PRN ×2 (21:30→22:50)
[2021-07-21 21:46] LABS: Basophils # (auto) 0.02 K/uL (0-0.2); Basophils % (auto) 0.1 %; Eosinophils # (auto) 0.04 K/uL (0-0.5); Eosinophils % (auto) 0.3 %; Hematocrit (blood only) 34.2 % (37-47); Hemoglobin 11.7 g/dL (12.0-16.0); Immature Granulocytes # (auto) 0.04 K/uL (0.00-0.02); Immature Granulocytes % (auto) 0.3 %; Lymphocytes # (auto) 1.78 K/uL (1.2-3.4); Lymphocytes % (auto) 12.8 %; Mean Corpuscular Hemoglobin 28.7 pg (25-34); Mean Corpuscular Hgb Conc 34.2 g/dL (32-36); Mean Corpuscular Volume 83.8 fL (80-100); Mean Platelet Volume 9.5 fL (7.4-10.4); Monocytes # (auto) 0.98 K/uL (0.11-0.59); Monocytes % (auto) 7.1 %; Neutrophils # (auto) 11.04 K/uL (1.4-6.5); Neutrophils % (auto) 79.4 %; Platelet Count 314 K/uL (130-400); RDW Coefficient of Variation 13.4 % (11.5-14.5); RDW Standard Deviation 40.5 fL (36.4-46.3); Red Blood Count 4.08 M/uL (4.2-5.4)
[2021-07-21] MEDS ORDERED: PROMETHAZINE HCL INJ 25 MG/ML 1 ML VIAL IM STA (21:46)
[2021-07-21 22:00] LABS: Appearance Urine Clear (Clear); Bacteria Urine Automated Negative (Negative); Bilirubin Urine Negative (Negative); Blood Urine Negative (Negative); Color Urine Orange; Epithelial Cell Urine Auto 20-30 /lpf (0-5); Glucose Urine UA Negative (Negative); Ketones Urine Trace (Negative); Leukocyte Esterase Urine Trace (Negative); Nitrite Urine Negative (Negative); Protein Urine Negative (Negative); RBC Urine Automated 0-4 /hpf (0-4); Specific Gravity Urine 1.011 (1.000-1.030); Urobilinogen Urine Negative (Negative); pH Urine 7.5 (4.5-7.5)
[2021-07-21] MEDS ORDERED: oxyCODONE/ACETAMINOPHEN 5mg/325mg TAB PO PRN (23:12)
[2021-07-21] MEDS ORDERED: LACTATED RINGER'S 1,000 ML IV PRN (23:31)
[2021-07-21] MEDS ORDERED: OXYTOCIN 30 UNITS/500 ML BAG IV PRN ×2 (23:31→23:43)
--- NOTE | 2021-07-21 23:39 | Labor Progress Brief Note ---
Date of Service July 21, 2021 Subjective Patient continues to have intermittent 10/10 excrutiating right flank/back pain. Notes the contractions are tolerable. US shows a probable 5mm, nonobstructing right kidney stone, mild bilateral hydronephrosis. Assessment & Plan (1) with 37 weeks completed gestation: (2) Uterine contractions: (3) Nephrolithiasis: Plan: Discussed the situation at length with the patient and her . Do not think the patient is currently in labor, however, very likely has a kidney stone that is causing her excrutiating pain. The morphine rest really did not touch it. I have concern that I will be able to get any adequate pain management with any oral medications. Urology will not be able to do anything to help as she is 37 weeks . Our options are trying to manage pain and hope for it to pass, or go ahead and induce the patient for the medical indication of painful kidney stone. If we were at 32 weeks, this would be an entirely different situation as she would be . However, now she is early term and the likelihood of issues with the baby, although a real possibility, are exceeding small. Discussed would get epidural now, start pit, arom when indicated and anticipate vaginal delivery. gbs negative. After discussing the pros and cons, the patient has decided to proceed with induction. Questions asked and answered. Physical Exam Physical Exam: cx--deferred toco--q 3-5min efm--140s with min variabilty c/w narcotics, small accels , no decels Results & Data ([facility]) Vital Signs (Past 12 Hours) Vital Signs Temp Pulse Resp BP 07/21/21 23:22 78 158/84 H 07/21/21 22:52 78 178/81 H 07/21/21 22:19 78 172/89 H 07/21/21 21:38 83 179/97 H 07/21/21 20:24 36.8 C 18 07/21/21 20:15 79 146/84 H 07/21/21 20:10 36.8 C 20 07/21/21 20:06 88 144/95 H Coding Level of Care Code None Diagnoses with 37 weeks completed gestation Z3A.37 Uterine contractions O47.9 Nephrolithiasis N20.0
--- NOTE | 2021-07-22 00:08 | Anesthesiology Consultation ---
Date of Service July 22, 2021 Assessment & Plan (1) Encounter for pre-operative examination: Chart Review Chart Review: Acceptable Risk for Labor Epidural History Height/Weight Height: 5 ft 2 in Weight: 96.615 kg Allergies Allergy/AdvReac Type Severity Reaction Status Date / Time No Known Allergies Allergy Verified 07/21/21 13:58 Medications Home Medications Medication Instructions Recorded Confirmed Last Taken prenat.vits,annemarie,mue-[id number] 1 tab PO QAM 12/24/20 07/21/21 05/08/21 pantoprazole 40 mg tablet,delayed See Rx Instructions .ROUTE 05/22/21 07/21/21 Unknown release .COMPLEX #180 tablet Active Medications Generic Name Dose Route Start Last Admin Trade Name Freq PRN Reason Stop Dose Admin Lactated Ringer's 1,000 mls @ 125 mls/hr 07/21/21 21:22 07/21/21 22:50 Lr IV 08/20/21 21: 999 mls/hr .Q8H PRN Administration L&D Protocol Protocol Past Medical History Medical History Depression Eosinophilic esophagitis GERD (gastroesophageal reflux disease) H/O cold sores No hx genital herpes History of migraine History of renal calculi Varicella vaccination Past Family History Family History Grandmother (Maternal) Family history of diabetes mellitus Grandfather (Maternal) Family history of diabetes mellitus Family history of esophageal cancer Other No family history of adverse response to anesthesia Denies family history of Ovarian cancer Deep vein thrombosis Breast cancer Colorectal cancer Uterine cancer Past Surgical History Surgical History History of appendectomy History of cystoscopy x3 History of esophagogastroduodenoscopy (EGD) History of tooth extraction History of wisdom tooth extraction Hx of colonoscopy Status post LASIK surgery of both eyes Social History Smoking Status: Never smoker Do You Dip or Chew Tobacco: No Hx Alcohol Use: Yes Alcohol type: wine alcohol intake frequency: a few times a week Hx Substance Use: No substance use type: does not use Physical Exam Vital Signs Last Vital Signs Temp 36.8 C 07/21/21 20:24 Pulse 78 07/21/21 23:22 Resp 18 07/21/21 20:24 BP 158/84 H 07/21/21 23:22 Testing Laboratory Results 07/21/21 21:37 Urine Color [place] 07/21/21 Unknown Urine Appearance Clear (Clear) 07/21/21 Unknown Urine pH 7.5 (4.5-7.5) 07/21/21 Unknown Ur Specific [place] 1.011 (1.000-1.030) 07/21/21 Unknown Urine Protein Negative (Negative) 07/21/21 Unknown Urine Glucose (UA) Negative (Negative) 07/21/21 Unknown Urine Ketones Trace (Negative) H 07/21/21 Unknown Urine Nitrite Negative (Negative) 07/21/21 Unknown Ur Leukocyte Esterase Trace (Negative) H 07/21/21 Unknown Urine WBC (Auto) 1-5 /hpf (0-5) 07/21/21 Unknown Urine RBC (Auto) 0-4 /hpf (0-4) 07/21/21 Unknown U Hyaline Cast (Auto) 1-5 /lpf (0-5) 07/21/21 Unknown U Epithel Cells (Auto) 20-30 /lpf (0-5) H 07/21/21 Unknown Urine Bacteria (Auto) Negative (Negative) 07/21/21 Unknown
[2021-07-22] MEDS ORDERED: SODIUM CHLORIDE 0.9% INJ 10 ML VIAL ONE (00:11)
[2021-07-22] MEDS ORDERED: BUPIVACAINE 0.25% 30 ML VIAL ONE (00:11)
[2021-07-22] MEDS ORDERED: ePHEDrine sulfate 50 MG/ML AMP ONE (00:11)
[2021-07-22] MEDS ORDERED: fentaNYL 2MCG/ML ROPIVACAINE 1.25MG/ML 100 ML BAG EPI ONE (00:12)
[2021-07-22] MEDS ORDERED: fentaNYL citrate 100 MCG/2 ML VIAL ONE (00:12)
[2021-07-22] MEDS ORDERED: ePHEDrine sulfate 50 MG/ML AMP IV PRN (00:40)
[2021-07-22] MEDS ORDERED: NALOXONE HCL 1 MG in SODIUM CHLORIDE 0.9% 1000ML 1,000 ML IV PRN (00:40)
[2021-07-22] MEDS ORDERED: NALOXONE HCL 0.4 MG/1 ML VIAL/CARP IV PRN (00:40)
[2021-07-22] MEDS ORDERED: ONDANSETRON INJ 2 MG/ML 2 ML VIAL IV PRN (00:40)
[2021-07-22] MEDS ORDERED: fentaNYL 2MCG/ML ROPIVACAINE 1.25MG/ML 100 ML BAG EPI PRN (00:40)
[2021-07-22] MEDS ORDERED: NURSING L&D Epidural Breakthrough Pain Update ONE (05:19)
--- NOTE | 2021-07-22 06:16 | Labor Progress Brief Note ---
Date of Service July 22, 2021 Subjective comfortable with epidural Assessment & Plan (1) Nephrolithiasis: (2) with 37 weeks completed gestation: Plan: allow to labor down. anticipate . fetus overall reassuring. Admission and Anticipated Discharge Date Admission Date: July 21, 2021 Physical Exam Physical Exam: cx--ant lip/100/0 toco--q2-3, pit at 2 efm--150s with min to mod variability, small accels , no decels Results & Data ([facility]) Vital Signs (Past 12 Hours) Vital Signs Temp Pulse Resp BP Pulse Ox 07/22/21 06:09 94 H 96 07/22/21 06:04 104 H 97 07/22/21 06:03 78 92 07/22/21 05:59 76 93 07/22/21 05:58 75 94 07/22/21 05:54 89 96 07/22/21 05:50 84 127/60 07/22/21 05:49 78 98 07/22/21 05:44 70 95 07/22/21 05:41 69 94 07/22/21 05:39 72 93 07/22/21 05:37 71 115/64 07/22/21 05:35 73 91 07/22/21 05:34 77 94 07/22/21 05:30 74 20 91 07/22/21 05:29 78 97 07/22/21 05:24 86 97 07/22/21 05:23 79 92 07/22/21 05:20 90 125/68 07/22/21 05:19 91 H 97 07/22/21 05:14 92 H 98 07/22/21 05:09 93 H 97 07/22/21 05:06 89 133/77 07/22/21 05:04 101 H 98 07/22/21 05:00 82 92 07/22/21 04:59 80 94 07/22/21 04:54 85 94 07/22/21 04:49 79 95 07/22/21 04:47 76 94 07/22/21 04:44 78 96 07/22/21 04:42 79 92 07/22/21 04:39 84 96 07/22/21 04:35 82 143/81 H 93 07/22/21 04:34 89 96 07/22/21 04:29 89 96 07/22/21 04:24 86 96 07/22/21 04:21 85 145/91 H 07/22/21 04:19 78 97 07/22/21 04:14 79 96 07/22/21 04:13 84 93 07/22/21 04:09 89 96 07/22/21 04:07 85 93 07/22/21 04:05 69 126/58 L 07/22/21 04:04 73 97 07/22/21 03:59 68 97 07/22/21 03:54 71 98 07/22/21 03:50 74 132/63 07/22/21 03:49 77 99 07/22/21 03:44 75 97 07/22/21 03:40 97 H 93 07/22/21 03:39 91 H 96 07/22/21 03:34 78 96 07/22/21 03:30 80 94 07/22/21 03:29 85 96 07/22/21 03:24 81 94 07/22/21 03:22 79 94 07/22/21 03:20 85 162/73 H 07/22/21 03:19 77 92 07/22/21 03:16 78 94 07/22/21 03:14 81 94 07/22/21 03:09 79 93 07/22/21 03:06 81 162/75 H 07/22/21 03:04 74 94 07/22/21 03:02 77 94 07/22/21 02:59 76 93 07/22/21 02:56 75 94 07/22/21 02:54 75 94 07/22/21 02:50 75 161/77 H 94 07/22/21 02:49 76 94 07/22/21 02:45 83 93 07/22/21 02:44 84 94 07/22/21 02:39 89 94 07/22/21 02:37 86 94 07/22/21 02:35 85 151/60 H 07/22/21 02:34 84 96 07/22/21 02:30 71 94 07/22/21 02:29 70 95 07/22/21 02:24 68 94 07/22/21 02:21 66 141/63 H 07/22/21 02:19 72 94 07/22/21 02:14 70 94 07/22/21 02:13 68 94 07/22/21 02:09 72 93 07/22/21 02:07 71 94 07/22/21 02:05 75 136/65 07/22/21 02:04 76 96 07/22/21 02:02 73 94 07/22/21 02:00 18 07/22/21 01:59 84 97 07/22/21 01:54 70 94 07/22/21 01:50 65 129/59 L 07/22/21 01:49 69 94 07/22/21 01:48 67 94 07/22/21 01:44 68 95 07/22/21 01:43 71 94 07/22/21 01:39 73 94 07/22/21 01:36 70 130/59 L 94 07/22/21 01:34 68 95 07/22/21 01:30 20 07/22/21 01:29 71 95 07/22/21 01:24 69 95 07/22/21 01:21 67 135/60 07/22/21 01:19 70 95 07/22/21 01:15 71 92 07/22/21 01:14 70 97 07/22/21 01:09 83 97 07/22/21 01:07 77 94 07/22/21 01:06 73 139/65 07/22/21 01:04 78 97 07/22/21 01:00 36.9 C 18 07/22/21 00:59 77 95 07/22/21 00:54 79 97 07/22/21 00:49 77 138/55 L 98 07/22/21 00:46 76 142/63 H 07/22/21 00:44 75 98 07/22/21 00:43 75 135/63 07/22/21 00:40 74 147/67 H 07/22/21 00:39 75 99 07/22/21 00:36 82 157/86 H 07/22/21 00:34 82 100 07/21/21 23:22 78 158/84 H 07/21/21 22:52 78 178/81 H 07/21/21 22:19 78 172/89 H 07/21/21 21:38 83 179/97 H 07/21/21 20:24 36.8 C 18 07/21/21 20:15 79 146/84 H 07/21/21 20:10 36.8 C 20 07/21/21 20:06 88 144/95 H Coding Level of Care Code None Diagnoses Nephrolithiasis N20.0 with 37 weeks completed gestation Z3A.37
--- NOTE | 2021-07-22 09:02 | Labor Progress Brief Note ---
Date of Service July 22, 2021 Subjective Pain well managed with epidural, including both contraction-related pain and renal stone pain. Assessment & Plan (1) Nephrolithiasis: Plan: Recurrent for this patient, has needed intervention many times before. Pain currently controlled by epidural, and stone was nonobstructing on pre-labor imaging, but after delivery will need to be re-assessed and may or may not requi re urologic consultation at that point. (2) with 37 weeks completed gestation: Plan: Induction ongoing and currently in second stage making good progress. Admission and Anticipated Discharge Date Admission Date: July 21, 2021 Physical Exam Physical Exam: Pushing effectively. +2 station at the time of my recent visit to her room, pushing with RN performing perineal massage and FOB helping to support leg. FHT appropriate for second stage. [place] Q2min. Results & Data ([facility]) Vital Signs (Past 12 Hours) Vital Signs Temp Pulse Resp BP Pulse Ox 07/22/21 08:54 85 93 07/22/21 08:51 78 139/72 07/22/21 08:49 89 98 07/22/21 08:47 82 87 L 07/22/21 08:44 104 H 99 07/22/21 08:39 91 H 98 07/22/21 08:34 85 96 07/22/21 08:29 109 H 96 07/22/21 08:24 103 H 97 07/22/21 08:20 22 07/22/21 08:19 88 95 07/22/21 08:17 79 93 07/22/21 08:14 111 H 98 07/22/21 08:09 91 H 97 07/22/21 08:07 88 148/75 H 07/22/21 08:04 89 93 07/22/21 08:00 22 07/22/21 07:59 89 95 07/22/21 07:54 90 96 07/22/21 07:50 86 141/71 H 07/22/21 07:49 86 97 07/22/21 07:44 84 96 07/22/21 07:39 86 95 07/22/21 07:37 81 93 07/22/21 07:36 81 148/76 H 07/22/21 07:34 81 95 07/22/21 07:30 84 92 07/22/21 07:29 82 95 07/22/21 07:24 85 94 07/22/21 07:19 88 97 07/22/21 07:15 98.8 F 20 07/22/21 07:14 93 H 95 07/22/21 07:09 90 92 07/22/21 07:08 97 H 94 07/22/21 07:05 82 141/76 H 07/22/21 07:04 85 97 07/22/21 07:01 82 94 07/22/21 06:59 81 95 07/22/21 06:58 76 138/64 07/22/21 06:54 74 94 07/22/21 06:49 81 94 07/22/21 06:48 74 94 07/22/21 06:44 73 94 07/22/21 06:43 76 94 07/22/21 06:39 72 94 07/22/21 06:38 73 94 07/22/21 06:34 72 95 07/22/21 06:32 72 94 07/22/21 06:30 18 07/22/21 06:29 73 95 07/22/21 06:26 77 94 07/22/21 06:24 79 96 07/22/21 06:21 76 94 07/22/21 06:20 74 121/58 L 07/22/21 06:19 75 94 07/22/21 06:14 84 95 07/22/21 06:09 94 H 96 07/22/21 06:05 98.2 F 07/22/21 06:04 104 H 97 07/22/21 06:03 78 92 07/22/21 05:59 76 93 07/22/21 05:58 75 94 07/22/21 05:54 89 96 07/22/21 05:50 84 127/60 07/22/21 05:49 78 98 07/22/21 05:44 70 95 07/22/21 05:41 69 94 07/22/21 05:39 72 93 07/22/21 05:37 71 115/64 07/22/21 05:35 73 91 07/22/21 05:34 77 94 07/22/21 05:30 74 20 91 07/22/21 05:29 78 97 07/22/21 05:24 86 97 07/22/21 05:23 79 92 07/22/21 05:20 90 125/68 07/22/21 05:19 91 H 97 07/22/21 05:14 92 H 98 07/22/21 05:09 93 H 97 07/22/21 05:06 89 133/77 07/22/21 05:04 101 H 98 07/22/21 05:00 82 92 07/22/21 04:59 80 94 07/22/21 04:54 85 94 07/22/21 04:49 79 95 07/22/21 04:47 76 94 07/22/21 04:44 78 96 07/22/21 04:42 79 92 07/22/21 04:39 84 96 07/22/21 04:35 82 143/81 H 93 07/22/21 04:34 89 96 07/22/21 04:29 89 96 07/22/21 04:24 86 96 07/22/21 04:21 85 145/91 H 07/22/21 04:19 78 97 07/22/21 04:14 79 96 07/22/21 04:13 84 93 07/22/21 04:09 89 96 07/22/21 04:07 85 93 07/22/21 04:05 69 126/58 L 07/22/21 04:04 73 97 07/22/21 03:59 68 97 07/22/21 03:54 71 98 07/22/21 03:50 74 132/63 07/22/21 03:49 77 99 07/22/21 03:44 75 97 07/22/21 03:40 97 H 93 07/22/21 03:39 91 H 96 07/22/21 03:34 78 96 07/22/21 03:30 80 94 07/22/21 03:29 85 96 07/22/21 03:24 81 94 07/22/21 03:22 79 94 07/22/21 03:20 85 162/73 H 07/22/21 03:19 77 92 07/22/21 03:16 78 94 07/22/21 03:14 81 94 07/22/21 03:09 79 93 07/22/21 03:06 81 162/75 H 07/22/21 03:04 74 94 07/22/21 03:02 77 94 07/22/21 02:59 76 93 07/22/21 02:56 75 94 07/22/21 02:54 75 94 09/08/21 02:50 75 161/77 H 94 07/22/21 02:49 76 94 07/22/21 02:45 83 93 07/22/21 02:44 84 94 07/22/21 02:39 89 94 07/22/21 02:37 86 94 07/22/21 02:35 85 151/60 H 07/22/21 02:34 84 96 07/22/21 02:30 71 94 07/22/21 02:29 70 95 07/22/21 02:24 68 94 07/22/21 02:21 66 141/63 H 07/22/21 02:19 72 94 07/22/21 02:14 70 94 07/22/21 02:13 68 94 07/22/21 02:09 72 93 07/22/21 02:07 71 94 07/22/21 02:05 75 136/65 07/22/21 02:04 76 96 07/22/21 02:02 73 94 07/22/21 02:00 18 07/22/21 01:59 84 97 07/22/21 01:54 70 94 07/22/21 01:50 65 129/59 L 07/22/21 01:49 69 94 07/22/21 01:48 67 94 07/22/21 01:44 68 95 07/22/21 01:43 71 94 07/22/21 01:39 73 94 07/22/21 01:36 70 130/59 L 94 07/22/21 01:34 68 95 07/22/21 01:30 20 07/22/21 01:29 71 95 07/22/21 01:24 69 95 07/22/21 01:21 67 135/60 07/22/21 01:19 70 95 07/22/21 01:15 71 92 07/22/21 01:14 70 97 07/22/21 01:09 83 97 07/22/21 01:07 77 94 07/22/21 01:06 73 139/65 07/22/21 01:04 78 97 07/22/21 01:00 98.4 F 18 07/22/21 00:59 77 95 07/22/21 00:54 79 97 07/22/21 00:49 77 138/55 L 98 07/22/21 00:46 76 142/63 H 07/22/21 00:44 75 98 07/22/21 00:43 75 135/63 07/22/21 00:40 74 147/67 H 07/22/21 00:39 75 99 07/22/21 00:36 82 157/86 H 07/22/21 00:34 82 100 07/21/21 23:22 78 158/84 H 07/21/21 22:52 78 178/81 H 07/21/21 22:19 78 172/89 H 07/21/21 21:38 83 179/97 H Coding Level of Care Code None Diagnoses Nephrolithiasis N20.0 with 37 weeks completed gestation Z3A.37
[2021-07-22] MEDS: LACTATED RINGER'S 1,000 ML IV PRN (09:12)
--- NOTE | 2021-07-22 09:39 | Ultrasound Report ---
RENAL ULTRASOUND HISTORY: Flank pain. 37 weeks , r/o stone COMPARISON: Abdomen and pelvis CT 04/06/2019. FINDINGS: Right kidney: 11.7 cm. Mild hydronephrosis. No definite renal calculi. Normal corticomedullary differ entiation and cortical thickness. Left kidney: 11.9 cm. Mild hydronephrosis. No definite renal calculi. Normal corticomedullary differe ntiation and cortical thickness. Bladder: Not well visualized due to the intrauterine gestation. No definite bladder wall thickening. IMPRESSION: 1. Mild bilateral hydronephrosis. This may be physiologic given the intrauterine gestation. 2. Underdistended and partially obscured bladder. No definite bladder wall thickening. ACT 112: Negative or not required by law. Electronically signed by: Néstor Starr M.D. 07/22/2021 9:37 AM
--- NOTE | 2021-07-22 09:53 | Delivery Summary ---
Vaginal Delivery Summary Date of Service July 22, 2021 Vaginal Delivery Summary DIAGNOSES: 1. Wan intrauterine at 37w3d gestation. 2. Medically indicated induction of labor due to renal stone with acute renal colic. 3. Group B Streptococcus Neg. PROCEDURE: Spontaneous vaginal delivery without laceration. SURGEON: Francie Woodall MD. CONTRACT TECHNICAL WRITER: None. ESTIMATED BLOOD LOSS: 300 mL. COMPLICATIONS: None. PLACENTA: Spontaneous and intact with a 3-vessel cord. DISPOSITION: Stable to labor and delivery. DESCRIPTION: The patient pushed well and brought the head to in OA position. The infant's head was allowed to deliver with contraction force and no further active pushing, with the perineum protected during this time. There was a single tight nuchal cord. The shoulders and body delivered without any difficulty, and the infant was placed on the maternal abdomen. It was vigorous and moving all extremities, and making respiratory efforts. The cord was doubly clamped by the MD and then cut by the FOB. The placenta delivered spontaneously and was noted to be intact and with a 3VC. The cervix, vagina and perineum were examined and were found to be without defect requiring repair. The fundus was firm and lochia minimal immediately after delivery.
[2021-07-22] MEDS ORDERED: SUPERCREAM 0.870% 15 GM JAR EXT PRN (10:12)
[2021-07-22] MEDS ORDERED: DIPHTHERIA/TETANUS/PERTUSSIS 0.5 ML SYR/VIAL IM ONE (10:12)
[2021-07-22] MEDS ORDERED: BENZOCAINE 20% AER SPR 82.5 GM CAN EXT PRN (10:12)
[2021-07-22] MEDS ORDERED: HYDROCORTISONE ACETATE 25 MG SUPP PR PRN (10:12)
[2021-07-22] MEDS ORDERED: oxyCODONE/ACETAMINOPHEN 5mg/325mg TAB PO PRN (10:12)
--- NOTE | 2021-07-22 10:17 | Communication Note ---
Date of Service: July 22, 2021 1) RN notified me by phone of first temp being elevated. Will begin Unasyn now for suspected chorioamnionitis. 2) Discussed that we will turn off epidural but should leave catheter in place for at least 2 hours, to assess patient's stone-related pain, prior to removing it. If pain is severe and/or intractable to oral + intermittent IV meds, can resume epidural for comfort until urologic consultation and treatment plan. I note the report given to me in sign-out this morning that IV/IM morphine did not previously provide adequate pain relief.
--- NOTE | 2021-07-22 10:25 | Communication Note ---
Date of Service: July 22, 2021 I also note a final reading was recently uploaded for the patient's ultrasound from 07/21, in which Dr. Starr states there is *no* renal stone. I therefore reviewed the images directly, and I see a bright white structure in the R kidney which was measured at 0.5cm. I can only assume this was initially communicated to the prior OB on-call as a likely renal stone, correlating to the patient's pain and history, therefore leading to the decision to induce labor and allow for management of a stone with acute colic. Though the final read did not reach the same conclusion, the patient's pain merited delivery at this gestational age, and still merits leaving the epidural catheter in situ to allow assessment of pain and until we determine whether urologic consultation will be needed. I'll repeat a renal US today to assess for improvement in hydro, presence or absence of stone, and aid in determining the need for further management if any.
[2021-07-22] MEDS ORDERED: AMPICILLIN/SULBACTAM SOD 3,000 MG in 0.9 % SODIUM CHLORIDE 100 ML IV ONE (10:30)
[2021-07-22] MEDS: ACETAMINOPHEN 325 MG TAB PO PRN (11:04)
[2021-07-22] MEDS: IBUPROFEN 600 MG TAB PO PRN ×2 (13:19→19:42)
--- NOTE | 2021-07-22 14:59 | Ultrasound Report ---
ULTRASOUND KIDNEYS AND BLADDER CLINICAL HISTORY: Follow-up hydronephrosis seen during . COMPARISON STUDY: Abdominal CT dated 04/07/2019. Renal ultrasound dated 07/21/2021. TECHNIQUE: Real-time, grayscale, and color flow sonography of the kidneys and bladder is performed. I mages are reviewed in the transverse and longitudinal planes. FINDINGS: Kidneys: The kidneys are normal in size and echotexture. The right kidney measures 11.9 cm in length and the left kidney measures 12.1 cm in length. There is no hydronephrosis. A 6 cm calculus is again suggested in the right lower pole. There is no sonographic evidence of contour deforming renal mass l esion. No perinephric fluid is identified. Bladder: The bladder is normal in appearance. Bilateral ureteral jets were seen. The post gravid uter us is enlarged and heterogeneous. Upper abdomen: Survey images of the liver show evidence of hepatomegaly and hepatic steatosis. IMPRESSION: 1. The kidneys are normal in size and without hydronephrosis. Mild hydronephrosis seen on 07/21/2021 mao s resolved. 2. Nonobstructing right renal calculus. 3. The bladder is normal as imaged. 4. Hepatomegaly and steatosis. ACT 112: Negative or not required by law. Electronically signed by: Anibal Esteban M.D. 07/22/2021 2:57 PM
--- NOTE | 2021-07-22 15:53 | Communication Note ---
Date of Service: July 22, 2021 Imaging reviewed and discussed with JENI Oh. Patient's pain did resolve after delivery, and with epidural turned off, she has normal cramping and discomfort but nothing worse. Repeat ultrasound reviewed, and a 6mm nonobstructing stone is again seen in the R kidney (has probably been present throughout the two day period in which it was initially identified, then not mentioned in the final read on the prior scan, then seen again now on follow up scan). Hydronephrosis and hydroureter are now resolved, c/w decompression of the uterus. Given the above, OK to pull epidural catheter and will plan urology evaluation as an outpatient for the nonacute calculus.
--- NOTE | 2021-07-22 16:27 | Anesthesia Procedure Note ---
Date of Service July 22, 2021 Anesthesia Post Epidural Note Vital Signs Vital Signs: Temp Pulse Resp BP Pulse Ox 37.7 C H 82 20 138/63 100 07/22/21 11:45 07/22/21 11:32 07/22/21 11:45 07/22/21 11:32 07/22/21 09:49 Pain Intensity Bilateral Lower Back: Pain Intensity: 8 Notes Mental Status: alert / awake / arousable and participated in evaluation Patient Amnestic to Procedure: No Nausea / Vomiting: adequately controlled Pain: adequately controlled Airway Patency, RR, SpO2: stable & adequate BP & HR: stable & adequate Hydration State: stable & adequate Neuraxial Anesthesia: was administered and sensory block resolved Anesthetic Complications: no major complications apparent and Pt Satisfied with anesthetic care Epidural: Removed without complications and With tip intact
[2021-07-22] MEDS: AMPICILLIN/SULBACTAM SOD 1,500 MG in 0.9 % SODIUM CHLORIDE 100 ML IV SCH ×2 (17:31→23:00)
[2021-07-22] MEDS: DOCUSATE SODIUM 100 MG CAP PO SCH (21:33)
[2021-07-23] MEDS: AMPICILLIN/SULBACTAM SOD 1,500 MG in 0.9 % SODIUM CHLORIDE 100 ML IV SCH (05:05)
--- NOTE | 2021-07-23 05:48 | Obstetrical Progress Note ---
Date of Service <Crescencio Quiles MD - Last Filed: 07/23/21 07:22> July 23, 2021 Assessment & Plan <Crescencio Quiles MD - Last Filed: 07/23/21 07:22> (1) Encounter for care and examination after delivery: 31 yo now PPD1 from [facility] at 37wk3d -Continue routine care, anticipated d/c tomorrow -Vitals reviewed- HDS, afebrile -Blood type A+, GBS-, Rubella immune -Encourage ambulation, regular diet -Pain control with ibuprofen, acetaminophen PRN -Encourage -Hgb 9.3, asymptomatic -F/u in 6 weeks with OB (2) Nephrolithiasis: -Ultrasound after delivery demonstrated resolution of hydronephrosis and presence of R nephrolithiasis, pain attributed to compression of ureter from gravid uterus causing hydronephrosis -F/u with urology as outpatient (3) Chorioamnionitis: -Unasyn initiated shortly after delivery for fever to 38.7 C -Afebrile and HDS since abx initiation -Final Unasyn dose today to complete 24 hr afebrile course <Francie Woodall MD - Last Filed: 07/23/21 07:23> (1) Encounter for care and examination after delivery: (2) Nephrolithiasis: (3) Chorioamnionitis: Subjective <Crescencio Quiles MD - Last Filed: 07/23/21 07:22> Ambulation: ambulating normally Voiding: no voiding problems Passing Gas:: Yes Diet Tolerance:: regular diet Lochia:: Moderate Feeding Type:: breast feeding Current Pain Level(1-10): 0 Pt and baby doing well, no acute events or complaints. Has not passed BM yet. Pain well controlled with medication. Review of Systems Denies fevers/chills. Denies dyspnea, cough. Denies chest pain. Denies breast pain or discharge. Denies dysuria. Denies headache. Denies back pain. Physical Exam <Crescencio Quiles MD - Last Filed: 07/23/21 07:22> General: Alert, oriented, no acute distress Cardiac: Regular rate and rhythm, normal S1, S2. No murmurs appreciated. Respiratory: Clear to auscultation b/l with good air flow entry, symmetric chest rise and fall. No wheezes or crackles. No increased work of breathing or accessory muscle use Abdomen: Soft, nontender, nondistended. Fundus firm and palpable at 1 cm below umbilicus. No guarding or rebound. Skin: No rashes or lesions Extremities: Warm, dry, well-perfused with capillary refill <2s b/l. No lower extremity edema, erythema or swelling. Negative Rosa's sign b/l. Results & Data ([facility]) <Crescencio Quiles MD - Last Filed: 07/23/21 07:22> Vital Signs (Past 12 Hours) Vital Signs Temp Pulse Resp BP 07/23/21 04:30 36.8 C 69 16 133/86 07/22/21 23:10 36.6 C 61 18 115/73 07/22/21 19:20 36.9 C 71 18 132/83 <Francie Woodall MD - Last Filed: 07/23/21 07:23> Co-Signing Physician Notes Resident Physician Supervision Note: I interviewed and examined the patient. Discussed with Dr. Quiles and agree with findings and plan as documented in the note. Any exceptions or clarifications are listed here: [ ] Documented By: Francie Woodall MD, FACOG Resident Activity Tracking <Crescencio Quiles MD - Last Filed: 07/23/21 07:22> Resident Involvement: Resident Care Provided Care Provided: OB Delivery
[2021-07-23 06:20] LABS: Hemoglobin 9.3 g/dL (12.0-16.0); Mean Corpuscular Hemoglobin 28.2 pg (25-34); Mean Corpuscular Hgb Conc 33.2 g/dL (32-36); Mean Corpuscular Volume 84.8 fL (80-100); Mean Platelet Volume 9.3 fL (7.4-10.4); Platelet Count 226 K/uL (130-400); RDW Coefficient of Variation 13.6 % (11.5-14.5); RDW Standard Deviation 42.1 fL (36.4-46.3); White Blood Count 12.47 K/uL (4.8-10.8)
[2021-07-23] MEDS: IBUPROFEN 600 MG TAB PO PRN ×4 (07:31→20:49)
[2021-07-23] MEDS: DOCUSATE SODIUM 100 MG CAP PO SCH ×2 (07:31→20:49)
[2021-07-23] MEDS: PRENATAL VITAMIN 1 TAB PO SCH (07:31)
[2021-07-23] MEDS ORDERED: AMPICILLIN/SULBACTAM SOD 1,500 MG in 0.9 % SODIUM CHLORIDE 100 ML IV ONE (11:00)
[2021-07-23] MEDS: PANTOprazole 40 MG TAB PO SCH ×2 (12:13→20:49)
[2021-07-23] MEDS: ACETAMINOPHEN 325 MG TAB PO PRN (23:51)
[2021-07-24] MEDS: IBUPROFEN 600 MG TAB PO PRN ×3 (03:49→16:23)
[2021-07-24 06:22] LABS: Hematocrit (blood only) 28.9 % (37-47); Hemoglobin 9.5 g/dL (12.0-16.0)
[2021-07-24] MEDS: PRENATAL VITAMIN 1 TAB PO SCH (07:39)
[2021-07-24] MEDS: PANTOprazole 40 MG TAB PO SCH (07:41)
[2021-07-24] MEDS: ACETAMINOPHEN 325 MG TAB PO PRN ×2 (07:42→16:23)
[2021-07-24] MEDS: DOCUSATE SODIUM 100 MG CAP PO SCH (07:42)
--- NOTE | 2021-07-24 07:44 | Obstetrical Progress Note ---
Date of Service July 24, 2021 Assessment & Plan (1) Encounter for care and examination after delivery: 31yo PP day 2 s/p . Doing well. Stable for discharge Subjective Ambulation: ambulating normally Voiding: no voiding problems Passing Gas:: Yes Diet Tolerance:: regular diet Lochia:: Moderate Feeding Type:: breast feeding Physical Exam Constitutional WD/WN, vitals as above Respiratory normal respiratory effort; no respiratory distress and no labored breathing Gastrointestinal (Abdomen) Inspection/Auscultation: abdomen normal to inspection; abdomen not distended Percussion/Palpation: abdomen soft; abdomen nontender, no guarding and abdomen not rigid Genitourinary OB Exam Abdomen: + fundal height Fundus: + firm and + relation to umbilicus (Below); not tender or not boggy Results & Data ([facility]) Vital Signs (Past 12 Hours) Vital Signs Temp Pulse Resp BP Pulse Ox 07/23/21 23:40 36.7 C 73 18 125/78 07/23/21 20:45 36.8 C 83 18 130/87 98
== END 2021-07-24 17:50 | disposition home or self-care (01) | DRG 805 ==
LOC: OPB 19:53 → 4S1 19:54 → 4S2 20:48 → 4S1 21:20 → 4S2 07-22 13:35

== ENCOUNTER 2023-04-19 07:41 | Inpatient (IN) ==
[2023-04-19] MEDS ORDERED: OXYTOCIN 30 UNITS/500 ML BAG IV PRN ×4 (07:47→20:31)
[2023-04-19] MEDS ORDERED: LIDOCAINE 1% LOCAL 20 ML VIAL INFIL PRN (07:47)
[2023-04-19] MEDS ORDERED: PENICILLIN G POTASSIUM 6 MU in DEXTROSE 5% 250 ML IV STA (07:56)
[2023-04-19 08:33] LABS: Hematocrit (blood only) 32.6 % (37.0-47.0); Hemoglobin 11.2 g/dl (12.0-16.0); Mean Corpuscular Hemoglobin 28.3 pg (25.0-34.0); Mean Corpuscular Hgb Conc 34.4 g/dL (32.0-36.0); Mean Corpuscular Volume 82.3 fL (80.0-100.0); Mean Platelet Volume 9.9 fL (9.4-12.4); Platelet Count 256 K/uL (130-400); RDW Coefficient of Variation 13.4 % (11.5-14.5); RDW Standard Deviation 39.5 fL (36.4-46.3); Red Blood Count 3.96 M/uL (4.20-5.40); White Blood Count 9.29 K/ul (4.8-10.8)
[2023-04-19 08:47] LABS: Creatinine Urine Random 66.3 mg/dl; Protein Creatinine Ratio Urine 0.2 (0-0.2)
[2023-04-19 08:47] LABS: Alanine Aminotransferase 17 U/L (7-52); Albumin Level 3.1 gm/dl (3.4-5.0); Alkaline Phosphatase 178 U/L (34-104); Anion Gap 8 (3-11); Aspartate Aminotransferase 19 U/L (13-39); BUN Creatinine Ratio 11.6 (10-20); Bilirubin,Total 0.6 mg/dl (0.2-1.0); Blood Urea Nitrogen 8 mg/dl (6-23); Calcium 8.8 mg/dl (8.6-10.3); Carbon Dioxide 20 mmol/L (21-32); Chloride 107 mmol/L (98-107); Est GFR (African American) 134.4 ml/min; Globulin 3.1 gm/dl (2.5-4.0); Glucose 110 mg/dl (70-99(Fasting)); Potassium 3.5 mmol/L (3.5-5.1); Sodium 135 mmol/L (136-145); Total Protein 6.2 gm/dl (6.0-8.3)
[2023-04-19] MEDS: LACTATED RINGER'S 1,000 ML IV PRN ×2 (09:14→12:31)
--- NOTE | 2023-04-19 09:19 | History & Physical Report ---
Date of Service April 19, 2023 Assessment & Plan (1) Encounter for induction of labor: (2) Gestational diabetes: (3) Obesity affecting , antepartum: (4) Mother positive for group B Streptococcus colonization: Plan - Will admit to L&D for induction of labor. monitoring placed. - GBS +, will start Penicillin. - Anesthesia consulted for epidural, Will start Pitocin after comfortable. - GDM, will check BSG Q4H. glucose WNL at this time. - CBC benign, CMP mostly benign, elevated Alk phos at 178. 159 on 04/08. h/o kidney stones with previous . - slightly HTN, Urine creatinine/protein was normal. Continue to monitor. Admission and Anticipated Discharge Date Admission Date: April 19, 2023 History of Present Illness Chief Complaint: Induction of labor Primary Care Provider: Craig Hernandez III, [place] at 39 2/7 weeks confirmed via LMP. Here for induction. Complications with this include GDM and GBS+. Has been attending OB appointments regularly. Currently taking no medications. History of kidney stones with previous . Contractions: none. Fluid or Blood loss: none Movement: active Labs - Blood type: A+ - Antibody screen: negative - H.3 - Hct: 33.1% - Plt: 277 - Rubella: Immune - VDRL/RPR: negative - Gonorrhea: negative - Chlamydia: negative - HIV: negative - HbSAg: negative - GBS: positive - Glucose tolerance x 2 Allergies Allergy/AdvReac Type Severity Reaction Status Date / Time No Known Allergies Allergy Verified 04/18/23 11:12 Home Medications Medication Instructions Recorded Confirmed Type pantoprazole 40 mg tablet,delayed See Rx Instructions .Route 07/15/22 04/19/23 Rx release .COMPLEX 90 days #180 tabs valacyclovir 1 gram tablet 2,000 mg PO Q12H PRN Cold Sores #4 09/01/22 04/18/23 Rx (Valtrex) tabs prenat.vits,annemarie,xqj-ogoc-yxpop 1 tab PO DAILY 09/07/22 04/19/23 History acetone (urine) test (Ketone Urine #50 ea 02/24/23 04/18/23 Rx Test strips) blood sugar diagnostic (OneTouch #150 ea 02/24/23 04/18/23 Rx Verio test strips) blood-glucose meter (OneTouch #1 ea 04/13/23 06/05/23 Rx Verio Reflect Meter) lancets 33 gauge (OneTouch Delica #150 ea 02/24/23 04/18/23 Rx Lancets) Patient History Medical History (Updated 04/19/23 @ 09:30 by Anibal Hahn DO) Encounter for pre-operative examination Eosinophilic esophagitis GERD (gastroesophageal reflux disease) H/O cold sores No hx genital herpes History of migraine high school Nephrolithiasis with 37 weeks completed gestation Uterine contractions Surgical History History of appendectomy History of cystoscopy x3 History of esophagogastroduodenoscopy (EGD) History of extraction of renal calculus History of tooth extraction History of wisdom tooth extraction Hx of colonoscopy Status post LASIK surgery of both eyes Family History Grandmother (Maternal) Family history of diabetes mellitus Grandfather (Maternal) Family history of diabetes mellitus Family history of esophageal cancer Other No family history of adverse response to anesthesia Denies family history of Ovarian cancer Deep vein thrombosis Breast cancer Colorectal cancer Uterine cancer Social History Smoking Status: Never smoker Second Hand Exposure: No; Do You Dip or Chew Tobacco: No; Hx Alcohol Use: No Hx Substance Use: No Preferred Language: Uzbek Communication Ability: Effective Visual Impairment: No Limitations Hearing Ability: Normal Nutritional Yeast Supervisor Required: No Beliefs That Will Affect Care: None marital status: marital status details: Cj Bruce (28) [phone] Current Living Situation: Spouse Current Living Situation Comment: lives with spouse and daughter, 2 dogs. 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 Denies breast pain. Denies dysuria. Denies headache or changes in vision. Physical Exam Physical Exam: General: Alert, oriented. No acute distress. Cardiac: Regular rate and rhythm, no murmurs/rubs/gallops. Respiratory: Clear to auscultation bilaterally a/p, no wheezes/rales/rhonchi. No increased work of breathing. Symmetrical chest rise. No respiratory distress. Abdomen: Gravid; cat 1 FHTs; Position: Cephalic position Pelvic: Dilation 3cm; Effacement 70%; Station -[address] Shore Lower Extremities: No lower extremity edema or swelling. No deep calf pain. Rosa's negative bilaterally Results & Data Vital Signs (Past 12 Hours) Vital Signs Pulse BP 04/19/23 08:53 83 04/19/23 08:53 165/90 H 04/19/23 08:39 83 175/95 H 04/19/23 08:23 77 150/91 H 04/19/23 08:10 82 145/94 H 04/19/23 07:52 83 171/95 H Supervising Physician Co-Signing Physician Notes Resident Physician Supervision Note: I interviewed and examined the patient. Discussed with Dr. Hahn and agree with findings and plan as documented in the note. Any exceptions or clarifications are listed here: IOL, will begin pitocin. OK for epidural. Plan for AROM if needed after epidural. PCN for GBS prophylaxis. Documented By: Chapis Shore, Resident Activity Tracking Resident Involvement: Resident Care Provided Care Provided: OB Delivery
[2023-04-19] MEDS ORDERED: PENICILLIN G POTASSIUM 3 MU in DEXTROSE 5% 100 ML IV PRN (10:47)
[2023-04-19] MEDS ORDERED: ePHEDrine sulfate 50 MG/ML AMP ONE (11:42)
[2023-04-19] MEDS ORDERED: LIDOCAINE 2%/EPINEPHRINE 1:200,000 20 ML PF ONE (11:43)
[2023-04-19] MEDS ORDERED: SODIUM CHLORIDE 0.9% PF INJ 10 ML VIAL ONE (11:43)
[2023-04-19] MEDS ORDERED: BUPIVACAINE 0.25% PF 30 ML VIAL ONE (11:43)
[2023-04-19] MEDS ORDERED: fentaNYL citrate PF 100 MCG/2 ML VIAL ONE (11:43)
[2023-04-19] MEDS ORDERED: fentaNYL 2MCG/ML ROPIVACAINE 1.25MG/ML 100 ML BAG EPI ONE (11:44)
--- NOTE | 2023-04-19 12:05 | Anesthesiology Consultation ---
Date of Service April 19, 2023 Assessment & Plan (1) Encounter for pre-operative examination: Chart Review Chart Review: Acceptable Risk for Labor Epidural History Height/Weight Height: 5 ft 2 in Weight: 99.79 kg Allergies Allergy/AdvReac Type Severity Reaction Status Date / Time No Known Allergies Allergy Verified 04/18/23 11:12 Medications Home Medications Medication Instructions Recorded Confirmed Last Taken pantoprazole 40 mg tablet,delayed See Rx Instructions .Route 07/15/22 04/19/23 04/19/23 06:00 release .COMPLEX 90 days #180 tabs valacyclovir 1 gram tablet 2,000 mg PO Q12H PRN Cold Sores #4 09/01/22 04/18/23 Unknown (Valtrex) tabs prenat.vits,annemarie,[id number] 1 tab PO DAILY 09/07/22 04/19/23 04/19/23 06:00 acetone (urine) test (Ketone Urine #50 ea 02/24/23 04/18/23 Unknown Test strips) blood sugar diagnostic (OneTouch #150 ea 02/24/23 04/18/23 Unknown Verio test strips) blood-glucose meter (OneTouch #1 ea 02/24/23 04/18/23 Unknown Verio Reflect Meter) lancets 33 gauge (OneTouch Delica #150 ea 02/24/23 04/18/23 Unknown Lancets) Active Medications Generic Name Dose Route Start Last Admin Trade Name Freq PRN Reason Stop Dose Admin Lactated Ringer's 1,000 mls @ 125 mls/hr 04/19/23 07:47 04/19/23 09:57 Lr IV 04/21/23 07:46 125 mls/hr .Q8H PRN Infusion L&D Protocol Protocol Oxytocin 30 units in 500 mls @ 10 mls/hr 04/19/23 07:53 04/19/23 11:30 Pitocin IV 04/21/23 07:52 0.6 units/hr .Q24H PRN 10 mls/hr Labor Induction/Augmentation Titration Protocol 0.6 UNITS/HR Past Medical History Medical History Eosinophilic esophagitis GERD (gastroesophageal reflux disease) H/O cold sores No hx genital herpes History of migraine high school Nephrolithiasis with 37 weeks completed gestation Uterine contractions Past Family History Family History Grandmother (Maternal) Family history of diabetes mellitus Grandfather (Maternal) Family history of diabetes mellitus Family history of esophageal cancer Other No family history of adverse response to anesthesia Denies family history of Ovarian cancer Deep vein thrombosis Breast cancer Colorectal cancer Uterine cancer Past Surgical History Surgical History History of appendectomy History of cystoscopy x3 History of esophagogastroduodenoscopy (EGD) History of extraction of renal calculus History of tooth extraction History of wisdom tooth extraction Hx of colonoscopy Status post LASIK surgery of both eyes Social History Smoking Status: Never smoker Do You Dip or Chew Tobacco: No Hx Alcohol Use: No Alcohol type: wine alcohol intake frequency: a few times a week Hx Substance Use: No substance use type: does not use Physical Exam Vital Signs Last Vital Signs Temp 36.8 C 04/19/23 09:25 Pulse 67 04/19/23 11:37 Resp 20 04/19/23 09:25 BP 175/84 H 04/19/23 11:37 Testing Laboratory Results 04/19/23 07:57 04/19/23 07:57 Blood Type A Positive 04/19/23 07:57 Antibody Screen NEGATIVE 04/19/23 07:57 04/19/23 04/19/23 04/19/23 11:52 11:35 09:28 POC Glucose 86 68 L* 98 04/19/23 08:01 POC Glucose 121 H
[2023-04-19] MEDS ORDERED: SODIUM CHLORIDE 0.9% PF INJ 10 ML VIAL EPI PRN (12:36)
[2023-04-19] MEDS ORDERED: SODIUM CHLORIDE 0.9% PF INJ 10 ML VIAL EPI STA (12:36)
[2023-04-19] MEDS ORDERED: LIDOCAINE 2% MPF LOCAL 5 ML VIAL EPI PRN (12:36)
[2023-04-19] MEDS ORDERED: fentaNYL citrate PF 100 MCG/2 ML VIAL EPI PRN (12:36)
[2023-04-19] MEDS ORDERED: NALOXONE HCL 0.4 MG/1 ML VIAL/CARP IV PRN (12:36)
[2023-04-19] MEDS ORDERED: BUPIVACAINE 0.25% PF 30 ML VIAL EPI STA (12:36)
[2023-04-19] MEDS ORDERED: BUPIVACAINE 0.25% PF 30 ML VIAL EPI PRN (12:36)
[2023-04-19] MEDS ORDERED: NALOXONE HCL 1 MG in SODIUM CHLORIDE 0.9% 1000ML 1,000 ML IV PRN (12:36)
[2023-04-19] MEDS ORDERED: ePHEDrine sulfate 50 MG/ML AMP IV PRN (12:36)
[2023-04-19] MEDS ORDERED: fentaNYL citrate PF 100 MCG/2 ML VIAL EPI STA (12:36)
[2023-04-19] MEDS ORDERED: ONDANSETRON INJ 2 MG/ML 2 ML VIAL IV PRN (12:36)
[2023-04-19] MEDS ORDERED: ROPIVACAINE 0.5% PF 5 MG/ML 20 ML VIAL EPI PRN (12:36)
[2023-04-19] MEDS ORDERED: fentaNYL 2MCG/ML ROPIVACAINE 1.25MG/ML 100 ML BAG EPI PRN (12:36)
[2023-04-19] MEDS ORDERED: LIDOCAINE 2%/EPINEPHRINE 1:200,000 20 ML PF EPI STA (12:36)
[2023-04-19] MEDS ORDERED: NURSING L&D Epidural Breakthrough Pain Update ONE (13:52)
--- NOTE | 2023-04-19 15:12 | Delivery Summary ---
Vaginal Delivery Summary Date of Service April 19, [address] [facility] Vaginal Delivery Summary: Pre-delivery diagnoses: 33yo @ 39 12/21, induction of labor for suspected macrosomia, gestational diabetes A1, GBS+ Post-delivery diagnoses: same Procedure: spontaneous vaginal delivery Surgeon: Chapis Shore DO Complications: none Findings: Viable female . Apgars: 8/9. Weight pending, please see nursery records. Estimated blood loss: 300ml Description of delivery: The patient progressed to complete with epidural anesthesia. Penicillin for GBS prophylaxis. She then began to push. She spontaneously vaginally delivered a viable from the cephalic presentation. No nuchal. The head delivered in SARAH position. The anterior shoulder delivered, followed by the posterior shoulder, followed by the body. The baby was placed on mother's abdomen and a spontaneous cry was heard. Delayed cord clamping was employed, and the cord was doubly clamped and cut. Cord blood was obtained. The placenta was delivered spontaneously intact with a 3-vessel cord. The uterus and vagina were swept of clots and debris. IV pitocin was given. The uterus became firm. The cervix, vagina, and perineum were inspected and no lacerations were noted. Excellent hemostasis was observed. The mother and baby are recovering in stable and good condition in the room. Sponge and instrument counts were correct x 2. Chapis Shore DO [facility] Vaginal Delivery Charge Vaginal Delivery Codes: 33044 global code for the antepartum, delivery, and post- Delivery Type Details: [facility]
[2023-04-19] MEDS ORDERED: HYDROCORTISONE ACETATE 25 MG SUPP PR PRN (15:35)
[2023-04-19] MEDS ORDERED: bisacodyL 10 MG SUPP PR PRN (15:35)
[2023-04-19] MEDS ORDERED: oxyCODONE/ACETAMINOPHEN 5mg/325mg TAB PO PRN (15:35)
[2023-04-19] MEDS ORDERED: ACETAMINOPHEN 325 MG TAB PO PRN (15:35)
[2023-04-19] MEDS ORDERED: DIPHTHERIA/TETANUS/PERTUSSIS Vaccine (Tdap, Age 7+yrs) 0.5mL SYR/VL IM ONE (15:35)
[2023-04-19] MEDS ORDERED: BENZOCAINE 20% AER SPR 82.5 GM CAN EXT PRN (15:35)
[2023-04-19] MEDS: PANTOprazole 40 MG TAB PO SCH (17:26)
[2023-04-19] MEDS: IBUPROFEN 600 MG TAB PO PRN (17:54)
[2023-04-19] MEDS ORDERED: CARBOPROST TROMETHAMINE 250 MCG/ML AMPUL IM ONE (19:42)
--- NOTE | 2023-04-19 19:45 | Obstetrical Progress Note ---
Date of Service April 19, 2023 Assessment & Plan Admission and Anticipated Discharge Date Admission Date: April 19, 2023 Subjective Called to patient room, vaginal bleeding. Examined patient - awake, sitting up, talking, states she is feeling fine. Scant blood on current pad. Changed pad 4 times in past hour. Pt feels like bleeding has been somewhat heavy since delivery, not currently increasing, but not really sure. There is some blood in the toilet in the bathroom. Fundus firm, expressed scant amount of blood during exam. Vaginal exam without large palpable blood clot, uncomfortable exam for patient and could not reach further. Will check CBC ,will give one dose hemabate. Continue to monitor vitals - pulse normal. Results & Data Vital Signs (Past 12 Hours) Vital Signs Temp Pulse Pulse Resp BP BP BP 04/19/23 17:45 36.8 C 76 18 146/87 H 159/81 H 04/19/23 09:25 36.8 C 20 04/19/23 16:59 74 145/74 H 04/19/23 16:43 75 143/87 H 04/19/23 16:29 65 142/72 H 04/19/23 16:14 72 152/78 H 04/19/23 15:58 71 147/80 H 04/19/23 15:44 74 147/78 H 04/19/23 15:29 77 179/83 H 04/19/23 15:14 96 H 04/19/23 15:14 174/74 H 04/19/23 15:10 84 04/19/23 15:10 174/79 H 04/19/23 14:54 04/19/23 14:54 86 04/19/23 14:50 04/19/23 14:50 88 04/19/23 14:49 04/19/23 14:49 90 04/19/23 14:44 04/19/23 14:44 74 04/19/23 14:44 129/73 04/19/23 14:39 04/19/23 14:39 74 04/19/23 14:34 04/19/23 14:34 73 04/19/23 14:30 73 04/19/23 14:30 133/81 04/19/23 14:29 04/19/23 14:29 71 04/19/23 14:24 04/19/23 14:24 72 04/19/23 14:19 04/19/23 14:19 87 04/19/23 14:15 72 04/19/23 14:15 136/63 04/19/23 14:14 04/19/23 14:14 76 04/19/23 14:09 04/19/23 14:09 70 04/19/23 14:04 04/19/23 14:04 71 04/19/23 14:00 66 04/19/23 14:00 138/75 04/19/23 13:59 04/19/23 13:59 78 04/19/23 13:31 20 04/19/23 13:31 20 04/19/23 13:54 04/19/23 13:54 74 04/19/23 13:49 04/19/23 13:49 77 04/19/23 13:46 93 H 04/19/23 13:46 157/71 H 04/19/23 13:44 04/19/23 13:44 88 04/19/23 13:39 04/19/23 13:39 65 04/19/23 13:34 04/19/23 13:34 64 04/19/23 13:29 04/19/23 13:29 61 04/19/23 13:29 60 04/19/23 13:29 149/74 H 04/19/23 13:24 04/19/23 13:24 62 04/19/23 13:19 04/19/23 13:19 60 04/19/23 13:14 04/19/23 13:14 64 04/19/23 13:14 59 L 04/19/23 13:14 148/78 H 04/19/23 13:09 04/19/23 13:09 60 04/19/23 13:04 04/19/23 13:04 64 04/19/23 12:59 04/19/23 12:59 64 04/19/23 12:55 64 04/19/23 12:55 141/74 H 04/19/23 12:54 04/19/23 12:54 63 04/19/23 12:49 04/19/23 12:49 66 04/19/23 12:49 138/69 04/19/23 12:44 04/19/23 12:44 69 04/19/23 12:45 67 04/19/23 12:45 141/74 H 04/19/23 12:39 04/19/23 12:39 64 04/19/23 12:39 66 04/19/23 12:39 136/71 04/19/23 12:36 71 04/19/23 12:36 150/76 H 04/19/23 12:34 04/19/23 12:34 63 04/19/23 12:34 155/77 H 04/19/23 12:32 62 04/19/23 12:32 154/72 H 04/19/23 12:30 63 04/19/23 12:30 152/79 H 04/19/23 12:29 04/19/23 12:29 70 04/19/23 12:28 59 L 04/19/23 12:28 160/83 H 04/19/23 12:26 68 04/19/23 12:26 155/80 H 04/19/23 12:24 04/19/23 12:24 72 04/19/23 12:25 72 04/19/23 12:25 160/86 H 04/19/23 12:19 04/19/23 12:19 85 04/19/23 12:14 04/19/23 12:14 79 04/19/23 12:14 84 04/19/23 12:14 182/91 H 04/19/23 11:37 67 04/19/23 11:37 175/84 H 04/19/23 11:34 65 04/19/23 11:34 188/108 H 04/19/23 10:31 68 04/19/23 10:31 174/94 H 04/19/23 07:50 20 04/19/23 07:50 36.8 C 20 04/19/23 09:38 70 04/19/23 09:38 150/75 H 04/19/23 09:31 76 04/19/23 09:31 169/114 H 04/19/23 08:53 83 04/19/23 08:53 165/90 H 04/19/23 08:39 83 175/95 H 04/19/23 08:23 77 150/91 H 04/19/23 08:10 82 145/94 H 04/19/23 07:52 83 171/95 H Pulse Ox O2 Del Method 04/19/23 17:45 98 Room Air 04/19/23 09:25 04/19/23 16:59 04/19/23 16:43 04/19/23 16:29 04/19/23 16:14 04/19/23 15:58 04/19/23 15:44 04/19/23 15:29 04/19/23 15:14 04/19/23 15:14 04/19/23 15:10 04/19/23 15:10 04/19/23 14:54 93 04/19/23 14:54 04/19/23 14:50 89 L 04/19/23 14:50 04/19/23 14:49 100 04/19/23 14:49 04/19/23 14:44 98 04/19/23 14:44 04/19/23 14:44 04/19/23 14:39 99 04/19/23 14:39 04/19/23 14:34 100 04/19/23 14:34 04/19/23 14:30 04/19/23 14:30 04/19/23 14:29 100 04/19/23 14:29 04/19/23 14:24 99 04/19/23 14:24 04/19/23 14:19 97 04/19/23 14:19 04/19/23 14:15 04/19/23 14:15 04/19/23 14:14 100 04/19/23 14:14 04/19/23 14:09 100 04/19/23 14:09 04/19/23 14:04 100 04/19/23 14:04 04/19/23 14:00 04/19/23 14:00 04/19/23 13:59 100 04/19/23 13:59 04/19/23 13:31 04/19/23 13:31 04/19/23 13:54 100 04/19/23 13:54 04/19/23 13:49 98 04/19/23 13:49 04/19/23 13:46 04/19/23 13:46 04/19/23 13:44 100 04/19/23 13:44 04/19/23 13:39 99 04/19/23 13:39 04/19/23 13:34 99 04/19/23 13:34 04/19/23 13:29 99 04/19/23 13:29 04/19/23 13:29 04/19/23 13:29 04/19/23 13:24 98 04/19/23 13:24 04/19/23 13:19 96 04/19/23 13:19 04/19/23 13:14 97 04/19/23 13:14 04/19/23 13:14 04/19/23 13:14 04/19/23 13:09 98 04/19/23 13:09 04/19/23 13:04 97 04/19/23 13:04 04/19/23 12:59 98 04/19/23 12:59 04/19/23 12:55 04/19/23 12:55 04/19/23 12:54 97 04/19/23 12:54 04/19/23 12:49 98 04/19/23 12:49 04/19/23 12:49 04/19/23 12:44 98 04/19/23 12:44 04/19/23 12:45 04/19/23 12:45 04/19/23 12:39 98 04/19/23 12:39 04/19/23 12:39 04/19/23 12:39 04/19/23 12:36 04/19/23 12:36 04/19/23 12:34 96 04/19/23 12:34 04/19/23 12:34 04/19/23 12:32 04/19/23 12:32 04/19/23 12:30 04/19/23 12:30 04/19/23 12:29 97 04/19/23 12:29 04/19/23 12:28 04/19/23 12:28 04/19/23 12:26 04/19/23 12:26 04/19/23 12:24 100 04/19/23 12:24 04/19/23 12:25 04/19/23 12:25 04/19/23 12:19 99 04/19/23 12:19 04/19/23 12:14 100 04/19/23 12:14 04/19/23 12:14 04/19/23 12:14 04/19/23 11:37 04/19/23 11:37 04/19/23 11:34 04/19/23 11:34 04/19/23 10:31 04/19/23 10:31 04/19/23 07:50 04/19/23 07:50 04/19/23 09:38 04/19/23 09:38 04/19/23 09:31 04/19/23 09:31 04/19/23 08:53 04/19/23 08:53 04/19/23 08:39 04/19/23 08:23 04/19/23 08:10 04/19/23 07:52 PG Care Time/CCT Total # of Minutes Spent Total Time Spent with Patient: Total time spent is greater than 50% in coordination of care (as documented) at patient's floor/unit and/or counseling patient: Coding Level of Care Code None Diagnoses
[2023-04-19 19:58] LABS: Hematocrit (blood only) 31.3 % (37.0-47.0); Hemoglobin 10.7 g/dl (12.0-16.0); Mean Corpuscular Hemoglobin 28.2 pg (25.0-34.0); Mean Corpuscular Hgb Conc 34.2 g/dL (32.0-36.0); Mean Corpuscular Volume 82.4 fL (80.0-100.0); Mean Platelet Volume 10.1 fL (9.4-12.4); Platelet Count 294 K/uL (130-400); RDW Coefficient of Variation 13.6 % (11.5-14.5); RDW Standard Deviation 40.1 fL (36.4-46.3); White Blood Count 18.04 K/ul (4.8-10.8)
[2023-04-19] MEDS: DOCUSATE SODIUM 100 MG CAP PO SCH (20:02)
[2023-04-19] MEDS ORDERED: BUTORPHANOL TARTRATE 1 MG/ML VIAL ONE (20:26)
[2023-04-19] MEDS ORDERED: BUTORPHANOL TARTRATE 1 MG/ML VIAL IV STA (20:33)
--- NOTE | 2023-04-19 20:37 | Obstetrical Progress Note ---
Date of Service April 19, 2023 Assessment & Plan Admission and Anticipated Discharge Date Admission Date: April 19, 2023 Subjective Called to patient room for heavy bleeding. Patient felt dizzy, had approx 200cc EBL total during this episode both on pad, and what I expressed during exam. 11.2 (admission) --> 10.7 (this evening). Pulse 76, BPs have been elevated - 159/81. Gave cytotec, IV pitocin and IV fluids bolus. Expressed large clot from uterus, bleeding slowed significantly upon expression of the clot. 1 dose stadol for pain control. Will recheck in 5-10 minutes. Results & Data Vital Signs (Past 12 Hours) Vital Signs Temp Pulse Pulse Resp BP BP BP 04/19/23 17:45 36.8 C 76 18 146/87 H 159/81 H 04/19/23 09:25 36.8 C 20 04/19/23 16:59 74 145/74 H 04/19/23 16:43 75 143/87 H 04/19/23 16:29 65 142/72 H 04/19/23 16:14 72 152/78 H 04/19/23 15:58 71 147/80 H 04/19/23 15:44 74 147/78 H 04/19/23 15:29 77 179/83 H 04/19/23 15:14 96 H 04/19/23 15:14 174/74 H 04/19/23 15:10 84 04/19/23 15:10 174/79 H 04/19/23 14:54 04/19/23 14:54 86 04/19/23 14:50 04/19/23 14:50 88 04/19/23 14:49 04/19/23 14:49 90 04/19/23 14:44 04/19/23 14:44 74 04/19/23 14:44 129/73 04/19/23 14:39 04/19/23 14:39 74 04/19/23 14:34 04/19/23 14:34 73 04/19/23 14:30 73 04/19/23 14:30 133/81 04/19/23 14:29 04/19/23 14:29 71 04/19/23 14:24 04/19/23 14:24 72 04/19/23 14:19 04/19/23 14:19 87 04/19/23 14:15 72 04/19/23 14:15 136/63 04/19/23 14:14 04/19/23 14:14 76 04/19/23 14:09 04/19/23 14:09 70 04/19/23 14:04 04/19/23 14:04 71 04/19/23 14:00 66 04/19/23 14:00 138/75 04/19/23 13:59 04/19/23 13:59 78 04/19/23 13:31 20 04/19/23 13:31 20 04/19/23 13:54 04/19/23 13:54 74 04/19/23 13:49 04/19/23 13:49 77 04/19/23 13:46 93 H 04/19/23 13:46 157/71 H 04/19/23 13:44 04/19/23 13:44 88 04/19/23 13:39 04/19/23 13:39 65 04/19/23 13:34 04/19/23 13:34 64 04/19/23 13:29 04/19/23 13:29 61 04/19/23 13:29 60 04/19/23 13:29 149/74 H 04/19/23 13:24 04/19/23 13:24 62 04/19/23 13:19 04/19/23 13:19 60 04/19/23 13:14 04/19/23 13:14 64 04/19/23 13:14 59 L 04/19/23 13:14 148/78 H 04/19/23 13:09 04/19/23 13:09 60 04/19/23 13:04 04/19/23 13:04 64 04/19/23 12:59 04/19/23 12:59 64 04/19/23 12:55 64 04/19/23 12:55 141/74 H 04/19/23 12:54 04/19/23 12:54 63 04/19/23 12:49 04/19/23 12:49 66 04/19/23 12:49 138/69 04/19/23 12:44 04/19/23 12:44 69 04/19/23 12:45 67 04/19/23 12:45 141/74 H 04/19/23 12:39 04/19/23 12:39 64 04/19/23 12:39 66 04/19/23 12:39 136/71 04/19/23 12:36 71 04/19/23 12:36 150/76 H 04/19/23 12:34 04/19/23 12:34 63 04/19/23 12:34 155/77 H 04/19/23 12:32 62 04/19/23 12:32 154/72 H 04/19/23 12:30 63 04/19/23 12:30 152/79 H 04/19/23 12:29 04/19/23 12:29 70 04/19/23 12:28 59 L 04/19/23 12:28 160/83 H 04/19/23 12:26 68 04/19/23 12:26 155/80 H 04/19/23 12:24 04/19/23 12:24 72 04/19/23 12:25 72 04/19/23 12:25 160/86 H 04/19/23 12:19 04/19/23 12:19 85 04/19/23 12:14 04/19/23 12:14 79 04/19/23 12:14 84 04/19/23 12:14 182/91 H 04/19/23 11:37 67 04/19/23 11:37 175/84 H 04/19/23 11:34 65 04/19/23 11:34 188/108 H 04/19/23 10:31 68 04/19/23 10:31 174/94 H 04/19/23 09:38 70 04/19/23 09:38 150/75 H 04/19/23 09:31 76 04/19/23 09:31 169/114 H 04/19/23 08:53 83 04/19/23 08:53 165/90 H 04/19/23 08:39 83 175/95 H Pulse Ox O2 Del Method 04/19/23 17:45 98 Room Air 04/19/23 09:25 04/19/23 16:59 04/19/23 16:43 04/19/23 16:29 04/19/23 16:14 04/19/23 15:58 04/19/23 15:44 04/19/23 15:29 04/19/23 15:14 04/19/23 15:14 04/19/23 15:10 04/19/23 15:10 04/19/23 14:54 93 04/19/23 14:54 04/19/23 14:50 89 L 04/19/23 14:50 04/19/23 14:49 100 04/19/23 14:49 04/19/23 14:44 98 04/19/23 14:44 04/19/23 14:44 04/19/23 14:39 99 04/19/23 14:39 04/19/23 14:34 100 04/19/23 14:34 04/19/23 14:30 04/19/23 14:30 04/19/23 14:29 100 04/19/23 14:29 04/19/23 14:24 99 04/19/23 14:24 04/19/23 14:19 97 04/19/23 14:19 04/19/23 14:15 04/19/23 14:15 04/19/23 14:14 100 04/19/23 14:14 04/19/23 14:09 100 04/19/23 14:09 04/19/23 14:04 100 04/19/23 14:04 04/19/23 14:00 04/19/23 14:00 04/19/23 13:59 100 04/19/23 13:59 04/19/23 13:31 04/19/23 13:31 04/19/23 13:54 100 04/19/23 13:54 04/19/23 13:49 98 04/19/23 13:49 04/19/23 13:46 04/19/23 13:46 04/19/23 13:44 100 04/19/23 13:44 04/19/23 13:39 99 04/19/23 13:39 04/19/23 13:34 99 04/19/23 13:34 04/19/23 13:29 99 04/19/23 13:29 04/19/23 13:29 04/19/23 13:29 04/19/23 13:24 98 04/19/23 13:24 04/19/23 13:19 96 04/19/23 13:19 04/19/23 13:14 97 04/19/23 13:14 04/19/23 13:14 04/19/23 13:14 04/19/23 13:09 98 04/19/23 13:09 04/19/23 13:04 97 04/19/23 13:04 04/19/23 12:59 98 04/19/23 12:59 04/19/23 12:55 04/19/23 12:55 04/19/23 12:54 97 04/19/23 12:54 04/19/23 12:49 98 04/19/23 12:49 04/19/23 12:49 04/19/23 12:44 98 04/19/23 12:44 04/19/23 12:45 04/19/23 12:45 04/19/23 12:39 98 04/19/23 12:39 04/19/23 12:39 04/19/23 12:39 04/19/23 12:36 04/19/23 12:36 04/19/23 12:34 96 04/19/23 12:34 04/19/23 12:34 04/19/23 12:32 04/19/23 12:32 04/19/23 12:30 04/19/23 12:30 04/19/23 12:29 97 04/19/23 12:29 04/19/23 12:28 04/19/23 12:28 04/19/23 12:26 04/19/23 12:26 04/19/23 12:24 100 04/19/23 12:24 04/19/23 12:25 04/19/23 12:25 04/19/23 12:19 99 04/19/23 12:19 04/19/23 12:14 100 04/19/23 12:14 04/19/23 12:14 04/19/23 12:14 04/19/23 11:37 04/19/23 11:37 04/19/23 11:34 04/19/23 11:34 04/19/23 10:31 04/19/23 10:31 04/19/23 09:38 04/19/23 09:38 04/19/23 09:31 04/19/23 09:31 04/19/23 08:53 04/19/23 08:53 04/19/23 08:39 PG Care Time/CCT Total # of Minutes Spent Total Time Spent with Patient: Total time spent is greater than 50% in coordination of care (as documented) at patient's floor/unit and/or counseling patient: Coding Level of Care Code None Diagnoses
[2023-04-19] MEDS ORDERED: miSOPROStoL 200 MCG TAB PR ONE (20:45)
[2023-04-19] MEDS ORDERED: TRANEXAMIC ACID / 0.7% NACL 1,000 MG/100 ML BAG IV STA (20:45)
--- NOTE | 2023-04-19 20:47 | Obstetrical Progress Note ---
Date of Service April 19, 2023 Assessment & Plan Admission and Anticipated Discharge Date Admission Date: April 19, 2023 Subjective Recheck, awake and talking, states feeling better. Fundus firm. No vaginal bleeding at this point. TXA ordered also. (Total at this point: 1 dose hemabate, 1 dose cytotec, IV pitocin, methergine NOT given d/t BP, and now also TXA). Suspect the extraction of the large blood clot has now allowed uterus to clamp down more fully to stop the bleeding. Results & Data Vital Signs (Past 12 Hours) Vital Signs Temp Pulse Pulse Resp BP BP BP 04/19/23 17:45 36.8 C 76 18 146/87 H 159/81 H 04/19/23 09:25 36.8 C 20 04/19/23 16:59 74 145/74 H 04/19/23 16:43 75 143/87 H 04/19/23 16:29 65 142/72 H 04/19/23 16:14 72 152/78 H 04/19/23 15:58 71 147/80 H 04/19/23 15:44 74 147/78 H 04/19/23 15:29 77 179/83 H 04/19/23 15:14 96 H 04/19/23 15:14 174/74 H 04/19/23 15:10 84 04/19/23 15:10 174/79 H 04/19/23 14:54 04/19/23 14:54 86 04/19/23 14:50 04/19/23 14:50 88 04/19/23 14:49 04/19/23 14:49 90 04/19/23 14:44 04/19/23 14:44 74 04/19/23 14:44 129/73 04/19/23 14:39 04/19/23 14:39 74 04/19/23 14:34 04/19/23 14:34 73 04/19/23 14:30 73 04/19/23 14:30 133/81 04/19/23 14:29 04/19/23 14:29 71 04/19/23 14:24 04/19/23 14:24 72 04/19/23 14:19 04/19/23 14:19 87 04/19/23 14:15 72 04/19/23 14:15 136/63 04/19/23 14:14 04/19/23 14:14 76 04/19/23 14:09 04/19/23 14:09 70 04/19/23 14:04 04/19/23 14:04 71 04/19/23 14:00 66 04/19/23 14:00 138/75 04/19/23 13:59 04/19/23 13:59 78 04/19/23 13:31 20 04/19/23 13:31 20 04/19/23 13:54 04/19/23 13:54 74 04/19/23 13:49 04/19/23 13:49 77 04/19/23 13:46 93 H 04/19/23 13:46 157/71 H 04/19/23 13:44 04/19/23 13:44 88 04/19/23 13:39 04/19/23 13:39 65 04/19/23 13:34 04/19/23 13:34 64 04/19/23 13:29 04/19/23 13:29 61 04/19/23 13:29 60 04/19/23 13:29 149/74 H 04/19/23 13:24 04/19/23 13:24 62 04/19/23 13:19 04/19/23 13:19 60 04/19/23 13:14 04/19/23 13:14 64 04/19/23 13:14 59 L 04/19/23 13:14 148/78 H 04/19/23 13:09 04/19/23 13:09 60 04/19/23 13:04 04/19/23 13:04 64 04/19/23 12:59 04/19/23 12:59 64 04/19/23 12:55 64 04/19/23 12:55 141/74 H 04/19/23 12:54 04/19/23 12:54 63 04/19/23 12:49 04/19/23 12:49 66 04/19/23 12:49 138/69 04/19/23 12:44 04/19/23 12:44 69 04/19/23 12:45 67 04/19/23 12:45 141/74 H 04/19/23 12:39 04/19/23 12:39 64 04/19/23 12:39 66 04/19/23 12:39 136/71 04/19/23 12:36 71 04/19/23 12:36 150/76 H 04/19/23 12:34 04/19/23 12:34 63 04/19/23 12:34 155/77 H 04/19/23 12:32 62 04/19/23 12:32 154/72 H 04/19/23 12:30 63 04/19/23 12:30 152/79 H 04/19/23 12:29 04/19/23 12:29 70 04/19/23 12:28 59 L 04/19/23 12:28 160/83 H 04/19/23 12:26 68 04/19/23 12:26 155/80 H 04/19/23 12:24 04/19/23 12:24 72 04/19/23 12:25 72 04/19/23 12:25 160/86 H 04/19/23 12:19 04/19/23 12:19 85 04/19/23 12:14 04/19/23 12:14 79 04/19/23 12:14 84 04/19/23 12:14 182/91 H 04/19/23 11:37 67 04/19/23 11:37 175/84 H 04/19/23 11:34 65 04/19/23 11:34 188/108 H 04/19/23 10:31 68 04/19/23 10:31 174/94 H 04/19/23 09:38 70 04/19/23 09:38 150/75 H 04/19/23 09:31 76 04/19/23 09:31 169/114 H 04/19/23 08:53 83 04/19/23 08:53 165/90 H Pulse Ox O2 Del Method 04/19/23 17:45 98 Room Air 04/19/23 09:25 04/19/23 16:59 04/19/23 16:43 04/19/23 16:29 04/19/23 16:14 04/19/23 15:58 04/19/23 15:44 04/19/23 15:29 04/19/23 15:14 04/19/23 15:14 04/19/23 15:10 04/19/23 15:10 04/19/23 14:54 93 04/19/23 14:54 04/19/23 14:50 89 L 04/19/23 14:50 04/19/23 14:49 100 04/19/23 14:49 04/19/23 14:44 98 04/19/23 14:44 04/19/23 14:44 04/19/23 14:39 99 04/19/23 14:39 04/19/23 14:34 100 04/19/23 14:34 04/19/23 14:30 04/19/23 14:30 04/19/23 14:29 100 04/19/23 14:29 04/19/23 14:24 99 04/19/23 14:24 04/19/23 14:19 97 04/19/23 14:19 04/19/23 14:15 04/19/23 14:15 04/19/23 14:14 100 04/19/23 14:14 04/19/23 14:09 100 04/19/23 14:09 04/19/23 14:04 100 04/19/23 14:04 04/19/23 14:00 04/19/23 14:00 04/19/23 13:59 100 04/19/23 13:59 04/19/23 13:31 04/19/23 13:31 04/19/23 13:54 100 04/19/23 13:54 04/19/23 13:49 98 04/19/23 13:49 04/19/23 13:46 04/19/23 13:46 04/19/23 13:44 100 04/19/23 13:44 04/19/23 13:39 99 04/19/23 13:39 04/19/23 13:34 99 04/19/23 13:34 04/19/23 13:29 99 04/19/23 13:29 04/19/23 13:29 04/19/23 13:29 04/19/23 13:24 98 04/19/23 13:24 04/19/23 13:19 96 04/19/23 13:19 04/19/23 13:14 97 04/19/23 13:14 04/19/23 13:14 04/19/23 13:14 04/19/23 13:09 98 04/19/23 13:09 04/19/23 13:04 97 04/19/23 13:04 04/19/23 12:59 98 04/19/23 12:59 04/19/23 12:55 04/19/23 12:55 04/19/23 12:54 97 04/19/23 12:54 04/19/23 12:49 98 04/19/23 12:49 04/19/23 12:49 04/19/23 12:44 98 04/19/23 12:44 04/19/23 12:45 04/19/23 12:45 04/19/23 12:39 98 04/19/23 12:39 04/19/23 12:39 04/19/23 12:39 04/19/23 12:36 04/19/23 12:36 04/19/23 12:34 96 04/19/23 12:34 04/19/23 12:34 04/19/23 12:32 04/19/23 12:32 04/19/23 12:30 04/19/23 12:30 04/19/23 12:29 97 04/19/23 12:29 04/19/23 12:28 04/19/23 12:28 04/19/23 12:26 04/19/23 12:26 04/19/23 12:24 100 04/19/23 12:24 04/19/23 12:25 04/19/23 12:25 04/19/23 12:19 99 04/19/23 12:19 04/19/23 12:14 100 04/19/23 12:14 04/19/23 12:14 04/19/23 12:14 04/19/23 11:37 04/19/23 11:37 04/19/23 11:34 04/19/23 11:34 04/19/23 10:31 04/19/23 10:31 04/19/23 09:38 04/19/23 09:38 04/19/23 09:31 04/19/23 09:31 04/19/23 08:53 04/19/23 08:53 PG Care Time/CCT Total # of Minutes Spent Total Time Spent with Patient: Total time spent is greater than 50% in coordination of care (as documented) at patient's floor/unit and/or counseling patient: Coding Level of Care Code None Diagnoses
--- NOTE | 2023-04-19 21:41 | Obstetrical Progress Note ---
Date of Service April 19, 2023 Assessment & Plan Admission and Anticipated Discharge Date Admission Date: April 19, 2023 Subjective Recheck of patient - pulse normal. BPs remain elevated. Bleeding scant - appears to be appropriate lochia. Fundus firm. She states she is feeling a lot better, but is crampy. Will start labetalol 100mg BID for elevated BPs, continue to monitor BP and bleeding. Results & Data Vital Signs (Past 12 Hours) Vital Signs Temp Pulse Pulse Resp BP BP BP 04/19/23 21:30 18 156/85 H 04/19/23 19:00 36.6 C 66 18 156/85 H 04/19/23 20:15 80 201/102 H 04/19/23 17:45 36.8 C 76 18 146/87 H 159/81 H 04/19/23 16:59 74 145/74 H 04/19/23 16:43 75 143/87 H 04/19/23 16:29 65 142/72 H 04/19/23 16:14 72 152/78 H 04/19/23 15:58 71 147/80 H 04/19/23 15:44 74 147/78 H 04/19/23 15:29 77 179/83 H 04/19/23 15:14 96 H 04/19/23 15:14 174/74 H 04/19/23 15:10 84 04/19/23 15:10 174/79 H 04/19/23 14:54 04/19/23 14:54 86 04/19/23 14:50 04/19/23 14:50 88 04/19/23 14:49 04/19/23 14:49 90 04/19/23 14:44 04/19/23 14:44 74 04/19/23 14:44 129/73 04/19/23 14:39 04/19/23 14:39 74 04/19/23 14:34 04/19/23 14:34 73 04/19/23 14:30 73 04/19/23 14:30 133/81 04/19/23 14:29 04/19/23 14:29 71 04/19/23 14:24 04/19/23 14:24 72 04/19/23 14:19 04/19/23 14:19 87 04/19/23 14:15 72 04/19/23 14:15 136/63 06/06/23 14:14 04/19/23 14:14 76 04/19/23 14:09 04/19/23 14:09 70 04/19/23 14:04 04/19/23 14:04 71 04/19/23 14:00 66 04/19/23 14:00 138/75 04/19/23 13:59 04/19/23 13:59 78 04/19/23 13:31 20 04/19/23 13:31 20 04/19/23 13:54 04/19/23 13:54 74 04/19/23 13:49 04/19/23 13:49 77 04/19/23 13:46 93 H 04/19/23 13:46 157/71 H 04/19/23 13:44 04/19/23 13:44 88 04/19/23 13:39 04/19/23 13:39 65 04/19/23 13:34 04/19/23 13:34 64 04/19/23 13:29 04/19/23 13:29 61 04/19/23 13:29 60 04/19/23 13:29 149/74 H 04/19/23 13:24 04/19/23 13:24 62 04/19/23 13:19 04/19/23 13:19 60 04/19/23 13:14 04/19/23 13:14 64 04/19/23 13:14 59 L 04/19/23 13:14 148/78 H 04/19/23 13:09 04/19/23 13:09 60 04/19/23 13:04 04/19/23 13:04 64 04/19/23 12:59 04/19/23 12:59 64 04/19/23 12:55 64 04/19/23 12:55 141/74 H 04/19/23 12:54 04/19/23 12:54 63 04/19/23 12:49 04/19/23 12:49 66 04/19/23 12:49 138/69 04/19/23 12:44 04/19/23 12:44 69 04/19/23 12:45 67 04/19/23 12:45 141/74 H 04/19/23 12:39 04/19/23 12:39 64 04/19/23 12:39 66 04/19/23 12:39 136/71 04/19/23 12:36 71 04/19/23 12:36 150/76 H 04/19/23 12:34 04/19/23 12:34 63 04/19/23 12:34 155/77 H 04/19/23 12:32 62 04/19/23 12:32 154/72 H 04/19/23 12:30 63 04/19/23 12:30 152/79 H 04/19/23 12:29 04/19/23 12:29 70 04/19/23 12:28 59 L 04/19/23 12:28 160/83 H 04/19/23 12:26 68 04/19/23 12:26 155/80 H 04/19/23 12:24 04/19/23 12:24 72 04/19/23 12:25 72 04/19/23 12:25 160/86 H 04/19/23 12:19 04/19/23 12:19 85 04/19/23 12:14 04/19/23 12:14 79 04/19/23 12:14 84 04/19/23 12:14 182/91 H 04/19/23 11:37 67 04/19/23 11:37 175/84 H 04/19/23 11:34 65 04/19/23 11:34 188/108 H 04/19/23 10:31 68 04/19/23 10:31 174/94 H Pulse Ox O2 Del Method 04/19/23 21:30 04/19/23 19:00 04/19/23 20:15 99 Room Air 04/19/23 17:45 98 Room Air 04/19/23 16:59 04/19/23 16:43 04/19/23 16:29 04/19/23 16:14 04/19/23 15:58 04/19/23 15:44 04/19/23 15:29 04/19/23 15:14 04/19/23 15:14 04/19/23 15:10 04/19/23 15:10 04/19/23 14:54 93 04/19/23 14:54 04/19/23 14:50 89 L 04/19/23 14:50 04/19/23 14:49 100 04/19/23 14:49 04/19/23 14:44 98 04/19/23 14:44 04/19/23 14:44 04/19/23 14:39 99 04/19/23 14:39 04/19/23 14:34 100 04/19/23 14:34 04/19/23 14:30 04/19/23 14:30 04/19/23 14:29 100 04/19/23 14:29 04/19/23 14:24 99 04/19/23 14:24 04/19/23 14:19 97 04/19/23 14:19 04/19/23 14:15 04/19/23 14:15 04/19/23 14:14 100 04/19/23 14:14 04/19/23 14:09 100 04/19/23 14:09 04/19/23 14:04 100 04/19/23 14:04 04/19/23 14:00 04/19/23 14:00 04/19/23 13:59 100 04/19/23 13:59 04/19/23 13:31 04/19/23 13:31 04/19/23 13:54 100 04/19/23 13:54 04/19/23 13:49 98 04/19/23 13:49 04/19/23 13:46 04/19/23 13:46 04/19/23 13:44 100 04/19/23 13:44 04/19/23 13:39 99 04/19/23 13:39 04/19/23 13:34 99 04/19/23 13:34 04/19/23 13:29 99 04/19/23 13:29 04/19/23 13:29 04/19/23 13:29 04/19/23 13:24 98 04/19/23 13:24 04/19/23 13:19 96 04/19/23 13:19 04/19/23 13:14 97 04/19/23 13:14 04/19/23 13:14 04/19/23 13:14 04/19/23 13:09 98 04/19/23 13:09 04/19/23 13:04 97 04/19/23 13:04 04/19/23 12:59 98 04/19/23 12:59 04/19/23 12:55 04/19/23 12:55 04/19/23 12:54 97 04/19/23 12:54 04/19/23 12:49 98 04/19/23 12:49 04/19/23 12:49 04/19/23 12:44 98 04/19/23 12:44 04/19/23 12:45 04/19/23 12:45 04/19/23 12:39 98 04/19/23 12:39 04/19/23 12:39 04/19/23 12:39 04/19/23 12:36 04/19/23 12:36 04/19/23 12:34 96 04/19/23 12:34 04/19/23 12:34 04/19/23 12:32 04/19/23 12:32 04/19/23 12:30 04/19/23 12:30 04/19/23 12:29 97 04/19/23 12:29 04/19/23 12:28 04/19/23 12:28 04/19/23 12:26 04/19/23 12:26 04/19/23 12:24 100 04/19/23 12:24 04/19/23 12:25 04/19/23 12:25 04/19/23 12:19 99 04/19/23 12:19 04/19/23 12:14 100 04/19/23 12:14 04/19/23 12:14 04/19/23 12:14 04/19/23 11:37 04/19/23 11:37 04/19/23 11:34 04/19/23 11:34 04/19/23 10:31 04/19/23 10:31 PG Care Time/CCT Total # of Minutes Spent Total Time Spent with Patient: Total time spent is greater than 50% in coordination of care (as documented) at patient's floor/unit and/or counseling patient: Coding Level of Care Code None Diagnoses
[2023-04-19] MEDS: LABETALOL HCL 100 MG TAB PO SCH (22:06)
[2023-04-20] MEDS: PANTOprazole 40 MG TAB PO SCH ×2 (06:25→16:10)
--- NOTE | 2023-04-20 06:43 | Obstetrical Progress Note ---
Date of Service <Anibal Hahn DO - Last Filed: 04/20/23 07:26> April 20, 2023 Assessment & Plan <Anibal Hahn DO - Last Filed: 04/20/23 07:26> (1) Vaginal delivery: (2) Mother positive for group B Streptococcus colonization: (3) Gestational diabetes: (4) Hypertension, condition or complication: Plan - Feels well today. Eating well, voiding well, ambulating well. - Pain well controlled with ibuprofen 600mg Q4H PRN - Routine care -- OOB, ambulation, diet progression as tolerated - After discharge will have 6 week follow-up with Dr. Shore. - Elevated blood pressure on 04/19, improved with labetalol 100 mg twice daily, will continue monitoring blood pressure throughout the day. - Bleeding much improved this morning, no excess bleeding overnight, will continue to monitor throughout the day. - If patient remains stable may consider for discharge later this afternoon. Day #:: 1 <Chapis Shore, - Last Filed: 04/20/23 08:25> (1) Vaginal delivery: (2) Mother positive for group B Streptococcus colonization: (3) Gestational diabetes: (4) Hypertension, condition or complication: Subjective <Anibal Hahn DO - Last Filed: 04/20/23 07:26> Ambulation: ambulating normally Voiding: no voiding problems Passing Gas:: Yes Diet Tolerance:: regular diet Lochia:: Small Feeding Type:: bottle feeding Current Pain Level(1-10): 0 Review of Systems Denies fever, chills, sweats Denies shortness of breath, difficulty breathing, chest pain, palpitations, chest pressure. Denies breast pain. Denies dysuria. Denies headache or changes in vision. Physical Exam <Anibal Hahn DO - Last Filed: 04/20/23 07:26> General: Alert, oriented. No acute distress. Cardiac: Regular rate and rhythm, no murmurs/rubs/gallops. Respiratory: Clear to auscultation bilaterally a/p, no wheezes/rales/rhonchi. No increased work of breathing. Symmetrical chest rise. No respiratory distress. Abdomen: Soft, nontender, nondistended. Bowel sounds present. Uterus: Uterine fundus firm, palpable 2 cm below umbilicus. Lower Extremities: No lower extremity edema or swelling. No deep calf pain. Rosa's negative bilaterally. Results & Data <Anibal Hahn DO - Last Filed: 04/20/23 07:26> Vital Signs (Past 12 Hours) Vital Signs Temp Pulse Resp BP Pulse Ox O2 Del Method 04/20/23 03:30 36.7 C 76 18 129/75 04/19/23 21:34 160/94 H 04/19/23 23:05 36.8 C 64 18 147/88 H 04/19/23 21:30 18 156/85 H 04/19/23 19:00 36.6 C 66 18 156/85 H 04/19/23 20:15 80 201/102 H 99 Room Air Laboratory Results 04/20/23 06:22 04/19/23 07:57 <Chapis Shore DO - Last Filed: 04/20/23 08:25> Co-Signing Physician Notes Resident Physician Supervision Note: I was present with Dr. Hahn during the history and exam. I discussed the case with the resident and agree with the findings and plan as documented in the note. Any exceptions or clarifications are listed here: PPD#1 doing well. Feeling well, no further bleeding. Desires DC today - discussed that will need t o monitor BP and bleeding throughout the day prior to making decision. Has been started on 100mg labetalol. Documented By: Chapis Shore DO Resident Activity Tracking <Anibal Hahn DO - Last Filed: 04/20/23 07:26> Resident Involvement: Resident Care Provided Care Provided: OB Delivery
[2023-04-20 06:45] LABS: Hematocrit (blood only) 26.5 % (37.0-47.0); Hemoglobin 8.9 g/dl (12.0-16.0); Mean Corpuscular Hemoglobin 27.5 pg (25.0-34.0); Mean Corpuscular Hgb Conc 33.6 g/dL (32.0-36.0); Mean Corpuscular Volume 81.8 fL (80.0-100.0); Platelet Count 249 K/uL (130-400); RDW Coefficient of Variation 13.8 % (11.5-14.5); RDW Standard Deviation 40.5 fL (36.4-46.3); Red Blood Count 3.24 M/uL (4.20-5.40); White Blood Count 15.46 K/ul (4.8-10.8)
[2023-04-20] MEDS ORDERED: PRENATAL VITAMIN 1 TAB PO SCH (08:00)
[2023-04-20] MEDS: LABETALOL HCL 100 MG TAB PO SCH (08:20)
[2023-04-20] MEDS: DOCUSATE SODIUM 100 MG CAP PO SCH (08:20)
[2023-04-20] MEDS: IBUPROFEN 600 MG TAB PO PRN (12:26)
[2023-04-20] MEDS ORDERED: bisacodyL 5 MG TABEC PO SCH (20:00)
--- NOTE | 2023-04-21 11:57 | Anesthesia Procedure Note ---
Date of Service April 21, 2023 Anesthesia Post Epidural Note Vital Signs Vital Signs: Temp Pulse Resp BP Pulse Ox O2 Del Method 36.8 C 77 18 153/84 H 98 Room Air 04/20/23 17:58 04/20/23 17:58 04/20/23 17:58 04/20/23 17:58 04/20/23 17:58 04/20/23 17:51 Pain Intensity Bilateral Abdomen: Pain Intensity: 4 Notes Mental Status: alert / awake / arousable and participated in evaluation Nausea / Vomiting: adequately controlled Pain: adequately controlled Airway Patency, RR, SpO2: stable & adequate BP & HR: stable & adequate Hydration State: stable & adequate Neuraxial Anesthesia: was administered and sensory block is resolving Anesthetic Complications: no major complications apparent Epidural: Removed without complications and With tip intact Notes: i did not personally pull this epidural
== END 2023-04-20 19:13 | disposition home or self-care (01) | DRG 807 ==
LOC: 4S1 07:41 → 4E2 17:40

== ENCOUNTER 2024-10-03 07:47 | Inpatient (IN) ==
[2024-10-03] MEDS ORDERED: SODIUM CHLORIDE 0.9% 100 ML IV PRN (08:12)
[2024-10-03] MEDS ORDERED: SODIUM CHLORIDE 0.9% 50 ML IV PRN (08:12)
[2024-10-03] MEDS ORDERED: LIDOCAINE 1% LOCAL 20 ML VIAL INFIL PRN (08:22)
[2024-10-03] MEDS ORDERED: OXYTOCIN 30 UNITS/NSS 30 UNITS/500 ML BAG IV PRN (08:22)
[2024-10-03] MEDS ORDERED: ACETAMINOPHEN 325 MG TAB PO PRN ×2 (08:22→17:14)
--- NOTE | 2024-10-03 08:52 | History & Physical Report ---
Date of Service October 03, 2024 Assessment & Plan (1) Elevated blood pressure complicating in third trimester, antepartum: (2) Obesity affecting , antepartum: (3) Chronic hypertension affecting : (4) Gestational diabetes: Plan Admit for IOL VSS, FHT cat 1, Rh+, GBS-, ri Plan for pit, epidural Admission and Anticipated Discharge Date Admission Date: October 03, 2024 History of Present Illness Primary Care Provider: Craig Hernandez III, OUSMANE Sara is a 34 y/o female currently at 38 3/7 WGA (w ESTELA 10/14/24 as determined by LMP) who is here for IOL. One of her previous pregnancies were complicated by HTN & d/t nephrolithiasis. This was complicated by GDM, CHTN. She has had regular appointments with OB. She denies fevers, fatigue, COCHRAN, SOB, chest pain, leg swelling, or n/v exceeding baseline -related symptoms. Mild, irregular contractions; + movement; no fluid loss or bloody show External FHT and external uterine monitors used; category 1 tracing, normal variability Blood type: A+ Antibody screen: Neg GBS: Peg Rubella: Immune VDRL/RPR: Neg Gonorrhea: Not detected Chalmy[place]: Not detected HIV: Non-reactive HbSAg: Non-reactive 1hr GTT was 137 on 01/31/23 Allergies Allergy/AdvReac Type Severity Reaction Status Date / Time No Known Allergies Allergy Verified 10/02/24 10:29 Home Medications Medication Instructions Recorded Confirmed Type valacyclovir 1 gram tablet 2,000 mg (2 x 1 gram) PO Q12H PRN 01/19/24 10/03/24 Rx (Valtrex) Cold Sores #4 tabs [id number] 1 tab PO DAILY 02/27/24 10/03/24 History [ Multi] acetone (urine) test (Ketone Urine #50 ea 04/20/24 10/02/24 Rx Test strips) lancets 33 gauge (OneTouch Delica #150 ea 04/20/24 10/02/24 Rx Plus Lancet) blood sugar diagnostic (OneTouch #150 ea 04/23/24 10/02/24 Rx Verio test strips) blood-glucose sensor (FreeStyle #2 ea 05/16/24 10/02/24 Rx Gomez 3 Sensor device) aspirin 81 mg tablet,delayed 81 mg PO DAILY 05/23/24 10/03/24 History release (Adult Low Dose Aspirin) sertraline 50 mg tablet 50 mg PO DAILY #90 tabs 05/23/24 10/03/24 Rx pantoprazole 40 mg tablet,delayed See Rx Instructions .Route 09/06/24 10/03/24 Rx release .COMPLEX 90 days #180 tabs labetalol 100 mg tablet See Rx Instructions PO .COMPLEX 09/24/24 10/03/24 History Past Med/Surg History Problem List Elevated blood pressure complicating in third trimester, antepartum Obesity affecting , antepartum Chronic hypertension affecting Gestational diabetes Fatty infiltration of liver Vitamin D deficiency Nephrolithiasis Depression (Chronic) HX Eosinophilic esophagitis (Chronic) GERD (gastroesophageal reflux disease) (Chronic) Medical History Encounter for induction of labor Uterine contractions H/O cold sores History of migraine Surgical History Hx of colonoscopy History of cystoscopy History of esophagogastroduodenoscopy (EGD) History of tooth extraction History of wisdom tooth extraction Status post LASIK surgery of both eyes History of extraction of renal calculus History of appendectomy Family History Grandmother (Maternal) Family history of diabetes mellitus Grandfather (Maternal) Family history of diabetes mellitus Family history of esophageal cancer Other No family history of adverse response to anesthesia Denies family history of Ovarian cancer Deep vein thrombosis Breast cancer Colorectal cancer Uterine cancer Social History Smoking Status: Never smoker Second Hand Exposure: No; Do You Dip or Chew Tobacco: No; Hx Alcohol Use: No Hx Substance Use: No Preferred Language: Portuguese Communication Ability: Effective Visual Impairment: No Limitations Hearing Ability: Normal Software Licensing Specialist Required: No Beliefs That Will Affect Care: None marital status: marital status details: Cj Teo (29) [phone] Current Living Situation: Family Current Living Situation Comment: lives with spouse and 2 children, 2 dogs. 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 Physical Exam 2 Physical Exam: General: Alert and oriented. No acute distress CV: Regular rate and rhythm. No murmurs. Respiratory: CTA bilaterally. No increased work of breathing. Symmetrical chest rise. Abdomen: Gravid: Soft, nontender upon palpation Pelvic: 2/60/-2, soft, post per Dr. Shore Lower extremities: NO LE edema. No deep calf pain. Rosa's negative bilaterally. Results & Data Results & Data Vital Signs (Past 12 Hours) Vital Signs Temp Pulse Resp BP 10/03/24 08:01 75 153/75 H 10/03/24 07:55 36.9 C 20 Laboratory Results 10/03/24 08:41 Supervising Physician Co-Signing Physician Notes Resident Physician Supervision Note: I interviewed and examined the patient. Discussed with Dr. Sanchez and agree with findings and plan as documented in the note. Any exceptions or clarifications are listed here: 34yo @ 38 01/18, IOL for cHTN - on labetalol, also with GDMA1 and obesity. Will start pitocin, anticipate epidural and AROM after. Patient agreeable. Documented By: Chapis Shore DO Resident Activity Tracking Resident Involvement: Resident Care Provided Care Provided: Adult Hospital Medicine and OB Delivery
[2024-10-03 09:15] LABS: Hematocrit (blood only) 34.2 % (37.0-47.0); Hemoglobin 11.7 g/dl (12.0-16.0); Mean Corpuscular Hemoglobin 28.8 pg (25.0-34.0); Mean Corpuscular Hgb Conc 34.2 g/dL (32.0-36.0); Mean Corpuscular Volume 84.2 fL (80.0-100.0); Platelet Count 277 K/uL (130-400); RDW Coefficient of Variation 13.3 % (11.5-14.5); RDW Standard Deviation 40.7 fL (36.4-46.3); Red Blood Count 4.06 M/uL (4.20-5.40); White Blood Count 9.76 K/ul (4.8-10.8)
[2024-10-03] MEDS: LACTATED RINGER'S 1,000 ML IV SCH (09:45)
[2024-10-03] MEDS: OXYTOCIN 30 UNITS/NSS 30 UNITS/500 ML BAG IV PRN ×2 (09:52→17:23)
[2024-10-03 10:23] LABS: Albumin Level 3.3 gm/dl (3.4-5.0); BUN Creatinine Ratio 14.8 (10-20); Bilirubin,Total 0.7 mg/dl (0.2-1.0); Calcium 9.1 mg/dl (8.6-10.3); Creatinine Clr Calc Pharmacy 147.4 ml/min; Globulin 3.3 gm/dl (2.5-4.0); Potassium 3.5 mmol/L (3.5-5.1); Total Protein 6.6 gm/dl (6.0-8.3)
[2024-10-03] MEDS ORDERED: NALOXONE HCL 0.4 MG/1 ML VIAL/CARP IV PRN (11:02)
[2024-10-03] MEDS ORDERED: fentaNYL citrate PF 100 MCG/2 ML VIAL EPI PRN (11:02)
[2024-10-03] MEDS ORDERED: ROPIVACAINE 0.5% PF 5 MG/ML 20 ML VIAL EPI PRN (11:02)
[2024-10-03] MEDS ORDERED: LIDOCAINE 2%/EPINEPHRINE 1:200,000 20 ML PF EPI STA (11:02)
[2024-10-03] MEDS ORDERED: SODIUM CHLORIDE 0.9% PF INJ 10 ML VIAL EPI STA (11:02)
[2024-10-03] MEDS ORDERED: diphenhydrAMINE 50 MG/ML VIAL IV PRN (11:02)
[2024-10-03] MEDS ORDERED: fentaNYL citrate PF 100 MCG/2 ML VIAL EPI STA (11:02)
[2024-10-03] MEDS ORDERED: fentANYL 2 MCG/ML BUPIVacaine 0.125%-NSS 100ML BAG EPI PRN (11:02)
[2024-10-03] MEDS ORDERED: BUPIVACAINE 0.25% PF 30 ML VIAL EPI PRN (11:02)
[2024-10-03] MEDS ORDERED: NALBUPHINE HCL INJ 10 MG/ML AMP IV PRN (11:02)
[2024-10-03] MEDS ORDERED: BUPIVACAINE 0.25% PF 30 ML VIAL EPI STA (11:02)
[2024-10-03] MEDS ORDERED: SODIUM CHLORIDE 0.9% PF INJ 10 ML VIAL EPI PRN (11:02)
[2024-10-03] MEDS ORDERED: LIDOCAINE 2% MPF LOCAL 5 ML VIAL EPI PRN (11:02)
[2024-10-03] MEDS ORDERED: ePHEDrine sulfate 50 MG/ML AMP IV PRN (11:02)
[2024-10-03] MEDS ORDERED: NALOXONE HCL 1 MG in SODIUM CHLORIDE 0.9% 1,000 ML IV PRN (11:02)
--- NOTE | 2024-10-03 11:02 | Anesthesiology Consultation ---
Date of Service October 03, 2024 Assessment & Plan (1) Encounter for pre-operative examination: Chart Review Chart Review: Patient NOT seen in Pre Admission Testing and Acceptable Risk for Labor Epidural Consults Requested none History Height/Weight Height: 5 ft 2 in Weight: 101.151 kg Allergies Allergy/AdvReac Type Severity Reaction Status Date / Time No Known Allergies Allergy Verified 10/02/24 10:29 Medications Home Medications Medication Instructions Recorded Confirmed Last Taken valacyclovir 1 gram tablet 2,000 mg (2 x 1 gram) PO Q12H PRN 01/19/24 10/03/24 10/03/24 06:00 (Valtrex) Cold Sores #4 tabs [id number] 1 tab PO DAILY 02/27/24 10/03/24 10/03/24 06:00 [ Multi] acetone (urine) test (Ketone Urine #50 ea 04/20/24 10/02/24 Unknown Test strips) lancets 33 gauge (OneTouch Delica #150 ea 04/20/24 10/02/24 Unknown Plus Lancet) blood sugar diagnostic (OneTouch #150 ea 04/23/24 10/02/24 Unknown Verio test strips) blood-glucose sensor (FreeStyle #2 ea 05/16/24 10/02/24 Unknown Gomez 3 Sensor device) aspirin 81 mg tablet,delayed 81 mg PO DAILY 05/23/24 10/03/24 10/03/24 06:00 release (Adult Low Dose Aspirin) sertraline 50 mg tablet 50 mg PO DAILY #90 tabs 05/23/24 10/03/24 10/03/24 06:00 pantoprazole 40 mg tablet,delayed See Rx Instructions .Route 09/06/24 10/03/24 10/03/24 06:00 release .COMPLEX 90 days #180 tabs labetalol 100 mg tablet See Rx Instructions PO .COMPLEX 09/24/24 10/03/24 10/03/24 Active Medications Generic Name Dose Route Start Last Admin Trade Name Freq PRN Reason Stop Dose Admin Oxytocin 30 units in 500 mls @ 3 mls/hr 10/03/24 09:31 10/03/24 10:30 Pitocin 30 Units/Nss IV 10/05/24 09:30 0.18 units/hr .Q24H PRN 3 mls/hr Labor Induction/Augmentation Titration Protocol 0.18 UNITS/HR Past Medical History Medical History Encounter for induction of labor Uterine contractions H/O cold sores No hx genital herpes History of migraine high school Past Family History Family History Grandmother (Maternal) Family history of diabetes mellitus Grandfather (Maternal) Family history of diabetes mellitus Family history of esophageal cancer Other No family history of adverse response to anesthesia Denies family history of Ovarian cancer Deep vein thrombosis Breast cancer Colorectal cancer Uterine cancer Past Surgical History Surgical History Hx of colonoscopy History of cystoscopy x3 History of esophagogastroduodenoscopy (EGD) History of tooth extraction History of wisdom tooth extraction Status post LASIK surgery of both eyes History of extraction of renal calculus History of appendectomy Social History Smoking Status: Never smoker Do You Dip or Chew Tobacco: No Hx Alcohol Use: No Alcohol type: wine alcohol intake frequency: a few times a week Hx Substance Use: No substance use type: does not use Physical Exam Vital Signs Last Vital Signs Temp 98.4 F 10/03/24 07:55 Pulse 69 10/03/24 10:59 Resp 20 10/03/24 07:55 BP 163/89 H 10/03/24 10:59 Testing Laboratory Results 10/03/24 08:41 10/03/24 08:41 Blood Type A Positive 10/03/24 08:41 Antibody Screen NEGATIVE 10/03/24 08:41 10/03/24 09:14 POC Glucose 109 H
[2024-10-03] MEDS: fentaNYL citrate PF 100 MCG/2 ML VIAL ONE (11:27)
[2024-10-03] MEDS: LIDOCAINE 2%/EPINEPHRINE 1:200,000 20 ML PF ONE (11:27)
[2024-10-03] MEDS: BUPIVACAINE 0.25% PF 30 ML VIAL ONE (11:27)
[2024-10-03] MEDS: fentANYL 2 MCG/ML BUPIVacaine 0.125%-NSS 100ML BAG ONE (11:27)
[2024-10-03] MEDS ORDERED: NURSING L&D Epidural Breakthrough Pain Update ONE (14:45)
--- NOTE | 2024-10-03 15:07 | Anesthesia Procedure Note ---
Date of Service October 03, 2024 Anesthesia Epidural Re-Dose Vital Signs Temp Pulse Resp BP Pulse Ox 98.4 F 62 16 173/74 H 95 10/03/24 12:00 10/03/24 15:03 10/03/24 14:00 10/03/24 15:03 10/03/24 15:03 Notes Pain Intensity: 5 Dilatation (cm): 2.0 Effacement (%): 60 Called by nursing to evaluate epidural as the patient is having increased pain. The epidural was re-dosed with the following medications (all medications via epidural route) after negative aspiration of the epidural catheter for CSF/HEME. 0.125% Bupivacaine (8ml) After Epidural Re-Dose Mental Status: alert / awake / arousable Pain: improving with treatment Airway Patency, RR, SpO2: stable & adequate BP & HR: stable & adequate
[2024-10-03] MEDS: SODIUM CHLORIDE 0.9% PF INJ 10 ML VIAL ONE (15:08)
--- NOTE | 2024-10-03 15:39 | Labor Progress Brief Note ---
Date of Service October 03, 2024 Subjective Comfortable with epidural. FHT Cat 1 [place] Q 2 SVE 4/80/-2 AROM clear fluid. Continue IOL. Assessment & Plan Admission and Anticipated Discharge Date Admission Date: October 03, 2024 Results & Data Vital Signs (Past 12 Hours) Vital Signs Temp Pulse Resp BP Pulse Ox 10/03/24 15:33 67 97 10/03/24 15:30 16 10/03/24 15:30 36.7 C 16 10/03/24 15:29 63 135/71 10/03/24 15:28 67 96 10/03/24 15:23 62 98 10/03/24 15:18 62 96 10/03/24 15:13 96 10/03/24 15:13 60 10/03/24 15:13 58 L 138/63 10/03/24 15:12 59 L 94 10/03/24 15:09 60 149/56 H 10/03/24 15:08 62 95 10/03/24 15:07 57 L 138/64 10/03/24 15:06 61 94 10/03/24 15:03 62 173/74 H 95 10/03/24 15:00 69 18 191/84 H 10/03/24 14:58 65 96 10/03/24 14:53 64 96 10/03/24 14:48 63 96 10/03/24 14:44 65 177/76 H 10/03/24 14:43 62 95 10/03/24 14:38 67 97 10/03/24 14:33 72 97 10/03/24 14:29 64 147/73 H 94 10/03/24 14:28 62 95 10/03/24 14:23 61 94 10/03/24 14:22 60 94 10/03/24 14:18 68 95 10/03/24 14:15 62 143/75 H 10/03/24 14:14 62 94 10/03/24 14:13 63 95 10/03/24 14:09 59 L 94 10/03/24 14:08 59 L 95 10/03/24 14:04 64 94 10/03/24 14:03 65 96 10/03/24 14:00 16 10/03/24 14:00 16 10/03/24 13:59 56 L 142/67 H 94 10/03/24 13:58 58 L 95 10/03/24 13:53 70 96 10/03/24 13:48 74 95 10/03/24 13:45 64 141/63 H 10/03/24 13:43 65 96 10/03/24 13:38 61 96 10/03/24 13:33 61 95 10/03/24 13:30 60 16 93 10/03/24 13:29 56 L 137/64 10/03/24 13:28 58 L 95 10/03/24 13:23 66 96 10/03/24 13:19 61 94 10/03/24 13:18 62 95 10/03/24 13:14 61 135/67 10/03/24 13:13 62 96 10/03/24 13:08 61 96 10/03/24 13:03 63 97 10/03/24 13:00 18 10/03/24 13:00 61 18 131/65 10/03/24 12:58 61 96 10/03/24 12:53 61 95 10/03/24 12:48 62 96 10/03/24 12:44 59 L 129/63 10/03/24 12:43 60 97 10/03/24 12:38 61 97 10/03/24 12:33 62 96 10/03/24 12:30 60 18 127/63 10/03/24 12:28 63 96 10/03/24 12:23 66 97 10/03/24 12:18 67 97 10/03/24 12:14 67 121/58 L 10/03/24 12:13 63 97 10/03/24 12:08 69 96 10/03/24 12:03 64 97 10/03/24 12:00 18 10/03/24 12:00 36.9 C 18 10/03/24 11:59 61 130/63 10/03/24 11:58 64 97 10/03/24 11:57 65 124/64 10/03/24 11:53 66 97 10/03/24 11:52 63 119/59 L 10/03/24 11:48 70 96 10/03/24 11:47 66 118/60 10/03/24 11:45 16 10/03/24 11:45 16 10/03/24 11:43 65 96 10/03/24 11:42 62 126/62 10/03/24 11:40 16 10/03/24 11:40 16 10/03/24 11:38 96 10/03/24 11:38 68 10/03/24 11:38 63 127/69 10/03/24 11:35 20 10/03/24 11:35 20 10/03/24 11:33 66 96 10/03/24 11:32 65 133/69 94 10/03/24 11:30 66 18 145/69 H 10/03/24 11:28 69 150/72 H 96 10/03/24 11:27 20 10/03/24 11:27 20 10/03/24 11:26 70 157/80 H 94 10/03/24 11:24 64 155/85 H 10/03/24 11:23 67 96 10/03/24 11:19 63 89 L 10/03/24 11:18 71 98 10/03/24 11:13 71 99 10/03/24 10:59 69 163/89 H 10/03/24 09:58 72 151/78 H 10/03/24 09:11 73 139/75 10/03/24 08:01 75 153/75 H 10/03/24 07:55 36.9 C 20 Coding Level of Care Code None
--- NOTE | 2024-10-03 17:12 | Delivery Summary ---
Vaginal Delivery Summary Date of Service October 03, 2024 Vaginal Delivery Summary [facility] Vaginal Delivery Summary: Pre-delivery diagnoses: 34yo @ 40 /, IOL for cHTN, GDMA1, obesity Post-delivery diagnoses: same Procedure: spontaneous vaginal delivery Surgeon: Chapis Shore DO Complications: none Findings: Viable male . Apgars: 8/8 . Weight pending, please see nursery records. Estimated QBL: 30cc Description of delivery: The patient progressed to complete with epidural anesthesia. She then began to push. She spontaneously vaginally delivered a viable from the cephalic presentation. The head delivered in SARAH position. The anterior shoulder and arm delivered, followed by the posterior shoulder, followed by the body. The baby was placed on mother's abdomen and a spontaneous cry was heard. Delayed cord clamping was employed, and the cord was doubly clamped and cut. Cord blood was obtained. The placenta was delivered spontaneously intact with a 3-vessel cord. The uterus and vagina were swept of clots and debris. IV pitocin was given. The uterus became firm. The cervix, vagina, and perineum were inspected and no lacerations were noted. Excellent hemostasis was observed. The mother and baby are recovering in stable and good condition in the room. Sponge and instrument counts were correct x 2. Chapis Shore DO [facility] Vaginal Delivery Charge Vaginal Delivery Codes: 14243 global code for the antepartum, delivery, and post- Delivery Type Details: [facility]
[2024-10-03] MEDS ORDERED: oxyCODONE/ACETAMINOPHEN 5mg/325mg TAB PO PRN (17:14)
[2024-10-03] MEDS ORDERED: HYDROCORTISONE ACETATE 25 MG SUPP PR PRN (17:14)
[2024-10-03] MEDS ORDERED: BENZOCAINE 20% SPRY 85 APPLN/85 GM CAN EXT PRN (17:14)
[2024-10-03] MEDS ORDERED: DIPHTHER/TETAN/PERTUS Vaccine (Tdap, Adol/Adult) 0.5mL IM ONE (17:14)
[2024-10-03] MEDS ORDERED: bisacodyL 10 MG SUPP PR PRN (17:14)
[2024-10-03] MEDS: LABETALOL HCL IV 5 MG/ML 20ML IV STA ×3 (17:48→18:41)
--- NOTE | 2024-10-03 18:26 | Anesthesia Procedure Note ---
Date of Service October 03, 2024 Anesthesia Post Epidural Note Vital Signs Vital Signs: Temp Pulse Resp BP Pulse Ox 98.1 F 67 20 164/74 H 99 10/03/24 15:30 10/03/24 18:16 10/03/24 17:05 10/03/24 18:16 10/03/24 16:48 Pain Intensity Bilateral Abdomen: Pain Intensity: 5 Notes Mental Status: alert / awake / arousable and participated in evaluation Nausea / Vomiting: adequately controlled Pain: adequately controlled Airway Patency, RR, SpO2: stable & adequate BP & HR: stable & adequate Hydration State: stable & adequate Neuraxial Anesthesia: was administered and sensory block is resolving Anesthetic Complications: no major complications apparent and Pt Satisfied with anesthetic care Epidural: Removed without complications and With tip intact
[2024-10-03] MEDS: ePHEDrine sulfate 50 MG/ML AMP ONE (19:07)
[2024-10-03] MEDS: DOCUSATE SODIUM 100 MG CAP PO SCH (20:32)
[2024-10-03] MEDS: LABETALOL HCL 200 MG TAB PO SCH (20:33)
[2024-10-03] MEDS: PANTOprazole 40 MG TAB PO SCH (20:33)
[2024-10-03] MEDS: IBUPROFEN 600 MG TAB PO PRN (23:46)
[2024-10-04] MEDS: PRENATAL VITAMIN 1 TAB PO SCH (07:45)
--- NOTE | 2024-10-04 08:05 | Obstetrical Progress Note ---
Date of Service October 04, 2024 Assessment & Plan (1) care following vaginal delivery: PPD#1 doing well. Will continue to watch BPs today - required IV labetalol following delivery prior to moving over to side. Current dosing of PO labetalol 200mg BID. Discussed with pt that will monitor throughout the day today and may need adjustment. She is agreeable. Subjective Ambulation: ambulating normally Voiding: no voiding problems Diet Tolerance:: regular diet Lochia:: Moderate Review of Systems All systems reviewed & are unremarkable except as noted in HPI & below Physical Exam Constitutional WD/WN, vitals as above no acute distress Respiratory normal respiratory effort Cardiovascular Rate/Rhythm: regular rate and regular rhythm Gastrointestinal (Abdomen) Inspection/Auscultation: abdomen normal to inspection; abdomen not distended Percussion/Palpation: abdomen soft Genitourinary OB Exam Abdomen: + fundal height Fundus: + firm; not tender Results & Data Vital Signs (Past 12 Hours) Vital Signs Temp Pulse Resp BP Pulse Ox O2 Del Method 10/04/24 02:35 155/91 H 10/03/24 23:35 36.9 C 73 18 152/88 H 97 Room Air 10/03/24 22:30 133/72 10/03/24 21:30 144/82 H 10/03/24 20:25 36.5 C 73 18 136/82 97 Room Air
[2024-10-04 08:10] LABS: Hematocrit (blood only) 36.2 % (37.0-47.0); Hemoglobin 12.2 g/dl (12.0-16.0); Mean Corpuscular Hgb Conc 33.7 g/dL (32.0-36.0); Mean Platelet Volume 9.7 fL (9.4-12.4); Platelet Count 264 K/uL (130-400); RDW Coefficient of Variation 13.4 % (11.5-14.5); RDW Standard Deviation 41.4 fL (36.4-46.3); Red Blood Count 4.21 M/uL (4.20-5.40)
[2024-10-04 08:52] LABS: Albumin Globulin Ratio 0.9 (0.9-2); Albumin Level 3.1 gm/dl (3.4-5.0); BUN Creatinine Ratio 12.3 (10-20); Bilirubin,Total 0.5 mg/dl (0.2-1.0); Calcium 9.1 mg/dl (8.6-10.3); Creatinine Clr Calc Pharmacy 138.3 ml/min; Globulin 3.4 gm/dl (2.5-4.0); Potassium 4.3 mmol/L (3.5-5.1); Total Protein 6.5 gm/dl (6.0-8.3)
[2024-10-04] MEDS: SERTRALINE HCL 50 MG TABLET PO SCH (09:16)
[2024-10-04] MEDS ORDERED: bisacodyL 5 MG TABEC PO SCH (20:00)
[2024-10-04] MEDS: valACYclovir HCL 500 MG TABLET PO SCH (22:48)
--- NOTE | 2024-10-05 05:43 | Obstetrical Progress Note ---
Date of Service <Lazaro Sanchez MD - Last Filed: 10/05/24 06:53> October 05, 2024 Assessment & Plan <Lazaro Sanchez MD - Last Filed: 10/05/24 06:53> (1) care following vaginal delivery: Plan PPD#2 s/p term : Stable. Rh+, gbs -, ri Continue routine care, continue OOB and ambulation, diet as tolerated Plan for DC later today if BP remains 140s/90s Continue labetoolol 200mg bid, advised check BP at home Schedule BP check for 10/08 <Vee Benitez MD - Last Filed: 10/05/24 07:39> (1) care following vaginal delivery: Subjective <Lazaro Sanchez MD - Last Filed: 10/05/24 06:53> Sara is a 34 y/o female who is PPD#2 following at term Reports minimal pain Is voiding, eating, and ambulating normally Having appropriate lochia Planning for bottle feeding. Constitutional: no fever, no chills or no sweats Respiratory: no dyspnea Cardiovascular: no chest pain, no palpitations or no calf pain Breast: no breast pain Gastrointestinal: no nausea or no vomiting Genitourinary (female): no dysuria Neurologic: no headache(s) no changes in vision, no headaches Physical Exam <Lazaro Sanchez MD - Last Filed: 10/05/24 06:53> General: Alert, oriented. No acute distress. Cardiac: Regular rate and rhythm, no murmurs, rubs, or gallops. Respiratory: Clear to auscultation bilaterally. No increased work of breathing. Symmetrical chest rise. No respiratory distress. Abdomen: Soft, nontender, nondistended. Bowel sounds present. Uterus: Uterine fundus firm, nontender, palpable at the level of the umbilicus. Lower extremities: No lower extremity edema or swelling. No deep calf pain. Results & Data <Lazaro Sanchez MD - Last Filed: 10/05/24 06:53> Vital Signs (Past 12 Hours) Vital Signs Temp Pulse Pulse Resp BP Pulse Ox O2 Del Method 10/05/24 03:32 67 151/87 H 10/04/24 22:49 36.7 C 52 L 144/85 H 96 Room Air 10/04/24 21:10 138/84 10/04/24 19:03 36.8 C 79 18 143/83 H 97 Room Air 10/04/24 18:15 153/85 H Supervising Physician <Vee Benitez MD - Last Filed: 10/05/24 07:39> Co-Signing Physician Notes Resident Physician Supervision Note: I interviewed and examined the patient. Discussed with Dr. Sanchez and agree with findings and plan as documented in the note. Any exceptions or clarifications are listed here: PP2 s/p . chtn on labetalol 200PO BID, last bp elevated but pt says was started by being woken up and it being taken. Exam benign and wnl. Will see what BPs are this AM but if improve then ok for dc with bp check mon Documented By: Vee Benitez MD Resident Activity Tracking <Lazaro Sanchez MD - Last Filed: 10/05/24 06:53> Resident Involvement: Resident Care Provided Care Provided: Adult Hospital Medicine and OB Delivery
[2024-10-05 09:14] VITALS: BP 143/84; RESP 16; TEMP 97.7; O2SAT 97
[2024-10-05 09:55] VITALS: PULSE 52
== END 2024-10-05 11:35 | disposition home or self-care (01) | DRG 807 ==
LOC: 4S1 07:47 → 4E2 19:35

== ENCOUNTER 2024-10-11 12:32 | Inpatient (IN) ==
[2024-10-11] MEDS: LABETALOL HCL IV 5 MG/ML 20ML IV STA (12:55)
[2024-10-11 13:06] LABS: Appearance Urine Clear (Clear); Bacteria Urine Automated None Seen (None Seen); Bilirubin Urine Negative (Negative); Blood Urine 2+ (Negative); Cast Urine Automated 0-2 /lpf (0-2); Color Urine Yellow; Epithelial Cell Urine Auto 0-2 /hpf (0-2); Glucose Urine UA Negative (Negative); Ketones Urine Negative (Negative); Leukocyte Esterase Urine Trace (Negative); Nitrite Urine Negative (Negative); Protein Urine Negative (Negative); RBC Urine Automated 0-2 /hpf (0-2); Specific Gravity Urine 1.003 (1.000-1.030); Urobilinogen Urine Negative (Negative); WBC Urine Automated 0-5 /hpf (0-5)
[2024-10-11 13:07] LABS: Basophils # (auto) 0.05 K/uL (0.00-0.20); Basophils % (auto) 0.7 %; Eosinophils # (auto) 0.27 K/uL (0.00-0.50); Eosinophils % (auto) 3.6 %; Hematocrit (blood only) 40.5 % (37.0-47.0); Hemoglobin 13.9 g/dl (12.0-16.0); Immature Granulocytes # (auto) 0.02 K/uL (0.01-0.20); Immature Granulocytes % (auto) 0.3 %; Lymphocytes # (auto) 2.77 K/uL (1.20-3.40); Lymphocytes % (auto) 36.7 %; Mean Corpuscular Hgb Conc 34.3 g/dL (32.0-36.0); Mean Corpuscular Volume 84.4 fL (80.0-100.0); Mean Platelet Volume 9.1 fL (9.4-12.4); Monocytes # (auto) 0.62 K/uL (0.11-0.59); Monocytes % (auto) 8.2 %; Neutrophils # (auto) 3.81 K/uL (1.40-6.50); Neutrophils % (auto) 50.5 %; Platelet Count 387 K/uL (130-400); RDW Standard Deviation 39.7 fL (36.4-46.3); White Blood Count 7.54 K/ul (4.8-10.8)
[2024-10-11 13:24] LABS: Albumin Globulin Ratio 1.1 (0.9-2); Albumin Level 3.7 gm/dl (3.4-5.0); BUN Creatinine Ratio 19.1 (10-20); Bilirubin,Total 0.6 mg/dl (0.2-1.0); Calcium 9.6 mg/dl (8.6-10.3); Creatinine Clr Calc Pharmacy 125.4 ml/min; Globulin 3.5 gm/dl (2.5-4.0); Magnesium 1.9 mg/dl (1.7-2.4); Potassium 4.2 mmol/L (3.5-5.1); Total Protein 7.2 gm/dl (6.0-8.3)
--- NOTE | 2024-10-11 13:32 | XRay Report ---
EXAM: Radiograph of the Chest 1 View INDICATION: Hypertension. TECHNIQUE: Frontal view of the chest. COMPARISON: 04/08/2023 FINDINGS: Lungs and pleural spaces: No consolidation or pulmonary edema. No pleural effusion or pneumothorax. Heart: Stable prominent cardiac shadow accentuated by technique. Mediastinum: Normal contour. Bones/joints: No fracture, erosion or dislocation. Soft tissues: No abnormality noted. No radiopaque foreign body noted. Upper abdomen: No abnormality noted. IMPRESSION: No acute cardiopulmonary disease. ACT 112: Negative or not required by law. Electronically signed by Uzma Cochran 10-11-2024 13:32 PM
[2024-10-11 13:38] LABS: Thyroid Stimulating Hormone 1.216 uIu/ml (0.300-4.500)
[2024-10-11] MEDS ORDERED: CALCIUM CARBONATE 500 MG CHEWABLE TAB PO PRN ×2 (14:23)
--- NOTE | 2024-10-11 14:30 | History & Physical Report ---
Date of Service October 11, 2024 Assessment & Plan (1) Pre-eclampsia, : Plan: Preeclampsia labs are within normal limits but because of the persistent headache and elevated blood pressures, we will admit for 24 hours of MgSO4 & observation. Will begin magnesium sulfate and treat elevated blood pressures as needed. We will continue with labetalol 200 mg 3 times daily and will reassess dosing of labetalol once magnesium sulfate has been started. Patient is agreeable to this plan. She is currently not breast-feeding. History of Present Illness Chief Complaint: Headache and hypertension Primary Care Provider: Craig Hernandez, III, [employer] Patient is a 34-year-old 3 para 3-0-0-3 female who presents 8 days after vaginal delivery with persistent headache and elevated blood pressures at home. She delivered on 10/03/2024 at 38 weeks because of chronic hypertension. also was complicated by gestational diabetes. On 10/08, she she was seen in the office for blood pressure check. Blood pressure was elevated at that time, and her 200 mg labetalol twice daily were increased to 200 mg p.o. 3 times daily. She been doing well until yesterday when she developed a persistent headache which she contributed to dehydration. Despite increasing fluid intake, the headache has continued. She has been taking her labetalol as prescribed. Blood pressures at home of 160/110 and repeat was just as high. She was asked to come to the emergency room for further evaluation. She has no epigastric pain or other preeclamptic symptoms. The headache has improved somewhat, but blood pressure still remain elevated despite an additional dose of IV labetalol. Allergies Allergy/AdvReac Type Severity Reaction Status Date / Time No Known Allergies Allergy Verified 10/11/24 15:11 Home Medications Medication Instructions Recorded Confirmed Type acetone (urine) test (Ketone Urine #50 ea 04/20/24 10/08/24 Rx Test strips) lancets 33 gauge (OneTouch Delica #150 ea 04/20/24 10/08/24 Rx Plus Lancet) blood sugar diagnostic (OneTouch #150 ea 04/23/24 10/08/24 Rx Verio test strips) blood-glucose sensor (FreeStyle #2 ea 05/16/24 10/08/24 Rx Gomez 3 Sensor device) sertraline 50 mg tablet 50 mg PO DAILY #90 tabs 05/23/24 10/11/24 Rx labetalol 200 mg tablet 200 mg PO TID #60 tabs 10/08/24 10/11/24 Rx pantoprazole 40 mg tablet,delayed 40 mg PO BID 10/11/24 10/11/24 History release vit no.133-ferrous 1 tab PO DAILY 10/11/24 10/11/24 History fumarate 28 mg-folic acid 800 mcg tablet () Patient History Medical History Encounter for induction of labor Uterine contractions H/O cold sores No hx genital herpes History of migraine high school Surgical History Hx of colonoscopy History of cystoscopy x3 History of esophagogastroduodenoscopy (EGD) History of tooth extraction History of wisdom tooth extraction Status post LASIK surgery of both eyes History of extraction of renal calculus History of appendectomy Family History Grandmother (Maternal) Family history of diabetes mellitus Grandfather (Maternal) Family history of diabetes mellitus Family history of esophageal cancer Other No family history of adverse response to anesthesia Denies family history of Ovarian cancer Deep vein thrombosis Breast cancer Colorectal cancer Uterine cancer Social History Smoking Status: Never smoker Second Hand Exposure: No; Do You Dip or Chew Tobacco: No; Hx Alcohol Use: No Hx Substance Use: No Preferred Language: Kyrgyz Communication Ability: Effective Visual Impairment: No Limitations Hearing Ability: Normal Beauty Artist Required: No Beliefs That Will Affect Care: None marital status: marital status details: Cj Bruce (29) [phone] Current Living Situation: Family Current Living Situation Comment: lives with spouse and 2 children, 2 dogs. 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 Psychiatric: A+Ox3, euthymic affect Results & Data Vital Signs (Past 12 Hours) Vital Signs Temp Pulse Pulse Resp BP BP Pulse Ox 10/11/24 13:14 60 168/98 H 10/11/24 13:06 165/99 H 10/11/24 12:55 63 233/107 H 10/11/24 12:49 61 10/11/24 12:46 60 20 96 10/11/24 12:42 65 20 233/107 H 98 10/11/24 12:35 97.7 F 69 18 202/124 H 97 O2 Del Method 10/11/24 13:14 10/11/24 13:06 10/11/24 12:55 10/11/24 12:49 10/11/24 12:46 Room Air 10/11/24 12:42 Room Air 10/11/24 12:35 Room Air Code Status & VTE Plan VTE Prophylaxis Plan VTE Prophylaxis will be ordered: No Coding Level of Care Code 51359 INT INP/OBS CARE 40MIN Diagnoses Pre-eclampsia, O14.95
[2024-10-11] MEDS ORDERED: NIFEdipine 10 MG CAP PO STA (14:56)
[2024-10-11] MEDS: MAGNESIUM SULFATE / WTR 40 GM/1,000 ML BAG IV SCH (14:56)
[2024-10-11] MEDS: MAG SULFATE 4GM BOLUS FROM BAG IV ONE (14:57)
[2024-10-11 15:13] LABS: Hematocrit (blood only) 40.3 % (37.0-47.0); Hemoglobin 13.7 g/dl (12.0-16.0); Mean Corpuscular Hemoglobin 28.8 pg (25.0-34.0); Mean Corpuscular Volume 84.8 fL (80.0-100.0); Mean Platelet Volume 8.9 fL (9.4-12.4); Platelet Count 353 K/uL (130-400); Red Blood Count 4.75 M/uL (4.20-5.40); White Blood Count 8.23 K/ul (4.8-10.8)
--- NOTE | 2024-10-11 17:34 | Emergency Department Note ---
Impression & Plan Pre-eclampsia, ED Provider Note CHIEF COMPLAINT: HTN HISTORY OF PRESENT ILLNESS: This 34 yo female patient with PMH of recent vaginal delivery, gestational diabetes and gestational hypertension and presents to the emergency department with complaints of elevated blood pressure. She states she woke up this morning and had a blood pressure of about 140. She took her labetalol and approximately 1 hour later developed a slightly disconnected feeling. She denied any dizziness or visual changes but states she does not quite feel right. There is no chest pain, shortness of breath, vomiting or abdominal pain. She is not having any unusual vaginal discharge but is still bleeding. REVIEW OF SYSTEMS: A review of systems was performed with positives and pertinent negatives listed in the history of present illness. 10 systems were reviewed and are otherwise negative. ALLERGIES: see below MEDICATIONS: see below PMH: see below SOCIAL HISTORY: see below DDx: Preeclampsia, HELLP syndrome, anxiety, renal failure PHYSICAL EXAM: Vital signs reviewed. Noted to be hypertensive. General: Well-appearing 34 yo female, in no significant distress. HEENT: No scleral icterus, PERRLA, neck supple. MMM. Cardiovascular: Regular rate and rhythm, no extra sounds. Pulmonary: Clear to auscultation bilaterally, normal work of breathing. Abdomen: Soft, obese, nontender, nondistended, positive bowel sounds. Musculoskeletal: Atraumatic, no peripheral edema. Neurologic: Patient awake alert and oriented x 3, speech is clear Skin: Warm, dry, no rash EMERGENCY DEPARTMENT COURSE/MDM: This patient was evaluated and appeared to be in no significant distress. IV access was obtained and laboratory work was drawn. Patient was placed on monitoring tech noted to be in a normal sinus rhythm. Patient was given 10 mg of IV labetalol for systolic pressure over 200. Laboratory work is reassuring, LFTs are normal, there is no protein in the urine. Dr. Hernandez of [facility] presented to the emergency department to evaluate the patient and has decided on admission. Patient expressed understanding of the plan and agreed. MONITORING: An order for cardiac monitoring was placed and the patient is noted to be in a normal sinus rhythm at 60 beats per minute. RADIOLOGY: chest x-ray to my interpretation reveals no evidence of acute process. EKG: To my interpretation reveals a normal sinus rhythm at 60 bpm, normal ST segments. QTc of 386. No PVC, no PAC. DISPOSITION: Admission Past Med/Surg History Problem List (Updated 10/15/24 @ 07:25 by Mitali Carranza MD) Pre-eclampsia, (Acute) care following vaginal delivery Fatty infiltration of liver Vitamin D deficiency Nephrolithiasis Depression (Chronic) HX Eosinophilic esophagitis (Chronic) GERD (gastroesophageal reflux disease) (Chronic) Medical History Encounter for induction of labor Uterine contractions H/O cold sores No hx genital herpes History of migraine high school Surgical History Hx of colonoscopy History of cystoscopy x3 History of esophagogastroduodenoscopy (EGD) History of tooth extraction History of wisdom tooth extraction Status post LASIK surgery of both eyes History of extraction of renal calculus History of appendectomy Family History Grandmother (Maternal) Family history of diabetes mellitus Grandfather (Maternal) Family history of diabetes mellitus Family history of esophageal cancer Other No family history of adverse response to anesthesia Denies family history of Ovarian cancer Deep vein thrombosis Breast cancer Colorectal cancer Uterine cancer Social History Smoking Status: Never smoker Second Hand Exposure: No; Do You Dip or Chew Tobacco: No; Hx Alcohol Use: No Hx Substance Use: No Preferred Language: Icelandic Communication Ability: Effective Visual Impairment: No Limitations Hearing Ability: Normal Burr Sander Required: No Beliefs That Will Affect Care: None marital status: marital status details: Cj Bruce (29) [phone] Current Living Situation: Family Current Living Situation Comment: lives with spouse and 2 children, 2 dogs. 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 How many Children do You have: 1 Feels Safe at Home: Yes Childhood Exposure to Second-Hand Smoke: No Diet: regular Diet Comment: regular Dental Care, Regularly: Yes Physical Activity Frequency: Daily Physical Activity Frequency Comment: Lives [place] farm Seatbelt Use: always Sunscreen Use: Yes Assistive Devices: None Allergies Allergies Allergy/AdvReac Type Severity Reaction Status Date / Time No Known Allergies Allergy Verified 10/11/24 15:11 Home Meds Home Medications Medication Instructions Recorded Confirmed pantoprazole 40 mg tablet,delayed 40 mg PO BID 10/11/24 10/11/24 release vit no.133-ferrous 1 tab PO DAILY 10/11/24 10/11/24 fumarate 28 mg-folic acid 800 mcg tablet () Previous Rx's Medication Instructions Recorded sertraline 50 mg tablet 50 mg PO DAILY #90 tabs 05/23/24 labetalol 200 mg tablet 200 mg PO TID #60 tabs 10/08/24 labetalol 200 mg tablet 200 mg PO TID 1 month #90 tabs 10/13/24 Results & Data (ED) Vital Signs Vital Signs - 24 hr 10/11/24 12:35 10/11/24 12:42 10/11/24 12:46 Temperature 36.5 C Temperature Source Temporal Artery Scan Pulse Rate 69 60 Pulse Rate [Apical] 65 Respiratory Rate 18 20 20 Respiratory Effort / Characteristics Non-Labored Spontaneous Respiratory Depth Normal Blood Pressure 202/124 H Blood Pressure [Right Arm] 233/107 H Blood Pressure Mean 150 Blood Pressure Mean [Right Arm] 149 Blood Pressure Position Sitting Blood Pressure Position [Right Arm] Semi-fowlers Pulse Oximetry 97 98 96 Oxygen Delivery Method Room Air Room Air Room Air Sepsis Recent Fever Within 48 Hours No Sepsis New/Unexplained Change in Mental Status No Sepsis Action Taken by Nursing No Action Required 10/11/24 12:49 10/11/24 12:55 10/11/24 13:06 Temperature Temperature Source Pulse Rate 61 63 Pulse Rate [Apical] Respiratory Rate Respiratory Effort / Characteristics Respiratory Depth Blood Pressure 233/107 H Blood Pressure [Right Arm] 165/99 H Blood Pressure Mean Blood Pressure Mean [Right Arm] 121 Blood Pressure Position Blood Pressure Position [Right Arm] Semi-fowlers Pulse Oximetry Oxygen Delivery Method Sepsis Recent Fever Within 48 Hours Sepsis New/Unexplained Change in Mental Status Sepsis Action Taken by Nursing 10/11/24 13:14 Temperature Temperature Source Pulse Rate 60 Pulse Rate [Apical] Respiratory Rate Respiratory Effort / Characteristics Respiratory Depth Blood Pressure 168/98 H Blood Pressure [Right Arm] Blood Pressure Mean Blood Pressure Mean [Right Arm] Blood Pressure Position Blood Pressure Position [Right Arm] Pulse Oximetry Oxygen Delivery Method Sepsis Recent Fever Within 48 Hours Sepsis New/Unexplained Change in Mental Status Sepsis Action Taken by Skilled Nursing Medications Current Medication List: was personally reviewed by me Laboratory Data Attestation: I reviewed the patient's lab results. 10/11/24 14:49 11/28/24 12:45 Lab Results 10/11/24 10/11/24 Range/Units 12:45 12:55 WBC 7.54 (4.8-10.8) K/ul RBC 4.80 (4.20-5.40) M/uL Hgb 13.9 (12.0-16.0) g/dl Hct 40.5 (37.0-47.0) % MCV 84.4 (80.0-100.0) fL MCH 29.0 (25.0-34.0) pg MCHC 34.3 (32.0-36.0) g/dL RDW Std Deviation 39.7 (36.4-46.3) fL RDW Coeff of Carmen 13.0 (11.5-14.5) % Plt Count 387 (130-400) K/uL MPV 9.1 L (9.4-12.4) fL Immature Gran % (Auto) 0.3 % Neut % (Auto) 50.5 % Lymph % (Auto) 36.7 % [place] % (Auto) 8.2 % Eos % (Auto) 3.6 % Baso % (Auto) 0.7 % Neut # (Auto) 3.81 (1.40-6.50) K/uL Lymph # (Auto) 2.77 (1.20-3.40) K/uL [place] # (Auto) 0.62 H (0.11-0.59) K/uL Eos # (Auto) 0.27 (0.00-0.50) K/uL Baso # (Auto) 0.05 (0.00-0.20) K/uL Immature Gran # (Auto) 0.02 (0.01-0.20) K/uL Sodium 137 (136-145) mmol/L Potassium 4.2 (3.5-5.1) mmol/L Chloride 106 (98-107) mmol/L Carbon Dioxide 23 (21-32) mmol/L Anion Gap 8 (3-11) BUN 13 (6-23) mg/dl Creatinine 0.68 (0.6-1.2) mg/dl Est Cr Clr Drug Dosing 125.4 ml/min eGFR 118.60 BUN/Creatinine Ratio 19.1 (10-20) Glucose 87 (70-99(Fasting)) mg/dl Calcium 9.6 (8.6-10.3) mg/dl Magnesium 1.9 (1.7-2.4) mg/dl Total Bilirubin 0.6 (0.2-1.0) mg/dl AST 25 (13-39) U/L ALT 32 (7-52) U/L Alkaline Phosphatase 117 H (34-104) U/L Total Protein 7.2 (6.0-8.3) gm/dl Albumin 3.7 (3.4-5.0) gm/dl Globulin 3.5 (2.5-4.0) gm/dl Albumin/Globulin Ratio 1.1 (0.9-2) TSH 1.216 (0.300-4.500) uIu/ml Urine Color Yellow Urine Appearance Clear (Clear) Urine pH 7.0 (4.5-7.5) Ur Specific [place] 1.003 (1.000-1.030) Urine Protein Negative (Negative) Urine Glucose (UA) Negative (Negative) Urine Ketones Negative (Negative) Urine Blood 2+ H (Negative) Urine Nitrite Negative (Negative) Urine Bilirubin Negative (Negative) Urine Urobilinogen Negative (Negative) Ur Leukocyte Esterase Trace H (Negative) Urine WBC (Auto) 0-5 (0-5) /hpf Urine RBC (Auto) 0-2 (0-2) /hpf U Hyaline Cast (Auto) 0-2 (0-2) /lpf U Epithel Cells (Auto) 0-2 (0-2) /hpf Urine Bacteria (Auto) None Seen (None Seen) Administered Medications Discontinued Medications Acetaminophen (Acetaminophen 325 Mg Tab) 650 mg PO Q4H PRN PRN Reason: Headache or Pain Stop: 11/10/24 21:07 Last Admin: 10/12/24 07:12 Dose: 650 mg Documented By: Admin: 10/11/24 21:37 Dose: 650 mg Documented By: SEVERIANO Magnesium Sulfate (Magnesium Sulfate / Wtr) 40 gm in 1,000 mls @ 50 mls/hr IV .Q20H RAMIRO Stop: 11/11/24 14:29 Last Infusion: 10/12/24 14:30 Dose: Infused Documented By: TIFFANI Co-signed By: YONG Admin: 10/12/24 08:53 Dose: 50 mls/hr Documented By: TIFFANI Co-signed By: SALUD Infusion: 10/12/24 08:53 Dose: Infused Documented By: TIFFANI Co-signed By: LAS Infusion: 10/12/24 06:58 Dose: 50 mls/hr Documented By: TIFFANI Co-signed By: SEVERIANO Infusion: 10/11/24 18:59 Dose: 50 mls/hr Documented By: TIFFANI Co-signed By: SEVERIANO Infusion: 10/11/24 17:27 Dose: 50 mls/hr Documented By: TIFFANI Co-signed By: OSMAR Admin: 10/11/24 14:56 Dose: 50 mls/hr Documented By: SAMAN Co-signed By: BLAYNE Ibuprofen (Ibuprofen 600 Mg Tab) 600 mg PO Q6H PRN PRN Reason: Headache or Pain Stop: 11/11/24 07:59 Last Admin: 10/12/24 15:06 Dose: 600 mg Documented By: Admin: 10/12/24 08:14 Dose: 600 mg Documented By: TIFFANI Labetalol HCl (Labetalol Hcl Iv 5 Mg/Ml 20ml) 10 mg IV NOW STA Stop: 10/11/24 12:46 Last Admin: 10/11/24 12:55 Dose: 10 mg Documented By: SAMAN Labetalol HCl (Labetalol Hcl 200 Mg Tab) 200 mg PO TID RAMIRO Stop: 11/10/24 20:59 Last Admin: 10/13/24 08:49 Dose: 200 mg Documented By: Admin: 10/12/24 20:36 Dose: 200 mg Documented By: Admin: 10/12/24 14:05 Dose: 200 mg Documented By: Admin: 10/12/24 09:03 Dose: 200 mg Documented By: Admin: 10/11/24 21:03 Dose: 200 mg Documented By: SEVERIANO Magnesium Sulfate (Mag Sulfate 4gm Bolus From Bag) 4 gm IV ONE ONE Stop: 10/11/24 14:24 Last Admin: 10/11/24 14:57 Dose: 4 gm Documented By: SAMAN Co-signed By: BLAYNE Pantoprazole Sodium (Pantoprazole 40 Mg Tab) 40 mg PO BID RAMIRO Stop: 11/10/24 20:59 Last Admin: 10/13/24 08:49 Dose: 40 mg Documented By: Admin: 10/12/24 20:36 Dose: 40 mg Documented By: Admin: 10/12/24 08:58 Dose: 40 mg Documented By: Admin: 10/11/24 21:03 Dose: 40 mg Documented By: SEVERIANO Prenat Multivit/Parking Meter Attendant/Iron/Folic Ac ( Vitamin 1 Tab) 1 tab PO DAILY ON LICENSE OF [facility] Stop: 11/11/24 08:59 Last Admin: 10/13/24 08:49 Dose: 1 tab Documented By: Admin: 10/12/24 09:05 Dose: 1 tab Documented By: TIFFANI Sertraline HCl (Sertraline Hcl 50 Mg Tablet) 50 mg PO DAILY ON LICENSE OF [facility] Stop: 11/11/24 08:59 Last Admin: 10/13/24 08:49 Dose: 50 mg Documented By: Admin: 10/12/24 08:58 Dose: 50 mg Documented By: TIFFANI Sertraline HCl (Sertraline Hcl 50 Mg Tablet) 50 mg PO ONE ONE Stop: 10/11/24 18:31 Last Admin: 10/11/24 19:30 Dose: 50 mg Documented By: SEVERIANO Imaging Data Radiologist's Impression: Chest X-Ray 10/11/24 12:44 EXAM: Radiograph of the Chest 1 View INDICATION: Hypertension. TECHNIQUE: Frontal view of the chest. COMPARISON: 04/08/2023 FINDINGS: Lungs and pleural spaces: No consolidation or pulmonary edema. No pleural effusion or pneumothorax. Heart: Stable prominent cardiac shadow accentuated by technique. Mediastinum: Normal contour. Bones/joints: No fracture, erosion or dislocation. Soft tissues: No abnormality noted. No radiopaque foreign body noted. Upper abdomen: No abnormality noted. IMPRESSION: No acute cardiopulmonary disease. ACT 112: Negative or not required by law. Electronically signed by Uzma Cochran 10-11-2024 13:32 PM Discharge Plan Visit Data Chief Complaint: Hypertension Stated Complaint: HIGH BP, REF BY OB, POST- ED Provider: Mitali Carranza Discharge Problem: Pre-eclampsia, Patient Disposition: Admitted As Inpatient Discharge Instructions Interventions: ED Discharge Assessment Last Done: 10/11/24 16:48
[2024-10-11] MEDS ORDERED: Nursing to Pharmacy Communication SCH (18:15)
[2024-10-11] MEDS: SERTRALINE HCL 50 MG TABLET PO ONE (19:30)
[2024-10-11] MEDS: PANTOprazole 40 MG TAB PO SCH (21:03)
[2024-10-11] MEDS: LABETALOL HCL 200 MG TAB PO SCH (21:03)
[2024-10-11] MEDS: ACETAMINOPHEN 325 MG TAB PO PRN (21:37)
--- NOTE | 2024-10-12 07:57 | Obstetrical Progress Note ---
Date of Service October 12, 2024 Assessment & Plan (1) Pre-eclampsia, : Plan: BP's normalized on MgSO4- will continue current labetalol regimen MgSO4 will be D/C'd at 2:30 PM today then observe for several hours prior to discharge will have BP check on Tuesday Admission and Anticipated Discharge Date Admission Date: October 11, 2024 Subjective still has a frontal headache but no visual changes- has taken tylenol but hasn't helped. BP has normalized on MgSO4 Review of Systems Review of Systems: All systems reviewed & are unremarkable except as noted in HPI & below Physical Exam Constitutional: WD/WN, vitals as above Neurologic: DTR's normal Psychiatric: A+Ox3, euthymic affect Results & Data Vital Signs (Past 12 Hours) Vital Signs Temp Pulse Resp BP Pulse Ox 10/12/24 07:48 56 L 96 10/12/24 07:43 64 100 10/12/24 07:38 52 L 96 10/12/24 07:33 52 L 96 10/12/24 07:28 53 L 97 10/12/24 07:23 57 L 99 10/12/24 07:18 54 L 97 10/12/24 07:13 63 99 10/12/24 07:08 58 L 100 10/12/24 07:05 97.9 F 20 10/12/24 07:05 20 10/12/24 07:03 52 L 95 10/12/24 06:58 54 L 96 10/12/24 06:54 55 L 108/55 L 10/12/24 06:53 54 L 97 10/12/24 06:48 57 L 94 10/12/24 06:43 54 L 94 10/12/24 06:38 53 L 95 10/12/24 06:33 51 L 95 10/12/24 06:28 54 L 95 10/12/24 06:23 52 L 94 10/12/24 06:18 50 L 95 10/12/24 06:13 52 L 95 10/12/24 06:09 18 10/12/24 06:08 52 L 95 10/12/24 06:03 51 L 95 10/12/24 05:58 51 L 95 10/12/24 05:54 50 L 93/49 L 10/12/24 05:53 52 L 95 10/12/24 05:48 51 L 96 10/12/24 05:43 51 L 96 10/12/24 05:33 76 98 10/12/24 05:28 58 L 98 10/12/24 05:23 57 L 98 10/12/24 05:18 55 L 97 10/12/24 05:13 70 97 10/12/24 05:08 58 L 96 10/12/24 05:03 66 98 10/12/24 05:00 18 10/12/24 04:58 57 L 99 10/12/24 04:54 56 L 128/75 10/12/24 04:53 57 L 99 10/12/24 04:48 59 L 97 10/12/24 04:43 58 L 94 10/12/24 04:38 61 95 10/12/24 04:33 65 96 10/12/24 04:28 60 94 10/12/24 04:23 60 94 10/12/24 04:18 59 L 93 10/12/24 04:13 64 94 10/12/24 04:08 62 94 10/12/24 04:03 60 94 10/12/24 04:00 16 10/12/24 03:58 58 L 94 10/12/24 03:54 61 111/71 10/12/24 03:53 61 96 10/12/24 03:48 64 95 10/12/24 03:43 61 95 10/12/24 03:38 61 93 10/12/24 03:33 61 96 10/12/24 03:28 59 L 96 10/12/24 03:23 67 96 10/12/24 03:18 69 97 10/12/24 03:13 63 96 10/12/24 03:08 57 L 96 10/12/24 03:03 56 L 96 10/12/24 03:02 18 10/12/24 03:00 97.9 F 10/12/24 02:58 53 L 96 10/12/24 02:54 53 L 113/71 10/12/24 02:53 53 L 97 10/12/24 02:48 55 L 96 10/12/24 02:43 53 L 96 10/12/24 02:38 55 L 96 10/12/24 02:33 53 L 96 10/12/24 02:28 53 L 96 10/12/24 02:23 54 L 96 10/12/24 02:18 53 L 96 10/12/24 02:13 53 L 95 10/12/24 02:08 56 L 96 10/12/24 02:03 59 L 95 10/12/24 02:00 18 10/12/24 01:58 61 99 10/12/24 01:54 60 110/66 10/12/24 01:53 61 94 10/12/24 01:48 59 L 93 10/12/24 01:43 60 94 10/12/24 01:38 58 L 92 10/12/24 01:33 57 L 93 10/12/24 01:28 58 L 95 10/12/24 01:23 58 L 93 10/12/24 01:18 57 L 94 10/12/24 01:13 57 L 94 10/12/24 01:08 59 L 92 10/12/24 01:03 57 L 95 10/12/24 01:00 16 10/12/24 00:58 57 L 94 10/12/24 00:54 57 L 111/64 10/12/24 00:53 58 L 96 10/12/24 00:48 56 L 94 10/12/24 00:43 56 L 94 10/12/24 00:38 55 L 94 10/12/24 00:33 56 L 96 10/12/24 00:28 53 L 95 10/12/24 00:23 54 L 95 10/12/24 00:18 55 L 95 10/12/24 00:13 54 L 95 10/12/24 00:08 54 L 95 10/12/24 00:03 54 L 94 10/12/24 00:00 18 10/11/24 23:58 54 L 95 10/11/24 23:54 53 L 116/59 L 10/11/24 23:53 54 L 94 10/11/24 23:48 53 L 95 10/11/24 23:43 54 L 95 10/11/24 23:38 61 96 10/11/24 23:33 58 L 95 10/11/24 23:28 58 L 95 10/11/24 23:23 65 95 10/11/24 23:18 58 L 96 10/11/24 23:13 65 97 10/11/24 23:08 63 97 10/11/24 23:03 59 L 95 10/11/24 23:00 16 10/11/24 23:00 97.9 F 10/11/24 22:58 62 98 10/11/24 22:54 59 L 119/64 10/11/24 22:53 60 98 10/11/24 22:48 60 97 10/11/24 22:43 59 L 95 10/11/24 22:38 67 98 10/11/24 22:33 61 99 10/11/24 22:28 60 97 10/11/24 22:23 58 L 96 10/11/24 22:18 58 L 96 10/11/24 22:13 57 L 96 10/11/24 22:08 58 L 96 10/11/24 22:03 66 99 10/11/24 22:00 18 10/11/24 21:58 61 97 10/11/24 21:54 58 L 112/55 L 10/11/24 21:53 59 L 97 10/11/24 21:48 77 97 10/11/24 21:43 61 99 10/11/24 21:39 61 94 10/11/24 21:38 65 96 10/11/24 21:33 59 L 92 10/11/24 21:29 61 94 10/11/24 21:28 61 94 10/11/24 21:23 97 10/11/24 21:23 64 10/11/24 21:23 67 94 10/11/24 21:18 69 96 10/11/24 21:13 64 93 10/11/24 21:08 64 94 10/11/24 21:05 65 93 10/11/24 21:03 71 99 10/11/24 21:00 16 10/11/24 20:58 66 93 10/11/24 20:56 68 93 10/11/24 20:54 65 114/64 10/11/24 20:53 66 97 10/11/24 20:49 67 94 10/11/24 20:48 66 96 10/11/24 20:43 69 97 10/11/24 20:38 69 96 10/11/24 20:33 66 95 10/11/24 20:31 71 94 10/11/24 20:28 69 95 10/11/24 20:23 70 95 10/11/24 20:18 67 97 10/11/24 20:13 75 98 10/11/24 20:08 73 98 10/11/24 20:03 75 99 10/11/24 20:00 18 10/11/24 19:58 76 99 PG Care Time/CCT Total # of Minutes Spent Total Time Spent with Patient: Total time spent is greater than 50% in coordination of care (as documented) at patient's floor/unit and/or counseling patient: Coding Level of Care Code 13065 SUB INP/OBS CARE 1/25MIN Diagnoses Pre-eclampsia, O14.95
[2024-10-12] MEDS: IBUPROFEN 600 MG TAB PO PRN (08:14)
[2024-10-12] MEDS: SERTRALINE HCL 50 MG TABLET PO SCH (08:58)
[2024-10-12] MEDS: PRENATAL VITAMIN 1 TAB PO SCH (09:05)
[2024-10-12 16:51] VITALS: RESP 18
--- NOTE | 2024-10-13 06:43 | Obstetrical Progress Note ---
Date of Service October 13, 2024 Assessment & Plan (1) Pre-eclampsia, : Plan: BP's normalized on MgSO4- Continue labetalol 200mg TID regimen Discharge today Will have BP check on 10/15/24 Admission and Anticipated Discharge Date Admission Date: October 11, 2024 Supervising Physician Co-Signing Physician Notes Resident Physician Supervision Note: I interviewed and examined the patient. Discussed with Dr. Manriquez and agree with findings and plan as documented in the note. Any exceptions or clarifications are listed here: [None] Documented By: Miguel Tejada MD, FACOG Subjective Pt is a 34 yo female at PPD 10 with GHTN taking labetalol 200mg TID who presented with significantly elevated BPs and headache on 10/11/24. Pt was placed on Magnesium sulfate IV until 1430 on 10/12/24. This morning, pt reports 1/10 headache yesterday evening, but 0/10 this morning. Pt denies CP, SOB, nausea, vomiting, abdominal pain, edema, changes in vision or sensation, or confusion. Review of Systems Review of Systems: As per HPI Physical Exam Constitutional: WD/WN, vitals as above Respiratory: normal respiratory effort, lungs clear to auscultation Cardiovascular: RRR, no murmur, no edema Extremities: no edema Gastrointestinal (Abdomen): normal bowel sounds, soft, nontender, no hepatosplenomegaly Musculoskeletal: no cyanosis or clubbing, extremities motor strength 5/5 Neurologic: PERRL, EOMI, accommodation nl, no face palsy, no dysarthria CN's II-XI intact bilaterally Psychiatric: A+Ox3, euthymic affect Results & Data Vital Signs (Past 12 Hours) Vital Signs Temp Pulse Resp BP Pulse Ox O2 Del Method 10/13/24 04:00 55 L 136/67 10/12/24 23:40 57 L 131/65 10/12/24 20:25 36.9 C 61 18 124/68 95 Room Air Resident Activity Tracking Resident Involvement: Resident Care Provided Care Provided: Adult Hospital Medicine
--- NOTE | 2024-10-13 07:21 | Electrocardiogram Report ---
Test Reason : Blood Pressure : */* mmHG Vent. Rate : 60 BPM Atrial Rate : 60 BPM P-R Int : 166 ms QRS Dur : 78 ms QT Int : 386 ms P-R-T Axes : 17 -15 2 degrees QTcB Int : 386 ms Normal sinus rhythm Normal ECG When compared with ECG of 08-Apr-2023 12:11, No significant change was found Confirmed by Victor M Mota ([id number]) on 10/13/2024 7:20:58 AM Referred By: REFERRED SELF Confirmed By: Victor M Mota
[2024-10-13 09:21] VITALS: PULSE 61; TEMP 98.2; O2SAT 96
[2024-10-13 09:25] VITALS: BP 109/79
== END 2024-10-13 11:15 | disposition home or self-care (01) | DRG 776 ==
LOC: ED 12:32 → 4S1 14:25 → 4E1 10-12 16:42